=== PATIENT | male | born 1950 | race Caucasian/White ===

== ENCOUNTER 2024-04-24 16:36 | Inpatient (IN) | payer MEDICARE, OTHER, SELFPAY ==
[2024-04-24] VITALS (9 sets, daily range): BP systolic 96–169; BP diastolic 53–144; BMI 27.7; BMI 26.4
--- NOTE | 2024-04-24 14:09 | ED.GENMED ---
History of Present Illness
General
Chief Complaint: Breathing Problem
Time Seen by Provider: 04/24/24 14:08
History of Present Illness
History of Present Illness:
HPI: The patient presents with shortness of breath. He was diagnosed with pneumonia about 5 days ago and has been on Augmentin and azithromycin without improvement. He called his PMD who encouraged him to come in here and he came in by ambulance
for further evaluation. He also reports a rash to the extremities. He states he has not really been tolerating the Augmentin and azithromycin.
EXAM:
GENERAL: Well appearing in no significant distress
HEENT: Moist oral mucosa
CARDIOVASCULAR: No murmurs, tachycardic heart rate, regular rhythm, No chest wall tenderness
PULMONARY: No respiratory distress, slightly decreased breath sounds at the right base with faint rales
ABDOMEN: Soft with no peritoneal signs, no tenderness
NEUROLOGIC: Excellent strength all extremities, no coordination deficits
PSYCHIATRIC: Appropriate mental status, normal insight and judgement
EXTREMITIES: Nontender, no edema, moves all extremities equally
SKIN: No rash, no lesions
TIME OF INITIAL ENCOUNTER: 2:20 PM
NUMBER AND COMPLEXITY OF PROBLEMS ADDRESSED AT THE ENCOUNTER
� Chronic conditions affecting care: Asthma, high blood pressure, hyperlipidemia
� Acute Exacerbation and/or Progression of Chronic Illness: This is an acute problem
� Differential Diagnosis includes: Pneumonia failing outpatient management, pneumothorax, reactive airway disease less likely as there is no wheezing on exam, dehydration, KALEIGH
AMOUNT AND/OR COMPLEXITY OF DATA TO BE REVIEWED AND ANALYZED
� I performed an independent evaluation of and my interpretation is:
EKG: Sinus 118, left axis deviation, no acute ST abnormality
CT:
X-rays: Chest x-ray today overall shows improvement compared to study from earlier this month.
Laboratory Studies: White count is 19.6, creatinine 1.7
Other:
� Review of other/old records: Chest x-ray from 04/19/2024 showed mild right middle lobe pneumonia
� Clinical information was obtained by an independent historian:
� Prescriptions/Medications Considered but not given:
� Further testing considered but not performed:
RISK OF COMPLICATIONS AND/OR MORBIDITY OR MORTALITY OF PATIENT MANAGEMENT
� Social determinants of health affecting care: Lives at home
� Discussion with other providers: Hospitalist, Dr. Bartholomew, for admission at 3:52 PM
� Escalation of care including admission/observation vs risk of discharge considered: The patient came in by ambulance. He arrived tachycardic with low bicarb and elevated creatinine. He was given IV fluids. His heart rate was
initially in the 120s and now is down to 108 on reassessment. He does have a history of I am also trying a dose of a DuoNeb. Leukocytosis noted�he has not been on steroids for the last few weeks. Although the chest x-ray is reported some
improvement, he has associated cough and still has some decreased breath sounds at the right base. He has been doing poorly as an outpatient�will plan admission to the hospital and continue IV fluids and try IV antibiotics.
Past History
Past History
ED Past Medical History: Asthma, HTN, Hypercholesterolemia and Other (Cataracts, impaired vision)
ED Past Surgical History: Orthopedic (Left knee surgery)
Social History
Tobacco: Non-smoker
Alcohol: Daily
Drug: None
Personal:
Living: with family
Phy Exam
Physical Exam
Physical Exam:
See HPI
Scores
Heart Failure Risk
Heart Failure Risk Score: Not Applicable
Course
Orders/Labs/Results
Orders:
Orders
04/24/24 14:08
CXR2 [CR Chest - 2 Views ] Urgent
Comment:
Reason For Exam: shortness of breath
04/24/24 14:15
Complete Blood Count/With Diff Urgent
Comprehensive Metabolic Panel Urgent
NT-proBNP Urgent
04/24/24 14:19
EKG [Electrocardiogram (*1)] Urgent
Reason for Study: Chest Pain
EKG- Treatment ONCE
0.9% Sodium Chloride 1000 ml [Nss] 1,000 ml IV BOLUS
04/24/24 15:29
0.9% Sodium Chloride 1000 ml [Nss] 1,000 ml IV BOLUS
04/24/24 15:30
Ipratropium/Albuterol Sulfate [Duoneb] 3 ml INH R NOW ONE
04/24/24 15:47
Azithromycin 500 mg/250 ml [Zithromax Infusion] 500 mg in 250 ml IV NOW
CefTRIAXone [Rocephin] 1,000 mg IV NOW STA
Abnormal Lab Results
04/24/24
14:15
WBC 19.6 H 10^3/uL
(4.8-10.8)
RBC 4.04 L 10^6/uL
(4.70-6.10)
Hct 37.8 L %
(39.0-52.0)
MCH 33.2 H pg
(27.0-31.0)
MPV 10.9 H fL
(7.4-10.4)
Abs Immat Gran (auto) 1.3 H 10^3/uL
(0-0.05)
Absolute Neuts (auto) 16.5 H 10^3/uL
(1.4-6.5)
Absolute Lymphs (auto) 0.8 L 10^3/uL
(1.2-3.4)
Absolute Monos (auto) 0.8 H 10^3/uL
(0.1-0.6)
Immature Gran % 6.6 H %
(0-0.5)
Neutrophils % 84.4 H %
(42.2-75.2)
Lymphocytes % 4.0 L %
(20.5-51.1)
Sodium 131 L mmol/L
(135-145)
Carbon Dioxide 18 L mmol/L
(22-30)
BUN 31 H mg/dl
(9-20)
Creatinine 1.7 H mg/dL
(0.7-1.3)
Glucose 119 H mg/dl
(70-99)
04/24/24 14:15
04/24/24 14:15
Vital Signs
Pulse: 108
Initial and Last Documented VS:
Initial Vital Signs
Pulse Resp
122 20
04/24/24 14:07 04/24/24 14:07
Last Documented Vital Signs
Temp Pulse Resp BP Pulse Ox
98.5 F 108 20 169/144 96
04/24/24 14:20 04/24/24 15:58 04/24/24 14:20 04/24/24 14:20 04/24/24 14:20
*Critical Care Note
Total Time (30-74mins, 75-104mins- exclusive of procedures): Not Applicable
ED Attending Note
-
Portions of this chart may have been created with voice recognition software.� Occasional wrong word or��sound alike� substitutions may have occurred due to the inherent limitations of voice recognition software.
Discharge Plan
Departure
Patient Disposition: Admit
Date of Disposition: 04/24/24
Time of Disposition: 15:52
Presentation/result/management discussed w/ accepting MD/DO: Hospitalist
Patient with high blood pressure during this ER visit?: Yes
Discharge Problem:
Pneumonia, KALEIGH (acute kidney injury)
Prescriptions:
No Action
diphenhydramine HCl [Banophen] 50 MG capsule
50 mg PO HS
amlodipine [Norvasc] 5 MG tablet
2.5 mg PO HS
triamcinolone acetonide [Nasacort] 10.8 ML aerosol,spray
1 spray inhalation BID
montelukast 10 MG tablet
10 mg PO QPM
albuterol sulfate [Proventil HFA] 90 MCG/PUFF HFA aerosol inhaler
1 - 2 puff inhalation PRN PRN (Reason: sob)
Xolair 125 MG/ML recon soln
300 mg SC .2 WEEKS
rosuvastatin 20 MG tablet
20 mg PO QPM
budesonide-formoterol [Symbicort] 1 PUFF HFA aerosol inhaler
2 puff inhalation R BID
cholecalciferol (vitamin D3) 2,000 UNITS tablet
2,000 units PO DAILY
Metamucil Fiber Singles 1 PACKET powder in packet
1 packet PO BID
melatonin 12 MG tablet
10 mg PO HS
Restasis 0.05% Ophthalmic Emulsion:
1 drp BOTH EYES BID
Allergy Shots
1 dose INJ .[id number]
lisinopril 20 mg Tablet
20 mg PO BID
hydrocortisone 2.5 % Cream
1 applic TOPICAL BID
guaifenesin 400 mg Tablet
400 mg PO Q4H PRN (Reason: cough)
Nucala 100 mg/mL Syringe
300 mg SC Q4W
Breztri Aerosphere 160-9-4.8 mcg/actuation Hfa Aerosol Inhaler
2 inh INHALATION BID
Referrals:
Duglas Lorenzana DO [Family Provider] -
Interventions
Interventions:
*Risk Screen - Suicide Last Done: 04/24/24 14:20
*General Assessment Last Done: 04/24/24 14:20
*Neglect/Abuse Screening Last Done: 04/24/24 14:20
ED- Fall Risk Assessment Last Done: 04/24/24 14:20
*ED COVID-19 Vaccine History Last Done: 04/24/24 14:20
ED- Cardiac Assessment Last Done: 04/24/24 14:20
ED- Pulmonary Assessment Last Done: 04/24/24 14:20
Discharge Date and Time
Print Language: JAPANESE
[2024-04-24 14:26] LABS: % Basophils 0.9 % (0-2); % Immature Granulocytes 6.6 % (0-0.5); % Monocytes 4.1 % (1.7-9.3); % Neutrophils 84.4 % (42.2-75.2); Absolute Basophils 0.2 10^3/uL (0-0.2); Absolute Immature Granulocytes 1.3 10^3/uL (0-0.05); Absolute Lymphocytes 0.8 10^3/uL (1.2-3.4); Absolute Monocytes 0.8 10^3/uL (0.1-0.6); Absolute Neutrophils 16.5 10^3/uL (1.4-6.5); Hematocrit 37.8 % (39.0-52.0); Hemoglobin 13.4 g/dL (13.0-18.0); Mean Corp Hgb Conc. 35.4 g/dL (33.0-37.0); Mean Corpuscular Hgb 33.2 pg (27.0-31.0); Mean Corpuscular Volume 93.6 fL (80.0-94.0); Mean Platelet Volume 10.9 fL (7.4-10.4); Nucleated Red Blood Cells % 0 % (-); Platelet Count 158 10^3/uL (130-400); Red Blood Cell Count 4.04 10^6/uL (4.70-6.10); Red Cell Dist. Width 12.3 % (11.5-14.5); White Blood Cell Count 19.6 10^3/uL (4.8-10.8)
[2024-04-24] MEDS: NSS 1000 IV ×3 (14:37→18:38)
[2024-04-24 14:44] LABS: ALT (SGPT) 23 U/L (0-50); AST (SGOT) 21 U/L (17-59); Albumin 3.5 g/dl (3.5-5.0); Alkaline Phosphatase 80 U/L (38-126); Blood Urea Nitrogen 31 mg/dl (9-20); Calcium 8.5 mg/dl (8.4-10.2); Carbon Dioxide 18 mmol/L (22-30); Chloride 99 mmol/L (98-107); Estimated Creatinine Clearance 35 ml/min; Glucose 119 mg/dl (70-99); Potassium 4.8 mmol/L (3.5-5.1); Sodium 131 mmol/L (135-145); Total Bilirubin 0.5 mg/dl (0.2-1.3); Total Protein 6.3 g/dl (6.3-8.2); eGFR 42.04
[2024-04-24] MEDS: DUONEB 3 ML INH (15:46)
--- NOTE | 2024-04-24 16:32 | HPS.HSE ---
Addendum entered and electronically signed by Flakita Aburto MD 04/24/24 17:49:
Developed flushing and shortness of breath after receiving Azithromycin so changed to doxycycline.
Original Note:
Family Physician
-
Family Physician: Duglas Lorenzana
Chief Complaint
-
weakness
History of Present Illness
73-year-old male past medical history of asthma, allergies, hypertension, hypercholesterolemia, cataracts, vision impairment, presenting with weakness. Patient has been having productive cough and shortness of breath with chest
congestion/discomfort for the past 3 weeks and he saw his sign language translator who thought that he might have an asthma exacerbation and started him on a course of prednisone. Symptoms improved while on prednisone but cough returned. He saw his primary care
physician who treated him with a course of Augmentin and azithromycin which he finished yesterday. He states that his cough is still present but has improved. He saw his primary care physician today who noted that the patient was very tired and
sick and recommended he come to the emergency room.
He has had nausea over the past few days and is eating very little secondary to the antibiotics. Denies vomiting. He did have some loose stools. He did have some abdominal cramping. He denies fevers or chills.
He developed a rash on his lower extremities which started around the same time his original pulmonary symptoms started prior to starting antibiotics. Rash is not itchy.
He also complains of areas of redness and swelling in his left upper extremity, including an area of redness which he noticed today. These areas are not painful. He denies any allergies to antibiotics.
He drinks alcohol occasionally. He denies smoking.
Medical History
Past Medical History
Past Medical History: Reports Other (asthma, allergies, hypertension, hypercholesterolemia, cataracts, vision impairment,)
Past Surgical History: Reports None
Social History
Tobacco: Non-smoker
Alcohol: Occasional
Drug: None
Family History
Family History: Not pertinent
Allergies / Home Medications
Allergies reflects when Allergies were last updated in [facility].
Home Medications with original date entered in [facility]
Allergy/Medication List:
Allergies
Allergy/AdvReac Type Severity Reaction Status Date / Time
hayfever Allergy asthma Uncoded 01/08/21 17:26
attack
Home Medications
Allergy Shots 1 dose INJ TH 07/03/20
albuterol sulfate 90 mcg/actuation aerosol inhaler (Proventil HFA) 2 puff inhalation R Q4HPRN PRN sob 07/03/20
cyclosporine 0.05 % eye drops in a dropperette (Restasis) 1 drp BOTH EYES BID 07/03/20
diphenhydramine HCl 50 mg capsule (Banophen) 50 mg PO HSPRN PRN sleep 07/03/20
psyllium husk (aspartame) 3.4 gram oral powder packet (Metamucil Fiber Singles) 1 packet PO BID 07/03/20
rosuvastatin 20 mg tablet 20 mg PO DAILY 07/03/20
triamcinolone acetonide 55 mcg nasal spray aerosol (Nasacort) 1 spray inhalation BIDPRN PRN congestion 07/03/20
amlodipine 2.5 mg tablet 2.5 mg PO HS 04/24/24
budesonide 160 mcg-glycopyr 9 mcg-formot 4.8 mcg/actuation HFA inhaler (Breztri Aerosphere) 2 inh inhalation R BID 04/24/24
cholecalciferol (vitamin D3) 50 mcg (2,000 unit) tablet 50 mcg PO DAILY 04/24/24
guaifenesin 400 mg tablet 400 mg PO Q4HPRN PRN cough 04/24/24
hydrocortisone 2.5 % topical cream 1 applic topical BID apply to hemorrhoids 04/24/24
lisinopril 20 mg tablet 20 mg PO BID 04/24/24
melatonin 10 mg tablet 10 mg PO HSPRN PRN sleep 04/24/24
mepolizumab 100 mg/mL subcutaneous syringe (Nucala) 300 mg SC Q4W 04/24/24
Review of Systems
-
History Source: Patient
A 12 point ROS was completed and negative except as noted: Yes
Constitutional: Reports No Symptoms
EENT: Reports No Symptoms
Respiratory: Reports See HPI
Cardiac: Reports No Symptoms
Abdomen/GI: Reports See HPI
: Reports No Symptoms
Musculoskeletal: Reports No Symptoms
Skin: Reports No Symptoms
Neurological: Reports No Symptoms
Endocrine: Reports No Symptoms
Hematologic/Lymphatic: Reports No Symptoms
Psych: Reports No Symptoms
Physical Exam
Vital Signs
Vital Signs
Temp Pulse Resp BP Pulse Ox
98.5 F 108 20 169/144 96
04/24/24 14:20 04/24/24 15:58 04/24/24 14:20 04/24/24 14:20 04/24/24 14:20
Physical Exam
General: Well Developed, Well Nourished and No Apparent Distress
HEENT: NormoCephalic, Moist mucous membranes and Atraumatic
Respiratory: Clear
Cardiac: S1/S2 and Regular Rhythm; No Murmur or Rub
GI: Soft, Non Tender, Non Distended and Normal Bowel Sounds; No Organomegaly
Rectal: Deferred by Provider
Musculoskeletal: No Clubbing, No Cyanosis and No Edema
Skin: Other (purpuric rash lower extremities, urticaric redness left upper extremity with swelling ); No Rash
Neuro: Nonfocal/grossly intact
Laboratory Results
-
04/24/24 14:15
04/24/24 14:15
Laboratory Results
Total Bilirubin 0.5 mg/dl (0.2-1.3) 04/24/24 14:15
AST 21 U/L (17-59) 04/24/24 14:15
ALT 23 U/L (0-50) 04/24/24 14:15
Alkaline Phosphatase 80 U/L (38-126) 07/09/24 14:15
Data Reviewed
-
Lab Data: Labs Reviewed by me
Old Records: Reviewed
Impression/Plan
-
IMPRESSION:
PLAN:
# Resolving right lower lobe pneumonia
-Patient feels significantly better after IV fluids and DuoNeb
-No wheezing or rhonchi on examination although just received DuoNeb
-Chest x-ray shows improvement opacity seen within the right lower lung suggesting improvement in pneumonia which correlates clinically
-Completed 1 week of antibiotics, can keep on ceftriaxone/azithromycin until discharge
-Continue DuoNebs every 6 as needed
# Acute kidney injury secondary to decreased p.o. intake
-IV fluids
-Hold lisinopril
# Loose stools/nausea secondary to antibiotics
-Continue to monitor
# Lower extremity purpuric rash
-Looks like it could be related to Augmentin although as per patient started prior to antibiotics
-Continue to observe
# Left upper extremity urticaria rash
-Not itchy or uncomfortable
-Benadryl if needed
History of asthma
-Continue DuoNebs every 6 hours as needed
-continue Breztri
Essential hypertension
-Continue amlodipine
-Hold lisinopril
Hypercholesterolemia
-Continue statin
Cataract
Vision impairment
Full code
DVT prophylaxis�heparin
Regular diet
[2024-04-24] MEDS: ROCEPHIN 1000 MG IV (16:35)
[2024-04-24] MEDS: ZITHROMAX INFUSION 250 IV (16:36)
--- NOTE | 2024-04-24 17:45 | EDRN ---
the pt pressed the call morales and this RN entered the pts room, the pt stated to this RN, 'I just wanted to let you know that when that ABX finished I had a pain in my stomach and i felt a flushing feeling and felt short of breath, it scared me and
checo if it was an allergic reaction or not but i didn't like it', VS WNL, no s/s of distress, this RN notified the provider
--- NOTE | 2024-04-24 17:59 | EDRN ---
Azithromycin was discontinued by the provider and Doxycycline was ordered
[2024-04-24] MEDS: VISBIOME 1 CAP PO (18:50)
[2024-04-24] MEDS: SYMBICORT 160/4.5 MCG INHALER 2 PUFF INH (20:01)
[2024-04-24] MEDS: HEPARIN 5000 UNITS SC (20:44)
[2024-04-24] MEDS: HYDROCORTISONE 2.5% CREAM 1 APPLIC TOPICAL (20:45)
[2024-04-24] MEDS: RESTASIS 0.05% OPHTHALMIC EMULSION 1 DROPS BOTH EYES (20:45)
[2024-04-24] MEDS: VIBRAMYCIN 100 MG PO (20:45)
[2024-04-24] MEDS: METAMUCIL, KONSYL 1 PACKET PO (20:45)
[2024-04-24] MEDS: NORVASC 2.5 MG PO (21:00)
[2024-04-25] VITALS (8 sets, daily range): BP systolic 104–130; BP diastolic 61–75; PULSE 118–126; O2SAT 98–99; BMI 26.4
[2024-04-25] MEDS: TYLENOL 650 MG PO ×2 (00:51→17:23)
[2024-04-25] MEDS: BENADRYL 50 MG PO ×2 (00:51→22:15)
[2024-04-25 05:40] LABS: % Basophils 0.7 % (0-2); % Immature Granulocytes 6.1 % (0-0.5); % Lymphocytes 7.5 % (20.5-51.1); % Monocytes 5.1 % (1.7-9.3); % Neutrophils 80.6 % (42.2-75.2); Absolute Basophils 0.1 10^3/uL (0-0.2); Absolute Immature Granulocytes 0.8 10^3/uL (0-0.05); Absolute Lymphocytes 0.9 10^3/uL (1.2-3.4); Absolute Monocytes 0.6 10^3/uL (0.1-0.6); Absolute Neutrophils 9.9 10^3/uL (1.4-6.5); Hematocrit 32.3 % (39.0-52.0); Hemoglobin 11.4 g/dL (13.0-18.0); Mean Corp Hgb Conc. 35.3 g/dL (33.0-37.0); Mean Corpuscular Hgb 32.9 pg (27.0-31.0); Mean Corpuscular Volume 93.1 fL (80.0-94.0); Mean Platelet Volume 10.8 fL (7.4-10.4); Nucleated Red Blood Cells % 0 % (-); Platelet Count 123 10^3/uL (130-400); Red Blood Cell Count 3.47 10^6/uL (4.70-6.10); Red Cell Dist. Width 12.4 % (11.5-14.5); White Blood Cell Count 12.3 10^3/uL (4.8-10.8)
[2024-04-25] MEDS: NSS 1000 IV ×2 (06:00→16:04)
[2024-04-25 06:13] LABS: ALT (SGPT) 16 U/L (0-50); AST (SGOT) 16 U/L (17-59); Albumin 2.5 g/dl (3.5-5.0); Alkaline Phosphatase 71 U/L (38-126); Blood Urea Nitrogen 26 mg/dl (9-20); Calcium 7.9 mg/dl (8.4-10.2); Carbon Dioxide 18 mmol/L (22-30); Chloride 103 mmol/L (98-107); Estimated Creatinine Clearance 44 ml/min; Glucose 118 mg/dl (70-99); Potassium 4.2 mmol/L (3.5-5.1); Sodium 132 mmol/L (135-145); Total Bilirubin 0.2 mg/dl (0.2-1.3); Total Protein 5.1 g/dl (6.3-8.2); eGFR 53.07
[2024-04-25] MEDS: SYMBICORT 160/4.5 MCG INHALER 2 PUFF INH ×2 (07:54→20:10)
[2024-04-25] MEDS: SPIRIVA RESPIMAT 2.5 MCG 2 PUFF INH (07:54)
[2024-04-25] MEDS: CRESTOR 20 MG PO (08:01)
[2024-04-25] MEDS: METAMUCIL, KONSYL 1 PACKET PO ×2 (08:01→21:04)
[2024-04-25] MEDS: VIBRAMYCIN 100 MG PO (08:02)
[2024-04-25] MEDS: RESTASIS 0.05% OPHTHALMIC EMULSION 1 DROPS BOTH EYES ×2 (08:02→21:04)
[2024-04-25] MEDS: HEPARIN 5000 UNITS SC ×2 (08:02→21:04)
[2024-04-25] MEDS: VITAMIN D3 (cholecalciferol) 50 MCG PO (08:02)
[2024-04-25] MEDS: HYDROCORTISONE 2.5% CREAM 1 APPLIC TOPICAL ×2 (08:04→21:05)
--- NOTE | 2024-04-25 11:48 | W.PN.HOSP.TC ---
Today's Communication/Plan
-
c/w IV Rocephin, Doxy
Mild IVF
Assessment / Plan
Assessment / Plan
Physical Exam
General: Looks comfortable. No Apparent Distress
HEENT: NormoCephalic, Moist mucous membranes and Atraumatic
Respiratory: Clear
Cardiac: S1/S2
GI: Soft, Non Tender, Non Distended and Normal Bowel Sounds;
Musculoskeletal: No Clubbing, No Cyanosis and No Edema
Neuro: Nonfocal/grossly intact
Psych: calm
# Oral antibiotics induced N/V
He feels better
Abdomen, non tender or distended
c/w supportive care, anti-nausea as PRN
c/w mild IVF
# Resolving right lower lobe pneumonia
Repeat chest x ray, resolving right PNA
No hypoxia
finish course of ABx As IV instead of oral.
# Acute kidney injury secondary to decreased p.o. intake
-IV fluids
-Held lisinopril
# Loose stools/nausea secondary to antibiotics
-Continue to monitor
# Lower extremity purpuric rash
- Doubt related to as per patient started prior to antibiotics
# Hyponatremia, mild
# Left upper extremity urticaria rash
-Not itchy or uncomfortable
-Benadryl if needed
#History of asthma
-Continue DuoNeb every 6 hours as needed
#-continue Breztri
Essential hypertension
-Continue amlodipine
-Hold lisinopril
Hypercholesterolemia
-Continue statin
Cataract
Vision impairment
Full code
DVT prophylaxis�heparin
Regular diet
Total time spent to see the patient, examine the patient, review data and lab results, and discuss the treatment plan with patient, nurse around 55 minutes
Anticipated Discharge: 24 - 48 hours
Subjective/Interval History
-
Date of Service: April 25, 2024
He feels better
No fever
No chest pain
Objective Data
-
Labs:
Laboratory Results
04/25/24
05:06
WBC 12.3 H
Hgb 11.4 L
Hct 32.3 L
Plt Count 123 L D
Sodium 132 L
Potassium 4.2
Chloride 103
Carbon Dioxide 18 L
BUN 26 H
Creatinine 1.4 H
Glucose 118 H
Calcium 7.9 L
Total Bilirubin 0.2
AST 16 L
ALT 16
Alkaline Phosphatase 71
Vital Signs:
Vital Signs
Temp Pulse Resp BP Pulse Ox
100.0 F 117 16 118/70 97
04/25/24 11:21 04/25/24 11:21 04/25/24 11:21 04/25/24 11:21 04/25/24 11:21
I&O
04/24/24 04/25/24 04/26/24
06:59 06:59 06:59
Intake Total 1080 / 1080
Balance 1080 / 1080
[2024-04-25 14:17] LABS: Urine Albumin Trace (Neg - Trace); Urine Bilirubin Negative (Negative); Urine Character Clear (Clear); Urine Color Yellow; Urine Glucose Negative (Negative); Urine Ketone Negative (Negative); Urine Leukocyte Negative (Negative); Urine Nitrite Negative (Negative); Urine Occult Blood Negative (Negative); Urine Specific Gravity 1.015 (<1.030); Urine Urobilinogen Negative (Neg - 1+)
[2024-04-25 15:02] LABS: Creatine Phosphokinase 26 U/L (55-170)
[2024-04-25 15:33] LABS: C-Reactive Protein > 270.00 mg/L (0.0-10.00)
[2024-04-25] MEDS: ROCEPHIN 1000 MG IV (15:33)
[2024-04-25] MEDS: STERILE WATER FOR INJECTION 10 ML IV (15:33)
--- NOTE | 2024-04-25 17:01 | CM ---
Alert awake oriented patient who lives alone in a split story home with 2 step to enter and 9 steps to bed and bathroom. He is independent in driving and in all activities of daily living.He was offered VN he declined need.Daughter Emilee and son
Lucho supportive.
No VN hx / No SNF history
Pharmacy [facility]
PCP DR Belcher
PLAN Home with no anticipated needs
[2024-04-25] MEDS: VISBIOME 1 CAP PO (17:23)
[2024-04-25] MEDS: PEPCID 20 MG PO (17:54)
[2024-04-25] MEDS: NSS 500 IV (18:42)
[2024-04-25] MEDS: NORVASC 2.5 MG PO (21:05)
[2024-04-26] MEDS: NSS 1000 IV (02:57)
[2024-04-26 03:00] VITALS: BP 117/73
[2024-04-26 06:29] LABS: Hematocrit 30.4 % (39.0-52.0); Hemoglobin 10.6 g/dL (13.0-18.0); Mean Corp Hgb Conc. 34.9 g/dL (33.0-37.0); Mean Corpuscular Hgb 32.4 pg (27.0-31.0); Mean Platelet Volume 10.9 fL (7.4-10.4); Platelet Count 117 10^3/uL (130-400); Red Blood Cell Count 3.27 10^6/uL (4.70-6.10); Red Cell Dist. Width 12.3 % (11.5-14.5); White Blood Cell Count 13.2 10^3/uL (4.8-10.8)
[2024-04-26] MEDS: SYMBICORT 160/4.5 MCG INHALER 2 PUFF INH ×2 (06:37→19:42)
[2024-04-26] MEDS: SPIRIVA RESPIMAT 2.5 MCG 2 PUFF INH (06:37)
[2024-04-26 06:57] LABS: Blood Urea Nitrogen 16 mg/dl (9-20); Calcium 7.8 mg/dl (8.4-10.2); Carbon Dioxide 19 mmol/L (22-30); Chloride 105 mmol/L (98-107); Estimated Creatinine Clearance 51 ml/min; Glucose 103 mg/dl (70-99); Potassium 4.1 mmol/L (3.5-5.1); Sodium 132 mmol/L (135-145); eGFR > 60.00
[2024-04-26 07:32] VITALS: BP 119/76
[2024-04-26] MEDS: CRESTOR 20 MG PO (07:48)
[2024-04-26] MEDS: METAMUCIL, KONSYL 1 PACKET PO ×2 (07:48→19:40)
[2024-04-26] MEDS: HEPARIN 5000 UNITS SC (07:49)
[2024-04-26] MEDS: RESTASIS 0.05% OPHTHALMIC EMULSION 1 DROPS BOTH EYES ×2 (07:50→19:40)
[2024-04-26] MEDS: TOPROL XL 25 MG PO (07:50)
[2024-04-26] MEDS: VITAMIN D3 (cholecalciferol) 50 MCG PO (07:50)
[2024-04-26] MEDS: HYDROCORTISONE 2.5% CREAM 1 APPLIC TOPICAL (07:51)
--- NOTE | 2024-04-26 09:06 | W.PN.HOSP.TC ---
Today's Communication/Plan
-
Encourage PT/OT
Stop IVF
Assessment / Plan
Assessment / Plan
Physical Exam
General: Looks comfortable. No Apparent Distress
HEENT: NormoCephalic, Moist mucous membranes and Atraumatic
Respiratory: Clear
Cardiac: S1/S2
GI: Soft, Non Tender, Non Distended and Normal Bowel Sounds;
Musculoskeletal: No Clubbing, No Cyanosis and No Edema
Neuro: Nonfocal/grossly intact
Psych: calm
# Pneumonia Only , Without Systemic Illness
# Oral antibiotics induced N/V
He feels better, tolerating diet
Abdomen, non tender or distended
c/w supportive care, anti-nausea as PRN
Can stop IVF
# Elevated CRP
non specific, recent PNA
I d/w his PCP over the phone, he will repeat it. Pt follows also with in store marketing representative
# Resolving right lower lobe pneumonia
WBC is coming down , afebrile. Did blood culture.
Repeat chest x ray, resolving right PNA
No hypoxia or cough, no wheezes on exam.
finished course of ABx , today is last dose for Rocephin.
# Acute kidney injury secondary to decreased p.o. intake
Creatinine back to baseline at 1.2. I d/w languages and literature instructor Dr Green. Pt saw them in office, he is back to baseline. No hx of GN.
-s/p IV fluids
- Urinalysis, no hematuria, clear urine
# Loose stools/nausea secondary to antibiotics
resolved.
# Lower extremity purpuric rash
Not itchy , seems stable and fading.
- Doubt related to as per patient started prior to antibiotics
# Hyponatremia, mild
# Left upper extremity urticaria rash
-Not itchy or uncomfortable
-Benadryl if needed
#History of asthma
-Continue DuoNeb every 6 hours as needed
#-continue Breztri
Essential hypertension
Low normal Bp
Has sinus tachycardia, will benefit from selective BB, but will do Cardizem low dose instead of Amlodipine.
- Stopped amlodipine
-Held lisinopril due to KALEIGH and P low normal.
Hypercholesterolemia
-Continue statin
Cataract
Vision impairment
Full code
DVT prophylaxis�heparin
Regular diet
Total time spent to see the patient, examine the patient, review data and lab results, and discuss the treatment plan with patient, nurse around 57 minutes
Anticipated Discharge: 24 - 48 hours
Subjective/Interval History
-
Date of Service: April 26, 2024
Pt denies chest pain, cough or sob
He reports generalized weakness
Objective Data
-
Labs:
Laboratory Results
04/26/24
05:24
WBC 13.2 H
Hgb 10.6 L
Hct 30.4 L
Plt Count 117 L
Sodium 132 L
Potassium 4.1
Chloride 105
Carbon Dioxide 19 L
BUN 16
Creatinine 1.2
Glucose 103 H
Calcium 7.8 L
Vital Signs:
Vital Signs
Temp Pulse Resp BP Pulse Ox
98.5 F 110 17 119/76 95
04/26/24 07:32 04/26/24 07:50 04/26/24 07:32 04/26/24 07:50 04/26/24 07:32
I&O
04/25/24 04/26/24 04/27/24
06:59 06:59 06:59
Intake Total 1080 / 1080 3060 / 3060
Output Total 125 / 125
Balance 1080 / 1080 2935 / 2935
--- NOTE | 2024-04-26 09:43 | PN.CDI ---
CDI
- -
CDI:
Physician Documentation Request
Admit Date: 04/24/24 16:36
Dear Doctor Luis,
Please review the following and provide your response in the progress notes.
Clinical Indicators:
Pt admitted with RLL Pneumonia/KALEIGH
Documented per ED, ' He was diagnosed with pneumonia about 5 days ago and has been on Augmentin and azithromycin without improvement....tachycardic heart rate...His heart rate was initially in the 120s and now is down to 108 on reassessment....'
On admission Tmax 100.3,HR 125, WBC 19.6
Please clarify which of the following most accurately describes the status of the patient's infection:
Sepsis-POA
- Systemic manifestations of infection, with 2 or more SIRS criteria which include:
- Fever >100.4 degrees F or hypothermia < 96.8 degrees F
- Leukocytosis - WBC > 12,000 or leukopenia - WBC < 4,000 or > 10% bands
- Tachycardia > 90 beats per minute
- Tachypnea - RR > 20 breaths per minute or PaCO2 , 32mmHg
Source: [employer]ck Manual 2013
Pneumonia Only , Without Systemic Illness
Other ( please specify)
Use of terms such as suspected, likely, concern for, or probable (associated with a specific diagnosis that is being evaluated, monitored, or treated as if it exists) are acceptable and can be coded in the inpatient setting, when documented at the
time of discharge.
Thank you,
Ruth Antony RN
CDI Specialist
[place] [facility]
Please use your independent medical judgment in providing your response.
[2024-04-26 11:05] VITALS: BP 134/79
[2024-04-26 15:27] VITALS: BP 134/91
[2024-04-26] MEDS: ROCEPHIN IV ×2 (16:09→16:55)
[2024-04-26] MEDS: STERILE WATER FOR INJECTION IV ×2 (16:09→16:56)
[2024-04-26] MEDS: VISBIOME 1 CAP PO (17:21)
[2024-04-26 18:10] LABS: Reticulocyte Count 0.7 % (0.4-2.8)
[2024-04-26 19:05] VITALS: BP 121/75
[2024-04-26] MEDS: HYDROCORTISONE 2.5% CREAM TOPICAL (19:41)
[2024-04-26] MEDS: BENADRYL 50 MG PO (22:30)
[2024-04-26 23:14] VITALS: BP 146/68
[2024-04-27 03:12] VITALS: BP 135/78
[2024-04-27 07:05] LABS: Hematocrit 30.5 % (39.0-52.0); Hemoglobin 10.9 g/dL (13.0-18.0); Mean Corp Hgb Conc. 35.7 g/dL (33.0-37.0); Mean Corpuscular Hgb 33.1 pg (27.0-31.0); Mean Corpuscular Volume 92.7 fL (80.0-94.0); Mean Platelet Volume 10.9 fL (7.4-10.4); Platelet Count 109 10^3/uL (130-400); Red Blood Cell Count 3.29 10^6/uL (4.70-6.10); Red Cell Dist. Width 12.3 % (11.5-14.5); White Blood Cell Count 11.2 10^3/uL (4.8-10.8)
[2024-04-27 07:20] VITALS: BP 121/78
[2024-04-27] MEDS: SPIRIVA RESPIMAT 2.5 MCG 2 PUFF INH (07:43)
[2024-04-27] MEDS: SYMBICORT 160/4.5 MCG INHALER 2 PUFF INH ×2 (07:44→20:19)
--- NOTE | 2024-04-27 08:58 | CON.ONC ---
Documented by User: [email or web address] Hoffman 04/27/24 11:25
Impression
Impression
PNA
leukocytosis improved
normocytic anemia
thrombocytopenia
elevated CRP
purpuric rash b/l LE
KALEIGH improved
Plan
Plan
avoid anticoagulation, antiplatelet, nsaids
check DIC panel
check B12/folate
f/u platelet assoc ab
f/u heparin associated platelet Ab - low suspicion, does not fit clinical picture
dvt ppx with Arixtra vs apixaban 2.5mg bid
check APLS panel
follow up anemia evaluation, hemolysis less likely with normal LFTs and retic
consider rheum work up for continued evaluation of rash with elevated CRP
Patient History
History of Present Illness
Consulted for thrombocytopenia
73yo F presented with weakness, productive cough, SOB, and chest congestion. He has been experiencing these symptoms for the past 3 weeks. He sought further evaluation with his radial router operator who thought may be an exacerbation of his asthma, however,
there was no significant improvement wtih a course of Augmentin, azithromycin, and prednisone. He completed his course of abx yesterday and was evaluated by his PCP who recommended ER evaluation for persistent symptoms. Since starting abx, he has
loose stools and nausea. He has a non-pruritic rash on his lower that predates abx. He also tells me that over the past month that he has lost 10lbs and developed LUE edema and pain. He denies any injury to his LUE but has improved slightly over
the past serveral days.
04/24/2024 CXR Improvement in opacity seen within the right lower lung on chest radiograph of April 19, 2024, suggesting improvement in pneumonia and/or atelectasis. The left lung appears radiographically clear. Cardiac silhouette size and vascular
markings appear within normal limits.
WBC 11.2, Hgb 10.9g/dL, platelets 109,000, retic 1.4, creatinine 1.2
Past-Medical/Surgical History
past medical history:asthma, allergies, hypertension, hypercholesterolemia, cataracts, vision impairment
PSH: knee, eyelid, nose reconstruction
Social: non smoker, rare etoh, denies recreational drugs
Family: denies malignancy, bleeding or clotting disorders
Patient Medication
�Medication �Instructions �Recorded �Confirmed �Last Taken �Type
Allergy Shots 1 dose INJ TH Allergies 07/03/20 04/24/24 06/19/20 History
albuterol sulfate 90 mcg/actuation 2 puff inhalation R Q4HPRN PRN sob 07/03/20 04/24/24 06/29/20 History
aerosol inhaler (Proventil HFA)
cyclosporine 0.05 % eye drops in a 1 drp BOTH EYES BID dry eye 07/03/20 04/24/24 04/24/24 History
dropperette (Restasis)
diphenhydramine HCl 50 mg capsule 50 mg PO HSPRN PRN sleep 07/03/20 04/24/24 07/03/20 22:30 History
(Banophen)
psyllium husk (aspartame) 3.4 gram 1 packet PO BID Constipation 07/03/20 04/24/24 04/24/24 History
oral powder packet (Metamucil
Fiber Singles)
rosuvastatin 20 mg tablet 20 mg PO DAILY High Cholesterol 07/03/20 04/24/24 04/24/24 History
triamcinolone acetonide 55 mcg 1 spray inhalation BIDPRN PRN 07/03/20 04/24/24 07/04/20 05:30 History
nasal spray aerosol (Nasacort) congestion
amlodipine 2.5 mg tablet 2.5 mg PO HS Blood Pressure 04/24/24 04/24/24 04/23/24 History
budesonide 160 mcg-glycopyr 9 2 inh inhalation R BID 04/24/24 04/24/24 04/24/24 History
mcg-formot 4.8 mcg/actuation HFA Lung/Breathing Issues
inhaler (Breztri Aerosphere)
cholecalciferol (vitamin D3) 50 50 mcg PO DAILY Supplement 04/24/24 04/24/24 04/24/24 History
mcg (2,000 unit) tablet
guaifenesin 400 mg tablet 400 mg PO Q4HPRN PRN cough 04/24/24 04/24/24 Unknown History
hydrocortisone 2.5 % topical cream 1 applic topical BID apply to 04/24/24 04/24/24 Unknown History
hemorrhoids
lisinopril 20 mg tablet 20 mg PO BID Blood Pressure 04/24/24 04/24/24 04/24/24 History
melatonin 10 mg tablet 10 mg PO HSPRN PRN sleep 04/24/24 04/24/24 Unknown History
mepolizumab 100 mg/mL subcutaneous 300 mg SC Q4W asthma 04/24/24 04/24/24 3 Weeks Ago History
syringe (Nucala) ~04/03/24
Active Medications
Generic Name Dose Route Start Last Admin
Trade Name Freq PRN Reason Stop Dose Admin
Acetaminophen 650 mg 04/24/24 17:47 04/25/24 17:23
Acetaminophen 325 Mg Tablet PO 05/22/24 17:46 650 mg
Q4HPRN PRN Administration
mild pain/FIGUEREDO/temp> 100.4F
Albuterol/Ipratropium 3 ml 04/24/24 17:47
Ipratropium 0.5/Albuterol 3 Mg (3 Ml Ampul) INH
R Q4HPRN PRN
SOB
Protocol
Budesonide/Formoterol Fumarate 2 puff 04/24/24 20:00 04/27/24 07:44
Symbicort Inhaler 160/4.5 INH 05/22/24 19:59 2 puff
R BID DOE Administration
Cholecalciferol 50 mcg 04/25/24 08:00 04/26/24 07:50
Cholecalciferol (Vitamin D3) 50 Mcg Tablet (2,000 Units) PO 05/23/24 07:59 50 mcg
DAILY DOE Administration
Cyclosporine 1 drops 04/24/24 20:00 04/26/24 19:40
Cyclosporine 0.05% (Ophthalmic Emulsion) 10 Drop Droperette BOTH EYES 05/22/24 19:59 1 drops
BID DOE Administration
Diltiazem HCl 120 mg 04/27/24 08:00
Diltiazem 120 Mg Extended Release (24 H) Capsule PO 05/25/24 07:59
DAILY DOE
Diphenhydramine HCl 50 mg 04/24/24 17:47 04/26/24 22:30
Diphenhydramine 50 Mg Capsule PO 05/22/24 17:46 50 mg
HSPRN PRN Administration
sleep
Guaifenesin 600 mg 04/24/24 18:16
Guaifenesin 600 Mg Extended Release Tablet PO 05/22/24 18:15
[id number] PRN
cough
Hydrocortisone 0 applic 04/24/24 20:00 04/26/24 19:41
Hydrocortisone 2.5% (Cream) Tube TOPICAL 05/22/24 19:59 Not Given
BID DOE
Hydrocortisone 0 applic 04/26/24 17:20
Hydrocortisone 1% (Cream) Tube TOPICAL 05/24/24 17:19
TIDPRN PRN
itching
Lactobacillus/Bifidobacterium 1 cap 04/24/24 18:45 04/26/24 17:21
Lactobac/Bifidobac (Visbiome) PO 05/22/24 18:44 1 cap
QPM DOE Administration
Melatonin 10 mg 04/24/24 18:05
Melatonin 5 Mg Tablet PO 05/22/24 18:04
HSPRN PRN
sleep
Ondansetron HCl 4 mg 04/24/24 17:47
Ondansetron 4 Mg/2 Ml Vial IV 05/22/24 17:46
Q6HPRN PRN
nausea and vomiting
Psyllium Hydrophilic Mucilloid 1 packet 04/24/24 20:00 04/26/24 19:40
Psyllium Packet PO 05/22/24 19:59 1 packet
BID DOE Administration
Rosuvastatin Calcium 20 mg 04/25/24 08:00 04/26/24 07:48
Rosuvastatin (Crestor) 20 Mg Tablet PO 05/23/24 07:59 20 mg
DAILY DOE Administration
Sodium Chloride 0 flush 04/24/24 18:00
Sodium Chloride 0.9% (Flush) Syringe IV 05/22/24 17:59
PER PROTOCOL DOE
Tiotropium [place]ell 2 puff 04/25/24 08:00 04/27/24 07:43
Tiotropium (Spiriva Respimat) 2.5 Mcg Inhaler INH 05/23/24 07:59 2 puff
R DAILY DOE Administration
Review of Systems
-
Review of systems notable for HPI, otherwise negative
Physical Exam
-
General: Well Developed, Well Nourished and No Apparent Distress
HEENT: Moist mucous membranes and Atraumatic
Respiratory: Clear
Cardiac: S1/S2 and Regular Rhythm
GI: Soft, Non Tender, Non Distended, No Organomegaly
Ext LUE edema
Skin: macular/papular purpuric rash lower extremities. RUE with redness below IV site
Neuro: speech clear
Labs
Lab Results
WBC 11.2 10^3/uL (4.8-10.8) H 04/27/24 06:14
RBC 3.29 10^6/uL (4.70-6.10) L 04/27/24 06:14
Hgb 10.9 g/dL (13.0-18.0) L 04/27/24 06:14
Hct 30.5 % (39.0-52.0) L 04/27/24 06:14
MCV 92.7 fL (80.0-94.0) 04/27/24 06:14
MCH 33.1 pg (27.0-31.0) H 04/27/24 06:14
MCHC 35.7 g/dL (33.0-37.0) 04/27/24 06:14
RDW 12.3 % (11.5-14.5) 04/27/24 06:14
Plt Count 109 10^3/uL (130-400) L 04/27/24 06:14
MPV 10.9 fL (7.4-10.4) H 04/27/24 06:14
Abs Immat Gran (auto) 0.8 10^3/uL (0-0.05) H 04/25/24 05:06
Absolute Neuts (auto) 9.9 10^3/uL (1.4-6.5) H 04/25/24 05:06
Absolute Lymphs (auto) 0.9 10^3/uL (1.2-3.4) L 04/25/24 05:06
Absolute Monos (auto) 0.6 10^3/uL (0.1-0.6) 04/25/24 05:06
Absolute Eos (auto) 0.0 10^3/uL (0-0.7) 04/25/24 05:06
Absolute Basos (auto) 0.1 10^3/uL (0-0.2) 04/25/24 05:06
Immature Gran % 6.1 % (0-0.5) H 04/25/24 05:06
Neutrophils % 80.6 % (42.2-75.2) H 04/25/24 05:06
Lymphocytes % 7.5 % (20.5-51.1) L 04/25/24 05:06
Monocytes % 5.1 % (1.7-9.3) 04/25/24 05:06
Eosinophils % 0.0 % (0-6) 04/25/24 05:06
Basophils % 0.7 % (0-2) 04/25/24 05:06
Creatinine 1.2 mg/dL (0.7-1.3) 04/26/24 05:24
Vital Signs
Vital Signs
Temp Pulse Resp BP Pulse Ox
98.3 F 116 24 121/78 97
04/27/24 07:20 04/27/24 07:48 04/27/24 07:48 04/27/24 07:20 04/27/24 07:20

Documented by User: Rodolfo Everett MD 04/27/24 12:00
Plan
Plan
avoid anticoagulation, antiplatelet, nsaids
check DIC panel
check B12/folate
f/u platelet assoc ab
f/u heparin associated platelet Ab - low suspicion, does not fit clinical picture
dvt ppx with Arixtra vs apixaban 2.5mg bid
check APLS panel
follow up anemia evaluation, hemolysis less likely with normal LFTs and retic
consider rheum work up for continued evaluation of rash with elevated CRP
Hematology Attending Addendum:
Patient seen and evaluated and agree w/ RADAR TESTER note and plan as outlined
1. Thrombocytopenia - potentially multifactorial in nature- setting of infection/ antibiotics, as well as significant h/o ETOH use in past.
-additional laboratory w/u underway as outlined above
-will also check abdominal US to assess liver/ spleen size
2. Rash - LE bilateral and UE - maculopapular - not particularly petechial in nature
-other etiologies include rash due to viral illness vs. medication - antibiotic - vs. other inflammatory process given elevation in CRP
-could consider dermatologic assessment - w/ biopsy and/or rheumatology evaluation if persists
will continue to follow with you
[2024-04-27] MEDS: CARDIZEM CD 120 MG PO (09:17)
[2024-04-27] MEDS: RESTASIS 0.05% OPHTHALMIC EMULSION 1 DROPS BOTH EYES ×2 (09:18→23:11)
[2024-04-27] MEDS: VITAMIN D3 (cholecalciferol) 50 MCG PO (09:18)
[2024-04-27] MEDS: CRESTOR 20 MG PO (09:19)
[2024-04-27] MEDS: METAMUCIL, KONSYL 1 PACKET PO (09:19)
[2024-04-27] MEDS: HYDROCORTISONE 2.5% CREAM 1 APPLIC TOPICAL (09:19)
--- NOTE | 2024-04-27 10:30 | W.PN.HOSP.TC ---
Today's Communication/Plan
-
.
Assessment / Plan
Assessment / Plan
Physical Exam
General: Looks comfortable. No Apparent Distress
HEENT: NormoCephalic, Moist mucous membranes and Atraumatic
Respiratory: Clear
Cardiac: S1/S2
GI: Soft, Non Tender, Non Distended and Normal Bowel Sounds;
Musculoskeletal: No Clubbing, No Cyanosis and No Edema
Neuro: Nonfocal/grossly intact
Psych: calm
# Thrombocytopenia
DDX include: Medication induced , infection induced, ITP, HIT
Serology was sent
Stopped heparin SQ
Stopped ABx ( he finished course)
Mild lower extremities petechiae, not spreading. Stable HGB. Recti count is normal
COVID negative
Consulted hematology, appreciate input
# Pneumonia Only , Without Systemic Illness
Finished Tx
NO cough or hypoxia
Negative blood culture
Repeat chest x ray resolution of PNA
# Oral antibiotics induced N/V
He feels better, tolerating diet
Abdomen, non tender or distended
c/w supportive care, anti-nausea as PRN
Stopped IVF
# Elevated CRP
non specific, recent PNA
I d/w his PCP over the phone, he will repeat in office. Pt follows also with birthing nurse
# Acute kidney injury secondary to decreased p.o. intake
Creatinine back to baseline at 1.2. I d/w line worker Dr Green. Pt was seen in office by Dr Viveros, he is back to baseline. No hx of GN.
-s/p IV fluids
- Urinalysis, no hematuria, clear urine
# Loose stools/nausea secondary to antibiotics
resolved.
# Hyponatremia, mild
# Left upper extremity urticaria rash
-Not itchy or uncomfortable
-Benadryl if needed
#History of asthma
-Continue DuoNeb every 6 hours as needed
#-continue Breztri
#Essential hypertension
Low normal Bp
Has sinus tachycardia, will do Cardizem low dose instead of Amlodipine.
- Stopped amlodipine
-Held lisinopril due to KALEIGH and P low normal.
Hypercholesterolemia
-Continue statin
Cataract
Vision impairment
Full code
DVT prophylaxis�heparin
Regular diet
Total time spent to see the patient, examine the patient, review data and lab results, and discuss the treatment plan with patient, nurse around 57 minutes
Anticipated Discharge: Within 24 hours
Subjective/Interval History
-
Date of Service: April 27, 2024
No chest pain
No sob
No fevers
He feels tired
No itching
Objective Data
-
Labs:
Laboratory Results
04/27/24
06:14
WBC 11.2 H
Hgb 10.9 L
Hct 30.5 L
Plt Count 109 L
Vital Signs:
Vital Signs
Temp Pulse Resp BP Pulse Ox
98.3 F 116 24 121/78 97
04/27/24 07:20 04/27/24 09:17 04/27/24 07:48 04/27/24 09:17 04/27/24 07:20
I&O
04/26/24 04/27/24 04/28/24
06:59 06:59 06:59
Intake Total 3060 / 3060 1020 / 1020
Output Total 125 / 125 325 / 325
Balance 2935 / 2935 695 / 695
[2024-04-27 10:36] LABS: COVID-19 Antigen Negative (Negative)
[2024-04-27 11:00] LABS: Body Fluid for Eosinophils No Eosinophils seen
[2024-04-27 11:43] VITALS: BP 113/74
--- NOTE | 2024-04-27 14:26 | CM ---
met with patient at bedside.finished iv abx,cont duonebs,stopped ivf,cr at baseline,sating ok on ra,no cough or hypoxia.Plan: home with no needs.
[2024-04-27 15:16] VITALS: BP 120/73
[2024-04-27] MEDS: VISBIOME 1 CAP PO (17:13)
[2024-04-27] MEDS: HYDROCORTISONE 1% CREAM 1 APPLIC TOPICAL ×2 (17:17→23:12)
[2024-04-27] MEDS: ZOFRAN 4 MG IV (18:16)
[2024-04-27 19:00] VITALS: BP 125/77
[2024-04-27 23:00] VITALS: BP 137/82
[2024-04-27] MEDS: METAMUCIL, KONSYL PO (23:11)
[2024-04-27] MEDS: HYDROCORTISONE 2.5% CREAM TOPICAL (23:15)
[2024-04-27] MEDS: BENADRYL 50 MG PO (23:46)
[2024-04-28 03:14] VITALS: BP 129/78
[2024-04-28 07:00] VITALS: BP 116/74
[2024-04-28] MEDS: SYMBICORT 160/4.5 MCG INHALER 2 PUFF INH ×2 (08:10→19:31)
[2024-04-28] MEDS: SPIRIVA RESPIMAT 2.5 MCG 2 PUFF INH (08:10)
[2024-04-28 08:48] LABS: Hematocrit 31.8 % (39.0-52.0); Hemoglobin 11.2 g/dL (13.0-18.0); Mean Corp Hgb Conc. 35.2 g/dL (33.0-37.0); Mean Corpuscular Hgb 32.6 pg (27.0-31.0); Mean Corpuscular Volume 92.4 fL (80.0-94.0); Mean Platelet Volume 10.9 fL (7.4-10.4); Platelet Count 125 10^3/uL (130-400); Red Blood Cell Count 3.44 10^6/uL (4.70-6.10); Red Cell Dist. Width 12.2 % (11.5-14.5); White Blood Cell Count 10.9 10^3/uL (4.8-10.8)
[2024-04-28 08:52] LABS: Fibrinogen 784 MG/DL (199-459); INR 1.25; PT 15.5 Sec (11.4-14.6)
[2024-04-28 08:53] LABS: APTT 39.3 Sec (23.4-35.0)
[2024-04-28 09:20] LABS: ALT (SGPT) 73 U/L (0-50); AST (SGOT) 66 U/L (17-59); Albumin 2.8 g/dl (3.5-5.0); Alkaline Phosphatase 117 U/L (38-126); Blood Urea Nitrogen 16 mg/dl (9-20); Carbon Dioxide 23 mmol/L (22-30); Chloride 99 mmol/L (98-107); Estimated Creatinine Clearance 56 ml/min; Glucose 104 mg/dl (70-99); Iron 39 ug/dl (49-181); Potassium 4.1 mmol/L (3.5-5.1); Sodium 131 mmol/L (135-145); Total Bilirubin 0.4 mg/dl (0.2-1.3); Total Protein 5.6 g/dl (6.3-8.2); eGFR > 60.00
[2024-04-28 09:30] LABS: Percent Saturation 24 % (20-50); Total Iron Binding Capacity 158 ug/dl (261-462)
--- NOTE | 2024-04-28 09:42 | W.PN.HOSP.TC ---
Today's Communication/Plan
-
No DC today
send for lab testing
Assessment / Plan
Assessment / Plan
Physical Exam
General: Looks comfortable. No Apparent Distress
HEENT: NormoCephalic, Moist mucous membranes and Atraumatic
Respiratory: Clear
Cardiac: S1/S2
GI: Soft, Non Tender, Non Distended and Normal Bowel Sounds;
Musculoskeletal: No Clubbing, No Cyanosis and No Edema
Neuro: Nonfocal/grossly intact
Psych: calm
# Thrombocytopenia/ anemia
DDX include: Medication induced , infection induced, less likely DIC, ITP, HIT
Serology was sent
Stopped heparin SQ
Stopped ABx ( he finished course)
Stable HGB. Recti count is normal
COVID negative
Low iron level.
Consulted hematology, appreciate input
# Purpuric rash, in both lower extremities and arms
Mild pruritic
DDx, medication induced, vasculitis or others
Elevated inflammatory makers as CRP, WBC, Fibrinogen, D dimer
Recent use of antibiotics but patient thought the rash started before ABx. He received course of steroid by his pill maker for asthma exacerbation before hew was given antibiotics for CAP.
WBC is coming down, no fevers. Mentation is normal
Kidney function improved. No eosinophil in urine. Urine generally is benign.
Clinically, patient has no respiratory or GI complaints.
Send for more serology testing
I d/w his PCP also.
# Pneumonia Only , Without Systemic Illness
Finished Tx
No cough or hypoxia
Negative blood culture
Repeat chest x ray resolution of PNA
# Oral antibiotics induced N/V
He feels better, tolerating diet
Abdomen, non tender or distended
c/w supportive care, anti-nausea as PRN
Stopped IVF
# Acute kidney injury secondary to decreased p.o. intake
Creatinine back to baseline at 1.2. I d/w gusset maker Dr Green. Pt was seen in office by Dr Viveros, he is back to baseline. No hx of GN.
-s/p IV fluids
- Urinalysis, no hematuria, clear urine
# Loose stools/nausea secondary to antibiotics
resolved.
# Hyponatremia, mild
# Left upper extremity urticaria rash
-Not itchy or uncomfortable
-Benadryl if needed
#History of asthma
-Continue DuoNeb every 6 hours as needed
#-continue Breztri
#Essential hypertension
Low normal Bp
Had sinus tachycardia, started Cardizem to replace Amlodipine.
- Stopped amlodipine
-Held lisinopril due to KALEIGH and low normal Bp.
#Hypercholesterolemia
-Continue statin
#Cataract
#Vision impairment
Full code
DVT prophylaxis�heparin
Regular diet
Total time spent to see the patient, examine the patient, review data and lab results, and discuss the treatment plan with patient, hematology, nurse around 57 minutes
Anticipated Discharge: 24 - 48 hours
Subjective/Interval History
-
Date of Service: April 28, 2024
He feels better
less tired
Objective Data
-
Labs:
Laboratory Results
04/28/24
08:07
WBC 10.9 H
Hgb 11.2 L
Hct 31.8 L
Plt Count 125 L
PT 15.5 H
INR 1.25
APTT 39.3 H
Sodium 131 L
Potassium 4.1
Chloride 99
Carbon Dioxide 23
BUN 16
Creatinine 1.1
Glucose 104 H
Calcium 8.0 L
Total Bilirubin 0.4
AST 66 H
ALT 73 H
Alkaline Phosphatase 117
Vital Signs:
Vital Signs
Temp Pulse Resp BP Pulse Ox
99.3 F 99 16 116/74 96
04/28/24 07:00 04/28/24 08:15 04/28/24 08:15 04/28/24 07:00 04/28/24 08:15
I&O
04/27/24 04/28/24 04/29/24
06:59 06:59 06:59
Intake Total 1020 / 1020 120 / 120
Output Total 325 / 325 300 / 300
Balance 695 / 695 -180 / -180
[2024-04-28] MEDS: METAMUCIL, KONSYL 1 PACKET PO (10:02)
[2024-04-28] MEDS: CARDIZEM CD 180 MG PO (10:02)
[2024-04-28] MEDS: CRESTOR 20 MG PO (10:02)
[2024-04-28] MEDS: HYDROCORTISONE 2.5% CREAM 1 APPLIC TOPICAL (10:03)
[2024-04-28] MEDS: RESTASIS 0.05% OPHTHALMIC EMULSION 1 DROPS BOTH EYES ×2 (10:03→21:48)
[2024-04-28] MEDS: VITAMIN D3 (cholecalciferol) 50 MCG PO (10:03)
[2024-04-28 11:00] VITALS: BP 116/74
[2024-04-28 15:00] VITALS: BP 120/76
--- NOTE | 2024-04-28 15:50 | CM ---
Patient asking about discharge. Per notes no d/c today at new blood work ordered by attending. Patient was appreciative of information.
[2024-04-28] MEDS: VISBIOME 1 CAP PO (19:24)
[2024-04-28 19:40] VITALS: BP 136/82
[2024-04-28] MEDS: HYDROCORTISONE 2.5% CREAM TOPICAL (21:47)
[2024-04-28] MEDS: METAMUCIL, KONSYL PO (21:47)
[2024-04-28] MEDS: HYDROCORTISONE 1% CREAM 1 APPLIC TOPICAL (21:49)
[2024-04-28 23:04] VITALS: BP 126/81
[2024-04-29] MEDS: HYDROCORTISONE 1% CREAM 1 APPLIC TOPICAL (05:46)
[2024-04-29 07:30] VITALS: BP 122/73
[2024-04-29] MEDS: SYMBICORT 160/4.5 MCG INHALER 2 PUFF INH ×2 (08:17→20:08)
[2024-04-29] MEDS: SPIRIVA RESPIMAT 2.5 MCG 2 PUFF INH (08:17)
[2024-04-29 08:27] LABS: Hemoglobin 11.2 g/dL (13.0-18.0); Mean Corp Hgb Conc. 36.1 g/dL (33.0-37.0); Mean Corpuscular Hgb 32.7 pg (27.0-31.0); Mean Corpuscular Volume 90.4 fL (80.0-94.0); Mean Platelet Volume 10.8 fL (7.4-10.4); Platelet Count 140 10^3/uL (130-400); Red Blood Cell Count 3.43 10^6/uL (4.70-6.10); Red Cell Dist. Width 12.2 % (11.5-14.5); White Blood Cell Count 11.3 10^3/uL (4.8-10.8)
[2024-04-29 08:56] LABS: ALT (SGPT) 54 U/L (0-50); AST (SGOT) 40 U/L (17-59); Albumin 2.8 g/dl (3.5-5.0); Alkaline Phosphatase 108 U/L (38-126); Blood Urea Nitrogen 18 mg/dl (9-20); Carbon Dioxide 24 mmol/L (22-30); Chloride 98 mmol/L (98-107); Estimated Creatinine Clearance 56 ml/min; Glucose 120 mg/dl (70-99); Potassium 4.2 mmol/L (3.5-5.1); Sodium 129 mmol/L (135-145); Total Bilirubin 0.4 mg/dl (0.2-1.3); Total Protein 5.7 g/dl (6.3-8.2); eGFR > 60.00
[2024-04-29] MEDS: BENADRYL PO (10:23)
[2024-04-29] MEDS: VITAMIN D3 (cholecalciferol) 50 MCG PO (10:23)
[2024-04-29] MEDS: CRESTOR 20 MG PO (10:23)
[2024-04-29] MEDS: METAMUCIL, KONSYL 1 PACKET PO (10:24)
[2024-04-29] MEDS: CARDIZEM CD 180 MG PO (10:24)
[2024-04-29] MEDS: RESTASIS 0.05% OPHTHALMIC EMULSION 1 DROPS BOTH EYES ×2 (10:24→21:05)
[2024-04-29] MEDS: DELTASONE 40 MG PO (10:26)
[2024-04-29] MEDS: HYDROCORTISONE 2.5% CREAM TOPICAL ×2 (10:27→21:04)
--- NOTE | 2024-04-29 10:50 | W.PN.HOSP.TC ---
Addendum entered and electronically signed by Herb Smith MD 04/29/24 14:44:
Addendum
d/w surgery, can not do biopsy today as specialized pathology / specimen. Will try biopsy tomorrow
I explained to pt, although he wanted to leave but he understood the limitations
I also talked with Dr Nicole, she will see pt in office.
End
Original Note:
Today's Communication/Plan
-
.
Assessment / Plan
Assessment / Plan
Physical Exam
General: Looks comfortable. No Apparent Distress
HEENT: NormoCephalic, Moist mucous membranes and Atraumatic
Respiratory: Clear
Cardiac: S1/S2
GI: Soft, Non Tender, Non Distended and Normal Bowel Sounds;
Musculoskeletal: No Clubbing, No Cyanosis and No Edema
Neuro: Nonfocal/grossly intact
Psych: calm
# Thrombocytopenia/ anemia
DDX include: Medication induced , infection induced, not c/w DIC, ITP, HIT
Serology was sent
Stopped heparin SQ
Stopped ABx ( he finished course)
Stable HGB. Recti count is normal
COVID negative
Low iron level.
Consulted hematology, not HIT, appreciate input
# Purpuric rash, in both lower extremities and arms
Mild pruritic in upper arms
Bilateral ankle edema with slight tenderness.
DDx, medication induced, �vasculitis, possibility HSP or others
Elevated inflammatory makers as CRP( very high), WBC, Fibrinogen, D dimer, ferritin.
Recent use of antibiotics but patient thought the rash started before ABx. He received course of steroid by his bundling machine operator for asthma exacerbation before hew was given antibiotics for CAP, he actually felt better with steroid.
WBC is coming down, no fevers. Mentation is normal. Blood culture negative > 72 hours.
Kidney function improved. No eosinophil in urine or blood. Urine generally is benign.
Clinically, patient has no respiratory or GI complaints or JAVA INTEGRATION DEVELOPER symptoms.
Serology was sent, results can be followed as OP.
will start him on Prednisone 40 mg QD. He will need to f/w Rheumatology. Will reach out to rheumatology doctor control electrician.
No dermatology control electrician in system, pt doesn't have a derm doctor
Will also reach out to surgery for skin biopsy.
# Pneumonia Only , Without Systemic Illness
Finished Tx
No cough or hypoxia
Negative blood culture
Repeat chest x ray resolution of PNA
# Oral antibiotics induced N/V
He feels better, tolerating diet
Abdomen, non tender or distended
Stopped IVF
# Acute kidney injury secondary to decreased p.o. intake
Creatinine back to baseline at 1.2. I d/w brake repairer Dr Green. Pt was seen in office by Dr Viveros, he is back to baseline. No hx of GN.
-s/p IV fluids
- Urinalysis, no hematuria, clear urine
# Loose stools/nausea secondary to antibiotics
resolved.
# Hyponatremia, mild
# Left upper extremity urticaria rash
-Not itchy or uncomfortable
-Benadryl if needed
#History of asthma
-Continue DuoNeb every 6 hours as needed
#-continue Breztri
#Essential hypertension
Low normal Bp
Had sinus tachycardia, started Cardizem to replace Amlodipine.
- Stopped amlodipine
-Held lisinopril due to KALEIGH and low normal Bp.
#Hypercholesterolemia
-Continue statin
#Cataract
#Vision impairment
Full code
DVT prophylaxis�heparin
Regular diet
Total time spent to see the patient, examine the patient, review data and lab results, and discuss the treatment plan with patient, nurse around 77 minutes
Anticipated Discharge: Within 24 hours
Subjective/Interval History
-
Date of Service: April 29, 2024
No chest pain
No sob
He feels the rash is the same with no worsening itching
Objective Data
-
Labs:
Laboratory Results
04/29/24
08:08
WBC 11.3 H
Hgb 11.2 L
Hct 31.0 L
Plt Count 140
Sodium 129 L
Potassium 4.2
Chloride 98
Carbon Dioxide 24
BUN 18
Creatinine 1.1
Glucose 120 H
Calcium 8.0 L
Total Bilirubin 0.4
AST 40
ALT 54 H
Alkaline Phosphatase 108
Vital Signs:
Vital Signs
Temp Pulse Resp BP Pulse Ox
99.3 F 92 16 122/73 97
04/29/24 07:30 04/29/24 08:18 04/29/24 08:18 04/29/24 07:30 04/29/24 08:18
I&O
04/28/24 04/29/24 04/30/24
06:59 06:59 06:59
Intake Total 120 / 120 900 / 900
Output Total 300 / 300 800 / 800
Balance -180 / -180 100 / 100
[2024-04-29 11:10] VITALS: BP 123/87
[2024-04-29 12:30] VITALS: BP 125/85; PULSE 101; O2SAT 96
[2024-04-29 15:30] VITALS: BP 110/71
[2024-04-29] MEDS: VISBIOME 1 CAP PO (17:16)
[2024-04-29 20:28] LABS: Platelet Antibody, Direct IgG Negative (Negative); Platelet Antibody, Direct IgM Negative (Negative)
[2024-04-29] MEDS: METAMUCIL, KONSYL PO (21:09)
[2024-04-29 23:00] VITALS: BP 111/74
[2024-04-29 23:23] LABS: Complement C3 163 mg/dl (88-165)
[2024-04-30] MEDS: BENADRYL 50 MG PO (00:03)
[2024-04-30 00:27] LABS: Haptoglobin 404 mg/dL (30-200)
[2024-04-30 07:00] VITALS: BP 105/75
[2024-04-30] MEDS: SPIRIVA RESPIMAT 2.5 MCG 2 PUFF INH (07:37)
[2024-04-30] MEDS: SYMBICORT 160/4.5 MCG INHALER 2 PUFF INH (07:37)
[2024-04-30] MEDS: XYLOCAINE 2% WITH EPINEPHRINE 20 ML INFIL (09:00)
[2024-04-30] MEDS: VITAMIN D3 (cholecalciferol) 50 MCG PO (09:01)
[2024-04-30] MEDS: METAMUCIL, KONSYL 1 PACKET PO (09:01)
[2024-04-30] MEDS: RESTASIS 0.05% OPHTHALMIC EMULSION 1 DROPS BOTH EYES (09:01)
[2024-04-30] MEDS: CARDIZEM CD 180 MG PO (09:01)
[2024-04-30] MEDS: DELTASONE 40 MG PO (09:01)
[2024-04-30] MEDS: CRESTOR 20 MG PO (09:01)
[2024-04-30] MEDS: HYDROCORTISONE 2.5% CREAM TOPICAL (09:02)
[2024-04-30 10:18] LABS: ANA, IgG Reflex to HEp-2 None Detected (None Detected)
--- NOTE | 2024-04-30 10:36 | CM ---
Chart reviewed and bilingual case manager met with patient and patient to return to home when stable, no needs
Plan; Home no needs.
--- NOTE | 2024-04-30 10:52 | W.PN.UPDATE ---
Update Note
Progress Note Update
Bedside skin biopsy
A team time-out was performed confirming the location/laterality of the procedure, consent and allergies reviewed.
Location: Right lower extremity
Dimensions: 0.25 cm
Local: 1% Lidocaine with epi
Shirt Hemmer: Dave Mayorga
The skin was cleaned with alcohol and anesthetized with 5cc of 1% lidocaine. A punch biopsy was performed over an area on the right medial calf that appeared to involve the rash, with a sliver of surrounding healthy/normal skin. The wound was small
and there was minimal blood loss. The skin was left open and covered with an Adaptic followed by a gauze dressing. The skin biopsy was sent to Pathology as a fresh specimen. The patient tolerated the procedure well, discharge instructions reviewed
and all questions were answered.
--- NOTE | 2024-04-30 11:53 | CON.GS ---
Consultation
-
Date/Time Consultation Requested: April 29, 2024 PM
Date/Time Consultation Performed: April 30, 2024 AM
Requesting Provider: Dr. Luis Estevez
Performing Provider: Dr. Gray / Dave Mayorga (Resident)
Reason for Consultation: Skin-Biopsy / LE-Purpuric Rash
Medical History
-
Chief Complaint: Skin-Biopsy / LE-Purpuric Rash
History of Present Illness:
73 yo Male with relevant PMHx of generalize Atopy and severe asthma who presented to ED last Tuesday with Pneumonia and KALEIGH; after presenting the day before at an urgent-care center were he subjectively got prescribed a course of Augmentin +
Azithromycin (per pt) and subsequently developed an unilateral L-UE mildly pruritic and erythematous rash with well demarcated borders localized to the dorsum/extensor surface of his L-Lower Forearm, that develop within hours of the ABXs ingestion
and was later followed by a LE Non-pruritic Purpuric/petechiae like appearance Rash localized more to the medial/lower aspect of the LE bilaterally, mostly below the knees, that was developed at a later date through the course of this admission.
Past Medical History
Past Medical History: Asthma, HTN and Renal Failure
Past Surgical History: Reviewed & Noncontributory and Other (Atopy)
Social History
Tobacco: Non-Smoker
Alcohol: Chronic Alcoholic
Drug: None
Employment: Retired
Family History
Family History: Other (Grandmother - Alllergies / Generalize Atopy)
Allergies / Home Medications
Allergy/AdvReac Type Severity Reaction Status Date / Time
azithromycin [From Zithromax] Allergy Shortness Verified 04/24/24 17:53
of Breath
hayfever Allergy asthma Uncoded 01/08/21 17:26
attack
�Medication �Instructions �Recorded �Confirmed �Type
Allergy Shots 1 dose INJ TH Allergies 07/03/20 04/24/24 History
albuterol sulfate 90 mcg/actuation 2 puff inhalation R Q4HPRN PRN sob 07/03/20 04/24/24 History
aerosol inhaler (Proventil HFA)
cyclosporine 0.05 % eye drops in a 1 drp BOTH EYES BID dry eye 07/03/20 04/24/24 History
dropperette (Restasis)
diphenhydramine HCl 50 mg capsule 50 mg PO HSPRN PRN sleep 07/03/20 04/24/24 History
(Banophen)
psyllium husk (aspartame) 3.4 gram 1 packet PO BID Constipation 07/03/20 04/24/24 History
oral powder packet (Metamucil
Fiber Singles)
rosuvastatin 20 mg tablet 20 mg PO DAILY High Cholesterol 07/03/20 04/24/24 History
triamcinolone acetonide 55 mcg 1 spray inhalation BIDPRN PRN 07/03/20 04/24/24 History
nasal spray aerosol (Nasacort) congestion
amlodipine 2.5 mg tablet 2.5 mg PO HS Blood Pressure 04/24/24 04/24/24 History
budesonide 160 mcg-glycopyr 9 2 inh inhalation R BID 04/24/24 04/24/24 History
mcg-formot 4.8 mcg/actuation HFA Lung/Breathing Issues
inhaler (Breztri Aerosphere)
cholecalciferol (vitamin D3) 50 50 mcg PO DAILY Supplement 04/24/24 04/24/24 History
mcg (2,000 unit) tablet
guaifenesin 400 mg tablet 400 mg PO Q4HPRN PRN cough 04/24/24 04/24/24 History
hydrocortisone 2.5 % topical cream 1 applic topical BID apply to 04/24/24 04/24/24 History
hemorrhoids
lisinopril 20 mg tablet 20 mg PO BID Blood Pressure 04/24/24 04/24/24 History
melatonin 10 mg tablet 10 mg PO HSPRN PRN sleep 04/24/24 04/24/24 History
mepolizumab 100 mg/mL subcutaneous 300 mg SC Q4W asthma 04/24/24 04/24/24 History
syringe (Nucala)
Review of Systems
-
Unable to obtain full review of systems at this time due to: Other (Bad-Historian)
History Source: Patient
All other systems: Negative unless noted
Constitutional: Chills
Respiratory: Cough
: Other
Musculoskeletal: Muscle Pain and Edema
Skin: Rash
Neurological: Weakness
Endocrine: Temperature Intolerance
Hematologic/Lymphatic: Other (Petechiae Like Rash on LE Bilaterally )
A 10 point review of systems was completed, and was negative except as per HPI.
Physical Exam
Vital Signs
Temp Pulse Resp BP Pulse Ox
36.1 C 86 16 105/75 99
04/30/24 07:00 04/30/24 09:01 04/30/24 07:41 04/30/24 09:01 04/30/24 07:41
Body Mass Index (BMI) 26.4
Lab Results
04/29/24 08:08
04/29/24 08:08
WBC 11.3 10^3/uL (4.8-10.8) H 04/29/24 08:08
Hgb 11.2 g/dL (13.0-18.0) L 04/29/24 08:08
Hct 31.0 % (39.0-52.0) L 04/29/24 08:08
Plt Count 140 10^3/uL (130-400) 04/29/24 08:08
Abs Immat Gran (auto) 0.8 10^3/uL (0-0.05) H 04/25/24 05:06
Neutrophils % 80.6 % (42.2-75.2) H 04/25/24 05:06
Physical Exam
General: No Apparent Distress, Comfortable and Good Appetite
HEENT: Anicteric and Atraumatic
Respiratory: Non Labored Respirations
Cardiac: Peripheral Edema
Musculoskeletal: Edema
Skin: Dry and Rash
Neuro: AO x 3
Hematologic/Lymphatic: Other
Psych: Calm
Data Reviewed
-
Old Records: Reviewed
Critical Care Time (in minutes): ~10 min
Total Time Spent with Patient (in minutes): ~25 min
Assessment / Plan
-
ASSESSMENT:
73 yo Male with relevant PMHx of generalize Atopy and severe asthma who presented at the ED with Pneumonia, KALEIGH and an Unilateral UE Rash followed by subsequent development of a Bilateral LE Purpuric-Rash of unknown etiology, at a later date
throughout the course of his admission.
*Status-Post - R-LE Punch Skin-Biopsy at bedside for Bilateral LE Purpuric-Rash of unknown etiology.
PLAN:
R-LE Punch Skin-Biopsy at bedside for Bilateral LE Purpuric-Rash of unknown etiology
Obtained Specimen sent to pathology for further characterization/definitive DIAG and subsequent appropriate Treatment
--- NOTE | 2024-04-30 12:34 | W.PN.HOSP.TC ---
Addendum entered and electronically signed by Chris Perez MD 05/01/24 16:51:
[id number]
Original Note:
Today's Communication/Plan
-
prednisone x 7 days; f/u with rheumatology outpatient
cbc and bmp in 5 days
f/u path with rheum
f/u pcp, rheum outpatient
free water restriction
Assessment / Plan
Assessment / Plan
Physical Exam
General: Looks comfortable. No Apparent Distress
HEENT: NormoCephalic, Moist mucous membranes and Atraumatic
Respiratory: Clear
Cardiac: S1/S2
GI: Soft, Non Tender, Non Distended and Normal Bowel Sounds;
Musculoskeletal: No Clubbing, No Cyanosis and No Edema
Neuro: Nonfocal/grossly intact
Psych: calm
# Thrombocytopenia/ anemia
DDX include: Medication induced , infection induced, not c/w DIC, ITP, HIT
Serology was sent
Stopped heparin SQ
Stopped ABx ( he finished course)
Stable HGB. Recti count is normal
COVID negative
Low iron level.
Consulted hematology, not HIT, appreciate input
F/u CBC outpatient
# Purpuric rash, in both lower extremities and arms
Mild pruritic in upper arms
Bilateral ankle edema with slight tenderness.
DDx, medication induced, �vasculitis, possibility HSP or others
Elevated inflammatory makers as CRP( very high), WBC, Fibrinogen, D dimer, ferritin.
Recent use of antibiotics but patient thought the rash started before ABx. 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
WBC is coming down, no fevers. Mentation is normal. Blood culture negative > 72 hours.
Kidney function improved. No eosinophil in urine or blood. Urine generally is benign.
Clinically, patient has no respiratory or GI complaints or [employer] symptoms.
Serology was sent, results can be followed as OP.
will start him on Prednisone 40 mg QD. will rx prednisone 40mg x 7 days, and can f/u with Rheumatology outpatient. Rheumatology has been contacted for appt.
No dermatology poison information specialist in system, pt doesn't have a derm doctor
Skin bx 04/30 - f/u path outpatient
# Pneumonia Only , Without Systemic Illness
Finished Tx
No cough or hypoxia
Negative blood culture
Repeat chest x ray resolution of PNA outpatient in 4 weeks
# Oral antibiotics induced N/V
He feels better, tolerating diet
Abdomen, non tender or distended
Stopped IVF
# Acute kidney injury secondary to decreased p.o. intake
Creatinine back to baseline at 1.2. I d/w vibration engineer Dr Green. Pt was seen in office by Dr Viveros, he is back to baseline. No hx of GN.
-s/p IV fluids
- Urinalysis, no hematuria, clear urine
-resume ACEI
# Loose stools/nausea secondary to antibiotics
resolved.
# Hyponatremia, mild
-free water restriction
bmp in 5 days with pcp
# Left upper extremity urticaria rash
-Not itchy or uncomfortable
-Benadryl if needed
-see plan above
-steroids
#History of asthma
-Continue DuoNeb every 6 hours as needed
#-continue Breztri
#Essential hypertension
Low normal Bp
restart amlodipine
-restart ACEI
#Hypercholesterolemia
-Continue statin
#Cataract
#Vision impairment
Full code
DVT prophylaxis�heparin
Regular diet
More than 30 minutes spent in discharge including
Final examination of the patient
Summarizing hospital stay
Instructions for continuing care to all relevant caregivers
Preparation of discharge records, prescriptions, and referral forms
Total time spent (35 in minutes):
Anticipated Discharge: Today
Subjective/Interval History
-
Date of Service: April 30, 2024
no acute events
Objective Data
-
Labs:
Laboratory Results
04/30/24
12:24
Sodium Pending
Potassium Pending
Chloride Pending
Carbon Dioxide Pending
BUN Pending
Creatinine Pending
Glucose Pending
Calcium Pending
Vital Signs:
Vital Signs
Temp Pulse Resp BP Pulse Ox
97 F 86 16 105/75 99
04/30/24 07:00 04/30/24 09:01 04/30/24 07:41 04/30/24 09:01 04/30/24 07:41
I&O
04/29/24 04/30/24 05/01/24
06:59 06:59 06:59
Intake Total 900 / 900 1290 / 1290
Output Total 800 / 800 625 / 625
Balance 100 / 100 665 / 665
Review of Systems
-
History Source: Patient
All other systems: Not reviewed unless documented
Data Reviewed
-
Diagnostic Radiology: Image personally visualized and interpreted and Report Reviewed by me
Labs: Labs Reviewed by me
--- NOTE | 2024-04-30 12:40 | W.DS.TRANS ---
DC Summary - Clerk Travel Reservations
-
Discharge Instructions:
Discharge Diagnosis/Procedures
# Thrombocytopenia/ anemia
# Purpuric rash, in both lower extremities and
arms
Diet Low Cholesterol,Restrict fluids to 48 oz
Activity As tolerated
Blood Work cbc, bmp in 5 days with pcp
Instructions:
Stand-Alone Forms:
Changes to Home Medications: Yes
Discharge Medications:
DC Medications w/original date entered in [employer]
Allergy Shots 1 dose INJ TH Allergies 07/03/20
albuterol sulfate 90 mcg/actuation aerosol inhaler (Proventil HFA) 2 puff inhalation R Q4HPRN PRN sob 07/03/20
cyclosporine 0.05 % eye drops in a dropperette (Restasis) 1 drp BOTH EYES BID dry eye 07/03/20
diphenhydramine HCl 50 mg capsule (Banophen) 50 mg PO HSPRN PRN sleep 07/03/20
psyllium husk (aspartame) 3.4 gram oral powder packet (Metamucil Fiber Singles) 1 packet PO BID Constipation 07/03/20
rosuvastatin 20 mg tablet 20 mg PO DAILY High Cholesterol 07/03/20
triamcinolone acetonide 55 mcg nasal spray aerosol (Nasacort) 1 spray inhalation BIDPRN PRN congestion 07/03/20
amlodipine 2.5 mg tablet 2.5 mg PO HS Blood Pressure 04/24/24
budesonide 160 mcg-glycopyr 9 mcg-formot 4.8 mcg/actuation HFA inhaler (Breztri Aerosphere) 2 inh inhalation R BID Lung/Breathing Issues 04/24/24
cholecalciferol (vitamin D3) 50 mcg (2,000 unit) tablet 50 mcg PO DAILY Supplement 04/24/24
guaifenesin 400 mg tablet 400 mg PO Q4HPRN PRN cough 04/24/24
hydrocortisone 2.5 % topical cream 1 applic topical BID apply to hemorrhoids 04/24/24
lisinopril 20 mg tablet 20 mg PO BID Blood Pressure 04/24/24
melatonin 10 mg tablet 10 mg PO HSPRN PRN sleep 04/24/24
mepolizumab 100 mg/mL subcutaneous syringe (Nucala) 300 mg SC Q4W asthma 04/24/24
prednisone 20 mg tablet 40 mg (2 x 20 mg) PO DAILY 7 days #14 tabs 04/30/24
Home Medication Changes
prednisone 20 mg tablet 40 mg (2 x 20 mg) PO DAILY 7 days #14 tabs 04/30/24
Pending Results: No
[2024-04-30 13:55] LABS: Blood Urea Nitrogen 25 mg/dl (9-20); Calcium 8.2 mg/dl (8.4-10.2); Carbon Dioxide 24 mmol/L (22-30); Chloride 102 mmol/L (98-107); Estimated Creatinine Clearance 68 ml/min; Glucose 188 mg/dl (70-99); Potassium 4.4 mmol/L (3.5-5.1); Sodium 133 mmol/L (135-145); eGFR > 60.00
[2024-04-30 14:11] VITALS: BP 116/69
[2024-04-30 17:47] LABS: Cardiolipin IgA Antibody <10 APL (<=11); Cardiolipin IgM Antibody 18 MPL (<=12); Cardiolipin Igg Antibody <10 GPL (<=14)
[2024-04-30 18:16] LABS: Beta-2-Glycoprotein I Ab. IgG <10 SGU (<=20); Beta-2-Glycoprotein I Ab. IgM <10 SMU (<=20)
[2024-05-01 01:40] LABS: Scleroderma Antibody (Scl-70) 0 AU/mL (0-40); Smith (ENA) Antibody, IgG 2 AU/mL (0-40)
[2024-05-01 02:12] LABS: ds-DNA Ab, IgG Reflex To Titer 5 IU (0-24)
[2024-05-01 22:39] LABS: Anti-Xa Qualitative Interp Not Present (Not Present); Anticoagulant Med Neutralizati Not Performed (Not Performed); Hexagonal Phospholipid Confirm 20.2 s (<=7.9); Neutralized PTT-LA Ratio Not Performed (<=1.20); Neutralized dRVTT Screen Ratio Not Performed (<=1.20); PTT-LA Ratio 1.49 (<=1.20); Prothrombin Time 15.3 s (12.0-15.5); dRVTT 1.1 Mix Ratio 1.18 (<=1.20); dRVTT Confirmation Ratio 1.04 (<=1.20); dRVTT Screen Ratio 1.38 (<=1.20)
== END 2024-04-30 14:31 | disposition home or self-care (01) | DRG 682 ==
LOC: 3 WEST ACU 16:36
PROVIDERS: Internal Medicine; Nurse Practitioner Acute Care; Pathology Anatomic Pathology & Clinical Pathology; Registered Nurse; ADMITTING PHYSICIAN Hospitalist; ATTENDING PHYSICIAN Internal Medicine; EMERGENCY PHYSICIAN Emergency Medicine; FAMILY PHYSICIAN Internal Medicine; OTHER PHYSICIAN Internal Medicine Hematology & Oncology
PROC: 0HBKXZX Excision of Right Lower Leg Skin, External Approach, Diagnostic (ICD-10-PCS; 2024-04-30)
DX: N17.9 Acute kidney failure, unspecified (principal); J18.9 Pneumonia, unspecified organism; D69.0 Allergic purpura; E87.1 Hypo-osmolality and hyponatremia; L81.7 Pigmented purpuric dermatosis; L50.9 Urticaria, unspecified; J45.50 Severe persistent asthma, uncomplicated; I10 Essential (primary) hypertension; D69.6 Thrombocytopenia, unspecified; I77.6 Arteritis, unspecified; D64.9 Anemia, unspecified; R11.2 Nausea with vomiting, unspecified; E78.00 Pure hypercholesterolemia, unspecified; T36.8X5A Adverse effect of other systemic antibiotics, initial encounter; Z79.899 Other long term (current) drug therapy; Z91.09 Other allergy status, other than to drugs and biological substances; Z11.52 Encounter for screening for COVID-19
CPT/HCPCS: 71046; 80048; 80053; 81003; 81099; 82550; 82728; 83010; 83540; 83550; 83880; 85025; 85027; 85045; 85379; 85384; 85520; 85598; 85610; 85613; 85670; 85730; 86022; 86023; 86038; 86140; 86146; 86147; 86160; 86225; 86235; 87040; 87811; 93005; 94640; 96360; 96361; 97116; 97162; 97166; 97530; 99285

== ENCOUNTER 2024-05-13 13:44 | Inpatient (IN) | payer MEDICARE, OTHER, SELFPAY ==
[2024-05-13] VITALS (29 sets, daily range): BP systolic 80–131; BP diastolic 49–77; BMI 26.0
--- NOTE | 2024-05-13 11:15 | ED.GENMED ---
History of Present Illness
General
Chief Complaint: Skin Problem
Source: patient
Exam Limitations: none
Time Seen by Provider: 05/13/24 11:01
History of Present Illness
History of Present Illness:
Patient presents with recurring rash to his inner thighs. Some chills yesterday. Some general achiness. Took Tylenol at 10 AM. Recently finished a course of prednisone. Rash was 2 weeks ago.
Past History
Past History
ED Past Medical History: Asthma, HTN, Hypercholesterolemia and Other (Cataracts, impaired vision)
ED Past Surgical History: Orthopedic (Left knee surgery)
Social History
Tobacco: Non-smoker
Alcohol: Daily
Drug: None
Personal:
Living: with family
Review of Systems
Review of Systems
All Other Systems: Not applicable
Constitutional: Reports chills
Respiratory: Reports cough; Denies trouble breathing
Cardiac: Reports no symptoms
ABD/GI: Reports no symptoms
Phy Exam
Physical Exam
Physical Exam:
GENERAL: Alert and oriented in no apparent distress. Hypotensive on arrival
EYE: Orbits normal.
NECK: Supple
ENT: Pharynx without erythema
CARDIAC: Regular rate and rhythm without any obvious murmurs.
LUNGS: Occasional dry cough. No respiratory distress. Dry crackles at the right base
ABDOMEN: Soft, without focal tenderness or distention
NEUROLOGICAL: Alert and oriented , grossly non-focal
SKIN: Warm and dry, blanching erythematous rash to both inner thighs. No vesicles papules no petechia or purpura
MUSCULOSKELETAL: No edema,no deformity.Good color
PSYCH: Normal and appropriate interaction.
Course
Orders/Labs/Results
Orders:
Orders
05/13/24 11:11
Cardiac Monitoring- Treatment ONCE
IV Insert/Care/Rem.- Treatment PRN
0.9% Sodium Chloride 1000 ml [Nss] 1,000 ml IV BOLUS
CXR2 [CR Chest - 2 Views ] Urgent
Comment:
Reason For Exam: Cough/fever
Pulse Ox/cont/shift [RESP] Urgent
Quantity: 1
05/13/24 11:20
COVID-19 Antigen Urgent
Source: Nasal Swab
Complete Blood Count/With Diff Urgent
Lactic Acid Q4H
Comment: CANCEL 2nd LACTIC ACID IF 1st LACTIC ACID IS LESS THAN 2
05/13/24 11:21
Comprehensive Metabolic Panel Urgent
Magnesium Urgent
Blood Culture Urgent
MEGAN Source: Blood/Venous
Specimen Description:
05/13/24 13:14
0.9% Sodium Chloride 1000 ml [Nss] 1,000 ml IV BOLUS
05/13/24 13:15
Admit/Transfer Patient As Directed
Co-Sign Provider:
Level of Care: Inpatient admission
Assign to:: ICU
Physician / Group: Hospitalist
Diagnosis: fever
Reason for Hospitalization: .
Expected length of stay greater than two midnights?: Yes
ELOS- Estimated Length of Stay in days: 3
I certify the patient meets the requirements for IP care: Yes
05/13/24 13:21
Urinalysis Reflex To Culture Urgent
Date Specimen was Collected: 05/13/24
Time Specimen was Collected: 13:18
Urine Microscopic Reflex Cult Urgent
05/13/24 14:52
VANCOMYCIN Pharmacy to Dose [VANCOCIN Pharmacy to Dose] 1 each Pharmacy To Prepare [Call Pharmacy To Prepare] 0 ml IV PER PROTOCOL
05/13/24 16:22
Acetaminophen [Tylenol] 1,000 mg PO Q6HPRN PRN
05/13/24 16:22
Consult Infectious Disease [INFECTIOUS DISEASE CONSULT] Routine
Consulting Provider: Anupama Sullivan
Was physician already notified: Yes
Reason for consult: Fever
DVT Contraindication [VTE Contraindication] Routine
VTE Mechanical Device Contraindication: Medical Contraindication
Pharmocologic Contraindication: Medical Contraindication
05/15/24 11:00
DC Protocol for Telemetry ONCE
Abnormal Lab Results
05/13/24 05/13/24 05/13/24
11:20 11:21 13:21
RBC 3.60 L 10^6/uL
(4.70-6.10)
Hgb 11.6 L g/dL
(13.0-18.0)
Hct 32.8 L %
(39.0-52.0)
MCH 32.2 H pg
(27.0-31.0)
Plt Count 60 L 10^3/uL
(130-400)
MPV 12.1 H fL
(7.4-10.4)
Abs Immat Gran (auto) 0.1 H 10^3/uL
(0-0.05)
Absolute Lymphs (auto) 0.6 L 10^3/uL
(1.2-3.4)
Immature Gran % 1.9 H %
(0-0.5)
Neutrophils % 84.2 H %
(42.2-75.2)
Lymphocytes % 8.6 L %
(20.5-51.1)
Sodium 129 L mmol/L
(135-145)
Potassium 5.4 H mmol/L
(3.5-5.1)
Carbon Dioxide 21 L mmol/L
(22-30)
BUN 38 H mg/dl
(9-20)
Creatinine 1.6 H mg/dL
(0.7-1.3)
Glucose 129 H mg/dl
(70-99)
Alkaline Phosphatase 128 H U/L
(38-126)
Total Protein 6.1 L g/dl
(6.3-8.2)
Urine Bacteria (Reflex) Few A
(Negative)
Urine Albumin (Reflex) 1+ A
(Neg - Trace)
05/13/24 11:20
05/13/24 11:21
Vital Signs
Initial and Last Documented VS:
Initial Vital Signs
Temp Pulse Resp BP Pulse Ox
101.7 F H 112 24 95/57 97
05/13/24 10:54 05/13/24 10:54 05/13/24 10:54 05/13/24 10:54 05/13/24 10:54
Last Documented Vital Signs
Temp Pulse Resp BP Pulse Ox
99.2 F 91 20 83/64 98
05/13/24 14:35 05/13/24 16:30 05/13/24 16:30 05/13/24 16:30 05/13/24 16:00
MDM/Problems Addressed
Differential Diagnosis Includes:
Complicated patient with recent rash concerning for a vasculitis or medication rash. Also has been treated for recent pneumonia. Patient presents with some infectious symptoms although no known fever at home. Hypotensive on arrival. 101.5
temperature. Workup in progress for sepsis.
*Critical Care Note
Total Time (30-74mins, 75-104mins- exclusive of procedures): Not Applicable
Data Reviewed
Review of Other/Old Records Reveals: Labs, Records, Radiology Studies, Testing (Pathology specimen/labs) and Discharge Summary
Update Note
Update Note:
Patient with ongoing fever. Unknown etiology. No obvious infectious cause however with hypotension will cover with antibiotics.
ED Attending Note
-
Portions of this chart may have been created with voice recognition software.� Occasional wrong word or��sound alike� substitutions may have occurred due to the inherent limitations of voice recognition software.
Discharge Plan
Departure
Patient Disposition: Admit
Date of Disposition: 05/13/24
Time of Disposition: 13:15
Presentation/result/management discussed w/ accepting MD/DO: Hospitalist
Discharge Problem:
Fever/hypotension
Interventions
Interventions:
*Risk Screen - Suicide Last Done: 05/13/24 10:54
*General Assessment Last Done: 05/13/24 10:54
*Neglect/Abuse Screening Last Done: 05/13/24 10:54
ED- Fall Risk Assessment Last Done: 05/13/24 10:54
*ED COVID-19 Vaccine History Last Done: 05/13/24 10:54
*Nursing Disposition Last Done: 05/13/24 16:30
ED-Skin Assessment Last Done: 05/13/24 11:43
Discharge Date and Time
Discharge Date/Time: 05/13/24 16:30
--- NOTE | 2024-05-13 11:30 | EDRN ---
Pt ambulated from stretcher in room w/ walker, out of room and to nurse's station across from room and back to room. Pt ambulated well w/ tech. When asked pt stated he did feel sl dizziness and weakness while ambulating w/ walker. Dr. Scruggs informed.
[2024-05-13] MEDS: NSS 1000 IV ×3 (11:38→17:06)
[2024-05-13 11:41] LABS: % Basophils 0.1 % (0-2); % Immature Granulocytes 1.9 % (0-0.5); % Lymphocytes 8.6 % (20.5-51.1); % Monocytes 5.2 % (1.7-9.3); % Neutrophils 84.2 % (42.2-75.2); Absolute Immature Granulocytes 0.1 10^3/uL (0-0.05); Absolute Lymphocytes 0.6 10^3/uL (1.2-3.4); Absolute Monocytes 0.4 10^3/uL (0.1-0.6); Absolute Neutrophils 5.9 10^3/uL (1.4-6.5); Hematocrit 32.8 % (39.0-52.0); Hemoglobin 11.6 g/dL (13.0-18.0); Mean Corp Hgb Conc. 35.4 g/dL (33.0-37.0); Mean Corpuscular Hgb 32.2 pg (27.0-31.0); Mean Corpuscular Volume 91.1 fL (80.0-94.0); Nucleated Red Blood Cells % 0 % (-); Red Cell Dist. Width 13.7 % (11.5-14.5)
[2024-05-13 11:52] LABS: Lactic Acid 1.3 mmol/L (0.7-2.0)
[2024-05-13 11:52] LABS: ALT (SGPT) 34 U/L (0-50); AST (SGOT) 31 U/L (17-59); Albumin 3.5 g/dl (3.5-5.0); Alkaline Phosphatase 128 U/L (38-126); Blood Urea Nitrogen 38 mg/dl (9-20); Calcium 8.4 mg/dl (8.4-10.2); Carbon Dioxide 21 mmol/L (22-30); Chloride 100 mmol/L (98-107); Estimated Creatinine Clearance 37 ml/min; Glucose 129 mg/dl (70-99); Potassium 5.4 mmol/L (3.5-5.1); Sodium 129 mmol/L (135-145); Total Bilirubin 0.8 mg/dl (0.2-1.3); Total Protein 6.1 g/dl (6.3-8.2); eGFR 45.21
[2024-05-13 11:53] LABS: COVID-19 Antigen Negative (Negative)
--- NOTE | 2024-05-13 11:59 | EDRN ---
Pt is aware urine spec needed.
[2024-05-13 12:12] LABS: Mean Platelet Volume 12.1 fL (7.4-10.4); Platelet Count 60 10^3/uL (130-400)
--- NOTE | 2024-05-13 12:28 | EDRN ---
After okayed by Dr. Scruggs pt given cup of ice water to drink at this time.
--- NOTE | 2024-05-13 13:05 | EDRN ---
Dr. Scruggs in to see pt at this time.
--- NOTE | 2024-05-13 13:10 | EDRN ---
Pt OOB to BR to obtain urine spec at this time.
--- NOTE | 2024-05-13 13:15 | EDRN ---
Dr. Rachel in to see pt.
--- NOTE | 2024-05-13 13:15 | HPS.HSE ---
Family Physician
-
Family Physician: Duglas Lorenzana
Chief Complaint
-
Chills in last 2 days
History of Present Illness
73 years old male who is well-known to our service from a previous admission ( Discharged on 04/30/24) presented with chills and weakness. Patient was found to have, KALEIGH, hyponatremia, hyperkalemia, fever with hypotension. No leukocytosis. Lactic
acid was normal. Patient denied respiratory, gastroenterology or urinary symptoms. He reported that he was having rigors and chills that would last an hour and then sweating spells after that. Patient had recently finished course of prednisone.
Patient reported that he started to have itching in his lower extremity but no new lesions seen.
Patient was admitted to ( 04/24- 04/30) for weakness, skin rash after an episode of respiratory illness/pneumonia. Patient had ecchymotic skin lesions with elevated inflammatory markers ( CRK >270). Was highly suspicious for vasculitis/ Henoch
Jamarcus�nlein Purpura. Blood cultures were negative at the time. Serology and skin biopsy were done and he was discharged on high dose course of prednisone to follow-up with rheumatology in the office. Patient is scheduled to see the electrical project engineer
Dr Gomez office in 2 days.
Medical History
Past Medical History
Past Medical History: Reports Other (History of proteinuria, asthma, hypertension, hyperlipidemia, cataract)
Past Surgical History: Reports Other (No recent major surgery)
Social History
Tobacco: Non-smoker
Alcohol: None
Drug: None
Personal: Single
Living: Alone
Employment: Retired
Family History
Family History: Not pertinent
Allergies / Home Medications
Allergies reflects when Allergies were last updated in [facility].
Home Medications with original date entered in [facility]
Allergy/Medication List:
Allergies
Allergy/AdvReac Type Severity Reaction Status Date / Time
azithromycin [From Zithromax] Allergy Shortness Verified 05/13/24 10:52
of Breath
hayfever Allergy asthma Uncoded 05/13/24 10:52
attack
Home Medications
Allergy Shots 1 dose INJ TH Allergies 07/03/20
albuterol sulfate 90 mcg/actuation aerosol inhaler (Proventil HFA) 2 puff inhalation R Q4HPRN PRN sob 07/03/20
cyclosporine 0.05 % eye drops in a dropperette (Restasis) 1 drp BOTH EYES BID dry eye 07/03/20
diphenhydramine HCl 50 mg capsule (Banophen) 50 mg PO HSPRN PRN sleep 07/03/20
psyllium husk (aspartame) 3.4 gram oral powder packet (Metamucil Fiber Singles) 1 packet PO BID Constipation 07/03/20
rosuvastatin 20 mg tablet 20 mg PO DAILY High Cholesterol 07/03/20
triamcinolone acetonide 55 mcg nasal spray aerosol (Nasacort) 1 spray inhalation BIDPRN PRN congestion 07/03/20
amlodipine 2.5 mg tablet 2.5 mg PO HS Blood Pressure 04/24/24
budesonide 160 mcg-glycopyr 9 mcg-formot 4.8 mcg/actuation HFA inhaler (Breztri Aerosphere) 2 inh inhalation R BID Lung/Breathing Issues 04/24/24
cholecalciferol (vitamin D3) 50 mcg (2,000 unit) tablet 50 mcg PO DAILY Supplement 04/24/24
guaifenesin 400 mg tablet 400 mg PO Q4HPRN PRN cough 04/24/24
hydrocortisone 2.5 % topical cream 1 applic topical BID apply to hemorrhoids 04/24/24
lisinopril 20 mg tablet 20 mg PO BID Blood Pressure 04/24/24
melatonin 10 mg tablet 10 mg PO HSPRN PRN sleep 04/24/24
mepolizumab 100 mg/mL subcutaneous syringe (Nucala) 300 mg SC Q4W asthma 04/24/24
prednisone 20 mg tablet 40 mg (2 x 20 mg) PO DAILY 7 days #14 tabs 04/30/24
Review of Systems
-
History Source: Patient
A 12 point ROS was completed and negative except as noted: Yes
Constitutional: Reports Fever
EENT: Denies Sore Throat
Respiratory: Denies Cough
Cardiac: Denies Chest Pain
Abdomen/GI: Denies Abdominal Pain
: Denies Dysuria
Musculoskeletal: Denies Joint Pain or Joint Swelling
Skin: Reports Itching
Neurological: Reports Weakness; Denies Headache or Numbness
Hematologic/Lymphatic: Denies Bruising
Psych: Reports Calm
Physical Exam
Vital Signs
Vital Signs
Temp Pulse Resp BP Pulse Ox
101.7 F H 95 28 91/57 94
05/13/24 10:54 05/13/24 13:06 05/13/24 13:06 05/13/24 13:06 05/13/24 12:04
Physical Exam
General: No Apparent Distress and Comfortable
HEENT: Moist mucous membranes and Atraumatic
Respiratory: Clear
Cardiac: S1/S2 and Regular Rhythm
GI: Soft and Non Tender
Rectal: No Maroon Stools
Genito-urinary: No costovertebral tender
Musculoskeletal: No Clubbing, No Cyanosis and No Edema
Skin: Warm and Dry; No Rash
Neuro: AO x 3 and Nonfocal/grossly intact
Psych: Calm and Intact Judgment/Insight
Laboratory Results
-
05/13/24 11:20
05/13/24 11:21
Laboratory Results
Lactic Acid Cancelled 05/13/24 15:15
Total Bilirubin 0.8 mg/dl (0.2-1.3) 05/13/24 11:21
AST 31 U/L (17-59) 05/13/24 11:21
ALT 34 U/L (0-50) 05/13/24 11:21
Alkaline Phosphatase 128 U/L (38-126) H 05/13/24 11:21
Impression/Plan
-
73 years old male presented with fever/rigors
Patient was found to have hyperkalemia, KALEIGH and hyponatremia
# Fevers/hypotension
History of rigors at last 2 days
He meets the criteria of SIRS /sepsis/septic shock with fever, tachycardia. But unable to locate source. Patient does not have leukocytosis or lactic acidosis.
Differential diagnosis include infectious/inflammatory process, rule out malignancy
Admit the patient to the hospital
Will do blood culture/urine culture
Empiric IV vancomycin IV cefepime
IV fluid, heart rate for now, pressure support if no improvement with blood pressure despite volume replacement.
Previous inflammatory markers elevated with CRP > 270. Recheck to see the trend
Patient denied respiratory/gastrointestinal or urinary symptoms
Tylenol for fever
Will need imaging studies as CAT scan with contrast of chest/abdomen/pelvis after treating KALEIGH
Consult ID, appreciate input
# Recent episode of purpuric rash/KALEIGH/thrombocytopenia/elevated inflammatory markers
Differential diagnosis inflammatory/vasculitis or others
Serology testing showed negative AMMY, anti--ds DNA, beta-2-GPI IgG/IgM, antiplatelet antibody, anticardiolipin IgG/IgA, normal complement C3 level, COVID.
Elevated complement C4, anticardiolipin IgM
Direct immunofluorescent testing of skin biopsy did not show deposition of immunoglobulin to suggest antibody-mediated vasculitis, no features to suggest autoimmune bullous disease. Result of biopsy and chart.
Currently, patient does not have skin rash although he he reported itching in the lower extremities.
Patient finished course of prednisone. He he was supposed to see electrical project engineer 05/15.
No joint swelling.
# Thrombocytopenia
Platelet antibody screening was negative. Unlikely HIT.
He had high fibrinogen level last admission which was not diagnostic of DIC
High D-dimer
He was seen by bed control specialist and felt thrombocytopenia was reactive. Normal reticulocyte count.
Hemoglobin at baseline. Normal WBC.
# Acute kidney injury
Hold lisinopril.
Continue with IV fluid.
Monitor for retention. Urine test was only positive for few bacteria, albumin. Patient denied hematuria or dysuria.
History of proteinuria in the past. He saw Dr. Viveros in the office.
Renal ultrasound.
Avoid nephrotoxic
Monitor renal function
# Hyperkalemia, hold RE inhibitor's. Continue with low potassium diet
repeat K level today
# Hyponatremia, patient has history of hyponatremia. No confusion.
# DVT prophylaxis with Thromboguards, thrombocytopenia noted
Total critical time spent to see the patient, examine the patient on the floor, review data and lab results, discuss treatment plan with patient, ER doctor, nursing staff around 85 minutes
[2024-05-13 13:36] LABS: Urine Albumin 1+ (Neg - Trace); Urine Bilirubin Negative (Negative); Urine Character Clear (Clear); Urine Color Amber; Urine Glucose Negative (Negative); Urine Ketone Negative (Negative); Urine Leukocyte Negative (Negative); Urine Nitrite Negative (Negative); Urine Occult Blood Negative (Negative); Urine Specific Gravity 1.015 (<1.030); Urine Urobilinogen Negative (Neg - 1+)
[2024-05-13 13:52] LABS: Urine Squamous Cell 0-2 /LPF (Few)
[2024-05-13 13:53] LABS: Urine Bacteria Few (Negative); Urine Red Blood Cell 0-2 /HPF (0-2); Urine White Cell 0-2 /HPF (0-5)
--- NOTE | 2024-05-13 14:47 | EDRN ---
Dr. Smith is changing admit to ICU r/t low BP in the 80's as pt may need Levophed. This RN just notified auditing control clerk, charge ED RN, and 4th floor [address].
--- NOTE | 2024-05-13 14:53 | EDRN ---
Vancomycin order processed w/ pharmacy called to dose it and send it to ER for administration. Pt is awaiting ICU bed at this time.
[2024-05-13] MEDS: ZOSYN 50 IV (15:04)
[2024-05-13] MEDS: VANCOCIN 300 MG IV (15:44)
[2024-05-13] MEDS: VANCOCIN 300 ML IV (15:44)
--- NOTE | 2024-05-13 15:58 | EDRN ---
Report called to Fern SCHMIDT in ICU at this time.
--- NOTE | 2024-05-13 16:24 | CON.INTV ---
Consultation
Consultation Request
Date/Time Consultation Requested: 05/13/2024-4 PM
Date/Time Consultation Performed: 05/13/2024-4:20 PM
Requesting Provider: Hospitalist
Performing Provider: Dr. Haskins
Reason for Consultation: Critical care management/hypotension
Medical History
-
Chief Complaint: Chills and weakness
History of Present Illness:
73-year-old female with history of hypertension, hyperlipidemia, asthma presented with chills weakness, KALEIGH, hyponatremia and ice cream freezer consulted for pressor/sepsis/vasculitis/critical care management 05/13/2024.
Past Medical History
Past Medical History: None (Hypertension. Hyperlipidemia. Asthma. 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 Proteinuria.)
Social History
Tobacco: Non-smoker
Alcohol: None
Drug: None
Personal: Single
Living: With Family
Occupational Exposures: No known asbestos exposure
Environmental Exposures: No known tuberculosis exposure
Family History
Family History: Reviewed & Not Pertinent
Allergies / Home Medications
Allergies
Allergy/AdvReac Type Severity Reaction Status Date / Time
azithromycin [From Zithromax] Allergy Shortness Verified 05/13/24 10:52
of Breath
hayfever Allergy asthma Uncoded 05/13/24 10:52
attack
Home Medications
�Medication �Instructions �Recorded �Confirmed �Last Taken �Type
Allergy Shots 1 dose INJ TH Allergies 07/03/20 05/13/24 05/10/24 History
albuterol sulfate 90 mcg/actuation 2 puff inhalation R Q4HPRN PRN sob 07/03/20 05/13/24 06/29/20 History
aerosol inhaler (Proventil HFA)
cyclosporine 0.05 % eye drops in a 1 drp BOTH EYES BID dry eye 07/03/20 05/13/24 05/13/24 History
dropperette (Restasis)
diphenhydramine HCl 50 mg capsule 50 mg PO HSPRN PRN sleep 07/03/20 05/13/24 05/12/24 History
(Banophen)
psyllium husk (aspartame) 3.4 gram 1 packet PO BID Constipation 07/03/20 05/13/24 05/13/24 History
oral powder packet (Metamucil
Fiber Singles)
rosuvastatin 20 mg tablet 20 mg PO DAILY High Cholesterol 07/03/20 05/13/24 05/13/24 History
amlodipine 2.5 mg tablet 2.5 mg PO HS Blood Pressure 04/24/24 05/13/24 05/12/24 History
budesonide 160 mcg-glycopyr 9 2 inh inhalation R BID 04/24/24 05/13/24 05/13/24 History
mcg-formot 4.8 mcg/actuation HFA Lung/Breathing Issues
inhaler (Breztri Aerosphere)
cholecalciferol (vitamin D3) 50 50 mcg PO DAILY Supplement 04/24/24 05/13/24 05/13/24 History
mcg (2,000 unit) tablet
guaifenesin 400 mg tablet 400 mg PO Q4HPRN PRN cough 04/24/24 05/13/24 Unknown History
hydrocortisone 2.5 % topical cream 1 applic topical Q4HPRN PRN 04/24/24 05/13/24 Unknown History
hemorrhoids
lisinopril 20 mg tablet 20 mg PO BID Blood Pressure 04/24/24 05/13/24 05/13/24 History
melatonin 10 mg tablet 10 mg PO HSPRN PRN sleep 04/24/24 05/13/24 Unknown History
mepolizumab 100 mg/mL subcutaneous 300 mg SC Q4W asthma 04/24/24 05/13/24 04/20/24 History
syringe (Nucala)
acetaminophen 500 mg tablet 1,000 mg PO Q6HPRN PRN mild pain 05/13/24 05/13/24 05/13/24 History
(Tylenol Extra Strength)
Review of Systems
-
Unable to Obtain full review of systems at this time due to: Other (Per HPI)
Vitals / Labs / Diagnostic Testing
Vital Signs
Temp Pulse Resp BP Pulse Ox
99.2 F 85 26 83/55 96
05/13/24 14:35 05/13/24 16:15 05/13/24 16:15 05/13/24 16:00 05/13/24 14:35
Lab Data
05/13/24 11:20
Diagnostic Testing:
Physical Exam
-
Exam:
Well-nourished and well-developed in no apparent distress
HEENT-atraumatic, normocephalic
Neck-supple, no JVD, no bruit
Heart-regular rate and rhythm-no murmurs, rubs or gallops
Chest with basilar crackles and forced wheezes
Back-no tenderness
Abdomen-soft, nontender, nondistended, no hepatosplenomegaly
Extremities-no cyanosis, clubbing, edema and good peripheral pulses
Integument-intact, no rashes, lesions or ecchymosis
Neurology-alert and oriented, nonfocal motor and sensory exam
Assessment
-
73-year-old female with history of hypertension, hyperlipidemia, asthma presented with chills weakness, KALEIGH, hyponatremia and ice cream freezer consulted for pressor/sepsis/vasculitis/critical care management 05/13/2024.
Sepsis with shock unresponsive to fluids requiring pressors
Pneumonia
Recent episode of purpuric rash/KALEIGH/thrombocytopenia/elevated inflammatory markers status post biopsy and placed on prednisone
Thrombocytopenia
KALEIGH-serum creatinine 1.6
Hyperkalemia-potassium 5.4
Hyponatremia-serum sodium 129
Jnqzwk-jxgaqfosps-dkbqqhnuko 11.6
Mild hyperglycemia
Conditions present prior to admission:
Recent hospitalization-discharged dosed on 04/30/2024-thrombocytopenia/anemia/purpuric rash, biopsy performed and placed on prednisone with rheumatology follow-up
Hypertension.
Hyperlipidemia.
Asthma.
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 Proteinuria.
Plan
Recent history since discharge consistent with infection-fevers and rigors
Admit patient to medical intensive care unit for persistent hypotension despite fluid resuscitation requiring pressors
Supplement oxygen as needed
High flow oxygen if needed
BiPAP if necessary
Intubate and mechanically ventilate if necessary
Aspiration precautions
Nebulizers if needed-some bronchospasm
Continue steroids-was on prednisone 40 mg daily as an outpatient for possible 'vasculitis'
Obtain cultures-blood, urine, sputum if able to produce
Check urine Legionella and streptococcal antigens
Empiric antibiotics-cefepime and vancomycin initiated
Add atypical henwimel-wtzuixahgga-fffzewaf shortness of breath with azithromycin
Consider Infectious disease consultation
Monitor leukocytosis
Fluid resuscitation with 30 mL/kg crystalloid-preferably lactated ringer-(less KALEIGH) with subsequent boluses as needed
Monitor lactate
Follow CVP if possible
Attempt noninvasive bedside tissue perfusion evaluation to see if fluid bolus responsive
Measure pulse pressure and stroke volume variation if patient on ventilator, passively breathing without arrhythmia and with temporary large tidal volume ventilation and if > 13% then likely fluid bolus responsive
If patient active then consider measuring bedside leg lift for 3 minutes and if cardiac output increases or if there is a rise of 2-4 on end-tidal CO2 then fluid bolus
If bedside ultrasound available then measure IVC diameter variation to evaluate for fluid bolus responsiveness
Begin pressors as needed for MAP goal of 65-Norepinephrine first, then Vasopressin and consider Angiotensin II if continues to be hypotensive
Consider methylene blue if available-specific inhibitor of induced nitric oxide synthase iNOS and its downstream enzyme soluble guanylate cyclase-noninferiority study shown to reduce time to vasopressor discontinuation, decreased ICU length of stay,
hospital stay but no change in mortality-published Critical Care 12/27/2022
If persistently hypotensive then consider checking random cortisol-hydrocortisone if random less than 3, if 3-15 then consider ACTH stimulation test
If persistently hyperthermic then correcting hyperthermia can decrease pressor requirements, increased chances of reversal of shock and decrease mortality
Monitor hemoglobin
Transfuse if needed
Skin biopsy results summarized below- 04/30/2024-send out no deposition of immunoglobulins within the dermal blood vessels to suggest an antibody mediated vasculitis and no deposition of fibrinogen around vessels to suggest active vascular injury, no
features of an autoimmune bullous disease including pemphigus, pemphigoid, linear IgA disease or dermatitis herpetiformis
Monitor renal function
Nephrology evaluation
Replace electrolytes
Monitor blood sugar
Insulin supplementation if needed
DVT prophylaxis
Early nutrition if possible
Early mobilization/bedside range of motion
Critical care statement: A total of 55 minutes of critical care time was provided for this patient today. This includes management of unstable vital signs, evaluation of the patient at bedside, reviewing the patient's pertinent medical records
including radiographs, pressor management, sepsis management, microbiology, laboratory evaluations, and discussion with primary team, consultants, pharmacy, nutrition, physical therapy, case management, charge nurse, critical care nursing, and
respiratory therapy.
Diagnostic data:
Chest x-ray 10/26/2022-NAD
Chest x-ray 04/19/24-mild right middle lobe pneumonia
Chest x-ray 04/24/2024-improvement in right lower lung field suggesting improvement in pneumonia or atelectasis
Chest x-ray 05/13/2024-no pneumonia, mild basilar atelectasis, mild elevation right hemidiaphragm
Brain MRI 02/10/2022-numerous parenchymal foci in bilateral occipital lobes right greater than left can be seen with cerebral amyloid angiopathy
Echocardiogram 01/19/2021-EF 60-65%, no significant valvular disease
Nuclear stress test 01/22/2021-EF 65%, low risk study
Skin biopsy 04/30/2024-send out no deposition of immunoglobulins within the dermal blood vessels to suggest an antibody mediated vasculitis and no deposition of fibrinogen around vessels to suggest active vascular injury, no features of an autoimmune
bullous disease including pemphigus, pemphigoid, linear IgA disease or dermatitis herpetiformis
Data Reviewed
-
EKG: Report reviewed by me
Radiology: Image personally visualized and interpreted and Report reviewed by me
CT Scan: Report reviewed by me
Medical Tests (Nuc Med, Echo etc): Report reviewed by me
Labs: Labs reviewed by me
Old Records: Reviewed
Critical Care Time (in minutes): 55
--- NOTE | 2024-05-13 17:03 | W.PN.UPDATE ---
Update Note
Progress Note Update
Reached out to family, talked to son on phone and updated him
[2024-05-13 17:16] LABS: Magnesium 2.1 mg/dl (1.6-2.3)
[2024-05-13 17:20] LABS: INR 1.38; PT 16.8 Sec (11.4-14.6)
[2024-05-13 17:21] LABS: APTT 49.4 Sec (23.4-35.0)
[2024-05-13 17:22] LABS: Blood Urea Nitrogen 30 mg/dl (9-20); Calcium 7.4 mg/dl (8.4-10.2); Carbon Dioxide 23 mmol/L (22-30); Chloride 103 mmol/L (98-107); Estimated Creatinine Clearance 42 ml/min; Glucose 108 mg/dl (70-99); Potassium 4.5 mmol/L (3.5-5.1); Sodium 130 mmol/L (135-145); eGFR 53.07
[2024-05-13] MEDS: VIBRAMYCIN 260 MG IV (17:36)
--- NOTE | 2024-05-13 18:06 | PTCARENOTE ---
Received pt from ED via stretcher.Awake,alert oriented x 3.+HURLEY.Denies pain.SR noted.IVF infusing.POX 94% on RA.Lungs CTA.Occasional non productive cough noted.c/o hunger.Dinner ordered.No BM.Voiding yellow urine.Scant pink areas of bl lower
extremity rash noted.Plan of care discussed with pt.
--- NOTE | 2024-05-13 18:26 | PTCARENOTE ---
c/o chills.BL upper extremity rigor noted.Temperature 99.8 po.
[2024-05-13] MEDS: RESTASIS 0.05% OPHTHALMIC EMULSION 1 DROPS BOTH EYES (19:57)
[2024-05-13] MEDS: TYLENOL 1000 MG PO (19:57)
[2024-05-13] MEDS: STERILE WATER FOR INJECTION 10 ML IV (19:57)
[2024-05-13] MEDS: MAXIPIME 2000 MG IV (19:57)
--- NOTE | 2024-05-13 20:00 | PTCARENOTE ---
Rec'd pt resting in bed, denies pain, cooperative, ST, Temp 101. c/o chills,Tylenol 1 gm po given, to keep MAP > 65, bp stable, weak distal pulses, no rash noted on legs, skin warm/dry, RA, lungs decr in bases, sat 97, NPC, + bowel sounds, no bm,
abd soft, no n/v, dominick diet, voiding in urinal yellow urine
--- NOTE | 2024-05-13 22:44 | PHA.VAN.IN ---
Assessment
- Assessment
Renal Function: Appears elevated from baseline (Scr trending down 1.6-->1.4)
Maximum Temperature: 101F
Concomitant Antimicrobials: Cefepime, doxycycline
Plan
- Plan
Initial / Loading Dose: Vancomycin 1500mg given 05/13 at 1600
Pt's Scr is trending down. Baseline Scr 0.9-1.1.
Will order one time dose of vancomycin 1000mg for 05/14 at 0600.
Further dosing based on renal function.
Pharmacokinetics Vancomycin I
- -
Patient Age: 73
Patient Sex: Male
Vancomycin Day #: 1
Indication: Bacteremia
Requesting Provider: Dr. Smith
Pertinent Antimicrobial Allergies:
azithromycin [From Zithromax] Allergy (Verified 05/13/24 10:52)
Shortness of Breath
Height / Weight:
Height 5 ft 6 in
Actual Weight 72.9 kg
- Vital Signs / Lab Results
Temp Pulse Resp BP Pulse Ox
101 F H 91 26 107/60 93
05/13/24 20:00 05/13/24 22:00 05/13/24 22:00 05/13/24 22:00 05/13/24 22:00
Lab Results - Hematology
05/13/24
11:20
WBC 7.0
Lab Results - Chemistry
05/13/24 05/13/24
11:21 16:59
BUN 38 H 30 H
Creatinine 1.6 H 1.4 H
Estimated Creat Clear 37 42
Albumin 3.5
05/13/24 05/13/24
11:20 15:15
Lactic Acid 1.3 Cancelled
Lab Results - Urine
05/13/24
13:21
Urine Nitrite (Reflex) Negative
Leukocyte Esterase Rfl Negative
Urine WBC (Reflex) 0-2
Ur Squamous Epith Cells 0-2
Urine Bacteria (Reflex) Few A
[2024-05-13] MEDS: SYMBICORT 160/4.5 MCG INHALER 2 PUFF INH (22:52)
[2024-05-14] VITALS (28 sets, daily range): BP systolic 93–137; BP diastolic 46–97; BMI 26.4; BMI 26.8
--- NOTE | 2024-05-14 | PTCARENOTE ---
sys reviewed, changes noted
[2024-05-14] MEDS: NSS 1000 IV ×3 (00:38→16:57)
[2024-05-14] MEDS: TYLENOL 1000 MG PO ×3 (02:01→18:55)
--- NOTE | 2024-05-14 02:03 | PTCARENOTE ---
pt w/ reilly, temp 100.2, tylenol 1 gm po given
[2024-05-14 03:44] LABS: Hematocrit 27.4 % (39.0-52.0); Hemoglobin 9.3 g/dL (13.0-18.0); Mean Corp Hgb Conc. 33.9 g/dL (33.0-37.0); Mean Corpuscular Hgb 32.4 pg (27.0-31.0); Mean Corpuscular Volume 95.5 fL (80.0-94.0); Mean Platelet Volume 11.5 fL (7.4-10.4); Platelet Count 43 10^3/uL (130-400); Red Blood Cell Count 2.87 10^6/uL (4.70-6.10); Red Cell Dist. Width 13.9 % (11.5-14.5); White Blood Cell Count 3.9 10^3/uL (4.8-10.8)
--- NOTE | 2024-05-14 04:00 | PTCARENOTE ---
sys reviewed, crackles left base, decr in bases, diaphoretic, CHG bath done, linens changed
[2024-05-14 04:03] LABS: ALT (SGPT) 34 U/L (0-50); AST (SGOT) 30 U/L (17-59); Albumin 2.5 g/dl (3.5-5.0); Alkaline Phosphatase 153 U/L (38-126); Blood Urea Nitrogen 23 mg/dl (9-20); Calcium 7.4 mg/dl (8.4-10.2); Carbon Dioxide 18 mmol/L (22-30); Chloride 110 mmol/L (98-107); Estimated Creatinine Clearance 49 ml/min; Glucose 120 mg/dl (70-99); Potassium 4.4 mmol/L (3.5-5.1); Sodium 133 mmol/L (135-145); Total Bilirubin 0.4 mg/dl (0.2-1.3); eGFR > 60.00
--- NOTE | 2024-05-14 04:44 | PTCARENOTE ---
Temp 99.7, has rigors
[2024-05-14] MEDS: DEMEROL 25 MG IV ×2 (05:00→16:53)
[2024-05-14] MEDS: VIBRAMYCIN 260 MG IV (05:01)
--- NOTE | 2024-05-14 05:09 | PTCARENOTE ---
demerol 25mg iv given for shivering per order
[2024-05-14] MEDS: VANCOCIN 200 IV (06:05)
--- NOTE | 2024-05-14 06:13 | PTCARENOTE ---
c/o nausea, slight headache,'not sure if I'm hungry', crackers given
[2024-05-14] MEDS: SYMBICORT 160/4.5 MCG INHALER 2 PUFF INH ×2 (08:00→19:47)
[2024-05-14] MEDS: RESTASIS 0.05% OPHTHALMIC EMULSION 1 DROPS BOTH EYES ×2 (08:06→21:32)
[2024-05-14] MEDS: ZOFRAN 4 MG IV ×3 (08:10→18:55)
[2024-05-14] MEDS: MAXIPIME 2000 MG IV (08:33)
[2024-05-14] MEDS: STERILE WATER FOR INJECTION 10 ML IV (08:33)
--- NOTE | 2024-05-14 08:42 | W.PN.INTV ---
Today's Communication / Plan
Recommendations
ID on board � antibiotics discontinued; follow-up parasite smear
Trend fever curve + leukocytosis
Once he is tolerating PO diet, stop IVF
Transfuse to keep Hb >7, platelets >20k
Consider heme consult
Outpatient rheum consult
MAP>65
Treat rigors with tylenol; Trend Cr and once Cr fully normalizes then can Tx rigors with toradol vs ibuprofen
Patient remains hemodynamically stable, breathing comfortably, with resolved rash. No longer requires ICU level care. Stable for downgrade out of ICU to telemetry. Dispensing Lead/Pulmonary service will now sign off. Please reconsult if there are
any additional questions/concerns, or if patient's respiratory status deteriorates.
Patient already has follow-up arranged with our office with Dr. Davies for 06/01/2024. Advised patient to keep this appointment.
Assessment
-
73-year-old male with history of hypertension, hyperlipidemia, and severe persistent asthma on Nucala + Breztri presented with chills weakness, KALEIGH, hyponatremia and tester regulator consulted for pressor/sepsis/vasculitis/critical care management
05/13/2024.
Impression:
Sepsis with shock unresponsive to fluids requiring pressors --> pressors now off and he is hemodynamically stable
Recent RML pneumonia (seen initially on CXR from 04/19/2024)
Recent episode of purpuric rash/KALEIGH/thrombocytopenia/elevated inflammatory markers status post biopsy and placed on prednisone --> no evidence of vasculitis or vascular injury per RLE skin biopsy on 04/30/2024; DDx is medication induced vs
post-infectious
Thrombocytopenia -stable
KALEIGH-improving
Hyperkalemia- resolved
Hyponatremia- improving
Anemia-normocytic - stable
Mild hyperglycemia
Occasional alcohol use
Conditions present prior to admission:
Recent hospitalization-discharged dosed on 04/30/2024-thrombocytopenia/anemia/purpuric rash, biopsy performed and placed on prednisone with rheumatology follow-up
Hypertension
Hyperlipidemia
Severe persistent asthma on Breztri + Nucala
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 Proteinuria.
Plan
Recent history since discharge consistent with infection-fevers and rigors due to RML PNA
Initially admitted medical intensive care unit for persistent hypotension despite fluid resuscitation requiring pressors
He has now been off vasopressors since 05/13
Continue to maintain SpO2 >90-94% with supplemental O2 as needed
Aspiration precautions
Nebulizers if needed- no currently bronchospastic
Hold off on steroids as recent skin Bx negative for vasculitis, and unclear if pt is having an infection --> if infection ruled out then would be reasonable to start back on steroids with wean as his CRP is markedly elevated (of note, he was on
prednisone 40 mg daily as an outpatient for possible 'vasculitis')
ID on board --> Abx stopped; parasite smear in process
Check procal to assure no evidence of bacterial infection (Cr almost WNL so procal should be reliable)
Urine Legionella and streptococcal antigens both negative
Trend fever curve and monitor leukocytosis
Patient is on Breztri as an outpatient � continue Symbicort and start Spiriva
Patient is currently on IVF at NS 0.9% at 125 mL/h � continue currently but once he starts to tolerate p.o. diet then stop to avoid development of volume overload
Trend hemoglobin and plt
Transfuse as needed to keep Hb>7g/dL, plt>20k
Consider hematology consultation (they were consulted last hospitalization as well)
Recommend outpatient rheumatology consultation/evaluation
Skin biopsy results summarized below- 04/30/2024- no deposition of immunoglobulins within the dermal blood vessels to suggest an antibody mediated vasculitis and no deposition of fibrinogen around vessels to suggest active vascular injury, no
features of an autoimmune bullous disease including pemphigus, pemphigoid, linear IgA disease or dermatitis herpetiformis
Monitor renal function
Nephrology evaluation
Replace electrolytes
Monitor blood sugar with goal 140-180
Insulin supplementation if needed
DVT prophylaxis: SCDs for now given his TCP
Early mobilization/bedside range of motion
Patient remains hemodynamically stable, breathing comfortably, with resolved rash. No longer requires ICU level care. Stable for downgrade out of ICU to telemetry. Dispensing Lead/Pulmonary service will now sign off. Thank you for allowing us to be
involved in the care of this patient. Please reconsult if there are any additional questions/concerns, or if patient's respiratory status deteriorates.
Patient already has follow-up arranged with our office with Dr. Davies for 06/01/2024. Advised patient to keep this appointment.
Diagnostic data:
Chest x-ray 10/26/2022-NAD
Chest x-ray 04/19/24-mild right middle lobe pneumonia
Chest x-ray 04/24/2024-improvement in right lower lung field suggesting improvement in pneumonia or atelectasis
Chest x-ray 05/13/2024-no pneumonia, mild basilar atelectasis, mild elevation right hemidiaphragm
Brain MRI 02/10/2022-numerous parenchymal foci in bilateral occipital lobes right greater than left can be seen with cerebral amyloid angiopathy
Echocardiogram 01/19/2021-EF 60-65%, no significant valvular disease
Nuclear stress test 01/22/2021-EF 65%, low risk study
Skin biopsy 04/30/2024-send out no deposition of immunoglobulins within the dermal blood vessels to suggest an antibody mediated vasculitis and no deposition of fibrinogen around vessels to suggest active vascular injury, no features of an autoimmune
bullous disease including pemphigus, pemphigoid, linear IgA disease or dermatitis herpetiformis
Total time spent today was 75 minutes for this encounter. Time includes reviewing laboratory test/imaging results, reviewing pertinent medical records, obtaining and reviewing medical history, performing an appropriate exam, ordering medications,
tests and procedures. Time also includes documentation of this encounter, coordinating patient care and communicating with other healthcare professionals. Total time does not include separately billed tests performed on this date of service.
Subjective Dataa
Subjective Data
Date of Service:
Date of Service: May 14, 2024
Chief Complaint: Dispensing Lead Follow Up
Subjective:
Seen and evaluated this AM. Last BP 124/74, HR 94 - off vasopressors since 11 PM yesterday. Patient today still feels nauseous with occasional rigors. He is currently on room air breathing comfortably. Last fever was 101 �F earlier this morning.
Review of Systems
General: Other (Negative unless mentioned above)
Objective Data
Data Reviewed
Vital Signs / I&O / Oxygen:
Vital Signs
Temp Pulse Resp BP Pulse Ox
101 F H 101 18 136/79 97
05/14/24 07:12 05/14/24 08:01 05/14/24 08:01 05/14/24 06:00 05/14/24 08:00
Intake and Output
05/13/24 05/14/24 05/15/24
06:59 06:59 06:59
Intake Total 2645 / 2645
Output Total 1450 / 1450 300 / 300
Balance 1195 / 1195 -300 / -300
SaO2 97
Physical Exam
General: Respiratory Distress (negative), Comfortable and Sweats (negative)
HEENT: Normocephalic and Anicteric
Cardiovascular: S1-S2 and Peripheral Edema (negative)
Respiratory: Clear, Wheeze (negative), Crackles (negative), Rhonchi (negative) and Non-Labored Respirations
GI: Soft, Non Distended, Non Tender and Normal Bowel Sounds
Neurology: AO x 3 and Tremors (negative)
Skin: Warm, Dry and Rash (negative (none currently))
Labs/Micro/Reports
Lab Data
05/14/24 03:24
05/14/24 03:24
Laboratory Results
05/13/24
16:59
PT 16.8 H
INR 1.38
APTT 49.4 H
Microbiology
05/13/24 19:53 Urine Legionella Urinary Antigen - Final
Negative for Legionella pneumophila Serogroup 1 antigen.
A negative result does not rule out the possiblity of
Legionella infection due to other serogroups or species of
Legionella. Clinical correlation is recommended.
05/13/24 19:53 Urine Streptococcus pneumoniae Antigen (M - Final
Negative for Streptococcus pneumoniae antigen.
A negative result does not exclude infection with
Streptococcus pneumoniae. Clinical correlation is
recommended.
--- NOTE | 2024-05-14 08:48 | W.PN.HOSP.TC ---
Today's Communication/Plan
-
Follow-up infectious and rest of workup.
Assessment / Plan
Assessment / Plan
Physical exam:
General: Well Developed, Well Nourished and No Apparent Distress
HEENT: Normocephalic, Atraumatic and Moist Mucous Membranes
Respiratory: Clear to Auscultation; Negative Wheezes, Rales or Rhonchi
Cardiac: Regular Rhythm and S1/S2
GI: Soft, Nontender and Nondistended
Musculoskeletal: No Clubbing, No Cyanosis and No Edema
Neuro: Awake, Alert and Oriented
Psych: Calm
A/P:
# Fevers/hypotension
History of rigors at last 2 days
Puzzling diagnosis at this point
He meets the criteria of SIRS /sepsis/septic shock with fever, tachycardia. But unable to locate source. Patient does not have leukocytosis or lactic acidosis.
Differential diagnosis include infectious/inflammatory process, rule out malignancy
Admit the patient to the hospital
S/P blood culture/urine culture
S/P Empiric IV vancomycin IV cefepime
IV fluid, heart rate for now, pressure support if no improvement with blood pressure despite volume replacement.
Previous inflammatory markers elevated with CRP > 270. Recheck to see the trend
Patient denied respiratory/gastrointestinal or urinary symptoms
Tylenol for fever
Might need imaging studies as CAT scan with contrast of chest/abdomen/pelvis after treating KALEIGH
Consulted ID, appreciate input--> ID would like to discontinue antibiotics and follow-up workup.
Teaching Artist feels can be managed out of ICU at this juncture
# Recent episode of purpuric rash/KALEIGH/thrombocytopenia/elevated inflammatory markers
No clear indication for steroids but not out of the possibility yet.
Differential diagnosis inflammatory/vasculitis or others
Serology testing showed negative AMMY, anti--ds DNA, beta-2-GPI IgG/IgM, antiplatelet antibody, anticardiolipin IgG/IgA, normal complement C3 level, COVID.
Elevated complement C4, anticardiolipin IgM
Direct immunofluorescent testing of skin biopsy did not show deposition of immunoglobulin to suggest antibody-mediated vasculitis, no features to suggest autoimmune bullous disease. Result of biopsy and chart.
Currently, patient does not have skin rash although he he reported itching in the lower extremities.
Patient finished course of prednisone. He he was supposed to see forming roll operator heavy duty 05/15.
No joint swelling.
# Thrombocytopenia
Platelet antibody screening was negative. Unlikely HIT.
He had high fibrinogen level last admission which was not diagnostic of DIC
High D-dimer
He was seen by railway switch operator and felt thrombocytopenia was reactive. Normal reticulocyte count.
Hemoglobin at baseline. Normal WBC.
# Acute kidney injury
Hold lisinopril.
Continue with IV fluid.
Monitor for retention. Urine test was only positive for few bacteria, albumin. Patient denied hematuria or dysuria.
History of proteinuria in the past. He saw Dr. Viveros in the office.
Renal ultrasound.
Avoid nephrotoxic
Monitor renal function
# Hyperkalemia, hold RE inhibitor's. Continue with low potassium diet
repeat K level today
# Hyponatremia, patient has history of hyponatremia. No confusion.
# DVT prophylaxis with Thromboguards, thrombocytopenia noted
Total time spent on today's encounter was 52 minutes which included time spent in counseling the patient/family regarding diagnosis and treatment plan as listed above, goals of care, and symptom management. Case was discussed with nursing staff,
specialists, and care coordinators/case management. All labs and imaging personally reviewed by me. Remainder the time spent in detailed review of previous records, lab data, imaging, and other medical provider documentation.
Anticipated Discharge: > 48 hours
Subjective/Interval History
-
Date of Service: May 14, 2024
Patient denies any cough, abdominal pain, nausea or vomiting or diarrhea. Blood pressure has been stable. Rigors and rash present
Objective Data
-
Labs:
Laboratory Results
05/14/24
03:24
WBC 3.9 L
Hgb 9.3 L
Hct 27.4 L
Plt Count 43 L D
Sodium 133 L
Potassium 4.4
Chloride 110 H
Carbon Dioxide 18 L
BUN 23 H
Creatinine 1.2
Glucose 120 H
Calcium 7.4 L
Total Bilirubin 0.4
AST 30
ALT 34
Alkaline Phosphatase 153 H
Vital Signs:
Vital Signs
Temp Pulse Resp BP Pulse Ox
101 F H 101 18 136/79 95
05/14/24 07:12 05/14/24 08:01 05/14/24 08:01 05/14/24 06:00 05/14/24 06:00
I&O
05/13/24 05/14/24 05/15/24
06:59 06:59 06:59
Intake Total 2645 / 2645
Output Total 1450 / 1450 300 / 300
Balance 1195 / 1195 -300 / -300
--- NOTE | 2024-05-14 09:24 | PTCARENOTE ---
recd pt 0730 handoff at bedside, VS noted. approx 0750 rang, dry heaves, nausea. zofran order obtained, given, refuses breakfast at present, taking fluids/julienne popeye. call morales in reach. presently no rigors, notes feels warm but presently
refusing tylenol, encouraged to request dose if symptoms change. positioned for comfort. IV fluids continue as prescribed.
--- NOTE | 2024-05-14 10:40 | PHA.VAN.FU ---
Vancomycin Assessment / Plan
- Assessment
Renal Function: SCR Decreasing
In the past 24 hrs, patient has been: Febrile
Concomitant Antimicrobials: cefepime, doxycycline
- Dosing Plan
Dosing by Level: Re-dose today (received 1000mg today at 06:05 - no further dosing today)
Dosing Comments: SCR unstable - trending down - hold off scheduling further dosing
- Monitoring Plan
Random Level: 05/15 06
- Follow Up
Pharmacy will continue to follow.
Vancomycin Follow UP
- -
Patient Age: 73
Patient Sex: Male
Vancomycin Day #: 2
Indication: Bacteremia
Requesting Provider: Dr. Smith
Pertinent Antimicrobial Allergies:
azithromycin - Shortness of Breath
Height / Weight:
Height 5 ft 6 in
Actual Weight 74.2 kg
- Vital Signs / Lab Results
Temp Pulse Resp BP Pulse Ox
99.1 F 101 18 136/79 97
05/14/24 10:00 05/14/24 08:01 05/14/24 08:01 05/14/24 06:00 05/14/24 08:00
Lab Results - Hematology
05/13/24 05/14/24
11:20 03:24
WBC 7.0 3.9 L
Lab Results - Chemistry
05/13/24 05/13/24 05/14/24
11:21 16:59 03:24
BUN 38 H 30 H 23 H
Creatinine 1.6 H 1.4 H 1.2
Estimated Creat Clear 37 42 49
Albumin 3.5 2.5 L
05/13/24 05/13/24
11:20 15:15
Lactic Acid 1.3 Cancelled
Lab Results - Urine
05/13/24
13:21
Urine Nitrite (Reflex) Negative
Leukocyte Esterase Rfl Negative
Ur Squamous Epith Cells 0-2
Microbiology Results
05/13/24 19:53 Legionella Urinary Antigen - Final
Urine Negative for Legionella pneumophila Serogroup 1 antigen.
A negative result does not rule out the possiblity of
Legionella infection due to other serogroups or species of
Legionella. Clinical correlation is recommended.
Streptococcus pneumoniae Antigen (M - Final
Negative for Streptococcus pneumoniae antigen.
A negative result does not exclude infection with
Streptococcus pneumoniae. Clinical correlation is
recommended.
--- NOTE | 2024-05-14 10:48 | CON.ID ---
Consultation
-
Date/Time Consultation Requested: 05/13/2024 1622
Date/Time Consultation Performed: 05/14/2024 1020
Requesting Provider: Dr. Smith
Performing Provider: Dr. Dhaliwal
Reason for Consultation: Fever
Chief Complaint / Past History
History of Present Illness
Murali Zarco is a 73-year-old man being evaluated at the request of Dr. Smith in regards to fever. History is obtained from chart review, along with patient interview.
The patient reports that symptomatology initially began in late March early April when he developed a cough, along with episodes of dry heaves. Ultimately, he was seen by Allergy and prescribed prednisone. On April 19 he was seen at urgent care for
evaluation of the cough. Chest x-ray was performed and was read as pneumonia and he was placed on a course of antibiotics (Augmentin/Azithromycin)
He subsequently developed a rash on his arms and legs and was seen by his PCP and sent to the hospital for further evaluation. He was admitted on 04/24, and was inpatient through 05/01. During that time he was evaluated for the lower extremity rash,
and the biopsy was obtained. The feeling was that it may be vasculitis, and following discharge she made an appointment with Rheumatology, which was supposed to take place tomorrow.
He presents back to the ER on 05/13 secondary to reported rash, along with development of chills and generalized bodyaches. He also admits to feeling dizzy and lightheaded yesterday. He denies any shortness of breath but notes ongoing cough. He
additionally has noted fevers, and temperatures here have been as high as 101 degrees.
At present he denies any overt chest pain. He reports minimal sputum noting that the phlegm comes up to his throat area, but cannot be expectorated. He denies abdominal pain, nausea, vomiting or diarrhea. He denies any dysuria.
Past History
Additional Past Medical History:
Asthma
HTN
Dyslipidemia
Additional Past Surgical History:
Left knee surgery
Allergy History:
azithromycin [From Zithromax] Allergy (Verified 05/13/24 10:52)
Shortness of Breath
hayfever Allergy (Uncoded 05/13/24 10:52)
asthma attack
Medications Reviewed: Yes
Current Antibiotics:
Cefepime 2 g IV every 12 hours
Doxycycline 100 mg IV every 12 hours
Vancomycin (dosed per pharmacy)
Social History
Tobacco: Non-Smoker
Alcohol: Daily
Drug: None
Personal:
Living: With Family
Employment: Retired
Family History
Family History: Not Pertinent
Review of Systems
Vital Signs
Temp Pulse Resp BP Pulse Ox
99.1 F 101 18 136/79 97
05/14/24 10:00 05/14/24 08:01 05/14/24 08:01 05/14/24 06:00 05/14/24 08:00
Physical Exam
Physical Exam
Constitutional: No Acute Distress, Well Developed, Comfortable and Non-toxic
Head: Normocephalic
Eyes: Pupils Equal, Pupils Round, No Conjunctival Hemorrhage and Sclera Anicteric
Pharynx: Benign
Oral: No Thrush and No Ulcers
Lymph Nodes: Negative Lymphadenopathy
Cardiovascular: Regular Rate and S1/S2; Negative S3/S4
Pulmonary: Clear, Rhonchi (scatteres), Coarse and Non Labored
Gastrointestinal: Soft, Non Tender, Non Distended, Normal Bowel Sounds, No Rebound and No Guarding
Genito-Urinary: Negative Vásquez or CVA Tenderness
Extremities: Negative Edema, Cyanosis or Erythema
Skin: Warm and Dry; Negative Rash
Neurological: Awake, Alert and Oriented
Psychological: Calm
Lab / Diagnostic Study Results
05/14/24 03:24
Abs Immat Gran (auto) 0.1 10^3/uL (0-0.05) H 05/13/24 11:20
Absolute Neuts (auto) 5.9 10^3/uL (1.4-6.5) 05/13/24 11:20
Absolute Lymphs (auto) 0.6 10^3/uL (1.2-3.4) L 05/13/24 11:20
Absolute Monos (auto) 0.4 10^3/uL (0.1-0.6) 05/13/24 11:20
Absolute Basos (auto) 0.0 10^3/uL (0-0.2) 05/13/24 11:20
Immature Gran % 1.9 % (0-0.5) H 05/13/24 11:20
Neutrophils % 84.2 % (42.2-75.2) H 05/13/24 11:20
Lymphocytes % 8.6 % (20.5-51.1) L 05/13/24 11:20
Monocytes % 5.2 % (1.7-9.3) 05/13/24 11:20
Eosinophils % 0.0 % (0-6) 05/13/24 11:20
Basophils % 0.1 % (0-2) 05/13/24 11:20
PT 16.8 Sec (11.4-14.6) H 05/13/24 16:59
INR 1.38 05/13/24 16:59
Lactic Acid Cancelled 05/13/24 15:15
C-Reactive Protein 254.70 mg/L (0.0-10.00) H 05/14/24 03:24
Ur Squamous Epith Cells 0-2 /LPF (Few) 05/13/24 13:21
Microbiology Results
Micro:
05/13/24 19:53 Legionella Urinary Antigen - Final
Urine Negative for Legionella pneumophila Serogroup 1 antigen.
A negative result does not rule out the possiblity of
Legionella infection due to other serogroups or species of
Legionella. Clinical correlation is recommended.
Streptococcus pneumoniae Antigen (M - Final
Negative for Streptococcus pneumoniae antigen.
A negative result does not exclude infection with
Streptococcus pneumoniae. Clinical correlation is
recommended.
05/13/24 11:21 Blood Culture - Pending
Blood/Venous
Imaging:
No radiographic evidence for pneumonia. There is mild scarring/subsegmental atelectasis of both lower lungs. Mild volume loss in the right lung with mild left to right mediastinal shift and mild elevation of the right hemidiaphragm. Please see
full dictation for additional detail. Film personally viewed.
Assessment / Plan
Fever
Anemia
Thrombocytopenia
Chronic cough
Generalized weakness
Elevated CRP
Asthma
HTN
Dyslipidemia
Recommendations:
Fever is noted, but not clear whether there is a bacterial etiology at present.
Discontinue further vancomycin, cefepime and doxycycline.
Check peripheral blood smear for parasites (Babesia)
Monitor white count and temperature curve.
Follow platelet count
Check ESR
Follow pending blood cultures.
Further recommendations as additional data is returned.
--- NOTE | 2024-05-14 11:00 | PTCARENOTE ---
back to bed with min A. call morales in reach. seen by Dr. Dhaliwal. Remains on room air, denies need for additional tylenol at present. IV fluids infusing.
--- NOTE | 2024-05-14 12:47 | PTCARENOTE ---
ambulated to bathroom, flatus no stool yet. aware of senna order, declined at this time. rigors returning, arms, temp noted, med with tylenol as ordered and zofran pre-meal as okayed by Dr. Schroeder.
--- NOTE | 2024-05-14 13:23 | CM ---
CM following re: discharge planning.
Reviewed pt's chart, met with pt.
Pt is a 73 year old male, admitted with primary dx of Sepsis with shock
Pt reports he lives alone in a split story home with 2 step to enter and 9 steps to bed and bathroom, has 2 supportive children. .Pt described himself as independent in all areas [employer]OVAL[employer], drives. No DME, VN or SNF history.
PCP: Duglas Lorenzana
Pharmacy [facility]
D/C plan: home with anticipated no needs. family to transport at discharge.
CM will follow with discharge plan updates as hospitalization progresses
--- NOTE | 2024-05-14 13:59 | PTCARENOTE ---
rang, c/o hot, sweaty, 'my fever's back'. Oral and axillary temps checked, support given, within several minutes did report feeling better, symptoms improved. cool cloth to forehead.
[2024-05-14 14:55] LABS: Hematocrit 28.2 % (39.0-52.0); Hemoglobin 9.8 g/dL (13.0-18.0); Mean Corp Hgb Conc. 34.8 g/dL (33.0-37.0); Mean Corpuscular Hgb 32.1 pg (27.0-31.0); Mean Corpuscular Volume 92.5 fL (80.0-94.0); Mean Platelet Volume 11.9 fL (7.4-10.4); Platelet Count 50 10^3/uL (130-400); Red Blood Cell Count 3.05 10^6/uL (4.70-6.10); Red Cell Dist. Width 13.8 % (11.5-14.5); White Blood Cell Count 4.1 10^3/uL (4.8-10.8)
[2024-05-14 15:22] LABS: Erythrocyte Sed Rate 104 mm/hour (0-20)
--- NOTE | 2024-05-14 16:30 | PTCARENOTE ---
again with gentle shaking rigors mostly arms, 'I feel terrible'. No other change in assessment. blanket given for comfort, rigors are not continuous. T noted 99.0
--- NOTE | 2024-05-14 16:58 | PTCARENOTE ---
new room assigned. Dr. Brunson updated, order for one time demerol obtained and given.
--- NOTE | 2024-05-14 18:14 | PTCARENOTE ---
tremulous, anxious, incont very large amount despite assistance using urinal. complete linen change. dinner tray ordered, brought into room, smell of food triggered nausea again, pt does not wish to eat at this time. Fluids infusing, support
given, rest of VS stable.
--- NOTE | 2024-05-14 19:00 | PTCARENOTE ---
climbed OOB, assisted to bathroom for urine, small leaking along way, skin warm, T 102.7 med with zofran and tylenol as ordered. calm. resting in bed. rest of assessment unchanged.
--- NOTE | 2024-05-14 19:15 | PTCARENOTE ---
report given to next RN, transferred to room 427 via wc with all belongings.
[2024-05-15 03:28] VITALS: BP 114/73
[2024-05-15] MEDS: TYLENOL 1000 MG PO (04:42)
[2024-05-15 07:30] VITALS: BP 111/67
[2024-05-15] MEDS: SPIRIVA RESPIMAT 2.5 MCG 2 PUFF INH (07:39)
[2024-05-15] MEDS: SYMBICORT 160/4.5 MCG INHALER 2 PUFF INH ×2 (07:40→20:25)
[2024-05-15 08:12] LABS: % Basophils 0.2 % (0-2); % Eosinophils 0.2 % (0-6); % Immature Granulocytes 2.3 % (0-0.5); % Lymphocytes 12.4 % (20.5-51.1); % Monocytes 6.5 % (1.7-9.3); % Neutrophils 78.4 % (42.2-75.2); Absolute Immature Granulocytes 0.1 10^3/uL (0-0.05); Absolute Lymphocytes 0.5 10^3/uL (1.2-3.4); Absolute Monocytes 0.3 10^3/uL (0.1-0.6); Absolute Neutrophils 3.4 10^3/uL (1.4-6.5); Hematocrit 27.5 % (39.0-52.0); Hemoglobin 9.4 g/dL (13.0-18.0); Mean Corp Hgb Conc. 34.2 g/dL (33.0-37.0); Mean Corpuscular Hgb 32.1 pg (27.0-31.0); Mean Corpuscular Volume 93.9 fL (80.0-94.0); Mean Platelet Volume 11.2 fL (7.4-10.4); Nucleated Red Blood Cells % 0 % (-); Platelet Count 59 10^3/uL (130-400); Red Blood Cell Count 2.93 10^6/uL (4.70-6.10); Red Cell Dist. Width 14.1 % (11.5-14.5); White Blood Cell Count 4.3 10^3/uL (4.8-10.8)
[2024-05-15 08:50] LABS: Procalcitonin 3.25 ng/ml (0.0-0.25)
[2024-05-15 08:55] LABS: ALT (SGPT) 31 U/L (0-50); AST (SGOT) 21 U/L (17-59); Albumin 2.7 g/dl (3.5-5.0); Alkaline Phosphatase 188 U/L (38-126); Blood Urea Nitrogen 13 mg/dl (9-20); Calcium 7.8 mg/dl (8.4-10.2); Carbon Dioxide 20 mmol/L (22-30); Chloride 109 mmol/L (98-107); Estimated Creatinine Clearance 59 ml/min; Glucose 112 mg/dl (70-99); Magnesium 1.9 mg/dl (1.6-2.3); Phosphorus 2.9 mg/dl (2.5-4.5); Potassium 4.4 mmol/L (3.5-5.1); Sodium 134 mmol/L (135-145); Total Bilirubin 0.5 mg/dl (0.2-1.3); Total Protein 5.1 g/dl (6.3-8.2); eGFR > 60.00
--- NOTE | 2024-05-15 09:12 | W.PN.HOSP.TC ---
Today's Communication/Plan
-
CT of chest and abdomen. Hematology eval.
Assessment / Plan
Assessment / Plan
Physical exam:
General: Well Developed, Well Nourished and No Apparent Distress
HEENT: Normocephalic, Atraumatic and Moist Mucous Membranes
Respiratory: Clear to Auscultation; Negative Wheezes, Rales or Rhonchi
Cardiac: Regular Rhythm and S1/S2
GI: Soft, Nontender and Nondistended
Musculoskeletal: No Clubbing, No Cyanosis and No Edema
Neuro: Awake, Alert and Oriented
Psych: Calm
A/P:
# Fever
Etiology remains unclear
Will do CT scan of the chest abdomen and pelvis today
Off antibiotics
Follow-up cultures
Check tickborne illness serology
Hematology consult
Follow-up ID further recommendations
Prior to today:
History of rigors at last 2 days
Puzzling diagnosis at this point
He meets the criteria of SIRS /sepsis/septic shock with fever, tachycardia. But unable to locate source. Patient does not have leukocytosis or lactic acidosis.
Differential diagnosis include infectious/inflammatory process, rule out malignancy
Admit the patient to the hospital
S/P blood culture/urine culture
S/P Empiric IV vancomycin IV cefepime
IV fluid, heart rate for now, pressure support if no improvement with blood pressure despite volume replacement.
Previous inflammatory markers elevated with CRP > 270. Recheck to see the trend
Patient denied respiratory/gastrointestinal or urinary symptoms
Tylenol for fever
Might need imaging studies as CAT scan with contrast of chest/abdomen/pelvis after treating KALEIGH
Consulted ID, appreciate input--> ID would like to discontinue antibiotics and follow-up workup.
Keno Attendant feels can be managed out of ICU at this juncture
#Hypotension
Resolved
Off IV fluid
# Recent episode of purpuric rash/KALEIGH/thrombocytopenia/elevated inflammatory markers
No clear indication for steroids but not out of the possibility yet.
Differential diagnosis inflammatory/vasculitis or others
Serology testing showed negative AMMY, anti--ds DNA, beta-2-GPI IgG/IgM, antiplatelet antibody, anticardiolipin IgG/IgA, normal complement C3 level, COVID.
Elevated complement C4, anticardiolipin IgM
Direct immunofluorescent testing of skin biopsy did not show deposition of immunoglobulin to suggest antibody-mediated vasculitis, no features to suggest autoimmune bullous disease. Result of biopsy and chart.
Currently, patient does not have skin rash although he he reported itching in the lower extremities.
Patient finished course of prednisone. He he was supposed to see director medical 05/15.
No joint swelling.
# Thrombocytopenia
Platelet antibody screening was negative. Unlikely HIT.
He had high fibrinogen level last admission which was not diagnostic of DIC
High D-dimer
He was seen by accounts receivable associate and felt thrombocytopenia was reactive. Normal reticulocyte count.
Hemoglobin at baseline. Normal WBC.
# Acute kidney injury
Hold lisinopril.
Continue with IV fluid.
Monitor for retention. Urine test was only positive for few bacteria, albumin. Patient denied hematuria or dysuria.
History of proteinuria in the past. He saw Dr. Viveros in the office.
Renal ultrasound.
Avoid nephrotoxic
Monitor renal function
# Hyperkalemia, hold RE inhibitor's. Continue with low potassium diet
repeat K level today
# Hyponatremia, patient has history of hyponatremia. No confusion.
# DVT prophylaxis with Thromboguards, thrombocytopenia noted
Total time spent on today's encounter was 52 minutes which included time spent in counseling the patient/family regarding diagnosis and treatment plan as listed above, goals of care, and symptom management. Case was discussed with nursing staff,
specialists, and care coordinators/case management. All labs and imaging personally reviewed by me. Remainder the time spent in detailed review of previous records, lab data, imaging, and other medical provider documentation.
Anticipated Discharge: > 48 hours
Subjective/Interval History
-
Date of Service: May 15, 2024
Patient still having fevers. Less nausea. Mild dry cough.
Objective Data
-
Labs:
Laboratory Results
05/15/24
07:42
WBC 4.3 L
Hgb 9.4 L
Hct 27.5 L
Plt Count 59 L
Sodium 134 L
Potassium 4.4
Chloride 109 H
Carbon Dioxide 20 L
BUN 13
Creatinine 1.0
Glucose 112 H
Calcium 7.8 L
Total Bilirubin 0.5
AST 21
ALT 31
Alkaline Phosphatase 188 H
Vital Signs:
Vital Signs
Temp Pulse Resp BP Pulse Ox
98.5 F 79 16 111/67 96
05/15/24 07:30 05/15/24 07:30 05/15/24 07:49 05/15/24 07:30 05/15/24 07:49
I&O
05/14/24 05/15/24 05/16/24
06:59 06:59 06:59
Intake Total 2645 / 2645 2805 / 2805
Output Total 1450 / 1450 800 / 800
Balance 1195 / 1195 2004 / 2004
[2024-05-15 09:19] LABS: C-Reactive Protein > 270.00 mg/L (0.0-10.00)
[2024-05-15 10:35] VITALS: BP 115/70
[2024-05-15] MEDS: RESTASIS 0.05% OPHTHALMIC EMULSION 1 DROPS BOTH EYES ×2 (11:13→20:49)
--- NOTE | 2024-05-15 11:43 | CON.ONC ---
Impression
Impression
Fever of undetermined origin
Pancytopenia, predominantly thrombocytopenia
Plan
Plan
The skin biopsy seems to with excluded vasculitis with a reasonable certainty. I believe an infectious process remains most likely, with tickborne disease is high on the list. I have sent off PCR for ehrlichiosis, babesiosis, anaplasmosis, as well
as a regular Lyme panel and antibodies for [place] spotted fever. Agree with plans for CT of the chest abdomen and pelvis to exclude malignancy as a possible cause. Thrombocytopenia noncritical at this point. I do not see a need for a bone
marrow as yet.
Patient History
History of Present Illness
Consult from Dr. Brunson regarding pancytopenia
This 73-year-old man was admitted with recurrent fevers and chills. He was admitted here almost 4 weeks ago with similar problems. He had a fairly extensive rash on his hands and arms at that time. Infectious workup was unremarkable. He
rheumatologic diagnosis was felt to be likely, and he was discharged on fairly high doses of prednisone. The skin rash did clear up, as did the fevers. However, with taper of his prednisone, the fevers and chills have returned. They occur at
least once, and often more than once a day. The fevers are followed by sweats. He has a dry cough. He has no or GI symptoms. He is unaware of a tick bite, although did notice some sort of a bite on his ankle several weeks ago.
Past-Medical/Surgical History
He has been in fairly good health. He did have a bout of proteinuria in the past. He has hypertension.
Social history: He does not smoke.
Family history is noncontributory.
Patient Medication
�Medication �Instructions �Recorded �Confirmed �Last Taken �Type
Allergy Shots 1 dose INJ TH Allergies 07/03/20 05/13/24 05/10/24 History
albuterol sulfate 90 mcg/actuation 2 puff inhalation R Q4HPRN PRN sob 07/03/20 05/13/24 06/29/20 History
aerosol inhaler (Proventil HFA)
cyclosporine 0.05 % eye drops in a 1 drp BOTH EYES BID dry eye 07/03/20 05/13/24 05/13/24 History
dropperette (Restasis)
diphenhydramine HCl 50 mg capsule 50 mg PO HSPRN PRN sleep 07/03/20 05/13/24 05/12/24 History
(Banophen)
psyllium husk (aspartame) 3.4 gram 1 packet PO BID Constipation 07/03/20 05/13/24 05/13/24 History
oral powder packet (Metamucil
Fiber Singles)
rosuvastatin 20 mg tablet 20 mg PO DAILY High Cholesterol 07/03/20 05/13/24 05/13/24 History
amlodipine 2.5 mg tablet 2.5 mg PO HS Blood Pressure 04/24/24 05/13/24 05/12/24 History
budesonide 160 mcg-glycopyr 9 2 inh inhalation R BID 04/24/24 05/13/24 05/13/24 History
mcg-formot 4.8 mcg/actuation HFA Lung/Breathing Issues
inhaler (Breztri Aerosphere)
cholecalciferol (vitamin D3) 50 50 mcg PO DAILY Supplement 04/24/24 05/13/24 05/13/24 History
mcg (2,000 unit) tablet
guaifenesin 400 mg tablet 400 mg PO Q4HPRN PRN cough 04/24/24 05/13/24 Unknown History
hydrocortisone 2.5 % topical cream 1 applic topical Q4HPRN PRN 04/24/24 05/13/24 Unknown History
hemorrhoids
lisinopril 20 mg tablet 20 mg PO BID Blood Pressure 04/24/24 05/13/24 05/13/24 History
melatonin 10 mg tablet 10 mg PO HSPRN PRN sleep 04/24/24 05/13/24 Unknown History
mepolizumab 100 mg/mL subcutaneous 300 mg SC Q4W asthma 04/24/24 05/13/24 04/20/24 History
syringe (Nucala)
acetaminophen 500 mg tablet 1,000 mg PO Q6HPRN PRN mild pain 05/13/24 05/13/24 05/13/24 History
(Tylenol Extra Strength)
Active Medications
Generic Name Dose Route Start Last Admin
Trade Name Freq PRN Reason Stop Dose Admin
Acetaminophen 1,000 mg 05/13/24 16:22 05/15/24 04:42
Acetaminophen 500 Mg Tablet PO 06/10/24 16:21 1,000 mg
Q6HPRN PRN Administration
mild pain/fevers
Albuterol 2 puff 05/13/24 16:22
Albuterol Hfa [90 Mcg/Dose] Inhaler INH
R Q4HPRN PRN
sob
Protocol
Budesonide/Formoterol Fumarate 2 puff 05/14/24 08:00 05/15/24 07:40
Symbicort Inhaler 160/4.5 INH 06/11/24 07:59 2 puff
R BID DOE Administration
Protocol
Cyclosporine 1 drops 05/13/24 20:00 05/15/24 11:13
Cyclosporine 0.05% (Ophthalmic Emulsion) 10 Drop Droperette BOTH EYES 06/10/24 19:59 1 drops
BID DOE Administration
Diphenhydramine HCl 50 mg 05/13/24 16:22
Diphenhydramine 50 Mg Capsule PO 06/10/24 16:21
HSPRN PRN
sleep
Iohexol 0 ml 05/15/24 12:00
Iohexol (240 Mg/Ml) 50 Ml Cat Scan PO 05/15/24 12:01
ONCE@1200 ONE
Protocol
Melatonin 10 mg 05/13/24 16:43
Melatonin 5 Mg Tablet PO 06/10/24 16:42
HSPRN PRN
sleep
Ondansetron HCl 4 mg 05/14/24 08:02 05/14/24 18:55
Ondansetron 4 Mg/2 Ml Vial IV 06/11/24 08:01 4 mg
Q6HPRN PRN Administration
NAUSEA/VOMITING
Senna/Docusate Sodium 1 tablet 05/14/24 10:06
Docusate W/Senna (Gwen-Colace) Tablet PO 06/11/24 10:05
BIDPRN PRN
constipation
Sodium Chloride 0 flush 05/13/24 17:00
Sodium Chloride 0.9% (Flush) Syringe IV 06/10/24 16:59
PER PROTOCOL DOE
Tiotropium [place] 2 puff 05/15/24 08:00 05/15/24 07:39
Tiotropium (Spiriva Respimat) 2.5 Mcg Inhaler INH 06/12/24 07:59 2 puff
R DAILY DOE Administration
Protocol
Review of Systems
-
All Other Systems: Reviewed and Negative
Physical Exam
-
Physical examination shows the patient to be in no acute distress.
HEENT exam is unremarkable.
There are no palpable nodes.
Chest is clear.
The heart is regular with no murmur or gallop.
The abdomen is soft and nontender with no organomegaly or masses.
Extremities are unremarkable.
Neurologic is grossly intact.
Examination of the skin shows no real evidence of the rash that he had 2 to 3 weeks ago.
Labs
Lab Results
WBC 4.3 10^3/uL (4.8-10.8) L 05/15/24 07:42
RBC 2.93 10^6/uL (4.70-6.10) L 05/15/24 07:42
Hgb 9.4 g/dL (13.0-18.0) L 05/15/24 07:42
Hct 27.5 % (39.0-52.0) L 05/15/24 07:42
MCV 93.9 fL (80.0-94.0) 05/15/24 07:42
MCH 32.1 pg (27.0-31.0) H 05/15/24 07:42
MCHC 34.2 g/dL (33.0-37.0) 05/15/24 07:42
RDW 14.1 % (11.5-14.5) 05/15/24 07:42
Plt Count 59 10^3/uL (130-400) L 05/15/24 07:42
MPV 11.2 fL (7.4-10.4) H 05/15/24 07:42
Abs Immat Gran (auto) 0.1 10^3/uL (0-0.05) H 05/15/24 07:42
Absolute Neuts (auto) 3.4 10^3/uL (1.4-6.5) 05/15/24 07:42
Absolute Lymphs (auto) 0.5 10^3/uL (1.2-3.4) L 05/15/24 07:42
Absolute Monos (auto) 0.3 10^3/uL (0.1-0.6) 05/15/24 07:42
Absolute Eos (auto) 0.0 10^3/uL (0-0.7) 05/15/24 07:42
Absolute Basos (auto) 0.0 10^3/uL (0-0.2) 05/15/24 07:42
Immature Gran % 2.3 % (0-0.5) H 05/15/24 07:42
Neutrophils % 78.4 % (42.2-75.2) H 05/15/24 07:42
Lymphocytes % 12.4 % (20.5-51.1) L 05/15/24 07:42
Monocytes % 6.5 % (1.7-9.3) 05/15/24 07:42
Eosinophils % 0.2 % (0-6) 05/15/24 07:42
Basophils % 0.2 % (0-2) 05/15/24 07:42
Creatinine 1.0 mg/dL (0.7-1.3) 05/15/24 07:42
Vital Signs
Vital Signs
Temp Pulse Resp BP Pulse Ox
98.2 F 82 18 115/70 99
05/15/24 10:35 05/15/24 10:35 05/15/24 10:35 05/15/24 10:35 05/15/24 10:35
[2024-05-15] MEDS: OMNIPAQUE 50 ML PO (12:17)
[2024-05-15] MEDS: ZOFRAN 4 MG IV (14:14)
[2024-05-15] MEDS: FLUSH (NSS) 1 FLUSH IV (14:15)
[2024-05-15 14:30] VITALS: BP 144/83
--- NOTE | 2024-05-15 15:07 | CM ---
Patient seen at bedside with daughter.
Seen by hematology.
Awaiting to go to CT Scan chest abdomen pelvis.
No needs identified at this time.
Plan: Discharge to home when stable. Continue to monitor.
[2024-05-15 19:36] VITALS: BP 115/66
[2024-05-15] MEDS: BENADRYL 50 MG PO (20:51)
[2024-05-15 23:23] VITALS: BP 116/73
[2024-05-16 03:29] VITALS: BP 114/70
[2024-05-16 07:30] VITALS: BP 129/66
[2024-05-16] MEDS: SYMBICORT 160/4.5 MCG INHALER 2 PUFF INH ×2 (08:07→20:25)
[2024-05-16] MEDS: SPIRIVA RESPIMAT 2.5 MCG 2 PUFF INH (08:07)
[2024-05-16] MEDS: RESTASIS 0.05% OPHTHALMIC EMULSION 1 DROPS BOTH EYES ×2 (08:36→20:23)
--- NOTE | 2024-05-16 09:06 | W.PN.HOSP.TC ---
Today's Communication/Plan
-
Echocardiogram. Observe off antibiotics. ID reeval
Assessment / Plan
Assessment / Plan
Physical exam:
General: Well Developed, Well Nourished and No Apparent Distress
HEENT: Normocephalic, Atraumatic and Moist Mucous Membranes
Respiratory: Clear to Auscultation; Negative Wheezes, Rales or Rhonchi
Cardiac: Regular Rhythm and S1/S2
GI: Soft, Nontender and Nondistended
Musculoskeletal: No Clubbing, No Cyanosis and No Edema
Neuro: Awake, Alert and Oriented
Psych: Calm
A/P:
# Fever
Etiology remains unclear
CT scan of the chest abdomen and pelvis unrevealing
Discussed with ID today
Plan to do an echocardiogram
Off antibiotics
Follow-up cultures
Check tickborne illness serology
#Pancytopenia
Probably infectious related
Cannot rule out bone marrow process
Appreciated hematology consult
#Hypotension
Resolved
Off IV fluid
# Recent episode of purpuric rash/KALEIGH/thrombocytopenia/elevated inflammatory markers
No clear indication for steroids but not out of the possibility yet.
Differential diagnosis inflammatory/vasculitis or others
Serology testing showed negative AMMY, anti--ds DNA, beta-2-GPI IgG/IgM, antiplatelet antibody, anticardiolipin IgG/IgA, normal complement C3 level, COVID.
Elevated complement C4, anticardiolipin IgM
Direct immunofluorescent testing of skin biopsy did not show deposition of immunoglobulin to suggest antibody-mediated vasculitis, no features to suggest autoimmune bullous disease. Result of biopsy and chart.
Currently, patient does not have skin rash although he he reported itching in the lower extremities.
Patient finished course of prednisone. He he was supposed to see scutcher tender 05/15. He can still see them as outpatient but no clear autoimmune or rheumatologic identified illness at the moment.
No joint swelling.
# Acute kidney injury
Creatinine improved after IV fluids.
Received contrast.
Creatinine today 1.0
Continue hold lisinopril and will resume tomorrow depending on renal function and blood pressure.
Monitor for retention. Urine test was only positive for few bacteria, albumin. Patient denied hematuria or dysuria.
History of proteinuria in the past. He saw Dr. Viveros in the office.
Avoid nephrotoxic
Monitor renal function
# Hyperkalemia, hold RE inhibitor's. Continue with low potassium diet
Potassium remains normal at 3.9 today
# Hyponatremia
Sodium normal 137 today
# DVT prophylaxis with Thromboguards, thrombocytopenia noted
Anticipated Discharge: 24 - 48 hours
Subjective/Interval History
-
Date of Service: May 16, 2024
Patient fevers are coming down. No nausea vomiting or diarrhea.
Objective Data
-
Labs:
Laboratory Results
05/16/24
06:00
WBC Pending
Hgb Pending
Hct Pending
Plt Count Pending
Sodium Pending
Potassium Pending
Chloride Pending
Carbon Dioxide Pending
BUN Pending
Creatinine Pending
Glucose Pending
Calcium Pending
Total Bilirubin Pending
AST Pending
ALT Pending
Alkaline Phosphatase Pending
Vital Signs:
Vital Signs
Temp Pulse Resp BP Pulse Ox
99.7 F 82 14 129/66 96
05/16/24 07:30 05/16/24 08:11 05/16/24 08:11 05/16/24 07:30 05/16/24 08:11
I&O
05/15/24 05/16/24 05/17/24
06:59 06:59 06:59
Intake Total 2805 / 2805 240 / 240
Output Total 800 / 800
Balance 2004 240 / 240
[2024-05-16 11:06] LABS: % Basophils 0.5 % (0-2); % Eosinophils 0.3 % (0-6); % Immature Granulocytes 3.9 % (0-0.5); % Lymphocytes 21.1 % (20.5-51.1); % Monocytes 3.9 % (1.7-9.3); % Neutrophils 70.3 % (42.2-75.2); Absolute Immature Granulocytes 0.2 10^3/uL (0-0.05); Absolute Lymphocytes 0.8 10^3/uL (1.2-3.4); Absolute Monocytes 0.2 10^3/uL (0.1-0.6); Absolute Neutrophils 2.7 10^3/uL (1.4-6.5); Hematocrit 29.9 % (39.0-52.0); Hemoglobin 10.5 g/dL (13.0-18.0); Mean Corp Hgb Conc. 35.1 g/dL (33.0-37.0); Mean Corpuscular Hgb 32.3 pg (27.0-31.0); Mean Platelet Volume 10.8 fL (7.4-10.4); Nucleated Red Blood Cells % 0 % (-); Platelet Count 96 10^3/uL (130-400); Red Blood Cell Count 3.25 10^6/uL (4.70-6.10); Red Cell Dist. Width 14.1 % (11.5-14.5); White Blood Cell Count 3.8 10^3/uL (4.8-10.8)
[2024-05-16 11:20] LABS: ALT (SGPT) 28 U/L (0-50); AST (SGOT) 19 U/L (17-59); Albumin 3.2 g/dl (3.5-5.0); Alkaline Phosphatase 216 U/L (38-126); Blood Urea Nitrogen 11 mg/dl (9-20); Calcium 8.5 mg/dl (8.4-10.2); Carbon Dioxide 25 mmol/L (22-30); Chloride 105 mmol/L (98-107); Estimated Creatinine Clearance 59 ml/min; Glucose 132 mg/dl (70-99); LDH 156 U/L (120-246); Potassium 3.9 mmol/L (3.5-5.1); Sodium 137 mmol/L (135-145); Total Bilirubin 0.4 mg/dl (0.2-1.3); Total Protein 5.9 g/dl (6.3-8.2); eGFR > 60.00
[2024-05-16 11:29] VITALS: BP 105/65
--- NOTE | 2024-05-16 11:53 | W.PN.ID1 ---
Date of Service
Date of Service: May 16, 2024
Today's Communication
Observe off abx. Murmur noted (with click); check ECHO.
Assessment / Plan
Fever
Anemia
Thrombocytopenia
Chronic cough
Generalized weakness
Elevated CRP
Asthma
HTN
Dyslipidemia
Recommendations:
Fever is noted, but not clear whether there is a bacterial etiology at present.
Observing off abx at present.
Blood smear for parasites (Babesia) - negative
Blood cultures - negative
Monitor white count and temperature curve.
Follow platelet count
Further recommendations as additional data is returned.
����������������������������������������������������������
Chief Complaint
-: Fever (FUO)
Subjective / Review of Systems
Patient seen and examined. Reports some ongoing fevers. No rash. Temperature curve noted to be trending down.
Vital Signs / Physical Exam
Vital Signs
Vital Signs
Temp Pulse Resp BP Pulse Ox
98.2 F 85 17 105/65 95
05/16/24 11:29 05/16/24 11:29 05/16/24 11:29 05/16/24 11:29 05/16/24 11:29
Physical Exam
Constitutional: No Acute Distress, Comfortable and Non-toxic
Eyes: No Conjunctival Hemorrhage and Sclera Anicteric
Cardiovascular: S1/S2, Murmur and Other (click); Negative S3/S4
Pulmonary: Clear; Negative Wheezes, Rales or Rhonchi
Gastrointestinal: Soft, Non Tender and Non Distended
Extremities: Negative Edema, Cyanosis, Erythema, Splinter Hemorrhage or Venous Insufficiency
Neurological: Awake and Alert
Psychological: Calm
Objective Data
Lab Data
Lab Results
05/16/24 10:44
05/16/24 10:45
ESR 104 mm/hour (0-20) H 05/14/24 14:44
PT 16.8 Sec (11.4-14.6) H 05/13/24 16:59
INR 1.38 05/13/24 16:59
APTT 49.4 Sec (23.4-35.0) H 05/13/24 16:59
Estimated Creat Clear 59 ml/min 05/16/24 10:45
Lactic Acid Cancelled 05/13/24 15:15
Total Bilirubin 0.4 mg/dl (0.2-1.3) 05/16/24 10:45
AST 19 U/L (17-59) 05/16/24 10:45
ALT 28 U/L (0-50) 05/16/24 10:45
Alkaline Phosphatase 216 U/L (38-126) H 05/16/24 10:45
C-Reactive Protein > 270.00 mg/L (0.0-10.00) H 05/15/24 07:42
Most recent labs reviewed.
Micro Results:
05/13/24 11:21 Blood Culture - Preliminary
Blood/Venous No Growth in 72 hours- Final report to follow
05/14/24 14:44 Blood Parasites Smear - Final
Blood/Venous No blood parasites seen.
05/13/24 19:53 Legionella Urinary Antigen - Final
Urine Negative for Legionella pneumophila Serogroup 1 antigen.
A negative result does not rule out the possiblity of
Legionella infection due to other serogroups or species of
Legionella. Clinical correlation is recommended.
Streptococcus pneumoniae Antigen (M - Final
Negative for Streptococcus pneumoniae antigen.
A negative result does not exclude infection with
Streptococcus pneumoniae. Clinical correlation is
recommended.
Imaging:
No radiographic evidence for pneumonia. There is mild scarring/subsegmental atelectasis of both lower lungs. Mild volume loss in the right lung with mild left to right mediastinal shift and mild elevation of the right hemidiaphragm. Please see
full dictation for additional detail. Film personally viewed.
[2024-05-16 15:48] VITALS: BP 115/72
--- NOTE | 2024-05-16 15:49 | CM ---
Patient seen at bedside.
CT scan done yesterday.
ID - observe off antibiotics.
PLAN: Discharge home. No needs anticipated.
[2024-05-16 19:35] VITALS: BP 132/73
--- NOTE | 2024-05-16 21:00 | PTCARENOTE ---
Pt reports using hydrocortisone cream q4h PRN for hemorrhoids at home and is requesting it for this admission. House INTEGRATIVE MEDICINE PHYSICIAN Anneliese Cobb notified, order placed for hydrocortisone BID PRN.
[2024-05-16] MEDS: BENADRYL 50 MG PO (21:33)
[2024-05-16] MEDS: HYDROCORTISONE 2.5% CREAM 1 APPLIC TOPICAL (22:08)
[2024-05-16 23:39] VITALS: BP 124/78
[2024-05-17 03:13] VITALS: BP 115/71
[2024-05-17 08:02] VITALS: BP 141/72
[2024-05-17] MEDS: SPIRIVA RESPIMAT 2.5 MCG 2 PUFF INH (08:32)
[2024-05-17] MEDS: SYMBICORT 160/4.5 MCG INHALER 2 PUFF INH (08:32)
[2024-05-17 08:47] LABS: ALT (SGPT) 23 U/L (0-50); AST (SGOT) 17 U/L (17-59); Albumin 2.8 g/dl (3.5-5.0); Alkaline Phosphatase 179 U/L (38-126); Blood Urea Nitrogen 13 mg/dl (9-20); Calcium 8.1 mg/dl (8.4-10.2); Carbon Dioxide 24 mmol/L (22-30); Chloride 105 mmol/L (98-107); Estimated Creatinine Clearance 66 ml/min; Glucose 100 mg/dl (70-99); Potassium 4.1 mmol/L (3.5-5.1); Sodium 133 mmol/L (135-145); Total Bilirubin 0.5 mg/dl (0.2-1.3); Total Protein 5.3 g/dl (6.3-8.2); eGFR > 60.00
[2024-05-17 08:49] LABS: Procalcitonin 1.13 ng/ml (0.0-0.25)
[2024-05-17 08:53] LABS: Hematocrit 26.8 % (39.0-52.0); Hemoglobin 9.5 g/dL (13.0-18.0); Mean Corp Hgb Conc. 35.4 g/dL (33.0-37.0); Mean Corpuscular Hgb 32.2 pg (27.0-31.0); Mean Corpuscular Volume 90.8 fL (80.0-94.0); Mean Platelet Volume 10.7 fL (7.4-10.4); Platelet Count 104 10^3/uL (130-400); Red Blood Cell Count 2.95 10^6/uL (4.70-6.10); White Blood Cell Count 4.9 10^3/uL (4.8-10.8)
--- NOTE | 2024-05-17 09:10 | W.PN.HOSP.TC ---
Today's Communication/Plan
-
Discharge planning today.
Assessment / Plan
Assessment / Plan
Physical exam:
General: Well Developed, Well Nourished and No Apparent Distress
HEENT: Normocephalic, Atraumatic and Moist Mucous Membranes
Respiratory: Clear to Auscultation; Negative Wheezes, Rales or Rhonchi
Cardiac: Regular Rhythm and S1/S2
GI: Soft, Nontender and Nondistended
Musculoskeletal: No Clubbing, No Cyanosis and No Edema
Neuro: Awake, Alert and Oriented
Psych: Calm
A/P:
# Fever
Etiology remains unclear
CT scan of the chest abdomen and pelvis unrevealing
Discussed with ID today and ID cleared him for discharge today.
Echocardiogram unrevealing for source
Off antibiotics
Cultures negative
Check tickborne illness serology and some of the tests are still pending
Updated daughter over the phone
#Pancytopenia
Probably infectious related
Cannot rule out bone marrow process
Appreciated hematology consult
#Hypotension
Resolved
Off IV fluid
# Recent episode of purpuric rash/KALEIGH/thrombocytopenia/elevated inflammatory markers
No clear indication for steroids but not out of the possibility yet.
Differential diagnosis inflammatory/vasculitis or others
Serology testing showed negative AMMY, anti--ds DNA, beta-2-GPI IgG/IgM, antiplatelet antibody, anticardiolipin IgG/IgA, normal complement C3 level, COVID.
Elevated complement C4, anticardiolipin IgM
Direct immunofluorescent testing of skin biopsy did not show deposition of immunoglobulin to suggest antibody-mediated vasculitis, no features to suggest autoimmune bullous disease. Result of biopsy and chart.
Currently, patient does not have skin rash although he he reported itching in the lower extremities.
Patient finished course of prednisone. He he was supposed to see hand mounter 05/15. He can still see them as outpatient but no clear autoimmune or rheumatologic identified illness at the moment.
No joint swelling.
# Acute kidney injury
Creatinine improved after IV fluids.
Received contrast.
Creatinine today 1.0
Continue hold lisinopril and will resume tomorrow depending on renal function and blood pressure.
Monitor for retention. Urine test was only positive for few bacteria, albumin. Patient denied hematuria or dysuria.
History of proteinuria in the past. He saw Dr. Viveros in the office.
Avoid nephrotoxic
Monitor renal function
# Hyperkalemia, hold RE inhibitor's. Continue with low potassium diet
Potassium remains normal at 3.9 today
# Hyponatremia
Sodium normal 137 yesterday
# DVT prophylaxis with Thromboguards, thrombocytopenia noted
Anticipated Discharge: Today
Subjective/Interval History
-
Date of Service: May 17, 2024
Patient with no fever.
Objective Data
-
Labs:
Laboratory Results
05/17/24
08:01
WBC 4.9
Hgb 9.5 L
Hct 26.8 L
Plt Count 104 L
Sodium 133 L
Potassium 4.1
Chloride 105
Carbon Dioxide 24
BUN 13
Creatinine 0.9
Glucose 100 H
Calcium 8.1 L
Total Bilirubin 0.5
AST 17
ALT 23
Alkaline Phosphatase 179 H
Vital Signs:
Vital Signs
Temp Pulse Resp BP Pulse Ox
99.4 F 86 16 141/72 97
05/17/24 08:02 05/17/24 08:35 05/17/24 08:35 05/17/24 08:02 05/17/24 08:35
I&O
05/16/24 05/17/24 05/18/24
06:59 06:59 06:59
Intake Total 240 / 240 1380 / 1380
Balance 240 / 240 1380 / 1380
[2024-05-17] MEDS: RESTASIS 0.05% OPHTHALMIC EMULSION 1 DROPS BOTH EYES (09:23)
[2024-05-17 10:47] LABS: % Basophils 0.6 % (0-2); % Eosinophils 0.6 % (0-6); % Immature Granulocytes 5.4 % (0-0.5); % Lymphocytes 21.9 % (20.5-51.1); % Monocytes 5.6 % (1.7-9.3); % Neutrophils 65.9 % (42.2-75.2); Absolute Immature Granulocytes 0.3 10^3/uL (0-0.05); Absolute Lymphocytes 1.1 10^3/uL (1.2-3.4); Absolute Monocytes 0.3 10^3/uL (0.1-0.6); Absolute Neutrophils 3.2 10^3/uL (1.4-6.5); Nucleated Red Blood Cells % 0 % (-)
--- NOTE | 2024-05-17 10:47 | W.PN.ONC ---
Today's Communication / Plan
-
Negative for babesiosis
Echocardiogram without vegetation aortic stenosis mitral stenosis/sclerosis noted
Hematologically improving with normal white blood cell count platelet count now above 100 K suspect acute illness
Continue to monitor CBC
Impression
Impression
Fever of undetermined origin
Pancytopenia, predominantly thrombocytopenia
Subjective/Objective
Subjective/Objective
No focal complaints. Continues with low-grade fever.
Vital Signs:
Vital Signs
Temp Pulse Resp BP Pulse Ox
99.4 F 86 16 141/72 97
05/17/24 08:02 05/17/24 08:35 05/17/24 08:35 05/17/24 08:02 05/17/24 08:35
Physical Exam
Constitutional: No Acute Distress, Comfortable and Non-toxic
Eyes: No Conjunctival Hemorrhage and Sclera Anicteric
Cardiovascular: S1/S2, Murmur and Other (click); Negative S3/S4
Pulmonary: Clear; Negative Wheezes, Rales or Rhonchi
Gastrointestinal: Soft, Non Tender and Non Distended
Extremities: Negative Edema, Cyanosis, Erythema, Splinter Hemorrhage or Venous Insufficiency
Neurological: Awake and Alert
Psychological: Calm
Lab Results:
Laboratory Data
WBC 4.9 10^3/uL (4.8-10.8) 05/17/24 08:01
Hgb 9.5 g/dL (13.0-18.0) L 05/17/24 08:01
Plt Count 104 10^3/uL (130-400) L 05/17/24 08:01
PT 16.8 Sec (11.4-14.6) H 05/13/24 16:59
INR 1.38 05/13/24 16:59
APTT 49.4 Sec (23.4-35.0) H 05/13/24 16:59
eGFR > 60.00 05/17/24 08:01
[2024-05-17 11:30] VITALS: BP 111/83
--- NOTE | 2024-05-17 13:15 | W.DCSUMMARY ---
Discharge Summary
Discharge Data
Date of Admission: 05/13/24
Date of Discharge: 05/17/24
-
Pending Results: No
Hospital Course
Patient 73 years old male who has history of hypertension, HLD, asthma, recent episode of rash concerning for vasculitis but workup including biopsy have been negative, came into the hospital with fevers. Patient was hypotensive, acute kidney
injury, with hyponatremia and hyperkalemia, and with elevated inflammatory markers upon admission. He was started on fluids, broad-spectrum IV antibiotics and pressors. Medicare Nurse consulted. ID consulted as well. Renal function and electrolytes
improved and back within normal limits. Patient blood pressure improved as well and pressor was stopped. ID discontinued antibiotics. Blood cultures negative. CT scan of the chest abdomen and pelvis unrevealing. Echocardiogram no evidence of
infection. Some of the serology for infectious workup are still pending but patient fevers have come down and he has remained hemodynamically stable therefore ID cleared him for discharge and recommend no antibiotics and follow-up as outpatient.
Hematology evaluated patient due to pancytopenia. No clear etiology for pancytopenia either but his numbers have been improving and we will have him follow-up with hematology as outpatient. Inflammatory markers have been trending down. Patient
afebrile and hemodynamically stable the moment. Will have him follow-up with rheumatology, ID, hematology, and PCP as outpatient. Patient will be discharged in stable condition today.
Discharge duration: 36 minutes
Discharge Plan
-
Patient Disposition: Home (Routine Discharge)
Discharge Diagnosis/Procedures: Fever of unclear source. Pancytopenia.
Condition: Good
Diet: Regular
Activity: As tolerated
Blood Work: Please PCP to order CBC, CMP within 1 week
Referrals:
Js Mayers MD [Active] - 06/01/24 3:00 pm
Rey Dhaliwal DO [Active] - in one to two weeks
Gela Alberts MD [Active] - in one to two weeks
Nikita Booker MD [Active] - in two to four weeks
Duglas Lorenzana, DO [Family Provider] - in less than 1 week
Prescriptions:
Continued
diphenhydramine HCl [Banophen] 50 MG capsule
50 mg PO HSPRN PRN (Reason: sleep)
albuterol sulfate [Proventil HFA] 90 MCG/PUFF HFA aerosol inhaler
2 puff inhalation R Q4HPRN PRN (Reason: sob)
cyclosporine [Restasis] 0.05 % Dropperette
1 drp BOTH EYES BID
rosuvastatin 20 MG tablet
20 mg PO DAILY
Metamucil Fiber Singles 1 PACKET powder in packet
1 packet PO BID
Allergy Shots
1 dose INJ TH
Patient Comments:
05/13/2024: Custom shot, made from blood by Dr
lisinopril 20 mg Tablet
20 mg PO BID
hydrocortisone 2.5 % Cream
1 applic TOPICAL Q4HPRN PRN (Reason: hemorrhoids)
guaifenesin 400 mg Tablet
400 mg PO Q4HPRN PRN (Reason: cough)
Nucala 100 mg/mL Syringe
300 mg SC Q4W
Breztri Aerosphere 160-9-4.8 mcg/actuation Hfa Aerosol Inhaler
2 inh INHALATION R BID
amlodipine 2.5 mg tablet
2.5 mg PO HS
cholecalciferol (vitamin D3) 50 mcg (2,000 unit) Tablet
50 mcg PO DAILY
melatonin 10 mg Tablet
10 mg PO HSPRN PRN (Reason: sleep)
acetaminophen [Tylenol Extra Strength] 500 mg Tablet
1,000 mg PO Q6HPRN PRN (Reason: mild pain)
Discharge Orders:
Discharge Patient (As Directed); Ordered 05/17/24
Ordered By: Julien Brunson
Discharge Date and Time
Discharge Date/Time: 05/17/24 14:30
Print Language: SIERRA LEONEAN
--- NOTE | 2024-05-17 13:50 | CM ---
Addendum entered by Shannon May 05/17/24 14:40:
Patient discharged. Taken out by wheelchair. Called uber for transport home.
Addendum entered by Shannon May 05/17/24 13:51:
IMM signed by patient & placed in chart
Original Note:
Patient seen at bedside.
Discharged today to home.
No needs identified.
Will take Uber home. Daughter working.
PLAN: Discharge to home. No needs.
[2024-05-17 14:01] VITALS: BP 136/85
[2024-05-17 16:01] LABS: Lyme Antibody Screen, EIA Negative (Negative)
[2024-05-19 06:19] LABS: Ehrlichia chaffeensis IgG Ab <1:64 (<1:64); Ehrlichia chaffeensis IgM Ab < 1:16 (< 1:16)
[2024-05-20 02:54] LABS: Anaplasma phagocytophilum IgG <1:80 (<1:80); Anaplasma phagocytophilum IgM < 1:16 (< 1:16)
[2024-05-20 16:02] LABS: Babesia microti IgG < 1:16 (< 1:16); Babesia microti IgM <1:20 (<1:20)
== END 2024-05-17 14:30 | disposition home or self-care (01) | DRG 871 ==
LOC: 4 WEST ACU 13:44
PROVIDERS: Internal Medicine Critical Care Medicine; ADMITTING PHYSICIAN Internal Medicine; ATTENDING PHYSICIAN Hospitalist; CONSULT PHYSICIAN Internal Medicine Critical Care Medicine; CONSULT PHYSICIAN Internal Medicine Hematology & Oncology; EMERGENCY PHYSICIAN Emergency Medicine; FAMILY PHYSICIAN Internal Medicine; OTHER PHYSICIAN Internal Medicine Infectious Disease
PROC: 3E033XZ Introduction of Vasopressor into Peripheral Vein, Percutaneous Approach (ICD-10-PCS; 2024-05-13)
DX: A41.9 Sepsis, unspecified organism (principal); R65.21 Severe sepsis with septic shock; E87.1 Hypo-osmolality and hyponatremia; D61.818 Other pancytopenia; N17.9 Acute kidney failure, unspecified; J98.11 Atelectasis; E78.00 Pure hypercholesterolemia, unspecified; E87.5 Hyperkalemia; I10 Essential (primary) hypertension; I08.0 Rheumatic disorders of both mitral and aortic valves; D64.9 Anemia, unspecified; R73.9 Hyperglycemia, unspecified; D69.6 Thrombocytopenia, unspecified; J45.50 Severe persistent asthma, uncomplicated; I95.9 Hypotension, unspecified; Z79.899 Other long term (current) drug therapy; Z79.51 Long term (current) use of inhaled steroids; Z88.1 Allergy status to other antibiotic agents; Z11.52 Encounter for screening for COVID-19
CPT/HCPCS: 71046; 71260; 74177; 80048; 80053; 81003; 81015; 83605; 83615; 83735; 84100; 84145; 85025; 85027; 85610; 85652; 85730; 86140; 86618; 86666; 86753; 87015; 87040; 87207; 87449; 87811; 87899; 93005; 93306; 94640; 96360; 96361; 99285; Q9967

== ENCOUNTER 2024-05-30 13:11 | Emergency (ER) | payer MEDICARE, OTHER, SELFPAY ==
[2024-05-30 13:17] VITALS: BP 105/82; BMI 26.0
[2024-05-30 14:02] LABS: Hematocrit 26.2 % (39.0-52.0); Mean Corp Hgb Conc. 34.4 g/dL (33.0-37.0); Mean Corpuscular Volume 93.2 fL (80.0-94.0); Mean Platelet Volume 9.6 fL (7.4-10.4); Platelet Count 382 10^3/uL (130-400); Red Blood Cell Count 2.81 10^6/uL (4.70-6.10); White Blood Cell Count 15.6 10^3/uL (4.8-10.8)
[2024-05-30 14:06] LABS: ALT (SGPT) 21 U/L (0-50); AST (SGOT) 30 U/L (17-59); Albumin 3.1 g/dl (3.5-5.0); Alkaline Phosphatase 148 U/L (38-126); Blood Urea Nitrogen 34 mg/dl (9-20); Calcium 8.3 mg/dl (8.4-10.2); Carbon Dioxide 23 mmol/L (22-30); Chloride 98 mmol/L (98-107); Estimated Creatinine Clearance 49 ml/min; Glucose 143 mg/dl (70-99); Potassium 4.9 mmol/L (3.5-5.1); Sodium 132 mmol/L (135-145); Total Bilirubin 0.3 mg/dl (0.2-1.3); Total Protein 6.5 g/dl (6.3-8.2); eGFR > 60.00
[2024-05-30 14:23] LABS: % Basophils 0.5 % (0-2); % Lymphocytes 8.6 % (20.5-51.1); % Neutrophils 76.9 % (42.2-75.2); Absolute Basophils 0.1 10^3/uL (0-0.2); Absolute Immature Granulocytes 1.6 10^3/uL (0-0.05); Absolute Lymphocytes 1.3 10^3/uL (1.2-3.4); Absolute Monocytes 0.6 10^3/uL (0.1-0.6); Nucleated Red Blood Cells % 0 % (-)
[2024-05-30] MEDS: NSS 1000 IV ×2 (14:56→17:30)
[2024-05-30] MEDS: TESSALON PERLES 200 MG PO (14:56)
[2024-05-30 15:30] VITALS: BP 126/65
[2024-05-30 15:44] LABS: Cortisol, Random 21.4 ug/dl
[2024-05-30 16:26] LABS: TSH Reflex To Free T4 1.99 uIU/ml (0.47-4.68)
[2024-05-30] MEDS: TYLENOL 1000 MG PO (17:23)
--- NOTE | 2024-05-30 18:31 | ED.GENMED ---
History of Present Illness
General
Chief Complaint: Weakness
Source: patient and records
Exam Limitations: none
Time Seen by Provider: 05/30/24 13:38
Nursing documentation reviewed up to this point in time: agreed with
History of Present Illness
History of Present Illness:
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 Patient has been being worked up for the past couple months for fever of unknown
origin with rash and pancytopenia with an unknown etiology. Patient had a cough earlier in March and is not as severe now. Patient has occasional shortness of breath and occasional feeling of lightheadedness. Patient gets fevers daily with sweats.
Patient denies headache, chest pain, abdominal pain. Patient denies any melena hematochezia, nausea, vomiting or diarrhea. Patient has also had a diffuse rash it has been intermittent. Patient had been on steroids but not for the past few weeks.
Patient had been tapered off of the period
Past History
Past History
ED Past Medical History: Asthma, HTN, Hypercholesterolemia and Other (Cataracts, impaired vision)
ED Past Surgical History: Orthopedic (Left knee surgery)
Social History
Tobacco: Non-smoker
Alcohol: Daily
Drug: None
Personal:
Living: with family
Review of Systems
Review of Systems
All Other Systems: ROS reviewed and negative except as documented in HPI and ROS
Constitutional: Reports fever and fatigue
EENT: Reports no symptoms
Respiratory: Reports cough and trouble breathing (occasionally)
Cardiac: Reports no symptoms
ABD/GI: Reports no symptoms
: Reports no symptoms
Musculoskeletal: Reports no symptoms
Skin: Reports rash
Neurological: Reports no symptoms
Hematologic/Lymphatic: Reports no symptoms
Psychiatric: Reports no symptoms
Phy Exam
Physical Exam
Physical Exam:
Physical Exam
General: No apparent distress, alert and appropriate, well nourished, dry mucous membranes
HENT: Normocephalic, supple with no lymphadenopathy, no thyromegaly
Eyes: Clear sclera, conjuctiva without injection
Heart: Regular rhythm and tachycardic rate. No S3, S4. No murmur. No NVD, bruit
Lungs: No respiratory distress, no stridor, lung sounds clear and equal bilaterally, chest wall symmetrical and nontender
Abdomen: Soft, nontender, no organomegaly, no CVA tenderness, BS good
Neuro: Alert and oriented x 3, CN II - XII intact, no motor focality, no cerebellar dysfunction
Skin: Diffuse erythematous maculopapular rash of the upper extremities and anterior trunk
Psychiatric: well kept. interactive and cooperative
Extremities: No edema, cyanosis, tenderness, Good and equal peripheral pulses.
Course
Orders/Labs/Results
Orders:
Orders
05/30/24 13:17
EKG [Electrocardiogram (*1)] Urgent
Reason for Study: Bradycardia / Tachycardia
EKG- Treatment ONCE
05/30/24 13:45
Complete Blood Count/With Diff Urgent
Comprehensive Metabolic Panel Urgent
Cortisol, Random Urgent
Comment: TSH REFLEX & RANDOM CORTISOL ADDED ON BY FLOOR 2:15PM 05-30-24
TSH Reflex To Free T4 Urgent
05/30/24 14:15
Add On- LAB Urgent
Tests Added?: TSH reflex T4, cortisol random
0.9% Sodium Chloride 1000 ml [Nss] 1,000 ml IV BOLUS
05/30/24 14:47
Benzonatate [Tessalon Perles] 200 mg PO NOW STA
05/30/24 16:48
0.9% Sodium Chloride 1000 ml [Nss] 1,000 ml IV BOLUS
05/30/24 17:21
Acetaminophen [Tylenol] 1,000 mg .ROUTE .STK-MED ONE
05/30/24 17:23
Acetaminophen [Tylenol] 1,000 mg PO NOW STA
05/30/24 19:24
ANCA - MPO/PR3 Ab Profile [S] Routine
[id number] Enzyme [S] Routine
Hepatitis C Genotype-High Res [S] Routine
QuantiFERON-TB Gold Plus [S] Routine
Urinalysis Routine
Date Specimen was Collected: 05/30/24
Time Specimen was Collected: 20:17
Urine Protein/Creat Ratio (Random) [Protein/Creat Ratio (Random)] Routine
Date Specimen was Collected: 05/30/24
Time Specimen was Collected: 20:17
05/30/24 19:46
CRP [C-Reactive Protein] Routine
Complement C3 Routine
Complement C4 Routine
Hepatitis B Core Ab, Total Routine
Hepatitis B Surface Antibody Routine
Hepatitis B Surface Antigen Routine
Sed Rate [Erythrocyte Sed Rate] Routine
Abnormal Lab Results
05/30/24
13:45
WBC 15.6 H 10^3/uL
(4.8-10.8)
RBC 2.81 L 10^6/uL
(4.70-6.10)
Hgb 9.0 L g/dL
(13.0-18.0)
Hct 26.2 L %
(39.0-52.0)
MCH 32.0 H pg
(27.0-31.0)
RDW 15.0 H %
(11.5-14.5)
Abs Immat Gran (auto) 1.6 H 10^3/uL
(0-0.05)
Absolute Neuts (auto) 12.0 H 10^3/uL
(1.4-6.5)
Immature Gran % 10.0 H %
(0-0.5)
Neutrophils % 76.9 H %
(42.2-75.2)
Lymphocytes % 8.6 L %
(20.5-51.1)
Sodium 132 L mmol/L
(135-145)
BUN 34 H mg/dl
(9-20)
Glucose 143 H mg/dl
(70-99)
Calcium 8.3 L mg/dl
(8.4-10.2)
Alkaline Phosphatase 148 H U/L
(38-126)
Albumin 3.1 L g/dl
(3.5-5.0)
05/30/24 13:45
05/30/24 13:45
Vital Signs
Initial and Last Documented VS:
Initial Vital Signs
Temp Pulse Resp BP Pulse Ox
98.5 F 126 20 105/82 96
05/30/24 13:17 05/30/24 13:17 05/30/24 13:17 05/30/24 13:17 05/30/24 13:17
Last Documented Vital Signs
Temp Pulse Resp BP Pulse Ox
99.5 F 113 35 117/63 97
05/30/24 17:31 05/30/24 19:45 05/30/24 19:45 05/30/24 19:39 05/30/24 15:30
*Radiology
Radiology exam reviewed: other (N/A)
*Pulse Oximetry
Patient hypoxic: no
*EKG
Interpreted by ED Provider?: Yes
EKG Intrepretation Date: 05/30/24
EKG Intrepretation Time: 20:06
Interpretation: normal
Comparison EKG: no changes
Heart Rate: 122
Rate: tachycardiac
Rhythm: sinus and PAC's
[place]: normal axis
Interval: normal interval
QRS Pattern: normal QRS
Ischemia: non-specific ST changes
*Helmet Hat Puncher Interpretation
Rate: tachycardiac
Interpretation: normal
Heart Rate: 110
Rhythm: sinus
*Critical Care Note
Total Time (30-74mins, 75-104mins- exclusive of procedures): Not Applicable
Update Note
Update Note:
Spoke with the patient's raschel knitting machine operator. She has that we draw the labs. Also she did not want to start him on steroids. Unfortunately we still do not have an etiology of what is going on. Patient will be discharged.
ED Attending Note
-
Portions of this chart may have been created with voice recognition software.� Occasional wrong word or��sound alike� substitutions may have occurred due to the inherent limitations of voice recognition software.
Discharge Plan
Departure
Patient Disposition: Home (Routine Discharge)
Date of Disposition: 05/30/24
Time of Disposition: 20:07
Patient with high blood pressure during this ER visit?: No
Condition: Fair
Covid-19: Not Applicable
Discharge Problem:
Hypotension, Lightheadedness
Instructions: Orthostatic hypotension, Generalized Weakness (DC)
Prescriptions:
No Action
diphenhydramine HCl [Banophen] 50 MG capsule
50 mg PO HSPRN PRN (Reason: sleep)
albuterol sulfate [Proventil HFA] 90 MCG/PUFF HFA aerosol inhaler
2 puff inhalation R Q4HPRN PRN (Reason: sob)
cyclosporine [Restasis] 0.05 % Dropperette
1 drp BOTH EYES BID
rosuvastatin 20 MG tablet
20 mg PO DAILY
Metamucil Fiber Singles 1 PACKET powder in packet
1 packet PO BID
Allergy Shots
1 dose INJ TH
lisinopril 20 mg Tablet
20 mg PO BID
Nucala 100 mg/mL Syringe
300 mg SC Q4W
Breztri Aerosphere 160-9-4.8 mcg/actuation Hfa Aerosol Inhaler
2 inh INHALATION R BID
amlodipine 2.5 mg tablet
2.5 mg PO HS
cholecalciferol (vitamin D3) 50 mcg (2,000 unit) Tablet
50 mcg PO DAILY
melatonin 10 mg Tablet
10 mg PO HSPRN PRN (Reason: sleep)
acetaminophen [Tylenol Extra Strength] 500 mg Tablet
1,000 mg PO Q6HPRN PRN (Reason: mild pain)
benzonatate 200 mg Capsule
200 mg PO TIDPRN PRN (Reason: cough)
Referrals:
Duglas Lorenzana DO [Family Provider] - Follow up in 5-7 days
Activity Restrictions/Additional Instructions:
Make sure to follow-up with the raschel knitting machine operator. Continue present medications. Any problems please return.
Interventions
Interventions:
*Risk Screen - Suicide Last Done: 05/30/24 13:17
*General Assessment Last Done: 05/30/24 13:17
*Neglect/Abuse Screening Last Done: 05/30/24 13:17
ED- Fall Risk Assessment Last Done: 05/30/24 13:17
*ED COVID-19 Vaccine History Last Done: 05/30/24 13:17
ED- Cardiac Assessment Last Done: 05/30/24 13:17
ED- Neurological Assessment Last Done: 05/30/24 13:17
ED- Pulmonary Assessment Last Done: 05/30/24 13:17
Discharge Date and Time
Print Language: MONGOLIAN
[2024-05-30 19:39] VITALS: BP 117/63
[2024-05-30 20:28] LABS: Erythrocyte Sed Rate > 145 mm/hour (0-20)
[2024-05-30 20:33] LABS: Urine Albumin Negative (Neg - Trace); Urine Bilirubin Negative (Negative); Urine Character Clear (Clear); Urine Color Yellow; Urine Glucose Negative (Negative); Urine Ketone Negative (Negative); Urine Leukocyte Negative (Negative); Urine Nitrite Negative (Negative); Urine Occult Blood Negative (Negative); Urine Specific Gravity 1.005 (<1.030); Urine Urobilinogen Negative (Neg - 1+)
[2024-05-30 20:51] LABS: Protein/creatinine Ratio 0.5; Urine Protein 18 mg/dl
[2024-05-30 23:27] LABS: Complement C3 152 mg/dl (88-165)
[2024-05-31 18:15] LABS: Hepatitis B Surface Antigen Negative (Negative)
[2024-05-31 18:32] LABS: Hepatitis B Core Ab, Total Negative (Negative); Hepatitis B Surface Antibody Negative
[2024-06-01 21:10] LABS: Angiotensin-1-converting Enzym <10 U/L (16-85)
[2024-06-02 14:06] LABS: Myeloperoxidase Antibody 0 AU/mL (0-19); Serine Protease-3, IgG 0 AU/mL (0-19)
[2024-06-06 14:24] LABS: Hepatitis C Genotype High Res Indeterminate
== END 2024-05-30 20:36 | disposition home or self-care (01) ==
LOC: EMR 13:11
PROVIDERS: EMERGENCY PHYSICIAN Emergency Medicine; FAMILY PHYSICIAN Internal Medicine
DX: I95.9 Hypotension, unspecified (principal); R42 Dizziness and giddiness; R06.02 Shortness of breath; R50.9 Fever, unspecified; R21 Rash and other nonspecific skin eruption; R05.9 Cough, unspecified; R53.83 Other fatigue; R53.1 Weakness; R00.0 Tachycardia, unspecified; D61.818 Other pancytopenia; I10 Essential (primary) hypertension; E78.00 Pure hypercholesterolemia, unspecified; H26.9 Unspecified cataract; Z88.1 Allergy status to other antibiotic agents; Z91.048 Other nonmedicinal substance allergy status
CPT/HCPCS: 99284; 96360; 96361; 80053; 81003; 82164; 82533; 82570; 83516; 84156; 84443; 85025; 85652; 86140; 86160; 86704; 86706; 87340; 87902; 93005

== ENCOUNTER 2024-06-01 17:28 | Inpatient (IN) | payer MEDICARE, OTHER, SELFPAY ==
[2024-06-01] VITALS (7 sets, daily range): BP systolic 96–149; BP diastolic 57–74; BMI 26.3; BMI 25.5
[2024-06-01 14:47] LABS: Hemoglobin 9.2 g/dL (13.0-18.0); Mean Corp Hgb Conc. 34.1 g/dL (33.0-37.0); Mean Corpuscular Hgb 31.8 pg (27.0-31.0); Mean Corpuscular Volume 93.4 fL (80.0-94.0); Red Blood Cell Count 2.89 10^6/uL (4.70-6.10); Red Cell Dist. Width 15.3 % (11.5-14.5); White Blood Cell Count 13.7 10^3/uL (4.8-10.8)
--- NOTE | 2024-06-01 15:00 | ED.GENMED ---
History of Present Illness
General
Chief Complaint: Fever
Time Seen by Provider: 06/01/24 15:00
History of Present Illness
History of Present Illness:
HPI: The patient presents after being seen by the engineer system administrator today with blood pressure of about 90/60. He has been intermittently holding his amlodipine and lisinopril. He has an extensive workup approximately 2-1/2 weeks ago here [facility]. This is summarized below. He continues to have sweats. He took Tylenol earlier this morning. Patient has not been on steroids recently.
EXAM:
GENERAL: Appears somewhat weak
HEENT: Moist oral mucosa
CARDIOVASCULAR: No murmurs, tachycardic heart rate, regular rhythm, No chest wall tenderness
PULMONARY: No respiratory distress, breath sounds are clear and equal
ABDOMEN: Soft with no peritoneal signs, no tenderness
NEUROLOGIC: Excellent strength all extremities, no coordination deficits
PSYCHIATRIC: Appropriate mental status, normal insight and judgement
EXTREMITIES: Nontender, no edema, moves all extremities equally
SKIN: There is primarily macular rash described as nonpruritic and primarily truncal which spares the palms but is also noted on the dorsal aspect of the feet
TIME OF INITIAL ENCOUNTER: 3:05 PM
NUMBER AND COMPLEXITY OF PROBLEMS ADDRESSED AT THE ENCOUNTER
� Chronic conditions affecting care: High blood pressure, hyperlipidemia, diverticular disease
� Acute Exacerbation and/or Progression of Chronic Illness: This is a subacute problem over the last few months
� Differential Diagnosis includes: Infectious etiology, noninfectious etiology, vasculitis has been evaluated by biopsy and IgA vasculitis was negative
AMOUNT AND/OR COMPLEXITY OF DATA TO BE REVIEWED AND ANALYZED
� I performed an independent evaluation of and my interpretation is:
EKG:
CT:
X-rays:
Laboratory Studies: White count 13.7 (slightly lower than 2 days ago when it was 15.6), hemoglobin 9.2�this has been low since April 2024
Other:
� Review of other/old records: I reviewed the admission notes from 2 weeks ago which indicate the patient was here with hypotension and KALE[place] and was found to be pancytopenic. There was no evidence for endocarditis at that time.
He was also here 2 days ago when he was found to be hypotensive and lightheaded. Recent biopsy suggested no vasculitis
� Clinical information was obtained by an independent historian: None needed
� Prescriptions/Medications Considered but not given:
� Further testing considered but not performed:
RISK OF COMPLICATIONS AND/OR MORBIDITY OR MORTALITY OF PATIENT MANAGEMENT
� Social determinants of health affecting care:
� Discussion with other providers: I discussed case with Dr. Sullivan who says that she could see him tomorrow and said we could start doxycycline.
� Escalation of care including admission/observation vs risk of discharge considered: Sent by Aubrey for BP 90/50 at office today. Seen here 2d ago w/ low BP and had ESR >145 and was d/c'd from ED. Admitted here 2.5wks ago w/
fever, rash, seen by ID. Had echo neg for endocarditis then, tick borne illnesses negative, CT c/a/p relatively unremarkable, negative Legionella, no parasites on smear, negative for IgA vasculitis, was watched off antibiotics. Has had fevers for
past 2 months. Today, BP 110/70 even before he received any significant amount of fluids, intermittently holds his amlodipine and lisinopril. His rash is primarily truncal, but involves extremities to a lesser extent. He is febrile at 102F, HR 120s,
lactic 2.2 (first time elevated), WBC 13.7 (was 15.6 2d ago). He also had additional bx's performed by home health lpn this morning before he saw pulmonary. I also reviewed the notes by Dr. Love yesterday in which ANCA testing was ordered, as
well as testing for, hep C genotype high-res, QuantiFERON TB Gold, RE inhibitor enzyme, complement testing. Complement testing was within normal range for C3 and C4. Anti-dsDNA IgG was within normal range, scleroderma testing negative, proteinase
3 and myeloperoxidase antibody testing still pending.
On reassessment at 4:10 PM, the patient is somewhat but reports no shortness of breath. He overall is somewhat ill-appearing. He does not feel comfortable going home and I do not feel is appropriate for him to go home at this time. Hospitalist to
keep for further management.
Past History
Past History
ED Past Medical History: Asthma, HTN, Hypercholesterolemia and Other (Cataracts, impaired vision)
ED Past Surgical History: Orthopedic (Left knee surgery)
Social History
Tobacco: Non-smoker
Alcohol: Daily
Drug: None
Personal:
Living: with family
Phy Exam
Physical Exam
Physical Exam:
See HPI
Course
Orders/Labs/Results
Orders:
Orders
06/01/24 14:28
Electrocardiogram (*1) Urgent
Reason for Study: Palpitations
EKG- Treatment ONCE
06/01/24 14:35
Complete Blood Count/With Diff Urgent
Comprehensive Metabolic Panel Urgent
Lactic Acid Urgent
Manual Differential Urgent
Blood Culture Urgent
MEGAN Source: Blood/Venous
Specimen Description:
06/01/24 Dinner
Regular
At Your Request: Full Participation
Does patient need a safe tray?: No
06/01/24 15:17
Acetaminophen [Tylenol] 1,000 mg PO NOW STA
06/01/24 15:18
0.9% Sodium Chloride 1000 ml [Nss] 1,000 ml IV BOLUS
0.9% Sodium Chloride 1000 ml [Nss] 1,000 ml IV BOLUS
06/01/24 16:21
CR Chest Portable - 1 View Urgent
Comment:
Reason For Exam: sob sepsis
Reason Study Needs to be Portable: Patient Unstable
06/01/24 16:22
Doxycycline [Vibramycin] 100 mg PO NOW STA
06/01/24 17:07
Admit/Transfer Patient As Directed
Co-Sign Provider:
Level of Care: Inpatient admission
Assign to:: Medical/Surgical
Physician / Group: katia
Diagnosis: SIRS unknown source
Reason for Hospitalization: SIRS unknown source
Expected length of stay greater than two midnights?: Yes
ELOS- Estimated Length of Stay in days: 2
I certify the patient meets the requirements for IP care: Yes
06/01/24 17:08
Code Status As Directed
Resuscitation Status: Full Code
PRN Pain Medication Management As Directed
May give lesser potent ordered pain med per pt: Yes
preference::
Protocol:: Medication orders for pain may be administered in a
manner that supports deferring to patient preference
when the pt is:
- Requesting an ordered lesser potent pain medication.
Least to most potent pain medications are defined
as: acetaminophen < NSAID < tramadol < opioids
(morphine, oxycodone, hydromorphone).
- Requesting a lesser dose of the same medication IF
ORDERED.
- Requesting a less intrusive route of administration
if both routes are prescribed by the provider (PO <
IV).
06/01/24 17:17
Stool Culture Urgent
MEGAN Source: Feces/Stool
Specimen Description:
06/01/24 18:39
0.9% Sodium Chloride 1000 ml [Nss] 1,000 ml IV 100 mls/hr
Acetaminophen [Tylenol] 650 mg PO Q4HPRN PRN
Albuterol [ProAIR HFA INHALER] 2 puff INH R Q4HPRN PRN
Bisacodyl [Dulcolax] 10 mg RECTAL [id number] PRN
Docusate W/Senna [Senokot-S] 1 tablet PO BIDPRN PRN
Ondansetron Injectable [Zofran] 4 mg IV Q6HPRN PRN
Polyethylene Glycol Powder [Miralax] 17 grams PO DAILYPRN PRN
06/01/24 18:39
Activity As Directed
Activity Level: As Tolerated
Pneumatic Compression Sleeves As Directed
Type: Knee high
Vital Signs As Directed
Frequency: Per unit guidelines
DX Deep Vein Thrombosis Video Routine
06/01/24 18:48
Benzonatate [Tessalon Perles] 200 mg PO TIDPRN PRN
06/01/24 18:50
Melatonin 10 mg PO HSPRN PRN
06/01/24 20:00
Budesonide/Formoterol 160/4.5 [Symbicort 160/4.5 Mcg Inhaler] 2 puff INH R BID
Psyllium [Metamucil, Konsyl] 1 packet PO BID
cycloSPORINE [Restasis 0.05% Ophthalmic Emulsion] 1 drops BOTH EYES BID
06/02/24 06:00
Complete Blood Count/With Diff IN AM
Comprehensive Metabolic Panel IN AM
06/02/24 08:00
Cholecalciferol (Vitamin D3) [VITAMIN D3 (cholecalciferol)] 50 mcg PO DAILY
Rosuvastatin Calcium [Crestor] 20 mg PO DAILY
Abnormal Lab Results
06/01/24
14:35
WBC 13.7 H 10^3/uL
(4.8-10.8)
RBC 2.89 L 10^6/uL
(4.70-6.10)
Hgb 9.2 L g/dL
(13.0-18.0)
Hct 27.0 L %
(39.0-52.0)
MCH 31.8 H pg
(27.0-31.0)
RDW 15.3 H %
(11.5-14.5)
Abs Neuts (Manual) 10.1 H 10^3/uL
(1.4-6.5)
Lymphocytes (Manual) 12 L %
(20-51)
Sodium 132 L mmol/L
(135-145)
BUN 22 H mg/dl
(9-20)
Glucose 131 H mg/dl
(70-99)
Lactic Acid 2.2 H mmol/L
(0.7-2.0)
Calcium 8.3 L mg/dl
(8.4-10.2)
Albumin 2.9 L g/dl
(3.5-5.0)
06/01/24 14:35
06/01/24 14:35
Vital Signs
Initial and Last Documented VS:
Initial Vital Signs
Temp Pulse Resp BP Pulse Ox
102.2 F H 128 16 130/68 96
06/01/24 14:23 06/01/24 14:23 06/01/24 14:23 06/01/24 14:23 06/01/24 14:23
Last Documented Vital Signs
Temp Pulse Resp BP Pulse Ox
98.1 F 99 24 108/69 95
06/01/24 18:48 06/01/24 18:48 06/01/24 18:48 06/01/24 18:48 06/01/24 18:48
*Critical Care Note
Total Time (30-74mins, 75-104mins- exclusive of procedures): Not Applicable
ED Attending Note
-
Portions of this chart may have been created with voice recognition software.� Occasional wrong word or��sound alike� substitutions may have occurred due to the inherent limitations of voice recognition software.
Discharge Plan
Departure
Patient Disposition: Admit
Date of Disposition: 06/01/24
Time of Disposition: 16:44
Presentation/result/management discussed w/ accepting MD/DO: Hospitalist
Discharge Problem:
Fever
Interventions
Interventions:
*Risk Screen - Suicide Last Done: 06/01/24 14:26
*General Assessment Last Done: 06/01/24 14:26
*Neglect/Abuse Screening Last Done: 06/01/24 14:26
ED- Fall Risk Assessment Last Done: 06/01/24 18:07
*ED COVID-19 Vaccine History Last Done: 06/01/24 14:26
*Nursing Disposition Last Done: 06/01/24 18:07
ED- Neurological Assessment Last Done: 06/01/24 14:27
ED-Skin Assessment Last Done: 06/01/24 14:27
Discharge Date and Time
Discharge Date/Time: 06/01/24 18:34
[2024-06-01 15:11] LABS: ALT (SGPT) 29 U/L (0-50); AST (SGOT) 38 U/L (17-59); Albumin 2.9 g/dl (3.5-5.0); Alkaline Phosphatase 126 U/L (38-126); Blood Urea Nitrogen 22 mg/dl (9-20); Calcium 8.3 mg/dl (8.4-10.2); Carbon Dioxide 23 mmol/L (22-30); Chloride 100 mmol/L (98-107); Estimated Creatinine Clearance 49 ml/min; Glucose 131 mg/dl (70-99); Lactic Acid 2.2 mmol/L (0.7-2.0); Potassium 4.9 mmol/L (3.5-5.1); Sodium 132 mmol/L (135-145); Total Bilirubin 0.3 mg/dl (0.2-1.3); Total Protein 6.3 g/dl (6.3-8.2); eGFR > 60.00
[2024-06-01 15:14] LABS: Lymphocytes 12 % (20-51); Metamyelocytes 6 % (-); Monocytes 8 % (2-9); Normal RBC Morphology Yes; Platelets Checked Yes; Segmented Neutrophils 74 % (42-75)
[2024-06-01 15:19] LABS: Total Cells Counted 100
[2024-06-01 15:22] LABS: Absolute Neutrophils -Man Diff 10.1 10^3/uL (1.4-6.5); Band Neutrophils 0 % (0-3)
[2024-06-01] MEDS: TYLENOL 1000 MG PO (15:23)
[2024-06-01] MEDS: NSS 1000 IV ×3 (15:24→19:45)
[2024-06-01] MEDS: VIBRAMYCIN 100 MG PO (16:26)
--- NOTE | 2024-06-01 17:11 | HPS.HSE ---
Addendum entered and electronically signed by Flakita Aburto MD 06/01/24 17:44:
Sent Cdif/ova and parasites. ID recommended starting doxycycline and ceftriaxone. Discussed with oncology and apparently bone marrow biopsy cannot be performed inpatient. They recommended consulting rheumatology.
Addendum entered and electronically signed by Flakita Aburto MD 06/01/24 17:33:
Spoke with the patient's internal security manager [place] Obrien who recommends checking stool studies/needed for loose stool/diarrhea. She wants infectious disease consult rule out infection before starting prednisone 40 mg. She also wants oncology consult
to arrange for bone marrow biopsy. Once this full workup was performed transferred to [place] can be considered.
Original Note:
Family Physician
-
Family Physician: Js Mayers
Chief Complaint
-
rash, hypotension
History of Present Illness
74-year-old male past medical history of asthma, hypertension, hyperlipidemia, presenting for persistent rash, daily fevers and chills, weakness and low blood pressure.
Patient was admitted from 05/13 to 05/17 with prior episode of rash concerning for vasculitis however with skin biopsy negative. He came to the hospital for fevers, hypotension, KALEIGH, hyponatremia and hyperkalemia and elevated inflammatory markers. He
was started on broad-spectrum antibiotics and pressors. Blood cultures, CT chest abdomen pelvis were negative. Echocardiogram negative for endocarditis. Patient was negative for parasites as well as IgA vasculitis. Patient was seen by ID and
fevers eventually resolved the patient was eventually discharged without antibiotics. Patient was seen by hematology due to pancytopenia which is improved.
He came to the emergency room on 05/30 with weakness, lightheadedness and hypotension. He was discharged. He had testing for hepatitis, QuantiFERON and ANCA and complement testing.
He presents again today after being seen by his control room helper Dr. Davies for blood pressure of 90/60. He continues to have truncal and lower extremity rash and sweats with daily fever up to 103 at times. He had additional biopsies performed by
dermatology this morning before he saw pulmonary. He continues to have dry cough which has not improved in the past several weeks. He feels very tired and has some shortness of breath with exertion. Denies any chest pain. He has very decreased
appetite but denies any nausea vomiting or abdominal pain. He has been having loose stools for the past several weeks. He denies any urinary symptoms.
He no longer smokes or drinks alcohol.
Medical History
Past Medical History
Past Medical History: Reports Other (asthma, hypertension, hyperlipidemia)
Past Surgical History: Reports None
Social History
Tobacco: Non-smoker
Alcohol: Former
Drug: None
Family History
Family History: Not pertinent
Allergies / Home Medications
Allergies reflects when Allergies were last updated in [facility].
Home Medications with original date entered in [facility]
Allergy/Medication List:
Allergies
Allergy/AdvReac Type Severity Reaction Status Date / Time
azithromycin [From Zithromax] Allergy Shortness Verified 05/13/24 10:52
of Breath
hayfever Allergy asthma Uncoded 05/13/24 10:52
attack
Home Medications
Allergy Shots 1 dose INJ TH Allergies 07/03/20
albuterol sulfate 90 mcg/actuation aerosol inhaler (Proventil HFA) 2 puff inhalation R Q4HPRN PRN sob 07/03/20
cyclosporine 0.05 % eye drops in a dropperette (Restasis) 1 drp BOTH EYES BID dry eye 07/03/20
diphenhydramine HCl 50 mg capsule (Banophen) 50 mg PO HSPRN PRN sleep 07/03/20
psyllium husk (aspartame) 3.4 gram oral powder packet (Metamucil Fiber Singles) 1 packet PO BID Constipation 07/03/20
rosuvastatin 20 mg tablet 20 mg PO DAILY High Cholesterol 07/03/20
amlodipine 2.5 mg tablet 2.5 mg PO HS Blood Pressure 04/24/24
budesonide 160 mcg-glycopyr 9 mcg-formot 4.8 mcg/actuation HFA inhaler (Breztri Aerosphere) 2 inh inhalation R BID Lung/Breathing Issues 04/24/24
cholecalciferol (vitamin D3) 50 mcg (2,000 unit) tablet 50 mcg PO DAILY Supplement 04/24/24
lisinopril 20 mg tablet 20 mg PO BID Blood Pressure 04/24/24
melatonin 10 mg tablet 10 mg PO HSPRN PRN sleep 04/24/24
mepolizumab 100 mg/mL subcutaneous syringe (Nucala) 300 mg SC Q4W asthma 04/24/24
acetaminophen 500 mg tablet (Tylenol Extra Strength) 1,000 mg PO Q6HPRN PRN mild pain 05/13/24
benzonatate 200 mg capsule 200 mg PO TIDPRN PRN cough 05/30/24
Review of Systems
-
History Source: Patient
A 12 point ROS was completed and negative except as noted: Yes
Constitutional: Reports No Symptoms
EENT: Reports No Symptoms
Respiratory: Reports See HPI
Cardiac: Reports No Symptoms
Abdomen/GI: Reports See HPI
: Reports No Symptoms
Musculoskeletal: Reports No Symptoms
Skin: Reports See HPI
Neurological: Reports No Symptoms
Endocrine: Reports No Symptoms
Hematologic/Lymphatic: Reports No Symptoms
Psych: Reports No Symptoms
Physical Exam
Vital Signs
Vital Signs
Temp Pulse Resp BP Pulse Ox
98.9 F 102 36 105/57 97
06/01/24 16:09 06/01/24 17:00 06/01/24 17:00 06/01/24 17:00 06/01/24 17:05
Physical Exam
General: Well Developed, Well Nourished and No Apparent Distress
HEENT: NormoCephalic, Moist mucous membranes and Atraumatic
Respiratory: Clear
Cardiac: S1/S2 and Regular Rhythm; No Murmur or Rub
GI: Soft, Non Tender, Non Distended and Normal Bowel Sounds; No Organomegaly
Rectal: Deferred by Provider
Musculoskeletal: No Clubbing, No Cyanosis and No Edema
Skin: No Rash
Neuro: Nonfocal/grossly intact
Laboratory Results
-
06/01/24 14:35
06/01/24 14:35
Laboratory Results
Lactic Acid 2.2 mmol/L (0.7-2.0) H 06/01/24 14:35
Total Bilirubin 0.3 mg/dl (0.2-1.3) 06/01/24 14:35
AST 38 U/L (17-59) 06/01/24 14:35
ALT 29 U/L (0-50) 06/01/24 14:35
Alkaline Phosphatase 126 U/L (38-126) 06/01/24 14:35
Data Reviewed
-
Lab Data: Labs Reviewed by me
Old Records: Reviewed
Impression/Plan
-
IMPRESSION:
PLAN:
# SIRS (fever, leukocytosis, tachycardia)/purpuric rash unknown source
-Initially thought to be IgA vasculitis/parasite related however testing is negative
-Check repeat blood cultures
-Skin biopsy unremarkable
-C3 and C4 normal at this time, C4 previously elevated
-CT-3 and myeloperoxidase pending
-Hepatitis B serologies negative, hepatitis C pending
-Parasite testing negative
-Anticardiolipin IgM antibody elevated on 04/28
-Cfed-ambxes-pmbpipmu DNA, scleroderma, anti-Toro, beta-2, AMMY all unremarkable from 04/28
-Echo showing EF of 62% without vegetation
-Hold off antibiotics
-ID consulted
-May need another course of steroids if ID agreeable
-Needs rheumatologic input
# Persistent dry cough
-Chest x-ray only showing atelectasis, recent CT scan showed interstitial scarring
# Persistent loose stools
-Check stool culture
#Anemia
-Stable
Thrombocytopenia
-Platelets clumped on CBC, recheck in a.m.
-Had resolved on last CBC from 05/30
Asthma
-Continue albuterol
Essential hypertension
-Hold lisinopril, amlodipine
Hyperlipidemia
-Continue statin
Full code
DVT prophylaxis�SCDs
Regular diet
[2024-06-01] MEDS: ROCEPHIN 1000 MG IV (19:35)
[2024-06-01] MEDS: STERILE WATER FOR INJECTION 10 ML IV (19:35)
[2024-06-01] MEDS: METAMUCIL, KONSYL 1 PACKET PO (19:37)
[2024-06-01] MEDS: RESTASIS 0.05% OPHTHALMIC EMULSION 1 DROPS BOTH EYES (19:39)
[2024-06-01] MEDS: SYMBICORT 160/4.5 MCG INHALER 2 PUFF INH (21:10)
[2024-06-01] MEDS: TESSALON PERLES 200 MG PO (21:16)
[2024-06-02] VITALS (7 sets, daily range): BP systolic 106–134; BP diastolic 55–88; PULSE 107–112; BMI 25.5
[2024-06-02] MEDS: TYLENOL 650 MG PO ×2 (01:40→11:39)
[2024-06-02] MEDS: BENADRYL 50 MG PO ×2 (01:47→22:32)
[2024-06-02] MEDS: VIBRAMYCIN 260 MG IV (03:16)
[2024-06-02] MEDS: NSS 1000 IV (06:36)
[2024-06-02 07:31] LABS: Hematocrit 21.6 % (39.0-52.0); Hemoglobin 7.4 g/dL (13.0-18.0); Mean Corp Hgb Conc. 34.3 g/dL (33.0-37.0); Mean Corpuscular Hgb 32.5 pg (27.0-31.0); Mean Corpuscular Volume 94.7 fL (80.0-94.0); Mean Platelet Volume 10.3 fL (7.4-10.4); Platelet Count 240 10^3/uL (130-400); Red Blood Cell Count 2.28 10^6/uL (4.70-6.10); Red Cell Dist. Width 15.3 % (11.5-14.5); White Blood Cell Count 10.8 10^3/uL (4.8-10.8)
[2024-06-02] MEDS: RESTASIS 0.05% OPHTHALMIC EMULSION 1 DROPS BOTH EYES ×2 (08:04→22:31)
[2024-06-02] MEDS: VITAMIN D3 (cholecalciferol) 50 MCG PO (08:04)
[2024-06-02] MEDS: CRESTOR 20 MG PO (08:04)
[2024-06-02] MEDS: METAMUCIL, KONSYL 1 PACKET PO ×2 (08:04→19:45)
[2024-06-02 08:11] LABS: ALT (SGPT) 21 U/L (0-50); AST (SGOT) 25 U/L (17-59); Albumin 2.6 g/dl (3.5-5.0); Alkaline Phosphatase 102 U/L (38-126); Blood Urea Nitrogen 17 mg/dl (9-20); Calcium 7.7 mg/dl (8.4-10.2); Carbon Dioxide 20 mmol/L (22-30); Chloride 106 mmol/L (98-107); Estimated Creatinine Clearance 58 ml/min; Glucose 112 mg/dl (70-99); Potassium 4.3 mmol/L (3.5-5.1); Sodium 134 mmol/L (135-145); Total Bilirubin 0.3 mg/dl (0.2-1.3); Total Protein 5.7 g/dl (6.3-8.2); eGFR > 60.00
[2024-06-02 08:12] LABS: Absolute Neutrophils -Man Diff 9.1 10^3/uL (1.4-6.5); Band Neutrophils 8 % (0-3); Lymphocytes 7 % (20-51); Monocytes 2 % (2-9); Segmented Neutrophils 77 % (42-75)
[2024-06-02 08:13] LABS: Anisocytosis 1+; Atypical Lymphocytes 4 %; Hypochromasia 2+; Metamyelocytes 2 % (-); Normal RBC Morphology No; Total Cells Counted 100
[2024-06-02] MEDS: SYMBICORT 160/4.5 MCG INHALER 2 PUFF INH ×2 (08:17→20:19)
[2024-06-02] MEDS: SPIRIVA RESPIMAT 2.5 MCG 2 PUFF INH (08:17)
[2024-06-02 08:23] LABS: Platelets Checked Yes
[2024-06-02] MEDS: TESSALON PERLES 200 MG PO ×3 (08:26→22:32)
--- NOTE | 2024-06-02 09:15 | CON.ONC ---
Impression
Impression
FUO x 2.5months, with rash, elevated inflammatory markers (CRP, ESR, ferritin)
normocytic anemia, fluctuating thrombocytopenia, mild leukocytosis w/ neutrophilia/lymphopenia
Cough
Plan
Plan
Extensive infectious work-up has been negative
CT imaging unremarkable
Clinical picture most likely related to rheumatologic or malignant process (HLH/MAS?); temporary symptom improvement w/ steroids noted
Will check peripheral blood flow cytometry and bone marrow biopsy early next week (approved by Dr. Miller)
Patient History
History of Present Illness
This is a 74 yo M admitted again to with daily fevers (requiring frequent Tylenol) and rash to trunk and upper legs, minimally pruritic. He was seen yesterday by Dr. Obrien, who sent him to for admission. He's had extensive infectious w/u,
without infectious source. He's had biopsies with dermatology, most recently yesterday, though previous bx have been non-diagnostic. He's had mild thrombocytopenia, leukocytosis w/ neutrophilia/lymphopenia, and normocytic anemia. His fevers are the
most bothersome, and with ongoing cough, which started w/ pneumonia a couple months ago, which seemed to be the start of fever and rash. He denies significant joint pain/myalgias. He took steroids at one point, helped his fever and symptoms.
Labs have been noted for markedly elevated CRP and ESR, ferritin of 1320 on 04/28/24 (pending today).
CT scans of CAP on 05/15/24 showed interstitial scarring in RLL, diverticuli in colon and DDD in L-spine, without any acute findings, adenopathy, or splenomegaly.
Past-Medical/Surgical History
Past Medical History
Past Medical History: Reports Other (asthma, hypertension, hyperlipidemia)
Past Surgical History: Reports None
Social History
Tobacco: Non-smoker
Alcohol: Former
Drug: None
Family History
Family History: Not pertinent
Patient Medication
�Medication �Instructions �Recorded �Confirmed �Last Taken �Type
Allergy Shots 1 dose INJ TH Allergies 07/03/20 06/01/24 05/24/24 History
albuterol sulfate 90 mcg/actuation 2 puff inhalation R Q4HPRN PRN sob 07/03/20 06/01/24 06/01/24 History
aerosol inhaler (Proventil HFA)
cyclosporine 0.05 % eye drops in a 1 drp BOTH EYES BID dry eye 07/03/20 06/01/24 06/01/24 History
dropperette (Restasis)
diphenhydramine HCl 50 mg capsule 50 mg PO HSPRN PRN sleep 07/03/20 06/01/24 05/31/24 History
(Banophen)
psyllium husk (aspartame) 3.4 gram 1 packet PO BID Constipation 07/03/20 06/01/24 06/01/24 History
oral powder packet (Metamucil
Fiber Singles)
rosuvastatin 20 mg tablet 20 mg PO DAILY High Cholesterol 07/03/20 06/01/24 06/01/24 History
amlodipine 2.5 mg tablet 2.5 mg PO HS Blood Pressure 04/24/24 06/01/24 05/29/24 History
budesonide 160 mcg-glycopyr 9 2 inh inhalation R BID 04/24/24 06/01/24 06/01/24 History
mcg-formot 4.8 mcg/actuation HFA Lung/Breathing Issues
inhaler (Breztri Aerosphere)
cholecalciferol (vitamin D3) 50 50 mcg PO DAILY Supplement 04/24/24 06/01/24 06/01/24 History
mcg (2,000 unit) tablet
lisinopril 20 mg tablet 20 mg PO BID Blood Pressure 04/24/24 06/01/24 05/29/24 History
melatonin 10 mg tablet 10 mg PO HSPRN PRN sleep 04/24/24 06/01/24 05/31/24 History
mepolizumab 100 mg/mL subcutaneous 300 mg SC Q4W asthma 04/24/24 06/01/24 06/01/24 History
syringe (Nucala)
benzonatate 200 mg capsule 200 mg PO TIDPRN PRN cough 05/30/24 06/01/24 06/01/24 History
acetaminophen 650 mg 650 mg PO Q8H Fever/Pain 06/01/24 06/01/24 06/01/24 History
tablet,extended release (Tylenol 8
Hour)
Active Medications
Generic Name Dose Route Start Last Admin
Trade Name Freq PRN Reason Stop Dose Admin
Acetaminophen 650 mg 06/01/24 18:39 06/02/24 01:40
Acetaminophen 325 Mg Tablet PO 06/29/24 18:38 650 mg
Q4HPRN PRN Administration
mild pain/FIGUEREDO/temp> 100.4F
Albuterol 2 puff 06/01/24 18:39
Albuterol Hfa [90 Mcg/Dose] Inhaler INH
R Q4HPRN PRN
sob
Protocol
Benzonatate 200 mg 06/01/24 18:48 06/02/24 08:26
Benzonatate 100 Mg Capsule PO 06/29/24 18:47 200 mg
TIDPRN PRN Administration
cough
Bisacodyl 10 mg 06/01/24 18:39
Bisacodyl 10 Mg Rectal Suppository RECTAL 06/29/24 18:38
[id number] PRN
constipation
Budesonide/Formoterol Fumarate 2 puff 06/01/24 20:00 06/02/24 08:17
Symbicort Inhaler 160/4.5 INH 06/29/24 19:59 2 puff
R BID DOE Administration
Ceftriaxone Sodium 1,000 mg 06/01/24 18:00 06/01/24 19:35
Ceftriaxone 1000 Mg / 10 Ml Vial IV 1,000 mg
Q24H DOE Administration
Cholecalciferol 50 mcg 06/02/24 08:00 06/02/24 08:04
Cholecalciferol (Vitamin D3) 50 Mcg Tablet (2,000 Units) PO 06/30/24 07:59 50 mcg
DAILY DOE Administration
Cyclosporine 1 drops 06/01/24 20:00 06/02/24 08:04
Cyclosporine 0.05% (Ophthalmic Emulsion) 10 Drop Droperette BOTH EYES 06/29/24 19:59 1 drops
BID DOE Administration
Doxycycline Hyclate 100 mg/ 260 mls @ 260 mls/hr 06/02/24 04:00 06/02/24 03:16
Sodium Chloride IV 260 mls
Q12H DOE Administration
Sodium Chloride 1,000 mls @ 100 mls/hr 06/01/24 18:39 06/02/24 06:36
Nss IV 1,000 mls
.Q10H DOE Administration
Melatonin 10 mg 06/01/24 18:50
Melatonin 5 Mg Tablet PO 06/29/24 18:49
HSPRN PRN
sleep
Ondansetron HCl 4 mg 06/01/24 18:39
Ondansetron 4 Mg/2 Ml Vial IV 06/29/24 18:38
Q6HPRN PRN
nausea and vomiting
Polyethylene Glycol 17 grams 06/01/24 18:39
Polyethylene Glycol Powder 17 Grams Packet PO 06/29/24 18:38
DAILYPRN PRN
constipation
Psyllium Hydrophilic Mucilloid 1 packet 06/01/24 20:00 06/02/24 08:04
Psyllium Packet PO 06/29/24 19:59 1 packet
BID DOE Administration
Rosuvastatin Calcium 20 mg 06/02/24 08:00 06/02/24 08:04
Rosuvastatin (Crestor) 20 Mg Tablet PO 06/30/24 07:59 20 mg
DAILY DOE Administration
Senna/Docusate Sodium 1 tablet 06/01/24 18:39
Docusate W/Senna (Gwen-Colace) Tablet PO 06/29/24 18:38
BIDPRN PRN
constipation
Sodium Chloride 0 flush 06/01/24 18:00
Sodium Chloride 0.9% (Flush) Syringe IV 06/29/24 17:59
PER PROTOCOL DOE
Sterile Water 10 ml 06/01/24 18:00 06/01/24 19:35
Sterile Water For Injection 10 Ml Vial IV 06/29/24 17:59 10 ml
Q24H DOE Administration
Tiotropium [place] 2 puff 06/02/24 08:00 06/02/24 08:17
Tiotropium (Spiriva Respimat) 2.5 Mcg Inhaler INH 06/30/24 07:59 2 puff
R DAILY DOE Administration
Review of Systems
-
History Source: Patient
All Other Systems: Not reviewed unless documented
Constitutional: Reports Fever, Weight Loss, No Appetite, Fatigue and Night Sweats
EENT: Denies Sore Throat
Respiratory: Reports Cough; Denies Hemoptysis, Trouble Breathing or Wheezing
Cardiac: Denies Chest Pain
GI: Denies Abdominal Pain, Nausea, Vomiting, Diarrhea or Constipated
Musculoskeletal: Denies Joint Pain or Muscle Pain
Skin: Reports Rash
Neuro: Denies Headache
Hematologic/Lymphatic: Denies Bleeding or Swollen Glands
Physical Exam
-
General: Well Developed, Well Nourished, No Apparent Distress, Comfortable and Conversant
HEENT: Moist Mucous Membranes; Negative Jaundice
Cardiology: Normal Sinus Rhythm
Pulmonary: Clear; Negative Wheezes, Rales or Rhonchi
GI: Soft and Normal Bowel Sounds
Musculoskeletal: No Clubbing, No Cyanosis and No Edema
Extremities: No C/C/E
Neurology: Non Focal, No Lateralizing Symptoms and No Word Finding Difficulty
Skin: Rash (pale macular rash to upper trunk, darker macular rash to thighs bilaterally)
Hematologic / Lymphatic: No Lymphadenopathy
Psych: Calm and Intact Judgement/Insight
Labs
Lab Results
WBC 10.8 10^3/uL (4.8-10.8) 06/02/24 06:29
RBC 2.28 10^6/uL (4.70-6.10) L 06/02/24 06:29
Hgb 7.4 g/dL (13.0-18.0) L 06/02/24 06:29
Hct 21.6 % (39.0-52.0) L 06/02/24 06:29
MCV 94.7 fL (80.0-94.0) H 06/02/24 06:29
MCH 32.5 pg (27.0-31.0) H 06/02/24 06:29
MCHC 34.3 g/dL (33.0-37.0) 06/02/24 06:29
RDW 15.3 % (11.5-14.5) H 06/02/24 06:29
Plt Count 240 10^3/uL (130-400) D 06/02/24 06:29
MPV 10.3 fL (7.4-10.4) 06/02/24 06:29
Creatinine 1.0 mg/dL (0.7-1.3) 06/02/24 06:29
Vital Signs
Vital Signs
Temp Pulse Resp BP Pulse Ox
98.3 F 105 16 116/71 97
06/02/24 07:00 06/02/24 08:20 06/02/24 08:20 06/02/24 07:00 06/02/24 08:20
--- NOTE | 2024-06-02 09:45 | PTCARENOTE ---
pt aaox3. states no pain has full body rash/ states min itching does not want medication for it. ivf running.
[2024-06-02 09:57] LABS: LDH 245 U/L (120-246)
[2024-06-02] MEDS: ProAIR HFA INHALER 2 PUFF INH ×3 (09:57→20:19)
--- NOTE | 2024-06-02 10:06 | W.PN.HOSP.TC ---
Today's Communication/Plan
-
CT of the head. Chest x-ray. Repeat labs. Monitor vital signs and neurological status closely.
Assessment / Plan
Assessment / Plan
Physical exam:
General: Acutely ill. Somewhat toxic appearance.
HEENT: Normocephalic, Atraumatic and Moist Mucous Membranes
Respiratory: Clear to Auscultation except some few rhonchi bilateral scattered; Negative Wheezes, or Rales
Cardiac: Regular Rhythm and S1/S2
GI: Soft, Nontender and Nondistended
Musculoskeletal: No Clubbing, No Cyanosis and No Edema
Neuro: Awake, Alert and Oriented, no gross neurological deficit
Skin: Maculopapular rash on trunk and both lower extremities
Psych: Anxious, normal judgment and insight
A/P:
Recurrent fevers (fever of unknown origin) and rash and concerns for sepsis:
Unclear etiology and differential diagnosis broad-?Adult onset Still's disease or HLH/MAS or drug-induced lupus or ? Sweet syndrome or multiple other
Infectious and malignant causes not identified yet.
Discussed with oncology, rheumatology, dermatology and appreciated input.
Plan to do bone marrow biopsy this hospital stay-approved by [employer].
Holding lisinopril amlodipine in case drug-induced lupus
Plan for flow cytometry
Initially on Rocephin and Doxy but discontinued by ID
Repeat chest x-ray today
Blood cultures x 2
Gold QuantiFERON pending
Elevated inflammatory marker-ferritin elevated at 938
Albumin low at 2.6
RE inhibitor low less than 10
LDH normal at 245
LFTs within normal
Lactate borderline elevated but will repeat
Check CRP and venous blood gas as well
Hold off on further IV fluids due to concerns of volume overload and will use bolus as needed if hemodynamic unstable.
For now transfer to IMU for closer monitoring.
Transfer to higher level of care if any clinical decompensation. Currently hemodynamically stable but monitor closely.
Possible initiation of steroids after workup
Respiratory insufficiency:
Oxygen as needed
Bronchodilators
Repeat chest x-ray
Venous blood gas
Monitor respiratory status
Pancytopenia:
As above and will proceed with bone marrow biopsy. Interesting today WBC and platelet counts normal
Hematology oncology on board
Anemia, worsening:
Related to above with bone marrow process probably but cannot rule out GI bleeding although no evidence of active bleeding. Now also need aspirin in the setting of rule out stroke as well.
Hemoglobin 7.4 today and yesterday was 9.[address] him on IV Protonix for now
Check heme stool
GI consult-[place] texted GI today
Repeat hemoglobin
Dizziness with acute vision abnormalities:
Likely due to inflammatory process, but cannot rule out stroke or strokelike symptoms
NIH score
Stat CT of the head
Obtain MRI of the brain if possible
Neurology consult-[place] texted neurology today
Monitor neurological status closely
Recent episode of purpuric rash/KALEIGH/thrombocytopenia/elevated inflammatory markers
Serology testing showed negative AMMY, anti--ds DNA, beta-2-GPI IgG/IgM, antiplatelet antibody, anticardiolipin IgG/IgA, normal complement C3 level, COVID.
Elevated complement C4, anticardiolipin IgM
Direct immunofluorescent testing of skin biopsy did not show deposition of immunoglobulin to suggest antibody-mediated vasculitis, no features to suggest autoimmune bullous disease. Repeated biopsy.
Initially thought to be IgA vasculitis/parasite related however testing is negative
Check repeat blood cultures
Skin biopsy unremarkable
C3 and C4 normal at this time, C4 previously elevated
Repeat NM-3 and myeloperoxidase pending
Hepatitis B serologies negative, hepatitis C pending
Parasite testing negative
Anticardiolipin IgM antibody elevated on 04/28
Jelk-nwtkms-pfkbpdsp DNA, scleroderma, anti-Toro, beta-2, AMMY all unremarkable from 04/28
Echo showing EF of 62% without vegetation
Hyponatremia:
Sodium 134 today
Continue to monitor sodium
Hypertension:
Off his antihypertensive due to concerns of causing any reaction contributing to his presentation.
At the moment blood pressure on the low side so we will hold off on any antihypertensives and monitor closely
Hyperlipidemia:
On rosuvastatin 20 mg p.o. daily
Asthma/COPD:
Continue Spiriva
Continue Symbicort
Chest x-ray
Bronchodilators as needed
Monitor respiratory status closely
DVT prophylaxis:
SCDs
CODE STATUS:
Full code
Total Critical Care Time 35 minutes. I was immediately available to the patient and staff. I personally examined, reviewed labs, diagnostic images/reports, interpretations, treatment plans, discussed patient care with other providers and family
or caregivers (if patient is unable to make decisions), entered orders as appropriate and documented the medical record.
Anticipated Discharge: > 48 hours
Subjective/Interval History
-
Date of Service: June 02, 2024
Patient has some mild shortness of breath and also has generalized weakness. Rash present. Feels that he has some chills today.
Objective Data
-
Labs:
Laboratory Results
06/02/24
06:29
WBC 10.8
Hgb 7.4 L
Hct 21.6 L
Plt Count 240 D
Sodium 134 L
Potassium 4.3
Chloride 106
Carbon Dioxide 20 L
BUN 17
Creatinine 1.0
Glucose 112 H
Calcium 7.7 L
Total Bilirubin 0.3
AST 25
ALT 21
Alkaline Phosphatase 102
Vital Signs:
Vital Signs
Temp Pulse Resp BP Pulse Ox
98.3 F 118 16 116/71 95
06/02/24 07:00 06/02/24 09:59 06/02/24 09:59 06/02/24 07:00 06/02/24 09:59
I&O
06/01/24 06/02/24 06/03/24
06:59 06:59 06:59
Intake Total 2079
Output Total 350 / 350
Balance 1729
--- NOTE | 2024-06-02 10:31 | CON.ID ---
Consultation
-
Date/Time Consultation Requested: 06/01/24 18:39
Date/Time Consultation Performed: 06/02/24 10:32
Requesting Provider: Dr Aburto
Performing Provider: Dr Sullivan
Reason for Consultation: 'rule out infection'
Chief Complaint / Past History
Chief Complaint
rash, hypotension
History of Present Illness
Mr Zarco is a 74 year old male with history of asthma who represents here from his pulmonologists office for persistent rash, daily fevers and chills for about two months, weakness and new hypotension.
Symptoms started in with cough and dry heaves - saw allergy and had prednison. April 19 saw UC for cough, CXR read as pneumonai and he completed a course of augmentin/azithromycin. Subsequently wiht a rash on the arms/legs, admitted here
04/24-05/01 for lower extremity rash with concern for vasculitis - biopsy obtained and he was discharged with plans for follow up with rheumatology. He was readmitted 05/13 to 05/17 for rash and fever to 101 along with myalgias. Course was notable for
fevers, hypotension, KALEIGH, elevated inflammatory markers. Blood cultures x2 05/13 negative, CT chest abdomen pelvis with IV contrast nonrevealing and specifically no splenomegaly or adenopathy. TTE without vegetations, babesia smear negative, s
pnuemo/legionella urine ags negative, lyme, anaplasma, babesia, ehrlichia serologies all negative, t spot . Lupus anticogaulant detected, anticardiolipin IgM detected ferritin 04/28 1300, C3 normal, C4 mildly elevated at 50, covid ag negative 04/27
and 05/13. Patient was seen by Dr Isra SOLARES and oncology and fevers eventually resolved the patient was eventually discharged without antibiotics.
He represented to the emergency room on 05/30 with weakness, lightheadedness and hypotension. He had testing for hep B negative, hep C genotype inadvertently ordered rather than hep C antibiody - I have asked lab if the genotype can be cancelled in
favor of the antibody which is the usual screening test, qft ordered and cancelled per lab, and ANCAs sent pending and complements improved compared to previous now in the normal range. Discharged.
Then yesterday he was seen by his toe former Dr. Davies who noted blood pressure of 90/60, shortness of breath, dizziness, HR initally 30 then increased to 150s; 911 called and patient transported to the hospital. On arrival noted to continue
with truncal/lower extremity rash and sweats. Reports daily fever up to 103 at times he was on scheduled tylenol 650 mg pO q8 hrs. Of note he had additional biopsies performed by dermatology before he saw pulmonary. Dry cough ongoing. Malaise,
BOND, anorexia, loose stools all ongoign for several weeks. No dysuria. No chest pain.
Since arrival here he has been febrile to 102.7, bp has been stable, pulse mainly mildly tachycardic, wbc initially 13.7 nonw 10.8, hgb initially 9.2 now 7.4, plt 240, diff with bandemia and anc 9.1, d-dimer 04/28 3.6, na 134, K 4.3, cr 1.0, ferritin
938, t bili 0.3, ast 25, alt 21, alk phos 102, CXR: atelectasis
Past History
Additional Past Medical History:
HTN
HLD
Diverticulosis
Additional Past Surgical History:
L knee surgery
Allergy History:
azithromycin [From Zithromax] Allergy (Verified 05/13/24 10:52)
Shortness of Breath
hayfever Allergy (Uncoded 05/13/24 10:52)
asthma attack
Medications Reviewed: Yes
Social History
Tobacco: Non-Smoker
Alcohol: None (previously daily)
Drug: None
Living: Other (traveled throughout [place] in his younger years; no travel to developing nations; around dogs, no other animals)
Family History
Family History: Not Pertinent
Review of Systems
Review of Systems
General: Fever and Chills
All systems: All other systems were reviewed and were negative
Vital Signs
Temp Pulse Resp BP Pulse Ox
98.3 F 118 16 116/71 95
06/02/24 07:00 06/02/24 09:59 06/02/24 09:59 06/02/24 07:00 06/02/24 09:59
Physical Exam
Physical Exam
Constitutional: No Acute Distress
Cardiovascular: Regular Rate and S1/S2; Negative Murmur or Rub
Pulmonary: Clear and Symmetric; Negative Wheezes, Rales or Rhonchi
Gastrointestinal: Soft, Non Tender, Non Distended and Normal Bowel Sounds
Skin: Warm, Dry and Rash; Negative Jaundice
Lab / Diagnostic Study Results
06/02/24 06:29
06/02/24 06:29
Total Counted 100 06/02/24 06:29
Abs Neuts (Manual) 9.1 10^3/uL (1.4-6.5) H 06/02/24 06:29
Segmented Neutrophils 77 % (42-75) H 06/02/24 06:29
Band Neutrophils 8 % (0-3) H D 06/02/24 06:29
Lymphocytes (Manual) 7 % (20-51) L 06/02/24 06:29
Lactic Acid 2.2 mmol/L (0.7-2.0) H 06/01/24 14:35
Microbiology Results
Micro:
06/01/24 14:35 Blood Culture - Pending
Blood/Venous
Assessment / Plan
FUO 2+ months
Sepsis
- agree that noninfectious etiologies such as hematologic and rheumatic most likely
- typical ID FUO workup already completed and nonrevealing with the exception of qft gold which was ordered and cancelled by the lab
- qft gold ordered (send out and must be collected same day), my clinical suspicion for this presentation is very low
- attempt to cancel hep C genotype, ordered hep C antibody which is the screening test
- blood cultures x2 today - my suspicion for bacteremia remains low
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
- no objection to steroids
- scheduled tylenol could provide some symptomatic relief and may additionally help with maintaining euvolemia (sweating/fevers with increased metabolic demand) while additional workup ongoing - ordered
- stopped antibiotics
- follow clinically
[2024-06-02] MEDS: TYLENOL 325 MG PO (12:12)
--- NOTE | 2024-06-02 14:47 | CM ---
Patient seen bedside.
IA completed.
Patient lives alone in a split level home with 1 step to enter.
patient independent prior to admission without assistive devices.
patient drives.
No hx vn.
Per patient he is for a transfer to [place] and wanted information on transfer.
Explained to patient CM has not been told of transfer as of yet, but would update him if I hear anything.
PCP: Dr Aubrey Andres
Pharmacy: [facility]
Plan: TBD
--- NOTE | 2024-06-02 16:11 | PTCARENOTE ---
pt states he was dizzy seeing white spots panting and stuffed ears. DR Brunson notified. ordered ct head cxray labs ortho vs and nihss. nihss zero. pt returned now from tests states posts are gone panting gone and dizziness is less.
[2024-06-02] MEDS: PROTONIX IV 40 MG IV (16:20)
[2024-06-02] MEDS: NSS (PRESERVATIVE FREE) 10 ML IV (16:20)
[2024-06-02 16:21] LABS: Hematocrit 22.3 % (39.0-52.0); Hemoglobin 7.6 g/dL (13.0-18.0)
--- NOTE | 2024-06-02 16:26 | PTCARENOTE ---
pt refused asa states due to a neurological history he should not take asa incase of a bleed.
[2024-06-02 17:51] LABS: Venous Blood Gas B.E. -3.9 mmol/L (-4 to +4); Venous Blood Gas HCO3 20.4 mmol/L (22-27); Venous Blood Gas pCO2 33 mmHg (35-48); Venous Blood Gas pO2 148 mmHg (30-50)
[2024-06-02 18:06] LABS: Lactic Acid 1.8 mmol/L (0.7-2.0)
[2024-06-02 18:43] LABS: C-Reactive Protein > 270.00 mg/L (0.0-10.00)
[2024-06-02] MEDS: TYLENOL 1000 MG PO (19:46)
[2024-06-02] MEDS: FLUSH (NSS) 2 FLUSH IV (19:48)
[2024-06-02 19:50] LABS: Hepatitis C Antibody Negative (Negative)
--- NOTE | 2024-06-02 21:30 | PTCARENOTE ---
Pt arrived from 4th floor prior to start of this RN's shift for upgrade in level of care (IMU). Report received from previous shift RN. Pt in bed, AAO3, nih 0. Telemetry rhythm reveals ST, HR 120's, edema noted in b/l lower extremities, palpable
peripheral pulses. Knee high SCDs placed on pt per order, education provided. Lung sounds are clear throughout R, crackles 1/[address] up L. Pt has frequent nonproductive cough, + tachypnea, + dyspnea at rest and exertion. Pox 92-95% on room air. +BS,
abdomen soft round nontender. Tolerating regular diet, reports poor appetite and intermittent nausea and 'dry heaves,' none at present time. Pt states he was having loose stools 'several days ago,' pt aware of need for stool specimen, collection hat
in bathroom. Urinal at bedside. Pt had recent skin biopsies of R upper thigh and R lateral abdomen area, dressings intact. R FA int flushed and patent, capped. Pt has generalized red patchy rash on body, states rash has been present for approx 2.5
months. Pt states rash is only slightly itchy at times. Pt states he did not sleep well last night and that PO Benadryl was given early this AM with some effect. Discussed w yina [employer]; new order received. Call morales within reach, safe
environment maintained. Will monitor closely.
[2024-06-02] MEDS: MELATONIN 10 MG PO (22:32)
[2024-06-03] VITALS (12 sets, daily range): BP systolic 94–155; BP diastolic 46–78
[2024-06-03] MEDS: TESSALON PERLES 200 MG PO ×3 (03:10→20:00)
[2024-06-03] MEDS: TYLENOL 1000 MG PO ×3 (03:10→20:01)
[2024-06-03 04:34] LABS: Lactic Acid 0.9 mmol/L (0.7-2.0)
[2024-06-03 04:41] LABS: Hematocrit 21.2 % (39.0-52.0); Hemoglobin 7.2 g/dL (13.0-18.0); Mean Corpuscular Hgb 32.1 pg (27.0-31.0); Mean Corpuscular Volume 94.6 fL (80.0-94.0); Mean Platelet Volume 9.9 fL (7.4-10.4); Platelet Count 220 10^3/uL (130-400); Red Blood Cell Count 2.24 10^6/uL (4.70-6.10); Red Cell Dist. Width 15.4 % (11.5-14.5); White Blood Cell Count 8.8 10^3/uL (4.8-10.8)
[2024-06-03 04:48] LABS: ALT (SGPT) 17 U/L (0-50); AST (SGOT) 20 U/L (17-59); Albumin 2.5 g/dl (3.5-5.0); Alkaline Phosphatase 94 U/L (38-126); Blood Urea Nitrogen 15 mg/dl (9-20); Calcium 7.9 mg/dl (8.4-10.2); Carbon Dioxide 20 mmol/L (22-30); Chloride 104 mmol/L (98-107); Estimated Creatinine Clearance 58 ml/min; Glucose 120 mg/dl (70-99); HDL Cholesterol 21 mg/dl; LDL Cholesterol, Calculated 51 mg/dl; Potassium 4.3 mmol/L (3.5-5.1); Sodium 132 mmol/L (135-145); Total Bilirubin 0.3 mg/dl (0.2-1.3); Total Cholesterol 94 mg/dl (50-199); Total Protein 5.5 g/dl (6.3-8.2); Triglyceride 110 mg/dl (10-149); Very Low Density Lipoprotein 22 mg/dl (0-30); eGFR > 60.00
[2024-06-03 04:50] LABS: Procalcitonin 1.41 ng/ml (0.0-0.25)
[2024-06-03 05:38] LABS: Band Neutrophils 4 % (0-3); Eosinophils 1 % (0-6); Lymphocytes 14 % (20-51); Metamyelocytes 2 % (-); Monocytes 1 % (2-9); Myelocytes 2 % (-); Segmented Neutrophils 76 % (42-75)
[2024-06-03 05:39] LABS: Normal RBC Morphology No; Polychromasia Occasional; Stomatocytes Occasional
[2024-06-03 05:40] LABS: Ovalocytes Occasional; Tear Drop Red Blood Cells Occasional; Total Cells Counted 100
[2024-06-03 05:41] LABS: Hypochromasia OCC; Platelets Checked Yes
[2024-06-03] MEDS: RESTASIS 0.05% OPHTHALMIC EMULSION 1 DROPS BOTH EYES ×2 (07:59→21:58)
[2024-06-03] MEDS: NSS (PRESERVATIVE FREE) 10 ML IV (08:00)
[2024-06-03] MEDS: VITAMIN D3 (cholecalciferol) 50 MCG PO (08:00)
[2024-06-03] MEDS: CRESTOR 20 MG PO (08:00)
[2024-06-03] MEDS: PROTONIX IV 40 MG IV (08:02)
[2024-06-03] MEDS: METAMUCIL, KONSYL 1 PACKET PO ×2 (08:02→20:00)
[2024-06-03] MEDS: SPIRIVA RESPIMAT 2.5 MCG 2 PUFF INH (08:06)
[2024-06-03] MEDS: SYMBICORT 160/4.5 MCG INHALER 2 PUFF INH ×2 (08:06→19:48)
--- NOTE | 2024-06-03 09:34 | W.PN.HOSP.TC ---
Today's Communication/Plan
-
IV antibiotics. Plan for bone marrow biopsy.
Assessment / Plan
Assessment / Plan
Physical exam:
General: Acutely ill. Somewhat toxic appearance.
HEENT: Normocephalic, Atraumatic and Moist Mucous Membranes
Respiratory: Bilateral scattered rhonchi; Negative Wheezes, or Rales
Cardiac: Regular Rhythm and S1/S2, tachycardic
GI: Soft, Nontender and Nondistended
Musculoskeletal: No Clubbing, No Cyanosis and No Edema
Neuro: Awake, Alert and Oriented, no gross neurological deficit
Skin: Maculopapular rash on trunk and both lower extremities
Psych: Anxious, normal judgment and insight
A/P:
Recurrent fevers (fever of unknown origin) and rash:
Unclear overall etiology
Plan to do bone marrow biopsy this hospital stay-approved by SENIOR COMPLIANCE ANALYST.
Holding lisinopril amlodipine in case drug-induced lupus
Plan for flow cytometry
Probably bronchoscopy-see below
Blood cultures x 2 no growth so far
Gold QuantiFERON pending
Elevated inflammatory marker-CRP >270 and 261, ferritin elevated at 938
Albumin low at 2.6
RE inhibitor low less than 10
LDH normal at 245
Severe multifocal pneumonia:
Chest x-ray, CT scan done today 06/03 without contrast, elevated procalcitonin(1.41) and elevated CRP highly suggested for new pneumonia. ID had discontinued antibiotics on 06/02 but upon reevaluation reinstated.
Restarted IV antibiotics today 06/03 ceftriaxone 2 g daily and oral doxycycline 100 mg twice a day.
While pneumonia is highly likely now, on the other hand that does not explain his ongoing chronic fevers and rash so given suspicions for underlying autoimmune process I would favor bronchoscopy and BAL--> for this reason requested pulmonary consult
and discussed with pulmonary today.
Pancytopenia:
As above and will proceed with bone marrow biopsy. Interesting today WBC and platelet counts normal
Hematology oncology on board
Asthma, severe persistent asthma:
On Breztri as outpatient
Continue Spiriva
Continue Symbicort
Start Vest Acapella and nebs
Dizziness with acute vision abnormalities on 06/02, concerns for TIA:
Resolved
On aspirin and statin
Neurology consulted
Discussed with neurology to hold off on Plavix given upcoming procedures
Plan for possible MRI of the brain
Continue NIH
Anemia, worsening:
Related to above with bone marrow process probably but cannot rule out gi source
gi consulted
Repeat hemoglobin
Hyponatremia:
Sodium 132 today
Start fluid restriction
Continue to monitor sodium
Hypertension:
Off his antihypertensive due to concerns of causing any reaction contributing to his presentation.
At the moment blood pressure on the low side so we will hold off on any antihypertensives and monitor closely
Hyperlipidemia:
On rosuvastatin 20 mg p.o. daily
Elevated BNP:
Normal echocardiogram on 05/16/2024
Monitor volume status closely
Off IV fluid
Recent episode of purpuric rash/KALEIGH/thrombocytopenia/elevated inflammatory markers
Serology testing showed negative AMMY, anti--ds DNA, beta-2-GPI IgG/IgM, antiplatelet antibody, anticardiolipin IgG/IgA, normal complement C3 level, COVID.
Elevated complement C4, anticardiolipin IgM
Direct immunofluorescent testing of skin biopsy did not show deposition of immunoglobulin to suggest antibody-mediated vasculitis, no features to suggest autoimmune bullous disease. Repeated biopsy.
Initially thought to be IgA vasculitis/parasite related however testing is negative
Check repeat blood cultures
Skin biopsy unremarkable
C3 and C4 normal at this time, C4 previously elevated
Repeat OH-3 and myeloperoxidase pending
Hepatitis B serologies negative, hepatitis C pending
Parasite testing negative
Anticardiolipin IgM antibody elevated on 04/28
Wlur-atvqsr-yxhjfrnm DNA, scleroderma, anti-Toro, beta-2, AMMY all unremarkable from 04/28
Echo showing EF of 62% without vegetation
DVT prophylaxis:
SCDs
Will start him on pharmacological prophylaxis after biopsy and if platelet count stable
CODE STATUS:
Full code
Total time spent on today's encounter was 52 minutes which included time spent in counseling the patient/family regarding diagnosis and treatment plan as listed above, goals of care, and symptom management. Case was discussed with nursing staff,
specialists, and care coordinators/case management. All labs and imaging personally reviewed by me. Remainder the time spent in detailed review of previous records, lab data, imaging, and other medical provider documentation.
Anticipated Discharge: > 48 hours
Subjective/Interval History
-
Date of Service: June 03, 2024
Patient alert and oriented denies neurological complaints today. He is still having some shortness of breath and cough. Afebrile today and yesterday Tmax was 101.5 Fahrenheit
Objective Data
-
Labs:
Laboratory Results
06/03/24
04:11
WBC 8.8
Hgb 7.2 L
Hct 21.2 L
Plt Count 220
Sodium 132 L
Potassium 4.3
Chloride 104
Carbon Dioxide 20 L
BUN 15
Creatinine 1.0
Glucose 120 H
Calcium 7.9 L
Total Bilirubin 0.3
AST 20
ALT 17
Alkaline Phosphatase 94
Vital Signs:
Vital Signs
Temp Pulse Resp BP Pulse Ox
99.4 F 121 15 155/76 94
06/03/24 07:25 06/03/24 08:05 06/03/24 08:05 06/03/24 08:02 06/03/24 08:19
I&O
06/02/24 06/03/24 06/04/24
06:59 06:59 06:59
Intake Total 2080 / 2080 1260 / 1260
Output Total 350 / 350 50 / 50
Balance 1730 / 1730 1210 / 1210
--- NOTE | 2024-06-03 10:00 | CON.PUL ---
Consultation
Consultation Request
Date/Time Consultation Requested: 06/03/24
Date/Time Consultation Performed: 06/03/24
Performing Provider: Nivia
Reason for Consultation: PNA
Medical History
-
History of Present Illness:
Patient is a 74-year-old male with previous history of severe asthma, hypertension hyperlipidemia was sent in by Dr Davies today for hypotension (90/60) with persistent rash and fevers. He was recently admitted for similar and discharged 05/17/2024
following negative workup. He has associated generalized weakness, lightheadedness.
Had CT chest obtained demonstrating severe bilateral multifocal pneumonia which is new compared to prior. He is placed on empiric antibiotics.
Past Medical History
Past Medical History: Other (see list below)
Social History
Tobacco: Non-smoker
Alcohol: None
Drug: None
Family History
Family History: Reviewed & Not Pertinent
Allergies / Home Medications
Allergies
Allergy/AdvReac Type Severity Reaction Status Date / Time
azithromycin [From Zithromax] Allergy Shortness Verified 05/13/24 10:52
of Breath
hayfever Allergy asthma Uncoded 05/13/24 10:52
attack
Home Medications
�Medication �Instructions �Recorded �Confirmed �Last Taken �Type
Allergy Shots 1 dose INJ TH Allergies 07/03/20 06/01/24 05/24/24 History
albuterol sulfate 90 mcg/actuation 2 puff inhalation R Q4HPRN PRN sob 07/03/20 06/01/24 06/01/24 History
aerosol inhaler (Proventil HFA)
cyclosporine 0.05 % eye drops in a 1 drp BOTH EYES BID dry eye 07/03/20 06/01/24 06/01/24 History
dropperette (Restasis)
diphenhydramine HCl 50 mg capsule 50 mg PO HSPRN PRN sleep 07/03/20 06/01/24 05/31/24 History
(Banophen)
psyllium husk (aspartame) 3.4 gram 1 packet PO BID Constipation 07/03/20 06/01/24 06/01/24 History
oral powder packet (Metamucil
Fiber Singles)
rosuvastatin 20 mg tablet 20 mg PO DAILY High Cholesterol 07/03/20 06/01/24 06/01/24 History
amlodipine 2.5 mg tablet 2.5 mg PO HS Blood Pressure 04/24/24 06/01/24 05/29/24 History
budesonide 160 mcg-glycopyr 9 2 inh inhalation R BID 04/24/24 06/01/24 06/01/24 History
mcg-formot 4.8 mcg/actuation HFA Lung/Breathing Issues
inhaler (Breztri Aerosphere)
cholecalciferol (vitamin D3) 50 50 mcg PO DAILY Supplement 04/24/24 06/01/24 06/01/24 History
mcg (2,000 unit) tablet
lisinopril 20 mg tablet 20 mg PO BID Blood Pressure 04/24/24 06/01/24 05/29/24 History
melatonin 10 mg tablet 10 mg PO HSPRN PRN sleep 04/24/24 06/01/24 05/31/24 History
mepolizumab 100 mg/mL subcutaneous 300 mg SC Q4W asthma 04/24/24 06/01/24 06/01/24 History
syringe (Nucala)
benzonatate 200 mg capsule 200 mg PO TIDPRN PRN cough 05/30/24 06/01/24 06/01/24 History
acetaminophen 650 mg 650 mg PO Q8H Fever/Pain 06/01/24 06/01/24 06/01/24 History
tablet,extended release (Tylenol 8
Hour)
Review of Systems
-
History Source: Patient
All other systems: Negative unless noted
Vitals / Labs / Diagnostic Testing
Vital Signs
Temp Pulse Resp BP Pulse Ox
99.4 F 121 15 155/76 94
06/03/24 07:25 06/03/24 08:05 06/03/24 08:05 06/03/24 08:02 06/03/24 08:19
Lab Data
06/03/24 04:11
06/03/24 04:11
Microbiology
06/01/24 14:35 Blood/Venous Blood Culture - Preliminary
No Growth in 24 hours- Final report to follow
Diagnostic Testing:
Physical Exam
-
HEENT: Normocephalic, Anicteric and Moist Mucous Membranes
Cardiovascular: S1/S2, Regular Rhythm and Peripheral Edema
Respiratory: Rales and Non-Labored Respirations
GI: Soft, Non Distended and Non Tender
Neurology: Awake, Alert, Oriented, AO x 3 and No Motor Deficits
Skin: Warm, Dry and Good Color
General: Comfortable and Other (NAD)
Assessment
-
Patient is a 74-year-old male with previous history of severe asthma, hypertension hyperlipidemia was sent in by Dr Davies today for hypotension (90/60) with persistent rash and fevers. He was recently admitted for similar and discharged 05/17/2024
following negative workup. He has associated generalized weakness, lightheadedness. Had CT chest obtained demonstrating severe bilateral multifocal pneumonia which is new compared to prior. He is placed on empiric antibiotics. We are consulted
for eval.
Severe multifocal PNA
Fever
Rash
Hypotension
Acute on chronic anemia, hemoglobin 7 prior 9
Hyponatremia, mild
Conditions present prior to admission:
Recent RML pneumonia (seen initially on CXR from 04/19/2024)
Hospitalization-discharged dosed on 04/30/2024-thrombocytopenia/anemia/purpuric rash, biopsy performed and placed on prednisone with rheumatology follow-up
Hypertension
Hyperlipidemia
Severe persistent asthma on Breztri + Nucala
Follows with Dr Davies
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
Proteinuria
Occasional alcohol use
Plan
No oxygen was needed on admission, currently saturating >95% on RA
Chronic cough complaints, but nonproductive
Prior history of lung disease is noted including severe persistent asthma, chronic cough x 2 months
Patient is on Breztri as an outpatient � continue equivalent while inpatient
Suspect patient has PNA based on CT imaging but could also represent diffuse inflammation
Will try for induced sputum culture but if unable to produce will likely need add on for bronchoscopy early next week
Would try to obtain resp culture, rule out DAH with serial washes, TBBx may also be considered as well
Airway clearance reviewed, added vest/acapella/nebs
Agree with empiric abx for now
Prior ECHO results are reviewed indicating normal function
proBNP in past have been negative, repeat on this admission now 2810
Consider diuresis as well
Rash/fever, ongoing
Last admitted for similar with negative ID and heme w/u
Follows with derm OP
Not on steroids now, he does feel better on it
If not improving, can consider empiric course--this may affects results of any potential diagnostic testing
Will need outpatient pulmonary evaluation in our office for PFTs and 6MWT
Reviewed with patient
We will follow
Diagnostic Data
Chest x-ray 10/26/2022-NAD
Chest x-ray 04/19/24-mild right middle lobe pneumonia
Chest x-ray 04/24/2024-improvement in right lower lung field suggesting improvement in pneumonia or atelectasis
Chest x-ray 05/13/2024-no pneumonia, mild basilar atelectasis, mild elevation right hemidiaphragm
Brain MRI 02/10/2022-numerous parenchymal foci in bilateral occipital lobes right greater than left can be seen with cerebral amyloid angiopathy
CT Chest 06/03/24- Severe extensive diffuse bilateral tree-in-bud/groundglass density throughout all lobes with a peripheral predominance, new from prior. Bilateral lower lobe dependent subsegmental atelectasis, progressed from prior. Right lower
lobe scarring redemonstrated. No discrete solid pulmonary nodules, pleural effusions, pericardial effusions or pathologically enlarged noncalcified lymph nodes in the thorax. No pneumothorax. Impression: Severe bilateral multifocal pneumonia, new
from prior CT 05/15/2024.
Echocardiogram 01/19/2021-EF 60-65%, no significant valvular disease
ECHO 05/16/24- 1. Normal left ventricular size and systolic function without regional wall motion abnormalities. Mild concentric left ventricular hypertrophy. Estimated left ventricular ejection fraction is 62% by Hernandez's method. Normal
diastolic function.
2. Normal right ventricular size and systolic function.
3. Thickened mitral valve leaflets with mitral annular calcification. Mitral sclerosis without con stenosis. Trace mitral regurgitation.
4. Thickened, calcified trileaflet aortic valve with mild aortic stenosis. Peak and mean transaortic gradients of 31 and 15 mmHg. Mild aortic regurgitation.
5. No significant pericardial effusion.
Nuclear stress test 01/22/2021-EF 65%, low risk study
Skin biopsy 04/30/2024-send out no deposition of immunoglobulins within the dermal blood vessels to suggest an antibody mediated vasculitis and no deposition of fibrinogen around vessels to suggest active vascular injury, no features of an autoimmune
bullous disease including pemphigus, pemphigoid, linear IgA disease or dermatitis herpetiformis
Reports and relevant images were personally reviewed.
Total time spent on this consultation __76__ includes review of history, physical exam, medications, laboratory data, personal review of imaging, extensive review of outpatient records, discussion with care team and respiratory therapy.
--- NOTE | 2024-06-03 10:02 | W.PN.ID1 ---
Date of Service
Date of Service: June 03, 2024
Today's Communication
restart ceftiraxone/doxy
covid ag neg
attempt to obtain sputum
Assessment / Plan
New Pneumonia vs Pneumonitis
- new multifocal infiltrates on CXR and CT last night, not seen on the 06/01 CXR
- covid ag
- sputum culture if able to obtain
- blood cultures x2 are in progress from 06/02
- bnp
- restart ceftriaxone/doxycycline
FUO 2+ months
Sepsis
- agree that noninfectious etiologies of the chronic fevers such as hematologic and rheumatic most likely of the chronic fevers. Acute, new pulmonary symptoms most likely a separate issue vs inflammatory condition.
- typical ID FUO workup already completed and nonrevealing with the exception of qft gold which was ordered and cancelled by the lab
- qft gold pending
- hep C antibody negative; attempt to cancel hep C genotype sent from the ER
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
- no objection to steroids
- scheduled tylenol could provide some symptomatic relief and may additionally help with maintaining euvolemia (sweating/fevers with increased metabolic demand) while additional workup ongoing - ordered
- reviewed with patient that he must not go above 4 gm/day or risk significant liver injury; currently scheduled for 3 gm/day
- recommend rheumatology consult tuesday
- follow clinically
Chief Complaint
-: Other (FUO)
Subjective / Review of Systems
fever may be controlled on scheduled tylenol
BP stable, remains tachycardic
increasing cough noted
still c/o sweats
Vital Signs / Physical Exam
Vital Signs
Vital Signs
Temp Pulse Resp BP Pulse Ox
99.4 F 121 15 155/76 94
06/03/24 07:25 06/03/24 08:05 06/03/24 08:05 06/03/24 08:02 06/03/24 08:19
Physical Exam
Constitutional: Acutely Ill and Chronically Ill
Cardiovascular: Regular Rate and S1/S2; Negative Murmur or Rub
Pulmonary: Clear and Symmetric; Negative Wheezes or Rales
Gastrointestinal: Soft, Non Tender, Non Distended and Normal Bowel Sounds
Skin: Warm, Dry and Rash (disseminated macular rash, petechiae on the lower extremities); Negative Jaundice
Objective Data
Lab Data
Lab Results
06/03/24 04:11
06/03/24 04:11
Estimated Creat Clear 58 ml/min 06/03/24 04:11
Lactic Acid 0.9 mmol/L (0.7-2.0) 06/03/24 04:11
Total Bilirubin 0.3 mg/dl (0.2-1.3) 06/03/24 04:11
AST 20 U/L (17-59) 06/03/24 04:11
ALT 17 U/L (0-50) 06/03/24 04:11
Alkaline Phosphatase 94 U/L (38-126) 06/03/24 04:11
C-Reactive Protein 261.00 mg/L (0.0-10.00) H 06/03/24 04:11
Most recent labs reviewed.
CT Scan: Image Reviewed and Report Reviewed (Severe bilateral multifocal pneumonia, new from prior CT 05/15/2024.)
Micro Results:
06/01/24 14:35 Blood Culture - Preliminary
Blood/Venous No Growth in 24 hours- Final report to follow
06/02/24 12:13 Blood Culture - Pending
Blood/Venous
[2024-06-03 10:52] LABS: NT-proBNP 2810 pg/ml
--- NOTE | 2024-06-03 11:42 | CON.NEURO4 ---
Consultation - Neurology 4
-
CONSULTING PHYSICIAN: Jovan
REFERRING PHYSICIAN: hospitalist
DICTATED BY: Jovan
DATE/TIME OF REQUEST: 06/02/24
DATE/TIME OF CONSULTATION: 06/03/24
Reason for Consultation: dizziness
History of Present Illness:
74 year-old male admitted with chronic fevers felt to most likely be hematologic or rheumatic in etiology. Also now found to have pneumonia. I was consulted for dizziness. He states that he has had this for a few weeks at least. With the
dizziness he often has 'seeing little white dots in his field of vision.' The dizziness and vision change can last a few hours in duration. He thinks that this could be triggered by low blood pressure. Also reports that his appetite has been low
recently.
MRI of the brain was done which showed a tiny subacute on chronic left frontal lobe infarct. Redemonstration of findings consistent with chronic amyloid angiopathy and possible sequelae of a chronic subarachnoid hemorrhage/superficial siderosis
were seen, overall progressed.
He denies ever hearing that he had an ischemic stroke in the past. He has a known history of cerebral amyloid angiopathy diagnosed at [place] [facility] 2 years ago. He was told that he should never take any antiplatelet agents. He also avoids NSAIDs.
His father and two paternal aunts from complications of AD.
Past Medical History: asthma, hypertension, hyperlipidemia, CAA, ?superficial siderosis
Past Surgical History: None
Social History
Tobacco: Non-smoker
Alcohol: Former
Drug: None
Family History
Family History: father and 2 paternal aunts of complications of AD
Allergies
azithromycin [From Zithromax] Allergy (Verified 05/13/24 10:52)
Shortness of Breath
hayfever Allergy (Uncoded 05/13/24 10:52)
asthma attack
Home Medications
�Medication �Instructions �Recorded
Allergy Shots 1 dose INJ TH Allergies 07/03/20
albuterol sulfate 90 mcg/actuation 2 puff inhalation R Q4HPRN PRN sob 07/03/20
aerosol inhaler (Proventil HFA)
cyclosporine 0.05 % eye drops in a 1 drp BOTH EYES BID dry eye 07/03/20
dropperette (Restasis)
diphenhydramine HCl 50 mg capsule 50 mg PO HSPRN PRN sleep 07/03/20
(Banophen)
psyllium husk (aspartame) 3.4 gram 1 packet PO BID Constipation 07/03/20
oral powder packet (Metamucil
Fiber Singles)
rosuvastatin 20 mg tablet 20 mg PO DAILY High Cholesterol 07/03/20
amlodipine 2.5 mg tablet 2.5 mg PO HS Blood Pressure 04/24/24
budesonide 160 mcg-glycopyr 9 2 inh inhalation R BID 04/24/24
mcg-formot 4.8 mcg/actuation HFA Lung/Breathing Issues
inhaler (Breztri Aerosphere)
cholecalciferol (vitamin D3) 50 50 mcg PO DAILY Supplement 04/24/24
mcg (2,000 unit) tablet
lisinopril 20 mg tablet 20 mg PO BID Blood Pressure 04/24/24
melatonin 10 mg tablet 10 mg PO HSPRN PRN sleep 04/24/24
mepolizumab 100 mg/mL subcutaneous 300 mg SC Q4W asthma 04/24/24
syringe (Nucala)
benzonatate 200 mg capsule 200 mg PO TIDPRN PRN cough 05/30/24
acetaminophen 650 mg 650 mg PO Q8H Fever/Pain 06/01/24
tablet,extended release (Tylenol 8
Hour)
Review of Symptoms:
Patient denies any fever, headache, chest pain, shortness of breath, GI or symptoms.
�Per the HPI.�All systems are reviewed negative except above.
Vital Signs
Temp Pulse Resp BP Pulse Ox
99.4 F 125 36 124/70 96
06/03/24 07:25 06/03/24 10:00 06/03/24 10:00 06/03/24 10:00 06/03/24 10:24
Lab Results
06/03/24 04:11
06/03/24 04:11
Sodium 132 mmol/L (135-145) L 06/03/24 04:11
Potassium 4.3 mmol/L (3.5-5.1) 06/03/24 04:11
BUN 15 mg/dl (9-20) 06/03/24 04:11
Glucose 120 mg/dl (70-99) H 06/03/24 04:11
Calcium 7.9 mg/dl (8.4-10.2) L 06/03/24 04:11
Zxq-A-Kjxkcqpdldi Pept 2810 pg/ml 06/03/24 04:11
LDL Cholesterol, Calc 51 mg/dl 06/03/24 04:11
Physical Exam:
The patient is afebrile, heart sounds S1 and S2 are regular, and chest is clear to auscultation bilaterally.
NIH Stroke Scale:
I performed the NIH stroke scale on the patient on 06/03/24 at 1300. The patient scored 0 points on the NIH stroke scale assessment.
Neurologic Examination:
The patient is awake, alert and oriented x 3. He is able to follow commands and answer questions appropriately. There is no aphasia or dysarthria. On cranial nerve assessment, pupils are 3 mm bilateral, round and reactive to light and
accommodation. Visual hewitt are full. Extraocular movements are intact. Facial sensations are intact and bilaterally symmetrical, there is no facial asymmetry. Hearing is intact bilaterally to normal conversation volume. Tongue palate and uvula
are midline. Sternocleidomastoid strengths are full bilaterally. Motor strengths are 5/5 bilateral upper and lower extremities on medical research [place] scale. There is no drift or involuntary movement noted. Deep tendon reflexes are 2+ bilateral
upper and lower extremities and Babinski is absent bilaterally. Sensations of pain, touch, temperature and vibration are intact and bilaterally symmetrical. There was no extinction noted on double simultaneous stimulation. Coordination is intact by
finger to nose bilaterally.
Neuro Imaging:
MRI brain:
Suspect tiny subacute on chronic left frontal lobe infarct.
Redemonstration of findings suggesting chronic amyloid angiopathy and possibly sequelae of chronic subarachnoid hemorrhage (superficial siderosis), overall progressed.
Impression:
CATHY SUAREZ is a 74 year old M with intermittent dizziness which is likely related to his hypotension. MRI brain showed an incidental finding of a tiny subacute infarct in L frontal lobe.
Patient has the following risk factors for their symptoms: htn, HLD, ?malignancy
IV Tenecteplase/IAT candidacy: not a candidate given incidental finding on exam, h/o CAA
Recommendations:
-MRA head/neck
-BP goal is normotension.
-holding antiplatelet; will try to talk to his [place] [facility] neurologist
- Check hemoglobin A1C. Goal is normoglycemia.
- Continue Crestor. LDL at goal at 51. Goal LDL after stroke is <70.
- Check an echocardiogram.
-PT/OT/ST evaluations
- DVT prophylaxis
-continue neurochecks, NIHSS
Discussed patient care with: patient, Dr. Brunson
--- NOTE | 2024-06-03 12:00 | PTCARENOTE ---
Pt Ox3 and appropriate. Able to make needs known. Not complaining of any pain but does have int chills that he states have been going on for the past 2.5 months. Pt receiving 1g tylenol as well as tessalon perles q8h. NIHSS 0. Sinus tach on tele
with frequent PAC's. +1 LE edema, + pulses. Pt states he is having some SOB, requesting a duoneb. Covid swab obtained, attempting to get sputum culture. Chest vest and acapella ordered. Pt ambulating to the bathroom without difficulty. Hemetest
stools continue, pt unable to have a BM currently. Patchy rash covers everywhere but the pt's face. IV sites intact. Call morales within reach. Pt makes needs known.
[2024-06-03 12:01] LABS: COVID-19 Antigen Negative (Negative)
[2024-06-03] MEDS: ROCEPHIN 2000 MG IV (12:02)
[2024-06-03] MEDS: VIBRAMYCIN 100 MG PO ×2 (12:02→20:02)
[2024-06-03] MEDS: STERILE WATER FOR INJECTION 20 ML IV (12:02)
[2024-06-03] MEDS: VENTOLIN NEBULES 2.5 MG INH (12:40)
--- NOTE | 2024-06-03 16:06 | CON.GI ---
Consultation
-
Date/Time Consultation Requested: 06/02/2024
Date/Time Consultation Performed: 06/02/2024
Requesting Provider: Hospitalist
Performing Provider: Mera ELLIOTT
Reason for Consultation: anemia
Medical History
Chief Complaint / HPI
Chief Complaint: Fever/rash
History of Present Illness:
74-year-old male with history of fever of unknown origin for the last 2 months admitted for further evaluation for fever/rash. Extensive infectious workup has been negative in the past. Patient is currently being evaluated by hematology and is
awaiting bone marrow biopsy next week. GI was requested to evaluate for anemia. Patient claims he has intermittent rectal bleeding in the past over 5 to 10 years which he attributes to his hemorrhoids. He uses topical hemorrhoidal as needed. He
explains mostly happens when he has to strain harder with bowel movement.
Last colonoscopy Dr. Pineda 09/19/2020
Diverticulosis /2 mm polyp in the descending colon/ hemorrhoids
No prior EGD
Denies any abdominal pain/nausea/vomiting/dysphagia/dark stool.
Past Medical History
Past Medical History: Other ( (asthma, hypertension, hyperlipidemia))
Past Surgical History: None
Social History
Tobacco: Non-Smoker
Alcohol: Former
Drug: None
Allergies / Home Medications
Allergy/AdvReac Type Severity Reaction Status Date / Time
azithromycin [From Zithromax] Allergy Shortness Verified 05/13/24 10:52
of Breath
hayfever Allergy asthma Uncoded 05/13/24 10:52
attack
�Medication �Instructions �Recorded
Allergy Shots 1 dose INJ TH Allergies 07/03/20
albuterol sulfate 90 mcg/actuation 2 puff inhalation R Q4HPRN PRN sob 07/03/20
aerosol inhaler (Proventil HFA)
cyclosporine 0.05 % eye drops in a 1 drp BOTH EYES BID dry eye 07/03/20
dropperette (Restasis)
diphenhydramine HCl 50 mg capsule 50 mg PO HSPRN PRN sleep 07/03/20
(Banophen)
psyllium husk (aspartame) 3.4 gram 1 packet PO BID Constipation 07/03/20
oral powder packet (Metamucil
Fiber Singles)
rosuvastatin 20 mg tablet 20 mg PO DAILY High Cholesterol 07/03/20
amlodipine 2.5 mg tablet 2.5 mg PO HS Blood Pressure 04/24/24
budesonide 160 mcg-glycopyr 9 2 inh inhalation R BID 04/24/24
mcg-formot 4.8 mcg/actuation HFA Lung/Breathing Issues
inhaler (Breztri Aerosphere)
cholecalciferol (vitamin D3) 50 50 mcg PO DAILY Supplement 04/24/24
mcg (2,000 unit) tablet
lisinopril 20 mg tablet 20 mg PO BID Blood Pressure 04/24/24
melatonin 10 mg tablet 10 mg PO HSPRN PRN sleep 04/24/24
mepolizumab 100 mg/mL subcutaneous 300 mg SC Q4W asthma 04/24/24
syringe (Nucala)
benzonatate 200 mg capsule 200 mg PO TIDPRN PRN cough 05/30/24
acetaminophen 650 mg 650 mg PO Q8H Fever/Pain 06/01/24
tablet,extended release (Tylenol 8
Hour)
Review of Systems
-
All other systems: A 12 pt ROS was Negative except as stated above in HPI
Vital Signs
Temp Pulse Resp BP Pulse Ox
98.4 F 99 16 124/70 95
06/03/24 15:13 06/03/24 12:40 06/03/24 12:40 06/03/24 10:00 06/03/24 12:40
Physical Exam
Exam
General: No Apparent Distress
Respiratory: Clear
Cardiac: S1/S2
GI: Soft, Non Tender and Non Distended
Rectal: Other (deferred )
Results
WBC 8.8 10^3/uL (4.8-10.8) 06/03/24 04:11
Hgb 7.2 g/dL (13.0-18.0) L 06/03/24 04:11
Hct 21.2 % (39.0-52.0) L 06/03/24 04:11
MCV 94.6 fL (80.0-94.0) H 06/03/24 04:11
Plt Count 220 10^3/uL (130-400) 06/03/24 04:11
Sodium 132 mmol/L (135-145) L 06/03/24 04:11
Potassium 4.3 mmol/L (3.5-5.1) 06/03/24 04:11
Chloride 104 mmol/L (98-107) 06/03/24 04:11
Carbon Dioxide 20 mmol/L (22-30) L 06/03/24 04:11
BUN 15 mg/dl (9-20) 06/03/24 04:11
Creatinine 1.0 mg/dL (0.7-1.3) 06/03/24 04:11
Calcium 7.9 mg/dl (8.4-10.2) L 06/03/24 04:11
Total Bilirubin 0.3 mg/dl (0.2-1.3) 06/03/24 04:11
AST 20 U/L (17-59) 06/03/24 04:11
ALT 17 U/L (0-50) 06/03/24 04:11
Alkaline Phosphatase 94 U/L (38-126) 06/03/24 04:11
Hepatitis C Antibody Negative (Negative) 06/02/24 12:13
Diagnostic Image Results:
Prior GI Procedures:
EGD: none
Colonoscopy: 2020-details in HPI
Assessment / Plan
-
74-year-old male admitted with fever of unknown origin for 2 months. Currently being evaluated by ID/hematology. Infectious workup negative. Awaiting bone marrow biopsy next week. Currently denies any overt GI bleeding. He was having
intermittent rectal bleeding which he attributes to hemorrhoids in the past. Last colonoscopy 2019. No prior EGD. CT imaging unremarkable
-Chronic normocytic anemia/thrombocytopenia/mild leukocytosis
-- FUO
--PNA
--Skin rash
plan
At this point would recommend continue hematology workup as recommended
Will consider GI workup for anemia as outpatient if anemia persist and initial hematologic/Rheumatology workup negative
Avoid constipation. Recommend bowel regimen-Metamucil/Colace
will s/o.
Total Time Spent with Patient (in minutes): 55
-
-
Thank you for consultation and allowing me to participate in the patient's care. Please call the anhydrous ammonia production supervisor GI physician during the after hours with any questions or concerns.
[2024-06-03] MEDS: ProAIR HFA INHALER 2 PUFF INH (19:48)
[2024-06-03] MEDS: MELATONIN 10 MG PO (21:58)
[2024-06-03] MEDS: BENADRYL 50 MG PO (21:58)
--- NOTE | 2024-06-03 22:12 | PTCARENOTE ---
Report received from previous shift RN 184. Pt in bed, AAO3, nih 0. Pt states he had a 'productive day' and that he was feeling 'hopeful for answers.' Lung sounds are decreased throughout with fine crackles in b/l base, shallow respirations,
tachypneic, +BOND. Pt with frequent nonproductive cough, pt aware of need for sputum specimen if able to be produced. Telemetry rhythm reveals ST w PACs, HR 100-130's, +1 nonpitting edema b/l lower extremities, palpable peripheral pulses present. Pt
refusing SCD use despite education. +BS, abdomen round nontender. Tolerating regular diet, reports poor appetite. Pt reports bm earlier in day. Pt is assist x1 into bathroom for voiding, urgency noted. R AC int flushed and patent, capped. R upper
thigh and R lat abdomen dressings intact (previous skin biopsy sites). Trunk/leg rash remains evident. Pt requesting PO Benadryl again this evening, house AERONAUTICAL ENGINEERING OFFICER Fern placed order. Call morales within reach, safe environment maintained. Will monitor
closely.
[2024-06-04] VITALS (43 sets, daily range): BP systolic 74–128; BP diastolic 48–81; PULSE 2–158; O2SAT 93–94
[2024-06-04] MEDS: TYLENOL 1000 MG PO ×3 (03:05→19:43)
[2024-06-04] MEDS: TESSALON PERLES 200 MG PO (03:06)
[2024-06-04 05:12] LABS: Blood Urea Nitrogen 16 mg/dl (9-20); Calcium 8.1 mg/dl (8.4-10.2); Carbon Dioxide 20 mmol/L (22-30); Chloride 106 mmol/L (98-107); Estimated Creatinine Clearance 53 ml/min; Glucose 115 mg/dl (70-99); Potassium 4.1 mmol/L (3.5-5.1); Sodium 133 mmol/L (135-145); eGFR > 60.00
[2024-06-04 05:19] LABS: Hematocrit 19.5 % (39.0-52.0); Hemoglobin 6.7 g/dL (13.0-18.0); Mean Corp Hgb Conc. 34.4 g/dL (33.0-37.0); Mean Corpuscular Hgb 31.6 pg (27.0-31.0); Mean Platelet Volume 9.8 fL (7.4-10.4); Platelet Count 205 10^3/uL (130-400); Red Blood Cell Count 2.12 10^6/uL (4.70-6.10); Red Cell Dist. Width 15.5 % (11.5-14.5); White Blood Cell Count 10.2 10^3/uL (4.8-10.8)
--- NOTE | 2024-06-04 06:14 | PTCARENOTE ---
AM hgb result relayed to [facility] Miroslava bran NP. CARPET INSPECTOR FINISHED ordered type and screen. Sent as ordered.
[2024-06-04 06:50] LABS: Band Neutrophils 4 % (0-3); Lymphocytes 11 % (20-51); Monocytes 3 % (2-9); Total Cells Counted 100
[2024-06-04 06:52] LABS: Absolute Neutrophils -Man Diff 8.5 10^3/uL (1.4-6.5); Anisocytosis 1+; Hypochromasia OCC; Metamyelocytes 2 % (-); Normal RBC Morphology No; Platelets Checked Yes; Segmented Neutrophils 80 % (42-75)
[2024-06-04 06:53] LABS: Ovalocytes Occasional; Polychromasia PCC; Target Cells Occasional
[2024-06-04] MEDS: SPIRIVA RESPIMAT 2.5 MCG 2 PUFF INH (07:30)
[2024-06-04] MEDS: SYMBICORT 160/4.5 MCG INHALER 2 PUFF INH ×2 (07:30→20:06)
[2024-06-04] MEDS: VIBRAMYCIN 100 MG PO ×2 (07:46→19:43)
[2024-06-04] MEDS: VITAMIN D3 (cholecalciferol) 50 MCG PO (07:46)
[2024-06-04] MEDS: METAMUCIL, KONSYL 1 PACKET PO ×2 (07:46→19:43)
[2024-06-04] MEDS: RESTASIS 0.05% OPHTHALMIC EMULSION 1 DROPS BOTH EYES ×2 (07:46→19:43)
[2024-06-04] MEDS: CRESTOR 20 MG PO (07:46)
[2024-06-04] MEDS: PROTONIX IV 40 MG IV (07:46)
[2024-06-04] MEDS: NSS (PRESERVATIVE FREE) 10 ML IV (07:47)
--- NOTE | 2024-06-04 08:16 | W.PN.HOSP.TC ---
Addendum entered and electronically signed by Julien Brunson MD 06/04/24 15:32:
Discussed with daughter. CTA chest no PE. Biopsy BM done. Will start Lovenox for DVT prophylaxis.
Original Note:
Today's Communication/Plan
-
IV antibiotics. CTA of the chest. Blood transfusions
Assessment / Plan
Assessment / Plan
Physical exam:
General: Acutely ill. Somewhat toxic appearance.
HEENT: Normocephalic, Atraumatic and Moist Mucous Membranes
Respiratory: Bilateral scattered rhonchi; Negative Wheezes, or Rales
Cardiac: Regular Rhythm and S1/S2, tachycardic
GI: Soft, Nontender and Nondistended
Musculoskeletal: No Clubbing, No Cyanosis and No Edema
Neuro: Awake, Alert and Oriented, no gross neurological deficit
Skin: Maculopapular rash on trunk and both lower extremities
Psych: Anxious, normal judgment and insight
A/P:
Recurrent fevers (fever of unknown origin) and rash:
Unclear overall etiology
Plan to do bone marrow biopsy this hospital stay-approved by POLICE DISPATCHER.
Holding lisinopril amlodipine in case drug-induced lupus
Plan for flow cytometry
Probably bronchoscopy-see below
Blood cultures x 2 no growth so far
Gold QuantiFERON pending
Elevated inflammatory marker-CRP >270 and 261, ferritin elevated at 938
Albumin low at 2.6
RE inhibitor low less than 10
LDH normal at 245
Called [facility] for possible transfer-->[facility] (Dr Maher)--> they do not recommend inpatient transfer and they feel they would do the same workup that we are doing in our hospital.
Keep in IMU
Low threshold to transfer to ICU if any clinical deterioration.
Severe multifocal pneumonia:
Chest x-ray, CT scan done today 06/03 without contrast, elevated procalcitonin(1.41) and elevated CRP highly suggested for new pneumonia. ID had discontinued antibiotics on 06/02 but upon reevaluation reinstated.
Restarted IV antibiotics today 06/03 ceftriaxone 2 g daily and oral doxycycline 100 mg twice a day.
While pneumonia is highly likely now, on the other hand that does not explain his ongoing chronic fevers and rash so given suspicions for underlying autoimmune process I would favor bronchoscopy and BAL--> for this reason requested pulmonary consult
and discussed with pulmonary.
Today pulmonary doing PT workup including CTA and Doppler of the lower extremities
Pancytopenia:
As above and will proceed with bone marrow biopsy. Interesting today WBC and platelet counts normal
Hematology oncology on board
Worsening anemia today
Ordered blood transfusion
Discussed with hematology and okay with above
Plan for bone marrow biopsy-discussed with IR today and they will let us know timing
Asthma, severe persistent asthma:
On Breztri as outpatient
Continue Spiriva
Continue Symbicort
Start Vest Acapella and nebs
Dizziness with acute vision abnormalities on 06/02, concerns for TIA:
Resolved
On aspirin and statin
Neurology consulted
Discussed with neurology to hold off on Plavix given upcoming procedures
Plan for possible MRI of the brain
Continue NIH
Anemia, worsening:
Related to above with bone marrow process probably but cannot rule out gi source
gi consulted
Repeat hemoglobin
Hyponatremia:
Sodium 132 today
Start fluid restriction
Continue to monitor sodium
Hypertension:
Off his antihypertensive due to concerns of causing any reaction contributing to his presentation.
At the moment blood pressure on the low side so we will hold off on any antihypertensives and monitor closely
Hyperlipidemia:
On rosuvastatin 20 mg p.o. daily
Elevated BNP:
Normal echocardiogram on 05/16/2024
Monitor volume status closely
Off IV fluid
Recent episode of purpuric rash/KALEIGH/thrombocytopenia/elevated inflammatory markers
Serology testing showed negative AMMY, anti--ds DNA, beta-2-GPI IgG/IgM, antiplatelet antibody, anticardiolipin IgG/IgA, normal complement C3 level, COVID.
Elevated complement C4, anticardiolipin IgM
Direct immunofluorescent testing of skin biopsy did not show deposition of immunoglobulin to suggest antibody-mediated vasculitis, no features to suggest autoimmune bullous disease. Repeated biopsy.
Initially thought to be IgA vasculitis/parasite related however testing is negative
Check repeat blood cultures
Skin biopsy unremarkable
C3 and C4 normal at this time, C4 previously elevated
Repeat ID-3 and myeloperoxidase pending
Hepatitis B serologies negative, hepatitis C pending
Parasite testing negative
Anticardiolipin IgM antibody elevated on 04/28
Ksgc-fgbykv-hhrxsupc DNA, scleroderma, anti-Toro, beta-2, AMMY all unremarkable from 04/28
Echo showing EF of 62% without vegetation
DVT prophylaxis:
SCDs
Will start him on pharmacological prophylaxis after biopsy and if platelet count stable--> agree he should be on pharmacological prophylaxis but try to coordinate with biopsy first otherwise we will have to start pharmacological.
CODE STATUS:
Full code
Total time spent on today's encounter was 52 minutes which included time spent in counseling the patient/family regarding diagnosis and treatment plan as listed above, goals of care, and symptom management. Case was discussed with nursing staff,
specialists, and care coordinators/case management. All labs and imaging personally reviewed by me. Remainder the time spent in detailed review of previous records, lab data, imaging, and other medical provider documentation.
Anticipated Discharge: > 48 hours
Subjective/Interval History
-
Date of Service: June 04, 2024
Patient still with rash. No chest pain.
Objective Data
-
Labs:
Laboratory Results
06/04/24
04:31
WBC 10.2
Hgb 6.7 L*
Hct 19.5 L*
Plt Count 205
Sodium 133 L
Potassium 4.1
Chloride 106
Carbon Dioxide 20 L
BUN 16
Creatinine 1.1
Glucose 115 H
Calcium 8.1 L
Vital Signs:
Vital Signs
Temp Pulse Resp BP Pulse Ox
100.1 F 128 20 112/81 96
06/04/24 03:07 06/04/24 07:40 06/04/24 07:40 06/04/24 06:00 06/04/24 07:40
I&O
06/03/24 06/04/24 06/05/24
06:59 06:59 06:59
Intake Total 1260 / 1260 240 / 240
Output Total 50 / 50 355 / 355
Balance 1210 / 1210 -115 / -115
--- NOTE | 2024-06-04 08:43 | W.PN.ID1 ---
Date of Service
Date of Service: June 04, 2024
Today's Communication
recommend rheumatology consult
c/w ctx/doxy
procalcitonin was sent and is elevated however can be falsely elevated with systemic illness and has been elevated on previous admissions, would not trend
Assessment / Plan
New Pneumonia vs Pneumonitis
- new multifocal infiltrates on CXR and CT 06/02, not seen on the 06/01 CXR
- covid ag neg
- has been unable to produce a sputum culture even with acapella/vest
- blood cultures x2 are in progress from 06/02 no growth to date
- bnp suggests a component of heart failure
- procalcitonin was sent and is elevated however can be falsely elevated with systemic illness and has been elevated on previous admissions, would not trend
- continue ceftriaxone/doxycycline day 2
FUO 2+ months
- agree that noninfectious etiologies of the chronic fevers such as hematologic and rheumatic most likely of the chronic fevers. Acute, new pulmonary symptoms most likely a separate issue vs component of the overall inflammatory condition.
- typical ID FUO workup already completed and nonrevealing
- qft gold pending
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
- no objection to steroids
- c/w scheduled tylenol 1 gm TID
- reviewed with patient that he must not go above 4 gm/day or risk significant liver injury; currently scheduled for 3 gm/day
- recommend rheumatology consult as well, hematology is following
- follow clinically
Also:
Subacute small stroke
anemia
Chief Complaint
-: Fever and Other (FUO)
Subjective / Review of Systems
Tmax this AM 100.1
BP overall stable
'last night was rough with the sweats'
cough is nonproductive
trunk rash not as visible at this time, legs persist
Vital Signs / Physical Exam
Vital Signs
Vital Signs
Temp Pulse Resp BP Pulse Ox
100.1 F 128 20 112/81 96
06/04/24 03:07 06/04/24 07:40 06/04/24 07:40 06/04/24 06:00 06/04/24 07:40
Physical Exam
Constitutional: No Acute Distress
Cardiovascular: Regular Rate and S1/S2; Negative Murmur or Rub
Pulmonary: Clear and Symmetric; Negative Wheezes or Rales
Gastrointestinal: Soft, Non Tender, Non Distended and Normal Bowel Sounds
Skin: Warm, Dry and Rash (disseminated macular rash majority blanching less prominent today, petechiae on the lower extremities stable); Negative Jaundice
Neurological: Awake
Objective Data
Lab Data
Lab Results
06/04/24 04:31
06/04/24 04:31
Estimated Creat Clear 53 ml/min 06/04/24 04:31
Lactic Acid 0.9 mmol/L (0.7-2.0) 06/03/24 04:11
Total Bilirubin 0.3 mg/dl (0.2-1.3) 06/03/24 04:11
AST 20 U/L (17-59) 06/03/24 04:11
ALT 17 U/L (0-50) 06/03/24 04:11
Alkaline Phosphatase 94 U/L (38-126) 06/03/24 04:11
C-Reactive Protein 261.00 mg/L (0.0-10.00) H 06/03/24 04:11
Most recent labs reviewed.
Micro Results:
06/03/24 17:47 Salmonella/Shigella Culture - Pending
Feces/Stool Campylobacter Culture - Pending
Shiga Toxin Test - Pending
06/03/24 17:47 Cryptosporidium/Giardia - Pending
Feces/Stool
06/01/24 14:35 Blood Culture - Preliminary
Blood/Venous No Growth in 48 hours- Final report to follow
06/02/24 12:13 Blood Culture - Preliminary
Blood/Venous No Growth in 24 hours- Final report to follow
--- NOTE | 2024-06-04 09:00 | W.PN.ONC ---
Today's Communication / Plan
-
Extensive infectious work-up has been negative
CT imaging unremarkable
Clinical picture most likely related to rheumatologic or malignant process (HLH/MAS?); temporary symptom improvement w/ steroids noted
Rheumatology consult
Follow CBC w/ diff daily
06/04 Hgb 6.7, Hct 19.5
1 unit PRBCs ordered and currently transfusing
Await peripheral blood flow cytometry
Bone marrow biopsy to be performed today in [facility]
We will follow.
Impression
Impression
FUO x 2.5months, with rash, elevated inflammatory markers (CRP, ESR, ferritin)
Acute aemia
fluctuating thrombocytopenia, mild leukocytosis w/ neutrophilia/lymphopenia
Cough
Subjective/Objective
Subjective/Objective
patient resting in bed. blood transfusing. nursing at bedside. we discussed expectations of BmBX procedure
Vital Signs:
Vital Signs
Temp Pulse Resp BP Pulse Ox
100.1 F 131 40 124/56 98
06/04/24 03:07 06/04/24 08:13 06/04/24 08:13 06/04/24 08:13 06/04/24 08:50
physical exam unchanged. appears fatigued/pallor
Lab Results:
Laboratory Data
WBC 10.2 10^3/uL (4.8-10.8) 06/04/24 04:31
Hgb 6.7 g/dL (13.0-18.0) L* 06/04/24 04:31
Plt Count 205 10^3/uL (130-400) 06/04/24 04:31
eGFR > 60.00 06/04/24 04:31
[2024-06-04 09:01] LABS: Glycohemoglobin (HgbA1c) 6.9 % (4.0-5.6)
--- NOTE | 2024-06-04 09:44 | W.PN.PUL.V3 ---
Today's Communication / Plan
-
Antibiotics
Supplemental oxygen
Infectious disease following
Rheumatology evaluation
CT chest with PE protocol-complains of shortness of breath and left-sided pleuritic pain
DVT prophylaxis recommended
Assessment
-
Patient is a 74-year-old male with previous history of severe asthma, hypertension hyperlipidemia was sent in by Dr Davies today for hypotension (90/60) with persistent rash and fevers. He was recently admitted for similar and discharged 05/17/2024
following negative workup. He has associated generalized weakness, lightheadedness. Had CT chest obtained demonstrating severe bilateral multifocal pneumonia which is new compared to prior. He is placed on empiric antibiotics. We are consulted
for eval.
Severe multifocal PNA
Fever
Rash
Hypotension
Acute on chronic anemia, hemoglobin 7 prior 9
Hyponatremia, mild
Conditions present prior to admission:
Recent RML pneumonia (seen initially on CXR from 04/19/2024)
Hospitalization-discharged dosed on 04/30/2024-thrombocytopenia/anemia/purpuric rash, biopsy performed and placed on prednisone with rheumatology follow-up
Hypertension
Hyperlipidemia
Severe persistent asthma on Breztri + Nucala
Follows with Dr Davies
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
Proteinuria
Occasional alcohol use
Plan
Respiratory status is not improved-complains of some left-sided pleuritic-like pain
Supplemental oxygen as needed-not on home oxygen
Incentive spirometry
Mucolytic's
Mucus clearing devices
Symbicort and Spiriva continue
Prior history of lung disease is noted including severe persistent asthma, chronic cough x 2 months
Patient is on Breztri as an outpatient
Patient complains of increased shortness of breath and left-sided pleuritic leg pain
Check CT chest with PE protocol
DVT prophylaxis recommended
Check cultures
Infectious disease following-correspondence reviewed
Continue empiric antibiotics-ceftriaxone and doxycycline continue
Follow radiographically
Rheumatology consultation recommended
Prior ECHO results are reviewed indicating normal function
proBNP in past have been negative, repeat on this admission now 2810
Consider diuresis as well
Monitor hemoglobin
Transfuse as needed
GI evaluation ongoing
Neurology evaluation for dizziness ongoing
MRA head and neck
Rash/fever, ongoing
Last admitted for similar with negative ID and heme w/u
Follows with derm OP
Not on steroids now, he does feel better on it
If not improving, can consider empiric course--this may affects results of any potential diagnostic testing
DVT prophylaxis recommended
GI prophylaxis-on pantoprazole
Will need outpatient pulmonary evaluation in our office for PFTs and 6MWT
Diagnostic Data
Chest x-ray 10/26/2022-NAD
Chest x-ray 04/19/24-mild right middle lobe pneumonia
Chest x-ray 04/24/2024-improvement in right lower lung field suggesting improvement in pneumonia or atelectasis
Chest x-ray 05/13/2024-no pneumonia, mild basilar atelectasis, mild elevation right hemidiaphragm
Brain MRI 02/10/2022-numerous parenchymal foci in bilateral occipital lobes right greater than left can be seen with cerebral amyloid angiopathy
CT Chest 06/03/24- Severe extensive diffuse bilateral tree-in-bud/groundglass density throughout all lobes with a peripheral predominance, new from prior. Bilateral lower lobe dependent subsegmental atelectasis, progressed from prior. Right lower
lobe scarring redemonstrated. No discrete solid pulmonary nodules, pleural effusions, pericardial effusions or pathologically enlarged noncalcified lymph nodes in the thorax. No pneumothorax. Impression: Severe bilateral multifocal pneumonia, new
from prior CT 05/15/2024.
Echocardiogram 01/19/2021-EF 60-65%, no significant valvular disease
ECHO 05/16/24- 1. Normal left ventricular size and systolic function without regional wall motion abnormalities. Mild concentric left ventricular hypertrophy. Estimated left ventricular ejection fraction is 62% by Hernandez's method. Normal
diastolic function.
2. Normal right ventricular size and systolic function.
3. Thickened mitral valve leaflets with mitral annular calcification. Mitral sclerosis without con stenosis. Trace mitral regurgitation.
4. Thickened, calcified trileaflet aortic valve with mild aortic stenosis. Peak and mean transaortic gradients of 31 and 15 mmHg. Mild aortic regurgitation.
5. No significant pericardial effusion.
Nuclear stress test 01/22/2021-EF 65%, low risk study
Skin biopsy 04/30/2024-send out no deposition of immunoglobulins within the dermal blood vessels to suggest an antibody mediated vasculitis and no deposition of fibrinogen around vessels to suggest active vascular injury, no features of an autoimmune
bullous disease including pemphigus, pemphigoid, linear IgA disease or dermatitis herpetiformis
Reports and relevant images were personally reviewed.
Total time spent on this consultation __76__ includes review of history, physical exam, medications, laboratory data, personal review of imaging, extensive review of outpatient records, discussion with care team and respiratory therapy.
Subjective Data
-
Date of Service:
Date of Service: June 04, 2024
Chief Complaint: Pulmonary Follow Up and Dyspnea Follow Up
Subjective:
Continues to complain of shortness of breath, has some atypical left-sided pleuritic like chest pains, no productive cough, abdominal pain or increased leg swelling
Review of Systems
General: Other (Per HPI)
Objective Data
Data Reviewed
Vital Signs / I&O:
Vital Signs
Temp Pulse Resp BP Pulse Ox
98.5 F 131 40 124/56 98
06/04/24 07:10 06/04/24 08:13 06/04/24 08:13 06/04/24 08:13 06/04/24 09:00
Intake and Output
06/03/24 06/04/24 06/05/24
06:59 06:59 06:59
Intake Total 1260 / 1260 240 / 240
Output Total 50 / 50 355 / 355
Balance 1210 / 1210 -115 / -115
SaO2: 98
Physical Exam
General: Respiratory Distress (n) and Comfortable
HEENT: Normocephalic, Anicteric and Moist Mucous Membranes
Cardiovascular: Regular Rhythm
Respiratory: Wheeze (n), Crackles (Rare basilar), Rhonchi (n), Non-Labored Respirations, Accessory Resp Muscle Use (n) and Stridor (n)
GI: Soft, Non Distended and Non Tender
Neurology: Awake, Alert and No Motor Deficits
Skin: Warm, Good Color, Cyanosis (n), Jaundice (n) and Rash (n)
Labs/Micro/Reports
Lab Data
06/04/24 04:31
06/04/24 04:31
Microbiology
06/03/24 17:47 Feces/Stool Shiga Toxin Test - Final
No E. coli Shiga Toxin 1 or 2 detected.
06/01/24 14:35 Blood/Venous Blood Culture - Preliminary
No Growth in 48 hours- Final report to follow
06/02/24 12:13 Blood/Venous Blood Culture - Preliminary
No Growth in 24 hours- Final report to follow
[2024-06-04] MEDS: VENTOLIN NEBULES 2.5 MG INH (10:50)
[2024-06-04] MEDS: ROCEPHIN 2000 MG IV (11:13)
[2024-06-04] MEDS: STERILE WATER FOR INJECTION 20 ML IV (11:13)
--- NOTE | 2024-06-04 11:44 | PTCARENOTE ---
1 unit PRBC's started. Pt tolerating well after 15 min check. Pt now going to IR for bone marrow biopsy with blood infusing.
[2024-06-04] MEDS: ATIVAN 0.5 MG IV (12:45)
[2024-06-04] MEDS: NSS (PRESERVATIVE FREE) 0.25 ML IV (12:45)
[2024-06-04] MEDS: ProAIR HFA INHALER 2 PUFF INH (15:25)
[2024-06-04 16:15] LABS: Glucose - Point of Care 125 mg/dl (70-99)
[2024-06-04] MEDS: LASIX 20 MG IV (16:17)
[2024-06-04] MEDS: SOLU-MEDROL PF 60 MG IV ×2 (16:20→16:44)
--- NOTE | 2024-06-04 16:20 | W.PN.UPDATE ---
Addendum entered and electronically signed by Greyson Schroeder MD 06/04/24 18:48:
Update (6:48PM): Notified by RN that patient is tachycardic in the 150s with frequent PACs. Also becoming slightly more confused although continuing to maintain saturations >90% on high flow nasal cannula. I will start amiodarone starting with
bolus 150 mg over 10 minutes followed by infusion. Low threshold to transfer to ICU for closer monitoring.
Addendum entered and electronically signed by Greyson Schroeder MD 06/04/24 16:28:
Physical exam during event:
Anxious appearing, tachypneic, answering questions appropriately, awake and alert
Tachycardic
Coarse breath sounds heard bilaterally with no wheezing or stridor
Soft/nontender
No lower extremity edema
Original Note:
Update Note
Progress Note Update
Called to patient's room due to rapid response with RR in 30s and HR in 130s. CTA chest obtained today and there is no acute PE. He does have scattered GGO with severely elevated inflammatory markers. Pt is awake, alert and answering questions
appropriately, although he is anxious. Pt being started on BiPAP 10/5 bled with 8L/min and I will start him on high dose steroids - giving one dose solumedrol 60mg IVP x1 now then starting 40mg IV q6hr afterwards. Will continue to closely monitor
in IMU with pulmonary consulted. IV lasix also ordered but not given yet - he was anemic this AM with Hb 6.7. 1 U PRBC transfusion earlier this AM. He is anxious as well - giving low dose 0.25mg IV ativan.
[2024-06-04] MEDS: ATIVAN 0.25 MG IV (16:30)
[2024-06-04 16:33] LABS: Hematocrit 31.4 % (39.0-52.0); Hemoglobin 10.5 g/dL (13.0-18.0)
[2024-06-04 16:36] LABS: Hematocrit 30.2 % (39.0-52.0); Hemoglobin 10.4 g/dL (13.0-18.0); Mean Corp Hgb Conc. 34.4 g/dL (33.0-37.0); Mean Corpuscular Hgb 31.5 pg (27.0-31.0); Mean Corpuscular Volume 91.5 fL (80.0-94.0); Mean Platelet Volume 11.6 fL (7.4-10.4); Platelet Count 216 10^3/uL (130-400); Red Cell Dist. Width 15.5 % (11.5-14.5)
[2024-06-04] MEDS: NSS (PRESERVATIVE FREE) 0.125 ML IV (16:45)
[2024-06-04 16:48] LABS: INR 1.44; PT 17.4 Sec (11.4-14.6)
[2024-06-04 16:49] LABS: APTT 41.5 Sec (23.4-35.0)
[2024-06-04 16:53] LABS: Lactic Acid 4.3 mmol/L (0.7-2.0)
[2024-06-04 16:55] LABS: AST (SGOT) 32 U/L (17-59); Albumin 3.1 g/dl (3.5-5.0); Alkaline Phosphatase 108 U/L (38-126); Blood Urea Nitrogen 16 mg/dl (9-20); Calcium 8.4 mg/dl (8.4-10.2); Carbon Dioxide 19 mmol/L (22-30); Chloride 102 mmol/L (98-107); Estimated Creatinine Clearance 58 ml/min; Glucose 122 mg/dl (70-99); Potassium 5.1 mmol/L (3.5-5.1); Sodium 134 mmol/L (135-145); Total Bilirubin 0.7 mg/dl (0.2-1.3); Total Protein 6.9 g/dl (6.3-8.2); eGFR > 60.00
--- NOTE | 2024-06-04 16:58 | CM ---
Patient with Dx Recurrent fevers and rash, pneumonia, pancytopenia, asthma, concern for TIA. Rapid response today. O2 8L, BiPAP. Receiving IV Abx, IV Steroids. Transfusion PRBCs today. Plan for bone marrow biopsy. PT & OT recommend HH. Per MD
notes; no plan to transfer to [place].
Plan meet with patient and offer VN.
[2024-06-04 17:03] LABS: Troponin I < 0.012 ng/ml
--- NOTE | 2024-06-04 17:06 | PTCARENOTE ---
Pt severely short of breath, stating he feels he cannot take deep breaths. Tachypneic in the 50's, pulse ox down to the 80's. Pt having severe rigors with a temp of 98.2. Oxygen applied. Pt having pain with deep breaths. Rapid Response called. 20 IV
Lasix given, bedside CXR obtained. Solu Medrol and Ativan given. Bipap currently in place at 10/5 with 6L. Pt appears more comfortable after departure of MEDICAL OPERATIONS SUPERVISOR.
Shortly after, pt getting more anxious with BiPAP in place. Ripping off the mask stating he cannot tolerate the pressure. NC replaced at 6L and pt states he does not feel he's getting enough flow with the NC, he wants to retry BiPAP at lower
setting. BiPAP now at 8/4 with 6L O2. Pt tolerating for now. Attempted to update DTR, left VM to call back.
[2024-06-04 17:31] LABS: ALT (SGPT) 22 U/L (0-50)
[2024-06-04] MEDS: LOVENOX SC (18:19)
--- NOTE | 2024-06-04 18:19 | PTCARENOTE ---
Pt refusing Lovenox, stating that his Dr's at [place] told him he cannot take blood thinners.
[2024-06-04] MEDS: CORDARONE 103 MG IV (19:36)
[2024-06-04] MEDS: CORDARONE 518 MG IV (20:05)
[2024-06-04] MEDS: SOLU-MEDROL PF 40 MG IV (21:19)
[2024-06-04] MEDS: BENADRYL 25 MG PO (21:19)
[2024-06-04 21:23] LABS: Lactic Acid 3.4 mmol/L (0.7-2.0)
[2024-06-04 22:46] LABS: B.E. -4.3 mmol/L; HCO3 17.9 mmol/L (21-28); PCO2 24 mmHg (35-48); PO2 210 mmHg (83-108); pH 7.48 (7.35-7.45)
--- NOTE | 2024-06-04 22:56 | PTCARENOTE ---
assumed care of patient, pt tachypneic, increased work of breathing, RR 30s-40s. sinus [id number]. hung amiodarone bolus and bag per order. pt with temps on and off. tylenol given. rash throughout body, PRN benadryl given for itchiness. BP's
soft- will monitor. notified covering BOAT CANVAS MAKER AND INSTALLER of the above. ABG's ordered. pt remains on HFNC 99%. pt does admit to tightness in chest. PRN neb given per patient request.
--- NOTE | 2024-06-04 23:21 | PTCARENOTE ---
BP still with soft BP's 84/57- P-110s. notified covering SWAPNA rao currently on hold now.
[2024-06-05] VITALS (30 sets, daily range): BP systolic 76–112; BP diastolic 48–92
[2024-06-05] MEDS: ProAmatine 10 MG PO (00:10)
--- NOTE | 2024-06-05 01:00 | PTCARENOTE ---
Addendum entered by Noa Nash RN 06/05/24 02:11:
Dr. Schroeder also notified about events of the night.
Original Note:
pt rang call morales stating he 'feels like he is panting' and that he is exhausted. notified covering OPERATING ROOM MANAGER- orders entered for low dose morphine IV.
[2024-06-05] MEDS: MORPHINE SULFATE 0.5 MG IV (01:04)
[2024-06-05] MEDS: TYLENOL 1000 MG PO ×3 (03:33→20:29)
[2024-06-05] MEDS: SOLU-MEDROL PF 40 MG IV ×4 (03:34→21:00)
[2024-06-05 04:15] LABS: Hematocrit 25.2 % (39.0-52.0); Hemoglobin 8.9 g/dL (13.0-18.0); Mean Corp Hgb Conc. 35.3 g/dL (33.0-37.0); Mean Corpuscular Hgb 31.3 pg (27.0-31.0); Mean Corpuscular Volume 88.7 fL (80.0-94.0); Mean Platelet Volume 11.1 fL (7.4-10.4); Platelet Count 161 10^3/uL (130-400); Red Blood Cell Count 2.84 10^6/uL (4.70-6.10); Red Cell Dist. Width 15.4 % (11.5-14.5); White Blood Cell Count 19.2 10^3/uL (4.8-10.8)
--- NOTE | 2024-06-05 04:23 | PTCARENOTE ---
pt HR down to 70s-80s, RR-20s. pt sleeping on and off after IV morphine administration. pt did wake up after morphine a little confused but patient re-oriented easily. care ongoing.
[2024-06-05 04:36] LABS: Blood Urea Nitrogen 22 mg/dl (9-20); Calcium 7.9 mg/dl (8.4-10.2); Carbon Dioxide 15 mmol/L (22-30); Chloride 105 mmol/L (98-107); Estimated Creatinine Clearance 39 ml/min; Glucose 183 mg/dl (70-99); Lactic Acid 3.1 mmol/L (0.7-2.0); Magnesium 1.6 mg/dl (1.6-2.3); Phosphorus 6.3 mg/dl (2.5-4.5); Potassium 4.4 mmol/L (3.5-5.1); Sodium 131 mmol/L (135-145); eGFR 48.55
[2024-06-05 05:27] LABS: % Basophils 0.4 % (0-2); % Eosinophils 0.4 % (0-6); % Immature Granulocytes 3.4 % (0-0.5); % Lymphocytes 3.5 % (20.5-51.1); % Monocytes 1.1 % (1.7-9.3); % Neutrophils 91.2 % (42.2-75.2); Absolute Basophils 0.1 10^3/uL (0-0.2); Absolute Eosinophils 0.1 10^3/uL (0-0.7); Absolute Immature Granulocytes 0.7 10^3/uL (0-0.05); Absolute Lymphocytes 0.7 10^3/uL (1.2-3.4); Absolute Monocytes 0.2 10^3/uL (0.1-0.6); Absolute Neutrophils 17.6 10^3/uL (1.4-6.5); Nucleated Red Blood Cells % 0 % (-)
[2024-06-05] MEDS: NSS 250 IV (05:31)
--- NOTE | 2024-06-05 05:42 | PTCARENOTE ---
pt with low BP's again, 86/65, 76/58. P-70s. labs resulted. notified covering COMMODITY SPECIALIST of both, 250ml bolus ordered and hung. urine specimen ordered, condom cath on patient to collect sample.
--- NOTE | 2024-06-05 06:38 | W.PN.UPDATE ---
Update Note
Progress Note Update
RN notified Patient with soft BP's, HR in 100's, increase work of breathing, remains HFNC 99%, ABG ordered, Duoneb given x1�, ICU WIRE MACHINE OPERATOR made aware, Advised RN to stop Amiodarone infusion. ABG results noted. BP continuous to be low, gave one bolus 250
NSS IV, BP 92/58 at present.�
[2024-06-05] MEDS: SYMBICORT 160/4.5 MCG INHALER 2 PUFF INH ×2 (07:19→19:24)
[2024-06-05] MEDS: SPIRIVA RESPIMAT 2.5 MCG 2 PUFF INH (07:19)
[2024-06-05] MEDS: METAMUCIL, KONSYL 1 PACKET PO ×2 (08:22→20:29)
[2024-06-05] MEDS: RESTASIS 0.05% OPHTHALMIC EMULSION 1 DROPS BOTH EYES ×2 (08:23→20:29)
[2024-06-05] MEDS: CRESTOR 20 MG PO (08:24)
[2024-06-05] MEDS: VITAMIN D3 (cholecalciferol) 50 MCG PO (08:24)
[2024-06-05] MEDS: PROTONIX IV 40 MG IV (08:25)
[2024-06-05] MEDS: VIBRAMYCIN 100 MG PO ×2 (08:25→20:29)
[2024-06-05] MEDS: NSS (PRESERVATIVE FREE) 10 ML IV (08:26)
--- NOTE | 2024-06-05 09:03 | W.PN.ID1 ---
Date of Service
Date of Service: June 05, 2024
Today's Communication
agree with steroids
resp viral panel
continue current antibiotics
would not trend procalcitonin, it can be elevated in systemic illnesses beyond bacterial infections
Assessment / Plan
New Pneumonia vs Pneumonitis
- new multifocal infiltrates on CXR and CT 06/02, not seen on the 06/01 CXR
- CTA 06/04 with progression of infiltrates, no PE; venous US now left cephalic vein thrombus
- covid ag neg x1
- resp viral panel today (includes covid)
- had a small sputum sample - suspect it will be usual resp lemuel
- BNP suggests component of heart failure
- agree with steroids, management per pulmonary, started 06/04
- new leukocytosis on steroids
- blood cultures x2 are in progress from 06/02 no growth to date
- procalcitonin was sent and is elevated however can be falsely elevated with systemic illness and has been elevated on previous admissions, would not trend
- continue ceftriaxone/doxycycline day 3
FUO 2+ months
- agree that noninfectious etiologies of the chronic fevers such as hematologic and rheumatic most likely of the chronic fevers. Acute, new pulmonary symptoms most likely a separate issue vs component of the overall inflammatory condition.
- typical ID FUO workup already completed and nonrevealing
- qft gold pending
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
- steroids started 06/04
- c/w scheduled tylenol 1 gm TID
- reviewed with patient that he must not go above 4 gm/day or risk significant liver injury; currently scheduled for 3 gm/day
- recommend rheumatology consult as well, hematology is following
- follow clinically
Also:
Subacute small stroke
anemia
Chief Complaint
-: Fever and Other (FUO)
Subjective / Review of Systems
afebrile
persistent mild hypotension on midodrine
started steroids 06/04
progressive dyspnea noted
had a rough night with dyspnea, chills, now on high flow
produced a small sputum sample
Vital Signs / Physical Exam
Vital Signs
Vital Signs
Temp Pulse Resp BP Pulse Ox
97.4 F 73 16 92/68 100
06/05/24 03:45 06/05/24 07:24 06/05/24 07:24 06/05/24 06:00 06/05/24 08:15
Physical Exam
Constitutional: No Acute Distress and Chronically Ill
Cardiovascular: Regular Rate and S1/S2; Negative Murmur or Rub
Pulmonary: Clear and Symmetric; Negative Wheezes or Rales
Gastrointestinal: Soft, Non Tender, Non Distended and Normal Bowel Sounds
Skin: Warm, Dry and Rash (persists, macular/petechial, disseminated); Negative Jaundice
Neurological: Awake
Psychological: Calm
Objective Data
Lab Data
Lab Results
06/05/24 03:58
06/05/24 03:58
PT 17.4 Sec (11.4-14.6) H 06/04/24 16:31
INR 1.44 06/04/24 16:31
APTT 41.5 Sec (23.4-35.0) H 06/04/24 16:31
Estimated Creat Clear 39 ml/min 06/05/24 03:58
Lactic Acid 3.1 mmol/L (0.7-2.0) H 06/05/24 03:58
Total Bilirubin 0.7 mg/dl (0.2-1.3) 06/04/24 16:31
AST 32 U/L (17-59) 06/04/24 16:31
ALT 22 U/L (0-50) 06/04/24 16:31
Alkaline Phosphatase 108 U/L (38-126) 06/04/24 16:31
C-Reactive Protein 261.00 mg/L (0.0-10.00) H 06/03/24 04:11
Most recent labs reviewed.
Micro Results:
06/01/24 14:35 Blood Culture - Preliminary
Blood/Venous No Growth in 72 hours- Final report to follow
06/03/24 17:47 Cryptosporidium/Giardia - Final
Feces/Stool Negative for Cryptosporidium and/or Giardia Lamblia
antigens.
06/02/24 12:13 Blood Culture - Preliminary
Blood/Venous No Growth in 48 hours- Final report to follow
06/03/24 17:47 Salmonella/Shigella Culture - Pending
Feces/Stool Campylobacter Culture - Pending
Shiga Toxin Test - Final
No E. coli Shiga Toxin 1 or 2 detected.
--- NOTE | 2024-06-05 09:16 | W.PN.PUL.V3 ---
Today's Communication / Plan
-
Wean FiO2-reviewed with MARKETING SPECIALIST
Continue steroids
Consider rheumatology evaluation
Antibiotics
Mucus clearing devices
Diuresis as tolerated
Follow radiographically
Assessment
-
Patient is a 74-year-old male with previous history of severe asthma, hypertension hyperlipidemia was sent in by Dr Davies today for hypotension (90/60) with persistent rash and fevers. He was recently admitted for similar and discharged 05/17/2024
following negative workup. He has associated generalized weakness, lightheadedness. Had CT chest obtained demonstrating severe bilateral multifocal pneumonia which is new compared to prior. He is placed on empiric antibiotics. We are consulted
for eval.
Severe multifocal PNA
CRP markedly elevated-greater than 260-inflammatory process suspected
Fever
Rash
Hypotension
Acute on chronic anemia, hemoglobin 7 prior 9
Hyponatremia, mild
Conditions present prior to admission:
Recent RML pneumonia (seen initially on CXR from 04/19/2024)
Hospitalization-discharged dosed on 04/30/2024-thrombocytopenia/anemia/purpuric rash, biopsy performed and placed on prednisone with rheumatology follow-up
Hypertension
Hyperlipidemia
Severe persistent asthma on Breztri + Nucala
Follows with Dr Davies
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
Proteinuria
Occasional alcohol use
Plan
Respiratory status significantly declined yesterday and now slowly improving-treated with diuretics, steroids, nebulizers and morphine
Continue supplemental oxygen-currently on high flow-reviewed with MARKETING SPECIALIST-begin to reduce
Incentive spirometry encouraged
DuoNebs added-monitor for atrial fibrillation rate
Mucolytic's
Mucus clearing devices
Encouraged incentive spirometry and Acapella
Symbicort and Spiriva continue
Prior history of lung disease is noted including severe persistent asthma, chronic cough x 2 months
Patient is on Breztri as an outpatient
Chest x-ray 06/04/2024-findings suggest diffuse pulmonary interstitial edema progressed cannot rule out superimposed pneumonitis
Patient had complained of left-sided pleuritic pain
CT chest 06/04/2024-no pulmonary embolism, pronounced scattered groundglass opacifications progressed
Left upper extremity ultrasound 06/04/2024-left cephalic vein thrombus formation
DVT prophylaxis recommended
Cultures reviewed
Infectious disease following-correspondence reviewed
Continue empiric antibiotics-ceftriaxone and doxycycline continue
Follow radiographically
Markedly elevated CRP
Check ESR
Not classic features of Vbfvp-Fwlyrel-yus called eosinophilic granulomatosis with polyangiitis (no significant peripheral eosinophilia)-or allergic bronchopulmonary aspergillosis
Rheumatology consultation recommended
Consider dermatology evaluation of rash/biopsy-reportedly follows with dermatology as an outpatient
Solu-Medrol initiated
Prior ECHO results are reviewed indicating normal function
proBNP in past have been negative, repeat on this admission now 2810
Diuresis as tolerated
Diuresis note
Monitor hemoglobin
Transfuse as needed
GI evaluation ongoing
Bone marrow biopsies 06/04/2024-pending
Oncology following
Neurology evaluation for dizziness ongoing
Brain MRI 06/03/2024-tiny subacute on chronic left frontal lobe infarct, findings suggesting chronic amyloid angiopathy and possible sequelae of chronic subarachnoid hemorrhage-superficial siderosis overall progressed
DVT prophylaxis recommended
GI prophylaxis-on pantoprazole
Will need outpatient pulmonary evaluation in our office for PFTs and 6MWT
Diagnostic Data
Chest x-ray 10/26/2022-NAD
Chest x-ray 04/19/24-mild right middle lobe pneumonia
Chest x-ray 04/24/2024-improvement in right lower lung field suggesting improvement in pneumonia or atelectasis
Chest x-ray 05/13/2024-no pneumonia, mild basilar atelectasis, mild elevation right hemidiaphragm
Brain MRI 02/10/2022-numerous parenchymal foci in bilateral occipital lobes right greater than left can be seen with cerebral amyloid angiopathy
CT Chest 06/03/24- Severe extensive diffuse bilateral tree-in-bud/groundglass density throughout all lobes with a peripheral predominance, new from prior. Bilateral lower lobe dependent subsegmental atelectasis, progressed from prior. Right lower
lobe scarring redemonstrated. No discrete solid pulmonary nodules, pleural effusions, pericardial effusions or pathologically enlarged noncalcified lymph nodes in the thorax. No pneumothorax. Impression: Severe bilateral multifocal pneumonia, new
from prior CT 05/15/2024.
Echocardiogram 01/19/2021-EF 60-65%, no significant valvular disease
ECHO 05/16/24- 1. Normal left ventricular size and systolic function without regional wall motion abnormalities. Mild concentric left ventricular hypertrophy. Estimated left ventricular ejection fraction is 62% by Hernandez's method. Normal
diastolic function.
2. Normal right ventricular size and systolic function.
3. Thickened mitral valve leaflets with mitral annular calcification. Mitral sclerosis without con stenosis. Trace mitral regurgitation.
4. Thickened, calcified trileaflet aortic valve with mild aortic stenosis. Peak and mean transaortic gradients of 31 and 15 mmHg. Mild aortic regurgitation.
5. No significant pericardial effusion.
Nuclear stress test 01/22/2021-EF 65%, low risk study
Skin biopsy 04/30/2024-send out no deposition of immunoglobulins within the dermal blood vessels to suggest an antibody mediated vasculitis and no deposition of fibrinogen around vessels to suggest active vascular injury, no features of an autoimmune
bullous disease including pemphigus, pemphigoid, linear IgA disease or dermatitis herpetiformis
Reports and relevant images were personally reviewed.
Total time spent on this consultation __76__ includes review of history, physical exam, medications, laboratory data, personal review of imaging, extensive review of outpatient records, discussion with care team and respiratory therapy.
Subjective Data
-
Date of Service:
Date of Service: June 05, 2024
Chief Complaint: Pulmonary Follow Up and Dyspnea Follow Up
Subjective:
Restless with tachypnea overnight responding to morphine-saturations 100% on room air, minimal chest congestion, minimal sputum production, vague left-sided chest pains resolving, no abdominal pain
Review of Systems
General: Other (Per HPI)
Objective Data
Data Reviewed
Vital Signs / I&O:
Vital Signs
Temp Pulse Resp BP Pulse Ox
97.4 F 73 16 92/68 100
06/05/24 03:45 06/05/24 07:24 06/05/24 07:24 06/05/24 06:00 06/05/24 08:15
Intake and Output
06/04/24 06/05/24 06/06/24
06:59 06:59 06:59
Intake Total 240 / 240 100 / 100
Output Total 355 / 355 250 / 250
Balance -115 / -115 -150 / -150
SaO2: 100
Nasal Cannula flow liters per minute: 50
Physical Exam
General: Respiratory Distress (n) and Comfortable
HEENT: Normocephalic, Anicteric and Moist Mucous Membranes
Cardiovascular: Regular Rhythm
Respiratory: Wheeze (n), Crackles (Bilateral basilar), Rhonchi (n), Non-Labored Respirations, Accessory Resp Muscle Use (n) and Stridor (n)
GI: Soft, Non Distended and Non Tender
Neurology: Awake, Alert and No Motor Deficits
Skin: Warm, Good Color, Cyanosis (n), Jaundice (n) and Rash (n)
Labs/Micro/Reports
Lab Data
06/05/24 03:58
06/05/24 03:58
Laboratory Results
06/04/24 06/04/24
16:31 22:39
PT 17.4 H
INR 1.44
APTT 41.5 H
pH 7.48 H
pCO2 24 L
pO2 210 H
HCO3 17.9 L
O2 Delivery Level
Microbiology
06/01/24 14:35 Blood/Venous Blood Culture - Preliminary
No Growth in 72 hours- Final report to follow
06/03/24 17:47 Feces/Stool Cryptosporidium/Giardia - Final
Negative for Cryptosporidium and/or Giardia Lamblia
antigens.
06/02/24 12:13 Blood/Venous Blood Culture - Preliminary
No Growth in 48 hours- Final report to follow
06/03/24 17:47 Feces/Stool Shiga Toxin Test - Final
No E. coli Shiga Toxin 1 or 2 detected.
[2024-06-05 10:10] LABS: Urine Sodium 47 mmol/L (30-90)
[2024-06-05 10:54] LABS: Osmolality Urine 323 mOsm/kg (300-900)
[2024-06-05 11:10] LABS: Erythrocyte Sed Rate 23 mm/hour (0-20)
[2024-06-05] MEDS: DUONEB 3 ML INH ×3 (11:11→19:24)
[2024-06-05] MEDS: STERILE WATER FOR INJECTION 20 ML IV (11:31)
[2024-06-05] MEDS: ROCEPHIN 2000 MG IV (11:31)
--- NOTE | 2024-06-05 13:13 | PTCARENOTE ---
Assumed care at 0700. NSR on telemetry. Received on hi flow, 60L, 50% FiO2. Unable to obtain oral temperature during routine AM vital signs. Rectal temp = 96.1, warm blankets applied. Dr. Brunson aware. Upon recheck, temp now 97.8 orally. During
breakfast complained of 'throat swelling' causing difficulty swallowing food, which has since resolved. Reports this had happened 'a couple weeks ago at home.' Dr. Brunson aware.
[2024-06-05 14:26] LABS: Number Of Markers 26 markers; Source Blood
--- NOTE | 2024-06-05 15:15 | W.PN.HOSP.TC ---
Today's Communication/Plan
-
IV antibiotics. IV steroids. NRBM
Assessment / Plan
Assessment / Plan
Physical exam:
General: Acutely ill. Somewhat toxic appearance.
HEENT: Normocephalic, Atraumatic and Moist Mucous Membranes
Respiratory: Bilateral scattered rhonchi; Negative Wheezes, or Rales
Cardiac: Regular Rhythm and S1/S2, tachycardic
GI: Soft, Nontender and Nondistended
Musculoskeletal: No Clubbing, No Cyanosis and No Edema
Neuro: Awake, Alert and Oriented, no gross neurological deficit
Skin: Maculopapular rash on trunk and both lower extremities
Psych: Anxious, normal judgment and insight
A/P:
Recurrent fevers (fever of unknown origin) and rash:
Unclear overall etiology-malignancy versus autoimmune versus infectious
Status post bone marrow biopsy-awaiting for results
Discussed with rheumatology, hematology-oncology, dermatology, ID, pulmonary.
Holding lisinopril amlodipine in case drug-induced lupus
Plan for flow cytometry
Bronchoscopy if needed down the road
Blood cultures x 2 no growth so far
Gold QuantiFERON pending
Elevated inflammatory marker-CRP >270 and 261, ferritin elevated at 938
Albumin low at 2.6
RE inhibitor low less than 10
LDH normal at 245
Repeated echo no acute abnormalities
Called [facility] for possible transfer yesterday-->[facility] (Dr Maher)--> they do not recommend inpatient transfer and they feel they would do the same workup that we are doing in our hospital.
Keep in IMU
Low threshold to transfer to ICU if any clinical deterioration.
Updated daughter prior--will update again when more information available or clinical status changes
Acute hypoxic respiratory failure:
Placed on high flow oxygen since yesterday
Wean today as able
Started on steroids, diuretics, bronchodilators, morphine, and anxiolytics.
Continue high-dose IV steroids per pulm
Pulmonary following
Severe multifocal pneumonia:
Chest x-ray, CT scan done today 06/03 without contrast, elevated procalcitonin(1.41) and elevated CRP highly suggested for new pneumonia. ID had discontinued antibiotics on 06/02 but upon reevaluation reinstated.
Restarted IV antibiotics on 06/03 ceftriaxone 2 g daily and oral doxycycline 100 mg twice a day.
While pneumonia is highly likely now, on the other hand that does not explain his ongoing chronic fevers and rash so given suspicions for underlying autoimmune process I would favor bronchoscopy and BAL--> for this reason requested pulmonary consult
and discussed with pulmonary.
CTA negative for PE but ground-glass opacities present
Pancytopenia:
Hematology-oncology on board
Status post blood transfusion yesterday
Hemoglobin 8.9 today
Continue to monitor hemoglobin
Bone marrow biopsy pending
Left upper extremity cephalic vein thrombosis:
Started on Lovenox DVT prophylaxis doses and I think this would be jfwqym-nabodr-lo hematology further recommendations.
Tachycardia:
Appears sinus tachycardia appropriately reactive to his acute illness
Continue cardiac monitoring
Pulmonary started him on amiodarone drip-not sure this is indicated at this point (unless there is a abnormal rhythm that I have not been able to see at the moment) so we will defer to pulmonary services otherwise would discontinue.
Asthma, severe persistent asthma:
On Breztri as outpatient
Continue Spiriva
Continue Symbicort
Cont Vest Acapella and nebs as needed
Dizziness with acute vision abnormalities on 06/02, concerns for TIA:
Resolved
On aspirin and statin
Neurology consulted
Discussed with neurology to hold off on Plavix given upcoming procedures but also giving microangiopathic concerns prior to admission he has been told not to take antiplatelets.
Reviewed MRI of the brain
Anemia:
Hematology GI evaluated patient
Status post blood transfusion
Leukocytosis:
Likely reactive due to steroids
Monitor trend
Hyponatremia:
Sodium 131 today
Start fluid restriction
Continue to monitor sodium
Hypertension/ Hypotension:
Currently normotensive to relatively hypotensive
Off his antihypertensive due to concerns of causing any reaction contributing to his presentation.
At the moment blood pressure on the low side so we will hold off on any antihypertensives and monitor closely
Hyperlipidemia:
On rosuvastatin 20 mg p.o. daily
Elevated BNP:
Normal echocardiogram on 05/16/2024
Monitor volume status closely
Off IV fluid
Diuretics as needed
Recent episode of purpuric rash/KALEIGH/thrombocytopenia/elevated inflammatory markers
Data from prior hospitalization:
Serology testing showed negative AMMY, anti--ds DNA, beta-2-GPI IgG/IgM, antiplatelet antibody, anticardiolipin IgG/IgA, normal complement C3 level, COVID.
Elevated complement C4, anticardiolipin IgM
Direct immunofluorescent testing of skin biopsy did not show deposition of immunoglobulin to suggest antibody-mediated vasculitis, no features to suggest autoimmune bullous disease. Repeated biopsy.
Initially thought to be IgA vasculitis/parasite related however testing is negative
Check repeat blood cultures
Skin biopsy unremarkable
C3 and C4 normal at this time, C4 previously elevated
Repeat OK-3 and myeloperoxidase pending
Hepatitis B serologies negative, hepatitis C pending
Parasite testing negative
Anticardiolipin IgM antibody elevated on 04/28
Nlyf-owopik-paxpgnjw DNA, scleroderma, anti-Toro, beta-2, AMMY all unremarkable from 04/28
Echo showing EF of 62% without vegetation
DVT prophylaxis:
Lovenox 40 mg SQ daily
CODE STATUS:
Full code
Total time spent on today's encounter was 52 minutes which included time spent in counseling the patient/family regarding diagnosis and treatment plan as listed above, goals of care, and symptom management. Case was discussed with nursing staff,
specialists, and care coordinators/case management. All labs and imaging personally reviewed by me. Remainder the time spent in detailed review of previous records, lab data, imaging, and other medical provider documentation.
Anticipated Discharge: > 48 hours
Subjective/Interval History
-
Date of Service: June 05, 2024
Patient seen and examined this morning. Review events yesterday and last evening. He feels his shortness of breath is relatively improving. Afebrile today
Objective Data
-
Labs:
Laboratory Results
06/05/24
03:58
WBC 19.2 H
Hgb 8.9 L
Hct 25.2 L
Plt Count 161 D
Sodium 131 L
Potassium 4.4
Chloride 105
Carbon Dioxide 15 L
BUN 22 H
Creatinine 1.5 H
Glucose 183 H
Calcium 7.9 L
Vital Signs:
Vital Signs
Temp Pulse Resp BP Pulse Ox
97.8 F 107 26 90/51 100
06/05/24 11:29 06/05/24 13:00 06/05/24 13:00 06/05/24 13:00 06/05/24 13:00
I&O
06/04/24 06/05/24 06/06/24
06:59 06:59 06:59
Intake Total 240 / 240 100 / 100
Output Total 355 / 355 250 / 250
Balance -115 / -115 -150 / -150
[2024-06-05 15:22] LABS: Lactic Acid 4.2 mmol/L (0.7-2.0)
--- NOTE | 2024-06-05 15:22 | PTOTSP ---
ST Acute Care Evaluation
Pt currently presents with fairly functional oral and esophageal swallowing parameters and suspected mild pharyngeal dysphagia as characterized by difficulty with initiating swallows with both solids and liquids (solids>liquids) and frequent need
for multiple swallows per bite/sip.
Recommendations:
- Continue with regular solids (choose softer/moister foods), thin liquids, meds as tolerated.
- General aspiration precautions: Fully awake, alert, and upright for all PO intake; small bites/sips; take breaks between eating/drinking to breath; alternate solids/liquids; use sips to help swallow solids; choose softer/moister foods.
- RN DIABETES EDUCATOR to f/u to ensure pt is continuing to safely consume the recommended diet consistencies and to determine whether pt would benefit from an instrumental swallow assessment.
[2024-06-05 17:21] LABS: Glucose - Point of Care 237 mg/dl (70-99)
[2024-06-05] MEDS: LOVENOX 40 MG SC (17:48)
[2024-06-05] MEDS: NOVOLOG FLEXPEN-LOW RESISTANCE 2 UNITS SC (17:49)
[2024-06-05 21:10] LABS: Lactic Acid 4.5 mmol/L (0.7-2.0)
--- NOTE | 2024-06-05 21:33 | PTCARENOTE ---
Covering GOLF RANGE ATTENDANT Shana Mccrary made aware of lactate level and continued hypotension. No new orders.
[2024-06-05 22:18] LABS: Glucose - Point of Care 273 mg/dl (70-99)
[2024-06-06] VITALS (18 sets, daily range): BP systolic 81–94; BP diastolic 51–63; PULSE 88; O2SAT 97–99; BMI 25.9
[2024-06-06] MEDS: MELATONIN 10 MG PO ×2 (01:20→21:35)
[2024-06-06] MEDS: BENADRYL 25 MG PO ×2 (01:22→21:35)
[2024-06-06] MEDS: DUONEB 3 ML INH ×5 (01:58→20:58)
--- NOTE | 2024-06-06 03:08 | DOWNTIME ---
Addendum entered by Gerard Padron RN 06/06/24 04:38:
Verbal order from covering INFORMATICS SCIENTIST for one time dose of Duoneb per pt request. Pt states he feels chest tightness from asthma.
Original Note:
There was a [employer] Client Rack Production Worker Downtime on 06/06/2024 from 0100 to 06/06/2024 at 0252. Downtime documentation of patient's care, including medication administrations, has been reconciled in the electronic record per guidelines. Refer to the
patient's paper chart under the miscellaneous tab to see printed paper medication records and downtime forms.
--- NOTE | 2024-06-06 04:30 | PTCARENOTE ---
Addendum entered by Gerard Padron RN 06/06/24 04:37:
Orders for bladder scan, ProBNP, and midodrine received.
Original Note:
Covering CLAIMS ADMINISTRATOR Jose Alejandro Hernandes made aware of low UO and continued hypotension. No new orders.
--- NOTE | 2024-06-06 04:36 | W.PN.UPDATE ---
Addendum entered and electronically signed by EFRA Benoit 06/06/24 06:30:
BP 89/51 Map 64
Original Note:
Update Note
Progress Note Update
89/51 MAP 63. Heart rates in 80s. Sp02 99-100% on HFNC, will give one order of Midodrine 10mg POx1.
[2024-06-06] MEDS: SOLU-MEDROL PF 40 MG IV ×3 (05:24→21:34)
[2024-06-06] MEDS: TYLENOL 1000 MG PO ×3 (05:24→21:34)
[2024-06-06] MEDS: ProAmatine 10 MG PO ×4 (05:24→17:01)
[2024-06-06 05:47] LABS: Hematocrit 22.8 % (39.0-52.0); Hemoglobin 7.9 g/dL (13.0-18.0); Mean Corp Hgb Conc. 34.6 g/dL (33.0-37.0); Mean Corpuscular Hgb 31.3 pg (27.0-31.0); Mean Corpuscular Volume 90.5 fL (80.0-94.0); Mean Platelet Volume 10.8 fL (7.4-10.4); Platelet Count 170 10^3/uL (130-400); Red Blood Cell Count 2.52 10^6/uL (4.70-6.10); Red Cell Dist. Width 15.6 % (11.5-14.5); White Blood Cell Count 20.7 10^3/uL (4.8-10.8)
[2024-06-06 06:00] LABS: Blood Urea Nitrogen 43 mg/dl (9-20); Calcium 8.1 mg/dl (8.4-10.2); Carbon Dioxide 18 mmol/L (22-30); Chloride 102 mmol/L (98-107); Estimated Creatinine Clearance 32 ml/min; Glucose 170 mg/dl (70-99); Sodium 130 mmol/L (135-145); eGFR 39.01
[2024-06-06 06:01] LABS: NT-proBNP 2890 pg/ml
[2024-06-06 06:16] LABS: % Basophils 0.2 % (0-2); % Eosinophils 0.1 % (0-6); % Immature Granulocytes 5.3 % (0-0.5); % Lymphocytes 4.3 % (20.5-51.1); % Monocytes 0.7 % (1.7-9.3); % Neutrophils 89.4 % (42.2-75.2); Absolute Immature Granulocytes 1.1 10^3/uL (0-0.05); Absolute Lymphocytes 0.9 10^3/uL (1.2-3.4); Absolute Monocytes 0.2 10^3/uL (0.1-0.6); Absolute Neutrophils 18.5 10^3/uL (1.4-6.5); Nucleated Red Blood Cells % 0 % (-)
--- NOTE | 2024-06-06 06:22 | PTCARENOTE ---
Bladder scan showing 160mL. Voiding yellow urine via condom cath. HFNC in place; Sp02 98-100%. Benadryl and melatonin provided prn per pt request; pt did not sleep well. Generalized rash unchanged. Tele showing NSR heart rate 80s. Swallowing pills
whole w/o issues. Call morales within reach, pt calls appropriately.
[2024-06-06] MEDS: SYMBICORT 160/4.5 MCG INHALER 2 PUFF INH ×2 (07:34→20:58)
[2024-06-06] MEDS: CRESTOR 20 MG PO (08:52)
[2024-06-06] MEDS: VIBRAMYCIN 100 MG PO ×2 (08:52→21:35)
[2024-06-06] MEDS: METAMUCIL, KONSYL 1 PACKET PO (08:55)
[2024-06-06] MEDS: PROTONIX 40 MG PO (08:55)
[2024-06-06] MEDS: VITAMIN D3 (cholecalciferol) 50 MCG PO (08:55)
[2024-06-06] MEDS: RESTASIS 0.05% OPHTHALMIC EMULSION 1 DROPS BOTH EYES ×2 (08:55→21:36)
--- NOTE | 2024-06-06 08:55 | W.PN.ID1 ---
Date of Service
Date of Service: June 06, 2024
Today's Communication
persistnet hypotension, but declining FiO2 requirements
MRSA screen
switched ceftriaxone to zosyn, continue doxycycline
added empiric micafunging as some dysphagia
awaiting finalized bone marrow and skin biopsy results
agree with steroids
Assessment / Plan
New Pneumonia vs Pneumonitis
- O2 requirement declined to 40L from peak of 60L, down from 50% to 40%
- new multifocal infiltrates on CXR and CT 06/02, not seen on the 06/01 CXR
- CTA 06/04 with progression of infiltrates, no PE; venous US now left cephalic vein thrombus
- covid ag neg x1, second test sent today
- resp viral panel - negative
- sputum cx in progress: rare GPCs, moderate WBCs, awaiting cx
- CXR tomorrow AM
- agree with steroids, management per pulmonary, started 06/04
- leukocytosis on steroids
- blood cultures x2 are in progress from 06/02 no growth to date
- procalcitonin was sent and is elevated however can be falsely elevated with systemic illness and has been elevated on previous admissions, would not trend
- MRSA screen
- switched ceftriaxone to zosyn, continue doxycycline
FUO 2+ months
- awaiting formal BM biopsy results - hematology following, message from dermatology last night - biopsy suggesting vasculitis awaiting diffs
- agree that noninfectious etiologies of the chronic fevers such as hematologic and rheumatic most likely of the chronic fevers. Acute, new pulmonary symptoms most likely a separate issue vs component of the overall inflammatory condition.
- typical ID FUO workup already completed and nonrevealing
- qft gold pending
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
- steroids started 06/04
- c/w scheduled tylenol 1 gm TID
- reviewed with patient that he must not go above 4 gm/day or risk significant liver injury; currently scheduled for 3 gm/day
- hematology is following, if a definitive diagnosis of a rheumatologic process is noted then would recommend re-discussing with rheumatology
- note that [facility] has declined the transfer
- follow clinically
Also:
Subacute small stroke
anemia
Chief Complaint
-: Fever and Other (FUO)
Subjective / Review of Systems
fever
persistent borderline hypotension despite initiation of steroids
complained of transient 'throat swelling' however no pain and completely transient. Seems to be more positional than anything.
Rash less erythematous on the LE
Vital Signs / Physical Exam
Vital Signs
Vital Signs
Temp Pulse Resp BP Pulse Ox
97.5 F 83 14 84/62 98
06/06/24 04:06 06/06/24 07:40 06/06/24 07:40 06/06/24 06:00 06/06/24 07:40
Physical Exam
Constitutional: Acutely Ill and Chronically Ill
Cardiovascular: Regular Rate and S1/S2; Negative Murmur or Rub
Pulmonary: Symmetric, Coarse and Other (high flow NC in place); Negative Wheezes or Rales
Gastrointestinal: Soft, Non Tender, Non Distended and Normal Bowel Sounds
Skin: Warm, Dry and Rash (less erythematous on the LE, still coalescing on the trunk); Negative Jaundice
Neurological: Awake
Objective Data
Lab Data
Lab Results
06/06/24 05:23
06/06/24 05:23
ESR 23 mm/hour (0-20) H 06/05/24 03:58
PT 17.4 Sec (11.4-14.6) H 06/04/24 16:31
INR 1.44 06/04/24 16:31
APTT 41.5 Sec (23.4-35.0) H 06/04/24 16:31
Estimated Creat Clear 32 ml/min 06/06/24 05:23
Lactic Acid Cancelled 06/05/24 21:00
Total Bilirubin 0.7 mg/dl (0.2-1.3) 06/04/24 16:31
AST 32 U/L (17-59) 06/04/24 16:31
ALT 22 U/L (0-50) 06/04/24 16:31
Alkaline Phosphatase 108 U/L (38-126) 06/04/24 16:31
C-Reactive Protein 261.00 mg/L (0.0-10.00) H 06/03/24 04:11
Most recent labs reviewed.
Micro Results:
06/01/24 14:35 Blood Culture - Preliminary
Blood/Venous No Growth in 4 days- Final report to follow
06/05/24 08:52 Respiratory Culture - Pending
Sputum Gram Stain - Preliminary
06/05/24 09:52 Influenza Type A (PCR) - Final
Nasalpharynx Not Detected
Influenza Type A (H1) (PCR) - Final
Not Detected
Influenza Type A (H3) (PCR) - Final
Not Detected
Influenza Type B (PCR) - Final
Not Detected
Resp Syncytial Virus Type A (PCR) - Final
Not Detected
Resp Syncytial Virus Type B (PCR) - Final
Not Detected
Adenovirus DNA (PCR) - Final
Not Detected
Human Metapneumovirus (PCR) - Final
Not Detected
Parainfluenza Virus Type 1 (PCR) - Final
Not Detected
Parainfluenza Virus Type 2 (PCR) - Final
Not Detected
Parainfluenza Virus Type 3 (PCR) - Final
Not Detected
Parainfluenza Virus Type 4 - Final
Not Detected
Rhinovirus (PCR) - Final
Not Detected
06/02/24 12:13 Blood Culture - Preliminary
Blood/Venous No Growth in 72 hours- Final report to follow
06/03/24 17:47 Salmonella/Shigella Culture - Preliminary
Feces/Stool Culture in Progress
Campylobacter Culture - Preliminary
Culture in Progress
Shiga Toxin Test - Final
No E. coli Shiga Toxin 1 or 2 detected.
06/03/24 17:47 Cryptosporidium/Giardia - Final
Feces/Stool Negative for Cryptosporidium and/or Giardia Lamblia
antigens.
--- NOTE | 2024-06-06 08:56 | W.PN.HOSP.TC ---
Addendum entered and electronically signed by Audie Bartholomew DO 06/06/24 09:37:
I spoke with Dr. Grace of rheumatology. He states that Dr. Brunson already spoke with Dr. Zeinab Zamora, who plans to follow up with this patient as outpatient after discharge.
Can hold off on inpatient rheum consult for now.
Original Note:
Today's Communication/Plan
-
Rheumatology consult
Wean oxygen as able
Start midodrine
Diuretics if blood pressure allows
Assessment / Plan
Assessment / Plan
Physical exam:
General: Acutely ill. Somewhat toxic appearance.
HEENT: Normocephalic, Atraumatic and Moist Mucous Membranes
Respiratory: Bilateral scattered rhonchi; Negative Wheezes, or Rales
Cardiac: Regular Rhythm and S1/S2, tachycardic
GI: Soft, Nontender and Nondistended
Musculoskeletal: No Clubbing, No Cyanosis and No Edema
Neuro: Awake, Alert and Oriented, no gross neurological deficit
Skin: Maculopapular rash on trunk and both lower extremities
Psych: Anxious, normal judgment and insight
FUO, rash:
Unclear overall etiology -malignancy versus autoimmune versus infectious
Status post bone marrow biopsy 06/04 -awaiting for results
Discussed with rheumatology, hematology -oncology, dermatology, ID, pulmonary.
Holding lisinopril amlodipine in case drug-induced lupus
Plan for flow cytometry
Bronchoscopy if needed down the road
Blood cultures x 2 no growth so far
Gold QuantiFERON pending
Elevated inflammatory marker-CRP >270 and 261, ferritin elevated at 938
Albumin low at 2.6
RE level low, less than 10
LDH normal at 245
Repeated echo no acute abnormalities
Dr. Brunson called [facility] for possible transfer -->[facility] (Dr Maher)--> they do not recommend inpatient transfer and they feel they would do the same workup that we are doing in our hospital.
Keep in IMU
Low threshold to transfer to ICU if any clinical deterioration.
Updated daughter prior--will update again when more information available or clinical status changes
Acute hypoxic respiratory failure -etiology suspected to be pneumonia versus pneumonitis. Currently on high flow nasal cannula, wean as able. High flow oxygen started morning of 06/05. Last chest x-ray was 06/04 showing moderate diffuse pulmonary
interstitial edema, cannot rule out superimposed pneumonitis.
Started on steroids, diuretics, bronchodilators, morphine, and anxiolytics.
Continue high-dose IV steroids per pulmonary
Severe multifocal pneumonia:
Chest x-ray, CT scan done today 06/03 without contrast, elevated procalcitonin(1.41) and elevated CRP highly suggested for new pneumonia. ID had discontinued antibiotics on 06/02 but upon reevaluation reinstated.
Restarted IV antibiotics on 06/03 ceftriaxone 2 g daily and oral doxycycline 100 mg twice a day.
While pneumonia is highly likely now, on the other hand that does not explain his ongoing chronic fevers and rash so given suspicions for underlying autoimmune process I would favor bronchoscopy and BAL--> for this reason requested pulmonary consult
and discussed with pulmonary.
CTA negative for PE but pronounced scattered ground-glass opacities present, differential diagnosis of infectious pneumonitis and pulmonary edema. BNP 2890. Echocardiogram 06/04 showed LVEF 55 to 60%, no regional wall motion abnormalities, mild .
Please check daily weights. Trial of diuretics if blood pressure allows.
KALEIGH -suspect contrast-induced nephropathy due to contrast exposure on 06/04. Trend creatinine. IV fluids. Monitor renal function.
Hypotension likely contributing to KALEIGH with ATN. Start midodrine 10 mg 3 times daily.
Pancytopenia:
Hematology-oncology on board
Status post blood transfusion 06/04
Hemoglobin 7.9 today
Continue to monitor hemoglobin
Bone marrow biopsy completed 06/04, report pending
Acute left upper extremity cephalic vein thrombosis -on low-dose Lovenox.
Tachycardia:
Appears sinus tachycardia appropriately reactive to his acute illness
Continue cardiac monitoring
Pulmonary started him on amiodarone drip-not sure this is indicated at this point (unless there is a abnormal rhythm that I have not been able to see at the moment) so we will defer to pulmonary services otherwise would discontinue.
Asthma, severe persistent asthma:
On Breztri as outpatient
Continue Spiriva
Continue Symbicort
Cont Vest Acapella and nebs as needed
Subacute/chronic left frontal lobe infarct -incidental finding on brain MRI. MRA head and neck pending. Neurology following.
Leukocytosis:
Likely reactive due to steroids
Monitor trend
Chronic hyponatremia -suspect due to subacute to chronic illness. Sodium stable. 50 ounce fluid restriction.
Essential hypertension -currently hypotensive. Antihypertensives on hold.
Hyperlipidemia:
On rosuvastatin 20 mg p.o. daily
Elevated BNP:
Normal echocardiogram on 05/16/2024
Monitor volume status closely
Off IV fluid
Diuretics as needed
Recent episode of purpuric rash/KALEIGH/thrombocytopenia/elevated inflammatory markers -patient believes rash started after he was treated for pneumonia at urgent care center on April 19 with Augmentin and azithromycin.
Data from prior hospitalization:
Serology testing showed negative AMMY, anti--ds DNA, beta-2-GPI IgG/IgM, antiplatelet antibody, anticardiolipin IgG/IgA, normal complement C3 level, COVID.
Elevated complement C4, anticardiolipin IgM
Direct immunofluorescent testing of skin biopsy did not show deposition of immunoglobulin to suggest antibody-mediated vasculitis, no features to suggest autoimmune bullous disease. Repeated biopsy.
Initially thought to be IgA vasculitis/parasite related however testing is negative
Check repeat blood cultures
Skin biopsy unremarkable
C3 and C4 normal at this time, C4 previously elevated
Repeat SD-3 and myeloperoxidase pending
Hepatitis B serologies negative, hepatitis C pending
Parasite testing negative
Anticardiolipin IgM antibody elevated on 04/28
Hbxz-aynxrj-kuzdgypx DNA, scleroderma, anti-Otro, beta-2, AMMY all unremarkable from 04/28
Echo showing EF of 62% without vegetation
PT/OT
Full code
Anticipated Discharge: > 48 hours
Subjective/Interval History
-
Date of Service: June 06, 2024
Patient seen/examined, complaining of cough. Denies shortness of breath.
Objective Data
-
Labs:
Laboratory Results
06/06/24
05:23
WBC 20.7 H
Hgb 7.9 L
Hct 22.8 L
Plt Count 170
Sodium 130 L
Potassium 4.0
Chloride 102
Carbon Dioxide 18 L
BUN 43 H
Creatinine 1.8 H
Glucose 170 H
Calcium 8.1 L
Vital Signs:
Vital Signs
Temp Pulse Resp BP Pulse Ox
97.5 F 83 14 84/62 98
06/06/24 04:06 06/06/24 07:40 06/06/24 07:40 06/06/24 06:00 06/06/24 07:40
I&O
06/05/24 06/06/24 06/07/24
06:59 06:59 06:59
Intake Total 100 / 100 240 / 240
Output Total 250 / 250 825 / 825
Balance -150 / -150 -585 / -585
Review of Systems
-
History Source: Patient
All other systems: Reviewed and negative
--- NOTE | 2024-06-06 08:58 | W.PN.PUL.V3 ---
Today's Communication / Plan
-
Continue to wean oxygen
Occasionally follow radiographically
Vasculitis on skin biopsy
Continue steroids
Rheumatology evaluation
Bone marrow biopsy possible myelodysplasia-oncology/hematology following
Assessment
-
Patient is a 74-year-old male with previous history of severe asthma, hypertension hyperlipidemia was sent in by Dr Davies today for hypotension (90/60) with persistent rash and fevers. He was recently admitted for similar and discharged 05/17/2024
following negative workup. He has associated generalized weakness, lightheadedness. Had CT chest obtained demonstrating severe bilateral multifocal pneumonia which is new compared to prior. He is placed on empiric antibiotics. We are consulted
for eval.
Severe multifocal PNA
CRP elevated-greater than 260-inflammatory process suspected, ESR 23
Vasculitis suspected on skin biopsy-final stains pending
Possible myelodysplasia bone marrow biopsy-final stains pending
Fever
Rash
Hypotension
Acute on chronic anemia, hemoglobin 7 prior 9
Hyponatremia, mild
Conditions present prior to admission:
Recent RML pneumonia (seen initially on CXR from 04/19/2024)
Hospitalization-discharged dosed on 04/30/2024-thrombocytopenia/anemia/purpuric rash, biopsy performed and placed on prednisone with rheumatology follow-up
Hypertension
Hyperlipidemia
Severe persistent asthma on Breztri + Nucala
Follows with Dr Davies
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
Proteinuria
Occasional alcohol use
Plan
Respiratory status significantly declined 06/04/2024 and now slowly improving-treated with diuretics, steroids, nebulizers and morphine
Continue supplemental oxygen-currently on high flow-reviewed with [employer]/ELECTRO [employer] TECHNICIAN-continue to reduce
DuoNebs continues-monitor for atrial fibrillation rate
Mucolytic's
Mucus clearing devices
Encouraged incentive spirometry and Acapella
Symbicort and Spiriva continue
Prior history of lung disease is noted including severe persistent asthma, chronic cough x 2 months
Patient is on Breztri as an outpatient
Chest x-ray 06/04/2024-findings suggest diffuse pulmonary interstitial edema progressed cannot rule out superimposed pneumonitis
Patient had complained of left-sided pleuritic pain
CT chest 06/04/2024-no pulmonary embolism, pronounced scattered groundglass opacifications progressed
Left upper extremity ultrasound 06/04/2024-left cephalic vein thrombus formation
DVT prophylaxis recommended
Cultures reviewed
Infectious disease following-correspondence reviewed
Continue empiric antibiotics-ceftriaxone and doxycycline continue
Follow radiographically
Elevated CRP
ESR 23
Not classic features of Xqled-Upqxzpi-jhs called eosinophilic granulomatosis with polyangiitis (no significant peripheral eosinophilia)-or allergic bronchopulmonary aspergillosis
Rheumatology consultation pending
Dermatology following as an outpatient-Dr. Obrien-skin biopsy reviewed at [facility]-suspected vasculitis-additional stains pending
Solu-Medrol initiated
Prior ECHO results are reviewed indicating normal function
proBNP in past have been negative, repeat on this admission now 2810
Diuresis as tolerated
Diuresis note
Monitor hemoglobin
Transfuse as needed
GI evaluation ongoing
Bone marrow biopsies 06/04/2024-possible myelodysplastic syndrome
Oncology following-correspondence reviewed
Neurology evaluation for dizziness ongoing
Brain MRI 06/03/2024-tiny subacute on chronic left frontal lobe infarct, findings suggesting chronic amyloid angiopathy and possible sequelae of chronic subarachnoid hemorrhage-superficial siderosis overall progressed
DVT prophylaxis recommended
GI prophylaxis-on pantoprazole
Will need outpatient pulmonary evaluation in our office for PFTs and 6MWT
Diagnostic Data
Chest x-ray 10/26/2022-NAD
Chest x-ray 04/19/24-mild right middle lobe pneumonia
Chest x-ray 04/24/2024-improvement in right lower lung field suggesting improvement in pneumonia or atelectasis
Chest x-ray 05/13/2024-no pneumonia, mild basilar atelectasis, mild elevation right hemidiaphragm
Brain MRI 02/10/2022-numerous parenchymal foci in bilateral occipital lobes right greater than left can be seen with cerebral amyloid angiopathy
CT Chest 06/03/24- Severe extensive diffuse bilateral tree-in-bud/groundglass density throughout all lobes with a peripheral predominance, new from prior. Bilateral lower lobe dependent subsegmental atelectasis, progressed from prior. Right lower
lobe scarring redemonstrated. No discrete solid pulmonary nodules, pleural effusions, pericardial effusions or pathologically enlarged noncalcified lymph nodes in the thorax. No pneumothorax. Impression: Severe bilateral multifocal pneumonia, new
from prior CT 05/15/2024.
Echocardiogram 01/19/2021-EF 60-65%, no significant valvular disease
ECHO 05/16/24- 1. Normal left ventricular size and systolic function without regional wall motion abnormalities. Mild concentric left ventricular hypertrophy. Estimated left ventricular ejection fraction is 62% by Hernandez's method. Normal
diastolic function.
2. Normal right ventricular size and systolic function.
3. Thickened mitral valve leaflets with mitral annular calcification. Mitral sclerosis without con stenosis. Trace mitral regurgitation.
4. Thickened, calcified trileaflet aortic valve with mild aortic stenosis. Peak and mean transaortic gradients of 31 and 15 mmHg. Mild aortic regurgitation.
5. No significant pericardial effusion.
Nuclear stress test 01/22/2021-EF 65%, low risk study
Skin biopsy 04/30/2024-send out no deposition of immunoglobulins within the dermal blood vessels to suggest an antibody mediated vasculitis and no deposition of fibrinogen around vessels to suggest active vascular injury, no features of an autoimmune
bullous disease including pemphigus, pemphigoid, linear IgA disease or dermatitis herpetiformis
.
Subjective Data
-
Date of Service:
Date of Service: June 06, 2024
Chief Complaint: Pulmonary Follow Up and Dyspnea Follow Up
Subjective:
No complaints of worsening shortness of breath, increased chest congestion, productive cough, chest pain or abdominal pain
Review of Systems
General: Other (Per HPI)
Objective Data
Data Reviewed
Vital Signs / I&O:
Vital Signs
Temp Pulse Resp BP Pulse Ox
97.5 F 83 14 84/62 98
06/06/24 04:06 06/06/24 07:40 06/06/24 07:40 06/06/24 06:00 06/06/24 07:40
Intake and Output
06/05/24 06/06/24 06/07/24
06:59 06:59 06:59
Intake Total 100 / 100 240 / 240
Output Total 250 / 250 825 / 825
Balance -150 / -150 -585 / -585
SaO2: 98
Nasal Cannula flow liters per minute: 40
Physical Exam
General: Respiratory Distress (n) and Comfortable
HEENT: Normocephalic, Anicteric and Moist Mucous Membranes
Cardiovascular: Regular Rhythm
Respiratory: Wheeze (n), Crackles (Bilateral basilar), Rhonchi (n), Non-Labored Respirations, Accessory Resp Muscle Use (n) and Stridor (n)
GI: Soft, Non Distended and Non Tender
Neurology: Awake, Alert and No Motor Deficits
Skin: Warm, Good Color, Cyanosis (n), Jaundice (n) and Rash (n)
Labs/Micro/Reports
Lab Data
06/06/24 05:23
06/06/24 05:23
Microbiology
06/01/24 14:35 Blood/Venous Blood Culture - Preliminary
No Growth in 4 days- Final report to follow
06/05/24 08:52 Sputum Gram Stain - Preliminary
06/05/24 09:52 Nasalpharynx Influenza Type A (PCR) - Final
Not Detected
06/05/24 09:52 Nasalpharynx Influenza Type A (H1) (PCR) - Final
Not Detected
06/05/24 09:52 Nasalpharynx Influenza Type A (H3) (PCR) - Final
Not Detected
06/05/24 09:52 Nasalpharynx Influenza Type B (PCR) - Final
Not Detected
06/05/24 09:52 Nasalpharynx Resp Syncytial Virus Type A (PCR) - Final
Not Detected
06/05/24 09:52 Nasalpharynx Resp Syncytial Virus Type B (PCR) - Final
Not Detected
06/05/24 09:52 Nasalpharynx Adenovirus DNA (PCR) - Final
Not Detected
06/05/24 09:52 Nasalpharynx Human Metapneumovirus (PCR) - Final
Not Detected
06/05/24 09:52 Nasalpharynx Parainfluenza Virus Type 1 (PCR) - Final
Not Detected
06/05/24 09:52 Nasalpharynx Parainfluenza Virus Type 2 (PCR) - Final
Not Detected
06/05/24 09:52 Nasalpharynx Parainfluenza Virus Type 3 (PCR) - Final
Not Detected
06/05/24 09:52 Nasalpharynx Parainfluenza Virus Type 4 - Final
Not Detected
06/05/24 09:52 Nasalpharynx Rhinovirus (PCR) - Final
Not Detected
06/02/24 12:13 Blood/Venous Blood Culture - Preliminary
No Growth in 72 hours- Final report to follow
06/03/24 17:47 Feces/Stool Salmonella/Shigella Culture - Preliminary
Culture in Progress
06/03/24 17:47 Feces/Stool Campylobacter Culture - Preliminary
Culture in Progress
06/03/24 17:47 Feces/Stool Shiga Toxin Test - Final
No E. coli Shiga Toxin 1 or 2 detected.
06/03/24 17:47 Feces/Stool Cryptosporidium/Giardia - Final
Negative for Cryptosporidium and/or Giardia Lamblia
antigens.
[2024-06-06] MEDS: NOVOLOG FLEXPEN-LOW RESISTANCE 2 UNITS SC ×2 (09:00→16:54)
[2024-06-06 09:10] LABS: Glucose - Point of Care 209 mg/dl (70-99)
[2024-06-06] MEDS: ZOSYN 50 IV ×3 (09:23→21:36)
[2024-06-06 10:22] LABS: COVID-19 Antigen Negative (Negative)
--- NOTE | 2024-06-06 11:42 | PTCARENOTE ---
Assumed care of patient this morning. He is aaox3, answering all questions appropriately. Pt was able to be switched from high flow to midflow by RT. Pt tolerating at this time. He is tachypneic at times and BOND. Pt reports poor appetite. He states
while he is eating, he wants to eat more but feels like he can't. He has urgency and to preserve respiratory function, pt is using a condom catheter. Rash is still diffuse throughout body. Assessment, care and VS as charted.
--- NOTE | 2024-06-06 12:10 | PTOTSP ---
Speech Language Pathology
Pt also seen for dysphagia tx. Pt with severe B multifocal PNA and reported some intermittent dysphagia. He reported he will note globus sensation in throat at times, but this 'comes and goes.' When this happens, he will take a drink, but
sometimes needs to regurgitate bolus back up into oral cavity. Significantly hoarse vocal quality noted, and pt stated voice has been this way since March 17. He also reported some 'swelling' in his neck since that time, although again, it's
intermittent. Seen with P.O. trials of banana and thin liquids via straw. Pt reported globus sensation in esophagus, which did not clear during entirety of BAG END SEWER session. No overt signs of aspiration.
Pt's reports of dysphagia are not always very specific. However, he does endorse difficulty swallowing at times and has PNA.
Recommend:
(1) VSE
(2) Continue regular solids/thin liquids pending VSE
(3) Aspiration precautions: sit upright, slow rate, frequent sips of liquids with meals
(4) Meds as tolerated
(5) Consider ENT consult given report of hoarse vocal quality since March 17 and feeling of 'swelling' in neck intermittently since that time
(6) BAG END SEWER to continue to follow
[2024-06-06] MEDS: NOVOLOG FLEXPEN-LOW RESISTANCE 1 UNITS SC (12:47)
[2024-06-06 12:56] LABS: Glucose - Point of Care 188 mg/dl (70-99)
[2024-06-06 15:08] LABS: Quantiferon Mitogen minus NIL 0.66 IU/mL; Quantiferon NIL 0.05 IU/mL; Quantiferon TB Gold Plus Negative (Negative)
--- NOTE | 2024-06-06 15:09 | PN.CDI ---
CDI
- -
CDI:
Physician Documentation Request
Admit Date: 06/01/24 17:28
Dear Doctor Puma,
Patient admitted with recurrent fever.
06/06 PN,'Severe multifocal pneumonia...Chest x-ray, CT scan done today 06/03 without contrast, elevated procalcitonin(1.41) and elevated CRP highly suggested for new pneumonia....Restarted IV antibiotics today 06/03 ceftriaxone 2 g daily and oral
doxycycline 100 mg twice a day.
On admission, WBC 13.7, T max 102.2 and HR> 90.
Please clarify which of the following most accurately describes the status of the patient's infection:
Sepsis, POA
Sepsis evolved during hospital stay
Pneumonia only
Sepsis
- Systemic manifestations of infection, with 2 or more SIRS criteria which include:
- Fever >100.4 degrees F or hypothermia < 96.8 degrees F
- Leukocytosis - WBC > 12,000 or leukopenia - WBC < 4,000 or > 10% bands
- Tachycardia > 90 beats per minute
- Tachypnea - RR > 20 breaths per minute or PaCO2 , 32mmHg
Source: Merck Manual 2013
- Indicate the known or suspected organism
- Indicate the known or suspected underlying infection, such as pneumonia
- Indicate if a suspected bacterial infection of unknown source
Localized Infection Only, Without Systemic Illness
- indicate the site/source, such pneumonia
Other
Use of terms such as suspected, likely, concern for, or probable (associated with a specific diagnosis that is being evaluated, monitored, or treated as if it exists) are acceptable and can be coded in the inpatient setting, when documented at the
time of discharge.
Thank you,
Isabela MELTONN,RN,CCDS
CDI Specialist
Available via [place] text
Please use your independent medical judgment in providing your response.
--- NOTE | 2024-06-06 16:47 | CM ---
Patient with Dx Recurrent FUPOfevers and rash, pneumonia, pancytopenia, asthma, concern for TIA.
--- NOTE | 2024-06-06 16:50 | CM ---
Patient with Dx Recurrent FUO, rash, PNA, KALEIGH, pancytopenia, LUE cephalic vein thrombosis, asthma, Subacute/chronic left frontal lobe infarct. O2 4L midflow. Receiving IV Abx, IV Steroids. PT & OT recommend SNF vs Acute. ST for for dysphagia
tx, cognitive-linguistic evaluation.
Patient may benefit from Physiatry Eval---> message to Dr Bartholomew.
Plan meet with patient and family for d/c planning.
[2024-06-06] MEDS: LOVENOX 30 MG SC (17:01)
[2024-06-06 17:05] LABS: Glucose - Point of Care 220 mg/dl (70-99)
[2024-06-06] MEDS: METAMUCIL, KONSYL PO (21:36)
[2024-06-06 22:46] LABS: Glucose - Point of Care 210 mg/dl (70-99)
[2024-06-07] VITALS (12 sets, daily range): BP systolic 83–124; BP diastolic 47–77; BMI 26.1
[2024-06-07] MEDS: TYLENOL 1000 MG PO ×3 (03:13→21:42)
[2024-06-07] MEDS: ZOSYN 50 IV ×4 (03:13→21:42)
--- NOTE | 2024-06-07 03:28 | PTCARENOTE ---
Patient c/o insomnia and feeling hot/cold body sweats. Bathing cloths provided, gown, pad and sheet changed. Pt afebrile. Pt states the steroids keep him awake even with prn Benadryl and melatonin.
[2024-06-07 05:17] LABS: Hemoglobin 8.5 g/dL (13.0-18.0); Mean Corpuscular Hgb 30.9 pg (27.0-31.0); Mean Corpuscular Volume 90.9 fL (80.0-94.0); Mean Platelet Volume 10.7 fL (7.4-10.4); Platelet Count 200 10^3/uL (130-400); Red Blood Cell Count 2.75 10^6/uL (4.70-6.10); Red Cell Dist. Width 15.6 % (11.5-14.5)
[2024-06-07 05:37] LABS: Blood Urea Nitrogen 61 mg/dl (9-20); Carbon Dioxide 18 mmol/L (22-30); Chloride 100 mmol/L (98-107); Estimated Creatinine Clearance 24 ml/min; Glucose 176 mg/dl (70-99); Potassium 4.1 mmol/L (3.5-5.1); Sodium 128 mmol/L (135-145); eGFR 27.62
[2024-06-07] MEDS: SYMBICORT 160/4.5 MCG INHALER 2 PUFF INH ×2 (07:39→20:27)
[2024-06-07] MEDS: DUONEB 3 ML INH ×3 (07:39→20:27)
--- NOTE | 2024-06-07 08:15 | W.PN.HOSP.TC ---
Addendum entered and electronically signed by Audie Bartholomew DO 06/07/24 13:08:
Sepsis present on admission -etiology unclear but possibly multifactorial including vasculitis, pneumonia, etc.
Original Note:
Today's Communication/Plan
-
Continue antibiotics
Steroids
Acapella
I-S
VSS
Nephrology consult
Bowel regimen
Assessment / Plan
Assessment / Plan
Physical exam:
General: Acutely ill. Somewhat toxic appearance.
HEENT: Normocephalic, Atraumatic and Moist Mucous Membranes
Respiratory: Rales bilateral bases
Cardiac: Regular Rhythm and S1/S2, tachycardic
GI: Soft, Nontender and Nondistended
Musculoskeletal: No Clubbing, No Cyanosis and No Edema
Neuro: Awake, Alert and Oriented, no gross neurological deficit
Skin: Maculopapular rash on trunk and both lower extremities
Psych: Anxious, normal judgment and insight
FUO -suspect vasculitis as the etiology. Skin exam is notable for diffuse palpable purpura, now fading. Awaiting skin biopsy results. Getting empiric steroids under the direction of pulmonary. Dose reduced.
Status post bone marrow biopsy 06/04 -awaiting for results
Discussed with rheumatology, hematology -oncology, dermatology, ID, pulmonary.
Holding lisinopril amlodipine in case drug-induced lupus
Plan for flow cytometry
Bronchoscopy if needed down the road
Blood cultures x 2 no growth so far. Viral respiratory panel negative. Stool studies negative. COVID-negative x 2.
Gold QuantiFERON negative.
Elevated inflammatory marker-CRP >270 and 261, ferritin elevated at 938
Albumin low at 2.6
RE level low, less than 10
LDH normal at 245
Repeated echo no acute abnormalities
Dr. Brunson called [facility] for possible transfer -->[facility] (Dr Maher)--> they do not recommend inpatient transfer and they feel they would do the same workup that we are doing in our hospital.
Keep in IMU
Acute hypoxic respiratory failure -etiology suspected to be pneumonia versus pneumonitis. Oxygenation improved, weaned off high flow oxygen and now on 4 L. Last chest x-ray was 06/04 showing moderate diffuse pulmonary interstitial edema, cannot
rule out superimposed pneumonitis.
Started on steroids, diuretics, bronchodilators, morphine, and anxiolytics. Encouraged use of Acapella, incentive spirometer.
Continue high-dose IV steroids per pulmonary
Severe multifocal pneumonia -chest x-ray done today 06/07 shows improving infiltrates. Oxygen requirements improving. Currently on empiric Zosyn, doxycycline under the direction of ID.
KALEIGH -suspect multifactorial etiology including contrast exposure, persistent hypotension, etc. Consult nephrology. Monitor urine output. Check urinalysis. Bladder scan this morning was 282 cc.
Creatinine was 1.0 on 06/04, 2.4 today.
Dysphagia - recent onset. Solids food. Check video swallow. Discussed with speech therapy.
Pancytopenia:
Hematology-oncology on board
Status post blood transfusion 06/04
Hemoglobin 7.9 today
Continue to monitor hemoglobin
Bone marrow biopsy completed 06/04, report pending
Acute left upper extremity cephalic vein thrombosis -on low-dose Lovenox.
Tachycardia:
Appears sinus tachycardia appropriately reactive to his acute illness
Continue cardiac monitoring
Pulmonary started him on amiodarone drip-not sure this is indicated at this point (unless there is a abnormal rhythm that I have not been able to see at the moment) so we will defer to pulmonary services otherwise would discontinue.
Asthma, severe persistent asthma:
On Breztri as outpatient
Continue Spiriva
Continue Symbicort
Cont Vest Acapella and nebs as needed
Subacute/chronic left frontal lobe infarct -incidental finding on brain MRI. MRA head and neck pending. Neurology following.
Leukocytosis:
Likely reactive due to steroids
Monitor trend
Chronic hyponatremia -suspect due to subacute to chronic illness, SIADH as well. Sodium 128. 50 ounce fluid restriction. Urine osmolality 323, urine sodium 47.
Essential hypertension -currently hypotensive. Antihypertensives on hold.
Hyperlipidemia:
On rosuvastatin 20 mg p.o. daily
Constipation -will increase bowel regimen.
Elevated BNP:
Normal echocardiogram on 05/16/2024
Monitor volume status closely
Off IV fluid
Diuretics as needed
Recent episode of purpuric rash/KALEIGH/thrombocytopenia/elevated inflammatory markers -patient believes rash started after he was treated for pneumonia at urgent care center on April 19 with Augmentin and azithromycin.
Data from prior hospitalization:
Serology testing showed negative AMMY, anti--ds DNA, beta-2-GPI IgG/IgM, antiplatelet antibody, anticardiolipin IgG/IgA, normal complement C3 level, COVID.
Elevated complement C4, anticardiolipin IgM
Direct immunofluorescent testing of skin biopsy did not show deposition of immunoglobulin to suggest antibody-mediated vasculitis, no features to suggest autoimmune bullous disease. Repeated biopsy.
Initially thought to be IgA vasculitis/parasite related however testing is negative
Check repeat blood cultures
Skin biopsy unremarkable
C3 and C4 normal at this time, C4 previously elevated
Repeat UT-3 and myeloperoxidase pending
Hepatitis B serologies negative, hepatitis C pending
Parasite testing negative
Anticardiolipin IgM antibody elevated on 04/28
Cgrs-haijiv-gnyolijp DNA, scleroderma, anti-Toro, beta-2, AMMY all unremarkable from 04/28
Echo showing EF of 62% without vegetation
PT/OT
Full code
Anticipated Discharge: > 48 hours
Subjective/Interval History
-
Date of Service: June 07, 2024
Patient seen and examined. Denies shortness of breath, is constipated. Complaining of generalized weakness.
Objective Data
-
Labs:
Laboratory Results
06/07/24
04:49
WBC 24.0 H
Hgb 8.5 L
Hct 25.0 L
Plt Count 200
Sodium 128 L
Potassium 4.1
Chloride 100
Carbon Dioxide 18 L
BUN 61 H
Creatinine 2.4 H
Glucose 176 H
Calcium 8.0 L
Vital Signs:
Vital Signs
Temp Pulse Resp BP Pulse Ox
97.5 F 83 16 89/52 99
06/07/24 03:05 06/07/24 07:45 06/07/24 07:45 06/07/24 06:00 06/07/24 07:45
I&O
06/06/24 06/07/24 06/08/24
06:59 06:59 06:59
Intake Total 240 / 240 1400 / 1400
Output Total 825 / 825 455 / 455
Balance -585 / -585 945 / 945
Review of Systems
-
History Source: Patient
All other systems: Reviewed and negative
[2024-06-07 08:39] LABS: Glucose - Point of Care 188 mg/dl (70-99)
[2024-06-07] MEDS: VITAMIN D3 (cholecalciferol) 50 MCG PO (08:39)
[2024-06-07] MEDS: METAMUCIL, KONSYL 1 PACKET PO ×2 (08:39→21:41)
[2024-06-07] MEDS: RESTASIS 0.05% OPHTHALMIC EMULSION 1 DROPS BOTH EYES ×2 (08:39→21:42)
[2024-06-07] MEDS: SOLU-MEDROL PF 40 MG IV ×2 (08:39→21:41)
[2024-06-07] MEDS: ProAmatine 10 MG PO ×3 (08:39→18:09)
[2024-06-07] MEDS: DULCOLAX 10 MG RECTAL (08:39)
[2024-06-07] MEDS: PROTONIX 40 MG PO (08:40)
[2024-06-07] MEDS: CRESTOR 20 MG PO (08:40)
[2024-06-07] MEDS: VIBRAMYCIN 100 MG PO ×2 (08:40→21:42)
[2024-06-07] MEDS: NOVOLOG FLEXPEN-LOW RESISTANCE 1 UNITS SC ×3 (08:41→18:10)
--- NOTE | 2024-06-07 09:34 | W.PN.ID1 ---
Date of Service
Date of Service: June 07, 2024
Today's Communication
continue zosyn and doxycyline for today
Assessment / Plan
New Pneumonia vs Pneumonitis
Shock - ongoing, unclear cause
Progressive KALEIGH
- unclear cause of shock
- blood cultures negative , ua negative, covid ag negative, viral panel neg, CXR improving, lines functional
- down to midflow NC at 4L - marked improvement
- CXR with improving infiltrates
- agree with steroids, management per pulmonary, started 06/04
- leukocytosis on steroids
- blood cultures x2 are in progress from 06/02 no growth to date
- MRSA screen negative
- c/w zosyn, continue doxycycline
FUO 2+ months
- awaiting formal BM biopsy results - hematology following, message from dermatology - biopsy suggesting vasculitis awaiting diffs
- agree that noninfectious etiologies of the chronic fevers such
- typical ID FUO workup already completed and nonrevealing
- qft gold negative
- steroids started 06/04
- c/w scheduled tylenol 1 gm TID
- reviewed with patient that he must not go above 4 gm/day or risk significant liver injury; currently scheduled for 3 gm/day
- hematology is following, if a definitive diagnosis of a rheumatologic process is noted then would recommend re-discussing with rheumatology
- note that [facility] has declined the transfer
- follow clinically
Also:
Subacute small stroke
anemia
Chief Complaint
-: Fever and Other (FUO)
Subjective / Review of Systems
remains afebrile
persistent hypotension on midodrine
Vital Signs / Physical Exam
Vital Signs
Vital Signs
Temp Pulse Resp BP Pulse Ox
97.5 F 87 31 89/54 99
06/07/24 03:05 06/07/24 09:00 06/07/24 09:00 06/07/24 08:39 06/07/24 09:00
Physical Exam
Constitutional: Acutely Ill and Chronically Ill
Cardiovascular: Regular Rate and S1/S2; Negative Murmur or Rub
Pulmonary: Clear and Symmetric; Negative Wheezes or Rales
Gastrointestinal: Soft, Non Tender, Non Distended and Normal Bowel Sounds
Skin: Warm, Dry and Rash (fading coalescing macular rash); Negative Jaundice
Objective Data
Lab Data
Lab Results
06/07/24 04:49
06/07/24 04:49
ESR 23 mm/hour (0-20) H 06/05/24 03:58
PT 17.4 Sec (11.4-14.6) H 06/04/24 16:31
INR 1.44 06/04/24 16:31
APTT 41.5 Sec (23.4-35.0) H 06/04/24 16:31
Estimated Creat Clear 24 ml/min 06/07/24 04:49
Lactic Acid Cancelled 06/05/24 21:00
Total Bilirubin 0.7 mg/dl (0.2-1.3) 06/04/24 16:31
AST 32 U/L (17-59) 06/04/24 16:31
ALT 22 U/L (0-50) 06/04/24 16:31
Alkaline Phosphatase 108 U/L (38-126) 06/04/24 16:31
C-Reactive Protein 261.00 mg/L (0.0-10.00) H 06/03/24 04:11
Most recent labs reviewed as above in addition:
progressive leukocytosis on steroids
hgb improved somewhat
plt 200
progressive renal dysfunction
covid ag remains negative
Vasculitis on skin biopsy - by report awaiting final read
Bone marrow biopsy possible myelodysplasia-oncology/hematology following - awaiting final report
CXR: improving opacities, mild pulm edema, no new focal consolidation
Micro Results:
06/01/24 14:35 Blood Culture - Final
Blood/Venous No Growth - Final Report
06/05/24 08:52 Respiratory Culture - Preliminary
Sputum Gram Stain - Preliminary
06/02/24 12:13 Blood Culture - Preliminary
Blood/Venous No Growth in 4 days- Final report to follow
06/06/24 09:59 Nasal Screen MRSA (PCR) - Final
Nose MRSA not detected - performed by PCR methodology.
06/03/24 17:47 Salmonella/Shigella Culture - Final
Feces/Stool No Salmonella, Shigella, Aeromonas or Plesiomonas species
isolated.
Campylobacter Culture - Final
No Campylobacter species isolated.
Shiga Toxin Test - Final
No E. coli Shiga Toxin 1 or 2 detected.
06/05/24 09:52 Influenza Type A (PCR) - Final
Nasalpharynx Not Detected
Influenza Type A (H1) (PCR) - Final
Not Detected
Influenza Type A (H3) (PCR) - Final
Not Detected
Influenza Type B (PCR) - Final
Not Detected
Resp Syncytial Virus Type A (PCR) - Final
Not Detected
Resp Syncytial Virus Type B (PCR) - Final
Not Detected
Adenovirus DNA (PCR) - Final
Not Detected
Human Metapneumovirus (PCR) - Final
Not Detected
Parainfluenza Virus Type 1 (PCR) - Final
Not Detected
Parainfluenza Virus Type 2 (PCR) - Final
Not Detected
Parainfluenza Virus Type 3 (PCR) - Final
Not Detected
Parainfluenza Virus Type 4 - Final
Not Detected
Rhinovirus (PCR) - Final
Not Detected
06/03/24 17:47 Cryptosporidium/Giardia - Final
Feces/Stool Negative for Cryptosporidium and/or Giardia Lamblia
antigens.
--- NOTE | 2024-06-07 10:09 | W.PN.PUL.V3 ---
Today's Communication / Plan
-
Nephrology evaluation with worsening renal function
Antibiotics changed to Zosyn and doxycycline
Monitor leukocytosis
Continue oxygen wean-significant reduction in oxygen requirements and chest x-ray improved-suspect steroid effect
Decrease Solu-Medrol 40 mg IV every 12 hours
Assessment
-
Patient is a 74-year-old male with previous history of severe asthma, hypertension hyperlipidemia was sent in by Dr Davies today for hypotension (90/60) with persistent rash and fevers. He was recently admitted for similar and discharged 05/17/2024
following negative workup. He has associated generalized weakness, lightheadedness. Had CT chest obtained demonstrating severe bilateral multifocal pneumonia which is new compared to prior. He is placed on empiric antibiotics. We are consulted
for eval.
Severe multifocal PNA
CRP elevated-greater than 260-inflammatory process suspected, ESR 23
Vasculitis suspected on skin biopsy-final stains pending
Possible myelodysplasia bone marrow biopsy-final stains pending
Fever
Rash
Hypotension
Acute on chronic anemia, hemoglobin 7 prior 9
Hyponatremia, mild
Conditions present prior to admission:
Recent RML pneumonia (seen initially on CXR from 04/19/2024)
Hospitalization-discharged dosed on 04/30/2024-thrombocytopenia/anemia/purpuric rash, biopsy performed and placed on prednisone with rheumatology follow-up
Hypertension
Hyperlipidemia
Severe persistent asthma on Breztri + Nucala
Follows with Dr Davies
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
Proteinuria
Occasional alcohol use
Plan
Respiratory status significantly declined 06/04/2024 and now continually improving-treated with diuretics, steroids, nebulizers and morphine-not significantly diuresed over the last 3 days and suspect most improvement from steroids and not diuresis
Continue supplemental oxygen-currently on high flow-reviewed with [employer]-continue to reduce-now on 4 L - 98% saturation
DuoNebs continues-monitor for atrial fibrillation rate
Mucolytic's
Mucus clearing devices
Encouraged incentive spirometry and Acapella
Symbicort and Spiriva continue
Lttz-Vvvkcf-wrqqoymz to 40 mg IV every 12 hours
Prior history of lung disease is noted including severe persistent asthma, chronic cough x 2 months
Patient is on Breztri as an outpatient
Chest x-ray 06/04/2024-findings suggest diffuse pulmonary interstitial edema progressed cannot rule out superimposed pneumonitis
Chest x-ray 06/07/2024-decreased bilateral airspace opacification
Patient had complained of left-sided pleuritic pain
CT chest 06/04/2024-no pulmonary embolism, pronounced scattered groundglass opacifications progressed
Left upper extremity ultrasound 06/04/2024-left cephalic vein thrombus formation
DVT prophylaxis recommended
Cultures reviewed
Infectious disease following-correspondence reviewed
Continue empiric antibiotics-ceftriaxone and doxycycline continue-changed to Zosyn and doxycycline and micafungin
Follow radiographically
Follow leukocytosis-still increasing-may have steroid effect
Elevated CRP
ESR 23
Not classic features of Fuuxd-Yphsjrt-iek called eosinophilic granulomatosis with polyangiitis (no significant peripheral eosinophilia)-or allergic bronchopulmonary aspergillosis
Rheumatology consultation pending
Dermatology following as an outpatient-Dr. Obrien-skin biopsy reviewed at [facility]-suspected vasculitis-additional stains pending
Solu-Medrol initiated
Prior ECHO results are reviewed indicating normal function
proBNP in past have been negative, repeat on this admission now 2810
Diuresis as tolerated-minimal diuresis occurred over the last 3 days
Monitor renal function, electrolytes, intake/output, lower extremity edema and weight
Replace electrolytes as needed
Renal function worsening
Nephrology evaluation pending
Follow hemoglobin
Transfuse as needed
GI evaluation ongoing
Bone marrow biopsies 06/04/2024-possible myelodysplastic syndrome
Oncology following-correspondence reviewed
Neurology evaluation for dizziness ongoing
Brain MRI 06/03/2024-tiny subacute on chronic left frontal lobe infarct, findings suggesting chronic amyloid angiopathy and possible sequelae of chronic subarachnoid hemorrhage-superficial siderosis overall progressed
DVT prophylaxis recommended
GI prophylaxis-on pantoprazole
Will need outpatient pulmonary evaluation in our office for PFTs and 6MWT
Diagnostic Data
Chest x-ray 10/26/2022-NAD
Chest x-ray 04/19/24-mild right middle lobe pneumonia
Chest x-ray 04/24/2024-improvement in right lower lung field suggesting improvement in pneumonia or atelectasis
Chest x-ray 05/13/2024-no pneumonia, mild basilar atelectasis, mild elevation right hemidiaphragm
Brain MRI 02/10/2022-numerous parenchymal foci in bilateral occipital lobes right greater than left can be seen with cerebral amyloid angiopathy
CT Chest 06/03/24- Severe extensive diffuse bilateral tree-in-bud/groundglass density throughout all lobes with a peripheral predominance, new from prior. Bilateral lower lobe dependent subsegmental atelectasis, progressed from prior. Right lower
lobe scarring redemonstrated. No discrete solid pulmonary nodules, pleural effusions, pericardial effusions or pathologically enlarged noncalcified lymph nodes in the thorax. No pneumothorax. Impression: Severe bilateral multifocal pneumonia, new
from prior CT 05/15/2024.
Echocardiogram 01/19/2021-EF 60-65%, no significant valvular disease
ECHO 05/16/24- 1. Normal left ventricular size and systolic function without regional wall motion abnormalities. Mild concentric left ventricular hypertrophy. Estimated left ventricular ejection fraction is 62% by Hernandez's method. Normal
diastolic function.
2. Normal right ventricular size and systolic function.
3. Thickened mitral valve leaflets with mitral annular calcification. Mitral sclerosis without con stenosis. Trace mitral regurgitation.
4. Thickened, calcified trileaflet aortic valve with mild aortic stenosis. Peak and mean transaortic gradients of 31 and 15 mmHg. Mild aortic regurgitation.
5. No significant pericardial effusion.
Nuclear stress test 01/22/2021-EF 65%, low risk study
Skin biopsy 04/30/2024-send out no deposition of immunoglobulins within the dermal blood vessels to suggest an antibody mediated vasculitis and no deposition of fibrinogen around vessels to suggest active vascular injury, no features of an autoimmune
bullous disease including pemphigus, pemphigoid, linear IgA disease or dermatitis herpetiformis
.
Subjective Data
-
Date of Service:
Date of Service: June 07, 2024
Chief Complaint: Pulmonary Follow Up and Dyspnea Follow Up
Subjective:
Feels better, less oxygen requirements, minimal productive cough, no chest pain, pleurisy, abdominal pain, rash without change
Review of Systems
General: Other (Per HPI)
Objective Data
Data Reviewed
Vital Signs / I&O:
Vital Signs
Temp Pulse Resp BP Pulse Ox
97.5 F 87 31 89/54 99
06/07/24 03:05 06/07/24 09:00 06/07/24 09:00 06/07/24 08:39 06/07/24 09:00
Intake and Output
06/06/24 06/07/24 06/08/24
06:59 06:59 06:59
Intake Total 240 / 240 1400 / 1400
Output Total 825 / 825 455 / 455 250 / 250
Balance -585 / -585 945 / 945 -250 / -250
SaO2: 99
Nasal Cannula flow liters per minute: 4
Physical Exam
General: Respiratory Distress (n) and Comfortable
HEENT: Normocephalic, Anicteric and Moist Mucous Membranes
Cardiovascular: Regular Rhythm
Respiratory: Wheeze (n), Crackles (Bilateral basilar), Rhonchi (n), Non-Labored Respirations, Accessory Resp Muscle Use (n) and Stridor (n)
GI: Soft, Non Distended and Non Tender
Neurology: Awake, Alert and No Motor Deficits
Skin: Warm, Good Color, Cyanosis (n), Jaundice (n) and Rash (n)
Labs/Micro/Reports
Lab Data
06/07/24 04:49
06/07/24 04:49
Microbiology
06/01/24 14:35 Blood/Venous Blood Culture - Final
No Growth - Final Report
06/05/24 08:52 Sputum Respiratory Culture - Preliminary
06/05/24 08:52 Sputum Gram Stain - Preliminary
06/02/24 12:13 Blood/Venous Blood Culture - Preliminary
No Growth in 4 days- Final report to follow
06/06/24 09:59 Nose Nasal Screen MRSA (PCR) - Final
MRSA not detected - performed by PCR methodology.
06/03/24 17:47 Feces/Stool Salmonella/Shigella Culture - Final
No Salmonella, Shigella, Aeromonas or Plesiomonas species
isolated.
06/03/24 17:47 Feces/Stool Campylobacter Culture - Final
No Campylobacter species isolated.
06/03/24 17:47 Feces/Stool Shiga Toxin Test - Final
No E. coli Shiga Toxin 1 or 2 detected.
06/05/24 09:52 Nasalpharynx Influenza Type A (PCR) - Final
Not Detected
06/05/24 09:52 Nasalpharynx Influenza Type A (H1) (PCR) - Final
Not Detected
06/05/24 09:52 Nasalpharynx Influenza Type A (H3) (PCR) - Final
Not Detected
06/05/24 09:52 Nasalpharynx Influenza Type B (PCR) - Final
Not Detected
06/05/24 09:52 Nasalpharynx Resp Syncytial Virus Type A (PCR) - Final
Not Detected
06/05/24 09:52 Nasalpharynx Resp Syncytial Virus Type B (PCR) - Final
Not Detected
06/05/24 09:52 Nasalpharynx Adenovirus DNA (PCR) - Final
Not Detected
06/05/24 09:52 Nasalpharynx Human Metapneumovirus (PCR) - Final
Not Detected
06/05/24 09:52 Nasalpharynx Parainfluenza Virus Type 1 (PCR) - Final
Not Detected
06/05/24 09:52 Nasalpharynx Parainfluenza Virus Type 2 (PCR) - Final
Not Detected
06/05/24 09:52 Nasalpharynx Parainfluenza Virus Type 3 (PCR) - Final
Not Detected
06/05/24 09:52 Nasalpharynx Parainfluenza Virus Type 4 - Final
Not Detected
06/05/24 09:52 Nasalpharynx Rhinovirus (PCR) - Final
Not Detected
06/03/24 17:47 Feces/Stool Cryptosporidium/Giardia - Final
Negative for Cryptosporidium and/or Giardia Lamblia
antigens.
--- NOTE | 2024-06-07 10:14 | W.CON.NEPH ---
Consultation
-
Date/Time Consultation Requested: 06/07/24 0728
Date/Time Consultation Performed: 06/07/24 1430
Requesting Provider: Audie aMya
Performing Provider: Ksenia Hamilton
Reason for Consultation: KALEIGH
Medical History
-
Chief Complaint: Hypoension and rash
History of Present Illness:
74-year-old male past medical history of asthma on inhalers, hypertension on amlodipine, lisinopril, hyperlipidemia on statin, who presented on 06/01 with persistent rash, daily fevers and chills, weakness and low blood pressure. symptomatology
initially began in late March early April when he developed a cough, along with episodes of dry heaves. saw Allergy and prescribed prednisone. On April 19 he was seen at urgent care for evaluation of the cough. Chest x-ray was was read as pneumonia
and he was placed on a course of antibiotics (Augmentin/Azithromycin for 5days). He subsequently developed a rash on his arms and legs and was seen by his PCP and sent to the hospital for further evaluation. He was admitted on 04/24, and was
inpatient through 05/01. His lower extremity rash felt to be from vasculitis and w/u was noted negative including skin biopsy.He admitted again on 05/13 to 05/17 for persistence of rash, along with development of fever chills and generalized body
aches. No source of infection found and hypotension, KALEIGH resolved with IVF. He had pancytopenia saw hematology. since this admit his pancytopenia has improved except persistent anemia requiring PRBC on 06/04. His BPs have been low for few days now
requiring high dose of midodrine and off BP meds. He also had acute resp failure felt to be vol overload and received lasix on 06/04. CT chest with contrast on 06/04 negative for PE. Since 06/04 cr has slowly increased from 1 to 2.4 today. Nursing
reports fair UOP. he underwent BM biopsy on 06/04. He maintain on empiric abx per guidance of ID for multifocal PNA. Reportedly he responding since steroids started on 06/06. Off note he is on low dose lovenox for cephalic vain clot. Incidental sub
acute CVA on MRI as well. Due to dysphagia he evaluated with swallow eval today. c/o hiccups since 1day. no dysuria and has condom catheter. No CP, cough and sob is better. Rash is fading still prominent in LEs.NO current fever or shills. Offers no
pain, diarrhea or constipation. has nausea.
Past Medical History
HTN
HLD
Diverticulosis
April admits:rash, pancytopenia
Past Surgical History: Orthopedic (left knee surg)
Social History
Tobacco: Non-Smoker
Alcohol: Former
Drug: None
Family History
Family History: Not Pertinent
Allergies / Home Medications
Allergy/AdvReac Type Severity Reaction Status Date / Time
azithromycin [From Zithromax] Allergy Shortness Verified 05/13/24 10:52
of Breath
pollen extracts Allergy Asthma Verified 06/06/24 14:56
exacerbation
�Medication �Instructions �Recorded �Confirmed �Type
Allergy Shots 1 dose INJ TH Allergies 07/03/20 06/01/24 History
albuterol sulfate 90 mcg/actuation 2 puff inhalation R Q4HPRN PRN sob 07/03/20 06/01/24 History
aerosol inhaler (Proventil HFA)
cyclosporine 0.05 % eye drops in a 1 drp BOTH EYES BID dry eye 07/03/20 06/01/24 History
dropperette (Restasis)
diphenhydramine HCl 50 mg capsule 50 mg PO HSPRN PRN sleep 07/03/20 06/01/24 History
(Banophen)
psyllium husk (aspartame) 3.4 gram 1 packet PO BID Constipation 07/03/20 06/01/24 History
oral powder packet (Metamucil
Fiber Singles)
rosuvastatin 20 mg tablet 20 mg PO DAILY High Cholesterol 07/03/20 06/01/24 History
amlodipine 2.5 mg tablet 2.5 mg PO HS Blood Pressure 04/24/24 06/01/24 History
budesonide 160 mcg-glycopyr 9 2 inh inhalation R BID 04/24/24 06/01/24 History
mcg-formot 4.8 mcg/actuation HFA Lung/Breathing Issues
inhaler (Breztri Aerosphere)
cholecalciferol (vitamin D3) 50 50 mcg PO DAILY Supplement 04/24/24 06/01/24 History
mcg (2,000 unit) tablet
lisinopril 20 mg tablet 20 mg PO BID Blood Pressure 04/24/24 06/01/24 History
melatonin 10 mg tablet 10 mg PO HSPRN PRN sleep 04/24/24 06/01/24 History
mepolizumab 100 mg/mL subcutaneous 300 mg SC Q4W asthma 04/24/24 06/01/24 History
syringe (Nucala)
benzonatate 200 mg capsule 200 mg PO TIDPRN PRN cough 05/30/24 06/01/24 History
acetaminophen 650 mg 650 mg PO Q8H Fever/Pain 06/01/24 06/01/24 History
tablet,extended release (Tylenol 8
Hour)
Review of Systems
-
all complete 12 point ROS have been inquired and found negative other than stated in HPI
Physical Exam
Vital Signs
Vital Signs
Temp Pulse Resp BP Pulse Ox
97.5 F 87 31 89/54 99
06/07/24 03:05 06/07/24 09:00 06/07/24 09:00 06/07/24 08:39 06/07/24 10:09
Lab Results
WBC 24.0 10^3/uL (4.8-10.8) H 06/07/24 04:49
RBC 2.75 10^6/uL (4.70-6.10) L 06/07/24 04:49
Hgb 8.5 g/dL (13.0-18.0) L 06/07/24 04:49
Hct 25.0 % (39.0-52.0) L 06/07/24 04:49
Plt Count 200 10^3/uL (130-400) 06/07/24 04:49
Sodium 128 mmol/L (135-145) L 06/07/24 04:49
Potassium 4.1 mmol/L (3.5-5.1) 06/07/24 04:49
Chloride 100 mmol/L (98-107) 06/07/24 04:49
Carbon Dioxide 18 mmol/L (22-30) L 06/07/24 04:49
BUN 61 mg/dl (9-20) H 06/07/24 04:49
Creatinine 2.4 mg/dL (0.7-1.3) H 06/07/24 04:49
eGFR 27.62 06/07/24 04:49
Glucose 176 mg/dl (70-99) H 06/07/24 04:49
Calcium 8.0 mg/dl (8.4-10.2) L 06/07/24 04:49
Phosphorus 6.3 mg/dl (2.5-4.5) H 06/05/24 03:58
Mzz-K-Yopkgmlgals Pept 2890 pg/ml 06/06/24 05:23
Albumin 3.1 g/dl (3.5-5.0) L 06/04/24 16:31
06/07 CXR:
IMPRESSION:
Interval decrease in bilateral airspace opacities consistent with improving pulmonary edema. Mild pulmonary edema persists. No definite effusion.
CT chest with contrast 06/04:
IMPRESSION:
1. No evidence of pulmonary embolism or thoracic aortic dissection.
2. Pronounced scattered groundglass opacity, with mosaic attenuation pattern diffusely, progressed compared to yesterday CT. Differential diagnosis includes infectious pneumonitis and pulmonary edema.
echo: 06/04
CONCLUSIONS
1. Left ventricle: Normal size and function. The estimated ejection fraction
is 55-60%. No regional wall motion abnormalities
2. Right ventricle: Normal
3. Atria: Normal
4. Mitral valve: Trace mitral regurgitation
5. Aortic valve: Mild aortic stenosis with peak and mean gradients of 24 and
12 mmHg respectively. The estimated aortic valve area is 1.5 cm2 when using an
LVOT diameter of 2.0 cm. There is trace aortic regurgitation
6. Tricuspid valve: No tricuspid regurgitation
7. When compared to the most recent echocardiogram from 05/16/2024 there has
been no significant change
Physical Exam
General: Awake, Alert, Oriented, AOx3, No Distress and Nontoxic
HEENT: EOMI, Anicteric, Conjunctivae Clear and Neck Supple
Respiratory: Crackels
Cardiac: S1/S2 and Regular Rate/Rhythm
Breast: Deferred by me
Abdomen: Soft, Nontender and Nondistended
Musculoskeletal: No Cyanosis and Edema (1+)
Skin: Other (raised patchy rash in LEs, fading macular rash in upper torso)
Neuro: Nonfocal/Grossly Intact
Psych: Mood/afflect pleasant, Insight/judgement good and Appropriate
Data Reviewed
-
Radiology: Report Reviewed by me, Discussed with Nurse and Discussed with Patient
Labs: Labs Reviewed by me, Discussed with Nurse and Discussed with Patient
Assessment/Plan
-
IMP:
FUO -suspect vasculitis as the etiology, skin biopsy neg.
diffuse palpable purpura
Acute hypoxic respiratory failure
Severe multifocal pneumonia
KALEIGH
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
Dysphagia
Pancytopenia
Acute left upper extremity cephalic vein thrombosis
Tachycardia
Asthma, severe persistent asthma
Subacute/chronic left frontal lobe infarct
Leukocytosis
Chronic hyponatremia
Essential hypertension
Hyperlipidemia
Constipation
Plan:
Recurrent admits for , this time with FUO, persistent rash, and hypotension
KALEIGH-baseline cr 1, now at 2.4 possible ATN, 05/15 CT with out hydro
likely multifactorial contrast+hypotension
UA is bland, U acid crystals noted today -check U acid, neg serologies last admit
less likely has glomerular involvement, skin biopsy neg
mild proteinuria 500mg g/ of cr last admit-recheck now
follow bladder scan , remains non oliguric
will add sodium bicarb for met acidosis, L acid high 06/05
avoiding IVF with recent concern of vol overload and high BNP, normal echo
Hyponatremia-high ADH mediated and multifactorial, U osmo 323, U na 47
maintain FR 48 ounces/day , TSH and cortisol were ok on 05/30
BP soft on high dose of midodrine
steroids wean per pulm and await BM biopsy
abx per ID, check U eosinophils
avoid nephrotoxins
cont supportive care
d/w nursing
--- NOTE | 2024-06-07 10:25 | PTCARENOTE ---
Patient sent to MRI. Okfaisal to be unmonitored per .
[2024-06-07 10:31] LABS: Urine Albumin Trace (Neg - Trace); Urine Bilirubin Negative (Negative); Urine Character Very Cloudy (Clear); Urine Color Yellow; Urine Glucose Negative (Negative); Urine Ketone Negative (Negative); Urine Leukocyte 1+ (Negative); Urine Nitrite Negative (Negative); Urine Occult Blood Negative (Negative); Urine Specific Gravity 1.015 (<1.030); Urine Urobilinogen Negative (Neg - 1+)
[2024-06-07 11:03] LABS: Urine Squamous Cell 0-2 /LPF (Few)
[2024-06-07 11:04] LABS: Urine Red Blood Cell 0-2 /HPF (0-2); Urine Uric Acid Crystals Present; Urine White Cell 0-2 /HPF (0-5)
[2024-06-07 11:05] LABS: Urine Bacteria Moderate (Negative)
[2024-06-07] MEDS: DUONEB INH (11:21)
--- NOTE | 2024-06-07 11:30 | PTOTSP ---
Speech Language Pathology
VIDEOFLUOROSCOPIC SWALLOWING EXAMINATION (VSE) completed. Overall, pt with mild pharyngeal dysphagia with penetration with liquids, as deep as to the level of the vocal folds and significant pharyngeal residue. Pt is at risk for aspiration. Pt
reported some intermittent complaints of dysphagia at baseline, so suspect dysphagia is acute on chronic.
Recommend:
(1) IDDSI Level 6 (Soft/Bite-Sized) and Thin Liquids
(2) Aspiration precautions: sit upright, slow rate, single cup sips (no straws), intermittent throat clear/reswallow
(3) Meds whole in puree
(4) WAIT STAFF to continue to follow for dysphagia tx
--- NOTE | 2024-06-07 12:18 | PTCARENOTE ---
Patient returned from MRI. Tolerated well.
[2024-06-07 12:30] LABS: Glucose - Point of Care 196 mg/dl (70-99)
--- NOTE | 2024-06-07 14:53 | W.PN.ONC ---
Today's Communication / Plan
-
Diffuse dysplastic marrow no evidence of blasts suggestive of high-grade MDS
Check with dermatology to see if cryoglobulins were performed and previous consideration for vasculitis
Await final pathology on bone marrow including chromosomes and NGS testing
Consider hypomethylation agent and erythropoietin
Will follow
Impression
Impression
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
Acute aemia
Fluctuating thrombocytopenia, mild leukocytosis w/ neutrophilia/lymphopenia
Cough
Subjective/Objective
Subjective/Objective
Pt denies new complaints
Vital Signs:
Vital Signs
Temp Pulse Resp BP Pulse Ox
97.5 F 81 26 98/67 98
06/07/24 12:08 06/07/24 12:12 06/07/24 10:00 06/07/24 12:12 06/07/24 10:28
Exam unchanged
Diffuse patchy erythematous rash
Lab Results:
Laboratory Data
WBC 24.0 10^3/uL (4.8-10.8) H 06/07/24 04:49
Hgb 8.5 g/dL (13.0-18.0) L 06/07/24 04:49
Plt Count 200 10^3/uL (130-400) 06/07/24 04:49
PT 17.4 Sec (11.4-14.6) H 06/04/24 16:31
INR 1.44 06/04/24 16:31
APTT 41.5 Sec (23.4-35.0) H 06/04/24 16:31
eGFR 27.62 06/07/24 04:49
[2024-06-07] MEDS: SODIUM BICARBONATE 650 MG PO ×2 (15:27→21:43)
[2024-06-07 15:40] LABS: Uric Acid 9.7 mg/dl (3.5-8.5)
[2024-06-07 15:49] LABS: Urine Protein 24 mg/dl (0-12); Urine Sodium 11 mmol/L (30-90)
[2024-06-07 16:35] LABS: Body Fluid for Eosinophils No Eosinophils seen
--- NOTE | 2024-06-07 17:19 | CM ---
Remains on oxygen 4 liters POX 98%.
Continues on IV antibiosis.
Maintained on IV steroids.
PT OT evals = acute rehab /SNF.
Spoke with Arnold at [facility] she said she would check pt if appropriate.
PLAN [facility]
[2024-06-07 17:36] LABS: Glucose - Point of Care 188 mg/dl (70-99)
[2024-06-07] MEDS: LOVENOX 30 MG SC (18:10)
--- NOTE | 2024-06-07 18:38 | PTCARENOTE ---
Patient was able to sit in chair today for approx 3 hours. Patient also up and down from commode and onto stretcher for tests. Patient did c/o of lightheadedness with changing of movements but did well with assist x2. He was steady on his feet. Pt
c/o of constipation this morning and suppository ordered. Patient had 2 BM's on BSC. Pt also weaned O2 to 2L NC and pt tolerating well. Assessment, care and VS as charted. today.
[2024-06-07] MEDS: BENADRYL 25 MG PO (21:41)
[2024-06-07] MEDS: MELATONIN 10 MG PO (21:43)
[2024-06-07 22:57] LABS: Glucose - Point of Care 234 mg/dl (70-99)
[2024-06-08] VITALS (17 sets, daily range): BP systolic 84–128; BP diastolic 54–85; PULSE 71; O2SAT 98; BMI 25.7
[2024-06-08] MEDS: ZOSYN 50 IV ×4 (04:00→23:59)
[2024-06-08] MEDS: TYLENOL 1000 MG PO (04:00)
[2024-06-08 05:34] LABS: ALT (SGPT) 16 U/L (0-50); AST (SGOT) 19 U/L (17-59); Albumin 2.5 g/dl (3.5-5.0); Alkaline Phosphatase 85 U/L (38-126); Blood Urea Nitrogen 81 mg/dl (9-20); Calcium 8.1 mg/dl (8.4-10.2); Carbon Dioxide 16 mmol/L (22-30); Chloride 101 mmol/L (98-107); Glucose 158 mg/dl (70-99); Potassium 4.7 mmol/L (3.5-5.1); Sodium 134 mmol/L (135-145); Total Bilirubin 0.2 mg/dl (0.2-1.3); Total Protein 5.4 g/dl (6.3-8.2)
[2024-06-08 05:45] LABS: Estimated Creatinine Clearance 22 ml/min; eGFR 25.09
[2024-06-08 05:49] LABS: Hematocrit 22.4 % (39.0-52.0); Hemoglobin 7.8 g/dL (13.0-18.0); Mean Corp Hgb Conc. 34.8 g/dL (33.0-37.0); Mean Corpuscular Hgb 31.2 pg (27.0-31.0); Mean Corpuscular Volume 89.6 fL (80.0-94.0); Mean Platelet Volume 11.3 fL (7.4-10.4); Platelet Count 183 10^3/uL (130-400); Red Cell Dist. Width 15.1 % (11.5-14.5); White Blood Cell Count 18.1 10^3/uL (4.8-10.8)
--- NOTE | 2024-06-08 06:00 | PTCARENOTE ---
No acute changes overnight. Patient slept in short intervals. 2L in place. Tele showing NSR. Soft BPs. Condom cath in place; UO has increased compared to previous shifts. Tolerating Abx. Biopsy site dressings intact. Benadryl/ melatonin provided for
itchiness and sleep aid. Repositions self in bed. Pt appreciative of care. Call morales within reach. Pt calls appropriately.
[2024-06-08 07:11] LABS: % Basophils 0.2 % (0-2); % Eosinophils 0.1 % (0-6); % Immature Granulocytes 7.1 % (0-0.5); % Lymphocytes 13.4 % (20.5-51.1); % Monocytes 1.2 % (1.7-9.3); Absolute Immature Granulocytes 1.3 10^3/uL (0-0.05); Absolute Lymphocytes 2.4 10^3/uL (1.2-3.4); Absolute Monocytes 0.2 10^3/uL (0.1-0.6); Absolute Neutrophils 14.2 10^3/uL (1.4-6.5); Nucleated Red Blood Cells % 0.1 % (-)
[2024-06-08] MEDS: SYMBICORT 160/4.5 MCG INHALER 2 PUFF INH ×2 (07:15→20:58)
[2024-06-08] MEDS: DUONEB 3 ML INH ×3 (07:15→20:57)
--- NOTE | 2024-06-08 08:02 | PTCARENOTE ---
Pt hypotensive with SBP in the 80's. Pt asymptomatic. Dr. Bartholomew notified, no further orders received at this time.
--- NOTE | 2024-06-08 08:12 | W.PN.ID1 ---
Date of Service
Date of Service: June 08, 2024
Today's Communication
continue zosyn for now, stopped doxycycline
Assessment / Plan
New Pneumonitis less likely pneumonia
Shock - ongoing, unclear cause
Progressive KALEIGH
- unclear cause of shock - doesnt seem to be septic
- blood cultures negative , ua negative, covid ag negative x2 recently, viral panel neg, CXR improving, lines functional
- RHC being considered
- down to midflow NC at 2L - marked improvement
- CXR with improving infiltrates
- agree with steroids, management per pulmonary, started 06/04
- leukocytosis on steroids
- blood cultures x2 finalized neg
- MRSA screen negative
- c/w zosyn day 3, stopped doxycycline
Vasculitis - biopsy results consistent per dermatology
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
- steroids started 06/04, being tapered, management per pulmonary
- has had 3+ days of steroids - switched scheduled tylenol to PRN
- note that [facility] has declined the transfer
- follow clinically
Also:
Subacute small stroke
anemia
Chief Complaint
-: Fever and Other (FUO)
Subjective / Review of Systems
remains afebrile
borderline hypotension ongoing
down to 2L NC
constipated - had two BMs post suppositories
Vital Signs / Physical Exam
Vital Signs
Vital Signs
Temp Pulse Resp BP Pulse Ox
97.5 F 79 23 84/54 96
06/08/24 07:42 06/08/24 08:00 06/08/24 08:00 06/08/24 08:00 06/08/24 08:00
Physical Exam
Constitutional: Non-toxic
Cardiovascular: Regular Rate
Pulmonary: Symmetric
Objective Data
Lab Data
Lab Results
06/08/24 04:31
06/08/24 04:31
ESR 23 mm/hour (0-20) H 06/05/24 03:58
PT 17.4 Sec (11.4-14.6) H 06/04/24 16:31
INR 1.44 06/04/24 16:31
APTT 41.5 Sec (23.4-35.0) H 06/04/24 16:31
Estimated Creat Clear 22 ml/min 06/08/24 04:31
Lactic Acid Cancelled 06/05/24 21:00
Total Bilirubin 0.2 mg/dl (0.2-1.3) 06/08/24 04:31
AST 19 U/L (17-59) 06/08/24 04:31
ALT 16 U/L (0-50) 06/08/24 04:31
Alkaline Phosphatase 85 U/L (38-126) 06/08/24 04:31
C-Reactive Protein 261.00 mg/L (0.0-10.00) H 06/03/24 04:11
Most recent labs reviewed.
Micro Results:
06/02/24 12:13 Blood Culture - Final
Blood/Venous No Growth - Final Report
06/05/24 08:52 Respiratory Culture - Final
Sputum Usual Respiratory Yudelka
Gram Stain - Final
06/01/24 14:35 Blood Culture - Final
Blood/Venous No Growth - Final Report
06/06/24 09:59 Nasal Screen MRSA (PCR) - Final
Nose MRSA not detected - performed by PCR methodology.
06/03/24 17:47 Salmonella/Shigella Culture - Final
Feces/Stool No Salmonella, Shigella, Aeromonas or Plesiomonas species
isolated.
Campylobacter Culture - Final
No Campylobacter species isolated.
Shiga Toxin Test - Final
No E. coli Shiga Toxin 1 or 2 detected.
06/05/24 09:52 Influenza Type A (PCR) - Final
Nasalpharynx Not Detected
Influenza Type A (H1) (PCR) - Final
Not Detected
Influenza Type A (H3) (PCR) - Final
Not Detected
Influenza Type B (PCR) - Final
Not Detected
Resp Syncytial Virus Type A (PCR) - Final
Not Detected
Resp Syncytial Virus Type B (PCR) - Final
Not Detected
Adenovirus DNA (PCR) - Final
Not Detected
Human Metapneumovirus (PCR) - Final
Not Detected
Parainfluenza Virus Type 1 (PCR) - Final
Not Detected
Parainfluenza Virus Type 2 (PCR) - Final
Not Detected
Parainfluenza Virus Type 3 (PCR) - Final
Not Detected
Parainfluenza Virus Type 4 - Final
Not Detected
Rhinovirus (PCR) - Final
Not Detected
06/03/24 17:47 Cryptosporidium/Giardia - Final
Feces/Stool Negative for Cryptosporidium and/or Giardia Lamblia
antigens.
[2024-06-08 08:18] LABS: Glucose - Point of Care 179 mg/dl (70-99)
--- NOTE | 2024-06-08 08:41 | W.PN.HOSP.TC ---
Today's Communication/Plan
-
Cardiology consult for consideration of RHC
Assessment / Plan
Assessment / Plan
Physical exam:
General: Acutely ill. Somewhat toxic appearance.
HEENT: Normocephalic, Atraumatic and Moist Mucous Membranes
Respiratory: Rales bilateral bases
Cardiac: Regular Rhythm and S1/S2, tachycardic
GI: Soft, Nontender and Nondistended
Musculoskeletal: No Clubbing, No Cyanosis and No Edema
Neuro: Awake, Alert and Oriented, no gross neurological deficit
Skin: Maculopapular rash on trunk and both lower extremities
Psych: Anxious, normal judgment and insight
FUO -suspect vasculitis as the etiology. Skin exam is notable for diffuse palpable purpura, now fading. Awaiting skin biopsy results. Getting empiric steroids under the direction of pulmonary. Dose reduced.
Status post bone marrow biopsy 06/04 -awaiting for results
Discussed with rheumatology, hematology -oncology, dermatology, ID, pulmonary.
Holding lisinopril amlodipine in case drug-induced lupus
Plan for flow cytometry
Bronchoscopy if needed down the road
Blood cultures x 2 no growth so far. Viral respiratory panel negative. Stool studies negative. COVID-negative x 2.
Gold QuantiFERON negative.
Elevated inflammatory marker-CRP >270 and 261, ferritin elevated at 938. ANCA negative.
Albumin low at 2.6
RE level low, less than 10
LDH normal at 245
Repeated echo no acute abnormalities
Dr. Brunson called [facility] for possible transfer -->[facility] (Dr Maher)--> they do not recommend inpatient transfer and they feel they would do the same workup that we are doing in our hospital.
Acute hypoxic respiratory failure -etiology suspected to be pneumonia versus pneumonitis. Significant improvement in respiratory failure likely due to steroids. Oxygenation improved, now on room air. Last chest x-ray was 06/04 showing moderate
diffuse pulmonary interstitial edema, cannot rule out superimposed pneumonitis.
Started on steroids, diuretics, bronchodilators, morphine, and anxiolytics. Encouraged use of Acapella, incentive spirometer.
Severe multifocal pneumonia -chest x-ray done today 06/07 shows improving infiltrates. Oxygen requirements improving. Currently on empiric Zosyn, doxycycline under the direction of ID.
KALEIGH -suspect multifactorial etiology including contrast exposure, persistent hypotension, etc. nephrology consulted. Urinalysis is bland. Currently has a condom catheter. Recheck bladder scan, discussed with nurse.
Creatinine was 1.0 on 06/04, 2.6 today.
Very difficult to assess true volume status given persistent hypotension and KALEIGH. I have a suspicion he is on the dry side. A right heart catheterization would be very helpful. Will consult cardiology. Discussed with pulmonary and nephrology.
Discussed with patient.
Dysphagia - recent onset. Speech therapy recommends soft and bite sized foods, thin liquids.
Pancytopenia -pancytopenia resolved. Platelet count normal, leukocytosis trending down.
Hematology-oncology on board
Status post blood transfusion 06/04
Hemoglobin 7.8 today
Continue to monitor hemoglobin
Bone marrow biopsy completed 06/04, report pending
Acute left upper extremity cephalic vein thrombosis -on low-dose Lovenox.
Tachycardia -resolved.
Asthma, severe persistent asthma:
On Breztri as outpatient
Continue Spiriva
Continue Symbicort
Cont Vest Acapella and nebs as needed
Subacute/chronic left frontal lobe infarct -incidental finding on brain MRI. MRA head and neck showed no focal hemodynamically significant stenosis, aneurysm or occlusion. Numerous lytic foci of signal loss most pronounced along the bilateral
temporal occipital lobes which may be sequelae of cerebral amyloid angiopathy.
Leukocytosis:
Likely reactive due to steroids, now trending down.
Chronic hyponatremia -suspect due to subacute to chronic illness, SIADH as well. Sodium improving, 134. 50 ounce fluid restriction. Urine osmolality 323, urine sodium 47.
Essential hypertension -currently hypotensive. Antihypertensives on hold. Unclear etiology for hypotension.
Hyperlipidemia:
On rosuvastatin 20 mg p.o. daily
Constipation -will increase bowel regimen.
Elevated BNP:
Normal echocardiogram on 05/16/2024
Monitor volume status closely
Off IV fluid
Diuretics as needed
Recent episode of purpuric rash/KALEIGH/thrombocytopenia/elevated inflammatory markers -patient believes rash started after he was treated for pneumonia at urgent care center on April 19 with Augmentin and azithromycin.
Data from prior hospitalization:
Serology testing showed negative AMMY, anti--ds DNA, beta-2-GPI IgG/IgM, antiplatelet antibody, anticardiolipin IgG/IgA, normal complement C3 level, COVID.
Elevated complement C4, anticardiolipin IgM
Direct immunofluorescent testing of skin biopsy did not show deposition of immunoglobulin to suggest antibody-mediated vasculitis, no features to suggest autoimmune bullous disease. Repeated biopsy.
Initially thought to be IgA vasculitis/parasite related however testing is negative
Check repeat blood cultures
Skin biopsy unremarkable
C3 and C4 normal at this time, C4 previously elevated
Repeat HI-3 and myeloperoxidase pending
Hepatitis B serologies negative, hepatitis C pending
Parasite testing negative
Anticardiolipin IgM antibody elevated on 04/28
Nwmf-geucqj-pdghashf DNA, scleroderma, anti-Toro, beta-2, AMMY all unremarkable from 04/28
Echo showing EF of 62% without vegetation
PT/OT
Full code
Anticipated Discharge: > 48 hours
Subjective/Interval History
-
Date of Service: June 08, 2024
Patient seen and examined. Denies shortness of breath.
Objective Data
-
Labs:
Laboratory Results
06/08/24
04:31
WBC 18.1 H
Hgb 7.8 L
Hct 22.4 L
Plt Count 183
Sodium 134 L
Potassium 4.7
Chloride 101
Carbon Dioxide 16 L
BUN 81 H
Creatinine 2.6 H
Glucose 158 H
Calcium 8.1 L
Total Bilirubin 0.2
AST 19
ALT 16
Alkaline Phosphatase 85
Vital Signs:
Vital Signs
Temp Pulse Resp BP Pulse Ox
97.5 F 79 23 84/54 96
06/08/24 07:42 06/08/24 08:00 06/08/24 08:00 06/08/24 08:00 06/08/24 08:00
I&O
06/07/24 06/08/24 06/09/24
06:59 06:59 06:59
Intake Total 1400 / 1400 1100 / 1100
Output Total 455 / 455 1025 / 1025
Balance 945 / 945 75 / 75
Review of Systems
-
History Source: Patient
All other systems: Reviewed and negative
[2024-06-08] MEDS: MIRALAX 17 GRAMS PO (08:57)
[2024-06-08] MEDS: METAMUCIL, KONSYL 1 PACKET PO ×2 (08:57→20:11)
[2024-06-08] MEDS: SOLU-MEDROL PF 40 MG IV ×2 (08:57→20:14)
[2024-06-08] MEDS: ProAmatine 10 MG PO ×3 (08:58→17:44)
[2024-06-08] MEDS: VIBRAMYCIN 100 MG PO (08:58)
[2024-06-08] MEDS: VITAMIN D3 (cholecalciferol) 50 MCG PO (08:58)
[2024-06-08] MEDS: PROTONIX 40 MG PO (08:58)
[2024-06-08] MEDS: CRESTOR 20 MG PO (08:58)
[2024-06-08] MEDS: RESTASIS 0.05% OPHTHALMIC EMULSION 1 DROPS BOTH EYES ×2 (08:59→20:12)
[2024-06-08] MEDS: SODIUM BICARBONATE 650 MG PO ×3 (08:59→21:33)
[2024-06-08] MEDS: NOVOLOG FLEXPEN-LOW RESISTANCE 1 UNITS SC (08:59)
--- NOTE | 2024-06-08 09:53 | W.PN.PUL.V3 ---
Today's Communication / Plan
-
Monitor renal function
Determine intravascular volume status-potential right heart catheterization
No change in steroids-begin to slowly reduce-pulmonary infiltrates improved with steroids, oxygenation requirements improved significantly on steroids
Physical therapy
Assessment
-
Patient is a 74-year-old male with previous history of severe asthma, hypertension hyperlipidemia was sent in by Dr Davies today for hypotension (90/60) with persistent rash and fevers. He was recently admitted for similar and discharged 05/17/2024
following negative workup. He has associated generalized weakness, lightheadedness. Had CT chest obtained demonstrating severe bilateral multifocal pneumonia which is new compared to prior. He is placed on empiric antibiotics. We are consulted
for eval.
Severe multifocal PNA
CRP elevated-greater than 260-inflammatory process suspected, (ESR 96-aopmny-tiaznmmv after 1 day of steroids)
Interstitial lung disease-steroid responsive
Vasculitis suspected on skin biopsy-final stains pending
Possible myelodysplasia bone marrow biopsy-final stains pending
FUO-suspect related to vasculitis
Rash
Hypotension
Acute on chronic anemia, hemoglobin 7 prior 9
Hyponatremia, mild
Conditions present prior to admission:
Recent RML pneumonia (seen initially on CXR from 04/19/2024)
Hospitalization-discharged dosed on 04/30/2024-thrombocytopenia/anemia/purpuric rash, biopsy performed and placed on prednisone with rheumatology follow-up
Hypertension
Hyperlipidemia
Severe persistent asthma on Breztri + Nucala
Follows with Dr Davies
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
Proteinuria
Occasional alcohol use
Plan
Respiratory status significantly declined 06/04/2024 and now continually improving-treated with diuretics, steroids, nebulizers and morphine-not significantly diuresed over the last 4 days and suspect most improvement from steroids and not diuresis
Continue supplemental oxygen-currently on high flow-reviewed with DIRECTOR AMBULATORY-continue to reduce-now on 4 L - 98% saturation
DuoNebs continues-monitor for atrial fibrillation rate
Mucolytic's
Mucus clearing devices
Encouraged incentive spirometry and Acapella
Symbicort and Spiriva continue
Solu-Medrol- 40 mg IV every 12 hours-slow reduction
Prior history of lung disease is noted including severe persistent asthma, chronic cough x 2 months
Patient is on Breztri as an outpatient
Chest x-ray 06/04/2024-findings suggest diffuse pulmonary interstitial edema progressed cannot rule out superimposed pneumonitis
Chest x-ray 06/07/2024-decreased bilateral airspace opacification
Patient had complained of left-sided pleuritic pain
CT chest 06/04/2024-no pulmonary embolism, pronounced scattered groundglass opacifications progressed
Left upper extremity ultrasound 06/04/2024-left cephalic vein thrombus formation
DVT prophylaxis recommended
Cultures reviewed
Infectious disease following-correspondence reviewed
Continue empiric antibiotics-ceftriaxone and doxycycline continue-changed to Zosyn and doxycycline and micafungin
Follow radiographically
Follow leukocytosis-still increasing-may have steroid effect-currently trending down-18,000 on 06/08/2024
Monitor hypotension-etiology unclear-(patient hypertensive as outpatient)-not adrenal insufficiency and no obvious sepsis
Elevated CRP
ESR 23-after 1 day of steroids
Not classic features of Pkpan-Proisok-qix called eosinophilic granulomatosis with polyangiitis (no significant peripheral eosinophilia)-or allergic bronchopulmonary aspergillosis
Rheumatology consultation
Dermatology following as an outpatient-Dr. Obrien-skin biopsy reviewed at [facility]-suspected vasculitis-additional stains pending
Solu-Medrol initiated
Brain MRI 06/07/2024-numerous areas of loss of signal most pronounced along bilateral temporal occipital lobes which may be sequelae of cerebral amyloid angiopathy
Prior ECHO results are reviewed indicating normal function
proBNP in past have been negative, repeat on this admission now 2810
Hold on diuresis until intravascular volume status known
Monitor renal function, electrolytes, intake/output, lower extremity edema and weight
Replace electrolytes as needed
Renal function worsening
Nephrology evaluation-correspondence reviewed
Consider right heart catheterization-clinically feel patient is euvolemic/potentially hypovolemic
Reviewed with primary team-they will consult cardiology
Follow hemoglobin
Transfuse as needed
GI evaluation ongoing
Bone marrow biopsies 06/04/2024-possible myelodysplastic syndrome
Oncology following-correspondence reviewed-diffuse dysplastic marrow no evidence of blasts suggestive of high-grade myelodysplasia, final pathology including chromosomes and NGS testing is pending
Neurology evaluation for dizziness ongoing
Brain MRI 06/03/2024-tiny subacute on chronic left frontal lobe infarct, findings suggesting chronic amyloid angiopathy and possible sequelae of chronic subarachnoid hemorrhage-superficial siderosis overall progressed
DVT prophylaxis recommended
GI prophylaxis-on pantoprazole
Will need outpatient pulmonary evaluation in our office for PFTs and 6MWT
Diagnostic Data
Chest x-ray 10/26/2022-NAD
Chest x-ray 04/19/24-mild right middle lobe pneumonia
Chest x-ray 04/24/2024-improvement in right lower lung field suggesting improvement in pneumonia or atelectasis
Chest x-ray 05/13/2024-no pneumonia, mild basilar atelectasis, mild elevation right hemidiaphragm
Brain MRI 02/10/2022-numerous parenchymal foci in bilateral occipital lobes right greater than left can be seen with cerebral amyloid angiopathy
CT Chest 06/03/24- Severe extensive diffuse bilateral tree-in-bud/groundglass density throughout all lobes with a peripheral predominance, new from prior. Bilateral lower lobe dependent subsegmental atelectasis, progressed from prior. Right lower
lobe scarring redemonstrated. No discrete solid pulmonary nodules, pleural effusions, pericardial effusions or pathologically enlarged noncalcified lymph nodes in the thorax. No pneumothorax. Impression: Severe bilateral multifocal pneumonia, new
from prior CT 05/15/2024.
Echocardiogram 01/19/2021-EF 60-65%, no significant valvular disease
ECHO 05/16/24- 1. Normal left ventricular size and systolic function without regional wall motion abnormalities. Mild concentric left ventricular hypertrophy. Estimated left ventricular ejection fraction is 62% by Hernandez's method. Normal
diastolic function.
2. Normal right ventricular size and systolic function.
3. Thickened mitral valve leaflets with mitral annular calcification. Mitral sclerosis without con stenosis. Trace mitral regurgitation.
4. Thickened, calcified trileaflet aortic valve with mild aortic stenosis. Peak and mean transaortic gradients of 31 and 15 mmHg. Mild aortic regurgitation.
5. No significant pericardial effusion.
Nuclear stress test 01/22/2021-EF 65%, low risk study
Skin biopsy 04/30/2024-send out no deposition of immunoglobulins within the dermal blood vessels to suggest an antibody mediated vasculitis and no deposition of fibrinogen around vessels to suggest active vascular injury, no features of an autoimmune
bullous disease including pemphigus, pemphigoid, linear IgA disease or dermatitis herpetiformis
.
Subjective Data
-
Date of Service:
Date of Service: June 08, 2024
Chief Complaint: Pulmonary Follow Up and Dyspnea Follow Up
Subjective:
Feels better, oxygen weaned to room air, no chest pain or abdominal pain, rash without change
Review of Systems
General: Other (Per HPI)
Objective Data
Data Reviewed
Vital Signs / I&O:
Vital Signs
Temp Pulse Resp BP Pulse Ox
97.5 F 79 23 84/54 96
06/08/24 07:42 06/08/24 08:00 06/08/24 08:00 06/08/24 08:00 06/08/24 09:19
Intake and Output
06/07/24 06/08/24 06/09/24
06:59 06:59 06:59
Intake Total 1400 / 1400 1100 / 1100
Output Total 455 / 455 1025 / 1025
Balance 945 / 945 75 / 75
SaO2: 96
Nasal Cannula flow liters per minute: 2
Physical Exam
General: Respiratory Distress (n) and Comfortable
HEENT: Normocephalic, Anicteric and Moist Mucous Membranes
Cardiovascular: Regular Rhythm
Respiratory: Wheeze (n), Crackles (Few basilar), Rhonchi (n), Non-Labored Respirations, Accessory Resp Muscle Use (n) and Stridor (n)
GI: Soft, Non Distended and Non Tender
Neurology: Awake, Alert and No Motor Deficits
Skin: Warm, Good Color, Cyanosis (n), Jaundice (n) and Rash (n)
Labs/Micro/Reports
Lab Data
06/08/24 04:31
06/08/24 04:31
Microbiology
06/02/24 12:13 Blood/Venous Blood Culture - Final
No Growth - Final Report
06/05/24 08:52 Sputum Respiratory Culture - Final
Usual Respiratory Yudelka
06/05/24 08:52 Sputum Gram Stain - Final
06/01/24 14:35 Blood/Venous Blood Culture - Final
No Growth - Final Report
06/06/24 09:59 Nose Nasal Screen MRSA (PCR) - Final
MRSA not detected - performed by PCR methodology.
06/03/24 17:47 Feces/Stool Salmonella/Shigella Culture - Final
No Salmonella, Shigella, Aeromonas or Plesiomonas species
isolated.
06/03/24 17:47 Feces/Stool Campylobacter Culture - Final
No Campylobacter species isolated.
06/03/24 17:47 Feces/Stool Shiga Toxin Test - Final
No E. coli Shiga Toxin 1 or 2 detected.
06/05/24 09:52 Nasalpharynx Influenza Type A (PCR) - Final
Not Detected
06/05/24 09:52 Nasalpharynx Influenza Type A (H1) (PCR) - Final
Not Detected
06/05/24 09:52 Nasalpharynx Influenza Type A (H3) (PCR) - Final
Not Detected
06/05/24 09:52 Nasalpharynx Influenza Type B (PCR) - Final
Not Detected
06/05/24 09:52 Nasalpharynx Resp Syncytial Virus Type A (PCR) - Final
Not Detected
06/05/24 09:52 Nasalpharynx Resp Syncytial Virus Type B (PCR) - Final
Not Detected
06/05/24 09:52 Nasalpharynx Adenovirus DNA (PCR) - Final
Not Detected
06/05/24 09:52 Nasalpharynx Human Metapneumovirus (PCR) - Final
Not Detected
06/05/24 09:52 Nasalpharynx Parainfluenza Virus Type 1 (PCR) - Final
Not Detected
06/05/24 09:52 Nasalpharynx Parainfluenza Virus Type 2 (PCR) - Final
Not Detected
06/05/24 09:52 Nasalpharynx Parainfluenza Virus Type 3 (PCR) - Final
Not Detected
06/05/24 09:52 Nasalpharynx Parainfluenza Virus Type 4 - Final
Not Detected
06/05/24 09:52 Nasalpharynx Rhinovirus (PCR) - Final
Not Detected
--- NOTE | 2024-06-08 10:26 | CON.CAR ---
Addendum entered and electronically signed by Rodolfo Oneal MD 06/08/24 11:30:
I saw and examined the patient.
The TEACHING AIDE or PA's note was reviewed and I agree with the note.
Comment: General: Well developed, well nourished in NAD.
Neck: Supple, no JVD, HJR, carotids +2 B/L, no bruits bilaterally.
Heart: Non displaced PMI, RRR, 2/6 basal systolic murmur, No S3, S4, no rubs.
Lungs: Scattered rhonchi at the bases
Abdomen: Normal bowel sounds, soft, non-tender, non-distended.
Extremities: No clubbing, cyanosis or edema bilaterally.
Neuro: Grossly nonfocal, awake, alert and oriented x3.
Murali has a history of asthma, hypertension, hyperlipidemia. He is initially developed a cough. He was given prednisone by allergy. He then was started on antibiotics for pneumonia and developed a rash resulting in admission in April 2024. His
rash was felt to be secondary to vasculitis but biopsy was negative. He was readmitted in April 2024 with rash, fever/chills and renal insufficiency and received IV fluids. He also had pancytopenia which improved. He was seen in the ER in May
2023 with weakness and hypotension and was discharged. He was seen by pulmonary due to continued fevers and was admitted. He underwent bone marrow biopsy with evidence of high-grade myelodysplasia. He required transfusion and found to have a
cephalic vein clot as well as incidental subacute CVA on brain MRI. He subsequently developed hypotension requiring midodrine. He then received Lasix and steroids for respiratory failure which has improved. He has developed worsening renal
insufficiency and cardiology is consulted for right heart catheterization. He denies any chest pain or short of breath at present and remains on room air.
Discussed with patient as well as primary service in detail. Will arrange for right heart catheterization later today. Explained risk and benefits of right heart cath in detail and he agrees to proceed.
Original Note:
Consultation
Consultation Request
Date/Time Consultation Performed: 06/08/24
Requesting Provider: Dr. Bartholomew
Performing Provider: Vivian Maravilla PA-C for Dr. Oneal
Reason for Consultation: eval for RHC
Medical History
-
Chief Complaint: fever, hypotension
History of Present Illness:
Patient is a 74-year-old male with past medical history of asthma, hypertension, hyperlipidemia who has had complicated medical course since late March 2024. He had initially developed a cough with dry heaving. He was seen by allergy and prescribed
a course of prednisone. He was then evaluated at urgent care on April 19 and had chest x-ray which was read as pneumonia and given course of antibiotics. He then developed a rash of bilateral upper and lower extremity resulting in admission 04/24 -
05/01. His rash was felt to be secondary to vasculitis however did have skin biopsy which was negative. He then had repeat hospitalization 05/13-05/17 for rash, fever/chills, body aching and KALEIGH. He received IV fluid. He had pancytopenia evaluated
by hematology and improved. He was evaluated in the ER 05/30 due to weakness lightheadedness and hypotension and was discharged. He was then seen by training project manager 06/01 and due to continued fevers, rash, cough, and hypotension was again sent to the
emergency room. Vasculitis appears to be suspected as etiology of some symptoms. He underwent bone marrow biopsy 06/04 with evidence of high-grade MDS. He did require transfusion on 06/04 for persistent anemia. He has cephalic vein clot as well as
incidental subacute CVA on brain MRI. He has been requiring midodrine for hypotension. He did receive Lasix on 819 due to acute respiratory failure. He had CT of the chest which was negative for PE, but with evidence of B/L pneumonia vs pulm
edema. His creatinine has slowly been climbing since his admission from 1-2.6 today. Cardiology consulted to evaluate patient for right heart cath.
PMH:
Asthma
Hypertension
Hyperlipidemia
Past Medical History
Past Medical History: Other (in HPI)
Social History
Tobacco: Former Smoker
Alcohol: Occasional
Living: Alone
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
Family History
Family History: Reviewed & Not Pertinent
Allergies / Home Medications
Allergy/AdvReac Type Severity Reaction Status Date / Time
azithromycin [From Zithromax] Allergy Shortness Verified 05/13/24 10:52
of Breath
pollen extracts Allergy Asthma Verified 06/06/24 14:56
exacerbation
�Medication �Instructions �Recorded �Confirmed �Type
Allergy Shots 1 dose INJ TH Allergies 07/03/20 06/01/24 History
albuterol sulfate 90 mcg/actuation 2 puff inhalation R Q4HPRN PRN sob 07/03/20 06/01/24 History
aerosol inhaler (Proventil HFA)
cyclosporine 0.05 % eye drops in a 1 drp BOTH EYES BID dry eye 07/03/20 06/01/24 History
dropperette (Restasis)
diphenhydramine HCl 50 mg capsule 50 mg PO HSPRN PRN sleep 07/03/20 06/01/24 History
(Banophen)
psyllium husk (aspartame) 3.4 gram 1 packet PO BID Constipation 07/03/20 06/01/24 History
oral powder packet (Metamucil
Fiber Singles)
rosuvastatin 20 mg tablet 20 mg PO DAILY High Cholesterol 07/03/20 06/01/24 History
amlodipine 2.5 mg tablet 2.5 mg PO HS Blood Pressure 04/24/24 06/01/24 History
budesonide 160 mcg-glycopyr 9 2 inh inhalation R BID 04/24/24 06/01/24 History
mcg-formot 4.8 mcg/actuation HFA Lung/Breathing Issues
inhaler (Breztri Aerosphere)
cholecalciferol (vitamin D3) 50 50 mcg PO DAILY Supplement 04/24/24 06/01/24 History
mcg (2,000 unit) tablet
lisinopril 20 mg tablet 20 mg PO BID Blood Pressure 04/24/24 06/01/24 History
melatonin 10 mg tablet 10 mg PO HSPRN PRN sleep 04/24/24 06/01/24 History
mepolizumab 100 mg/mL subcutaneous 300 mg SC Q4W asthma 04/24/24 06/01/24 History
syringe (Nucala)
benzonatate 200 mg capsule 200 mg PO TIDPRN PRN cough 05/30/24 06/01/24 History
acetaminophen 650 mg 650 mg PO Q8H Fever/Pain 06/01/24 06/01/24 History
tablet,extended release (Tylenol 8
Hour)
Review of Systems
-
History Source: Patient
All other systems: Negative unless noted
Physical Exam
Vital Signs
Temp Pulse Resp BP Pulse Ox
97.5 F 79 23 84/54 96
06/08/24 07:42 06/08/24 08:00 06/08/24 08:00 06/08/24 08:00 06/08/24 09:53
Lab Results
06/08/24 04:31
06/08/24 04:31
Troponin I < 0.012 ng/ml 06/04/24 16:31
Nmq-B-Fovxoesrkrp Pept 2890 pg/ml 06/06/24 05:23
Physical Exam
General: No Apparent Distress and Comfortable
HEENT: Normocephalic, Anicteric and Moist Mucous Membranes
Respiratory: Other (coarse BS B/L)
Cardiac: S1/S2 and Regular Rhythm
GI: Soft, Non Tender, Non Distended and Normal Bowel Sounds
Musculoskeletal: No Clubbing, No Cyanosis and Edema (trace of B/L LE)
Skin: Warm, Dry and Rash
Neuro: AO x 3
Impression / Plan
-
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 JAJA Toro 2020
Assessment:
Fever of unknown origin, vasculitis suspected
Diffuse rash
Hypotension
Acute hypoxic respiratory failure
Severe multifocal pneumonia
KALEIGH
Pancytopenia status post bone marrow biopsy 06/04 with evidence of high-grade MDS
Acute left upper extremity cephalic vein thrombosis
Subacute/chronic tiny left frontal lobe infarct by brain MRI
Asthma
Hypertension
Hyperlipidemia
Hyponatremia
ECHO 06/04/24: EF 55 to 60%, trace MR, mild with peak/mean gradients 20/12 mmHg, trace AR, no TR
Plan:
-Patient with several recent hospitalizations for fevers, persistent rash, hypotension. Although prior skin testing negative, vasculitis has been suspected
-He also underwent bone marrow biopsy for pancytopenia earlier this admission with evidence of high-grade MDS
-Since admission creatinine has been uptrending, 2.6 on 06/08 and with persistent hypotension, symptomatic (c/o some lightheadedness). Chest CT on 06/04/2024 with evidence of pneumonitis versus pulmonary edema bilaterally. He did receive IV lasix
06/04. proBNP on 06/06/2024 2890. CXR 06/07 read as improving pulm edema. Cardiology consulted to evaluate for right heart cath
-Will plan for procedure later today
-remains on midodrine 10mg TID
-Echocardiogram with results as above, EF preserved, mild valvular disease
-further recs based on results of RHC
-d/w nursing
Data Reviewed
-
EKG: Tracing Personally Visualized and interpreted
Radiology: Report Reviewed by me
CT Scan: Report Reviewed by me
MRI: Report Reviewed by me
Medical Tests (Nuc Med, Echo etc): Report Reviewed by me
Labs: Labs Reviewed by me
Old Records: Reviewed
[2024-06-08 12:30] LABS: Glucose - Point of Care 257 mg/dl (70-99)
[2024-06-08] MEDS: NOVOLOG FLEXPEN-LOW RESISTANCE 3 UNITS SC (12:51)
--- NOTE | 2024-06-08 14:41 | PTCARENOTE ---
Addendum entered by Eliana Nice 06/08/24 15:54:
Pt returned from [facility]. R [facility] site C/D/I. Site checks per protocol- see intervention.
Original Note:
Pt to [facility] via bed with [facility] RN's.
[2024-06-08] MEDS: DUONEB INH (15:09)
--- NOTE | 2024-06-08 15:21 | ITS.CL.CATH ---
Production Line Mechanic - Catheterization
Cardiac Catheterization
Procedure Report:
RIGHT HEART CATHETERIZATION
Date of Procedure: June 08, 2024
Referring: Dr. Rodolfo Oneal
INDICATION: Shortness of breath
Hemodynamics (mmHg):
RA (m) : 4
RV (s/d,m) : 32/1, 8
PA (s/d, m) : 32/12, 21
PCWP (m) : 14
Ao cuff: 113/66, 85
Cardiac Output : 5.9 L/min and Cardiac Index : 3.2 L/min/m-2
Systemic vascular resistance: 13.7 Wood units or 1098 [id number](-5)
Pulmonary vascular resistance: 1.2 Wood units or 95 [id number](-5)
RADIATION SUMMARY: Fluoro Time (min): 1.2, Dose (mGy): 2.2, DAP (Gy.cm2) : 0.5
CONCLUSION:
1. Compensated right and left ventricular filling pressures
--- NOTE | 2024-06-08 16:24 | W.PN.NEPH.PH ---
Today's Communication / Plan
-
- await RHC
Assessment/Plan
-
IMP:
FUO -suspect vasculitis as the etiology, skin biopsy neg.
diffuse palpable purpura
Acute hypoxic respiratory failure
Severe multifocal pneumonia
KALEIGH
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
Dysphagia
Pancytopenia
Acute left upper extremity cephalic vein thrombosis
Tachycardia
Asthma, severe persistent asthma
Subacute/chronic left frontal lobe infarct
Leukocytosis
Chronic hyponatremia
Essential hypertension
Hyperlipidemia
Constipation
Plan:
Recurrent admits, this time with FUO, persistent rash, and hypotension
KALEIGH-baseline cr 1, now at 2.6, possible ATN, 05/15 CT with out hydro
likely multifactorial contrast+hypotension
UA is bland, U acid crystals noted today -check U acid, neg serologies last admit
less likely has glomerular involvement, skin biopsy neg
mild proteinuria 500mg g/ of cr last admit-recheck now at 0.3
follow bladder scan , remains non oliguric
will add sodium bicarb for met acidosis, L acid high 06/05, check repeat now.
avoiding IVF with recent concern of vol overload and high BNP, normal echo. hard to discern volume status agree with RHC
Hyponatremia-high ADH mediated and multifactorial, U osmo 323, U na 47. improved to 134 today
maintain FR 48 ounces/day , TSH and cortisol were ok on 05/30
BP soft on high dose of midodrine
steroids wean per pulm and await BM biopsy
abx per ID, urine eosinophils negative and no peripheral eosinophilia seen
avoid nephrotoxins
cont supportive care
d/w patient
-
-
Date of Service: June 08, 2024
CC / HPI / ROS
-
Chief Complaint:
KALEIGH
History of Present Illness:
Cr elevated to 2.6, baseline 1
UOP excellent at 1450
Review of Systems:
oxygentation improved, no on RA
Labs
-
Labs:
WBC 18.1 10^3/uL (4.8-10.8) H 06/08/24 04:31
RBC 2.50 10^6/uL (4.70-6.10) L 06/08/24 04:31
Hgb 7.8 g/dL (13.0-18.0) L 06/08/24 04:31
Hct 22.4 % (39.0-52.0) L 06/08/24 04:31
Plt Count 183 10^3/uL (130-400) 06/08/24 04:31
Sodium 134 mmol/L (135-145) L 06/08/24 04:31
Potassium 4.7 mmol/L (3.5-5.1) 06/08/24 04:31
Chloride 101 mmol/L (98-107) 06/08/24 04:31
Carbon Dioxide 16 mmol/L (22-30) L 06/08/24 04:31
BUN 81 mg/dl (9-20) H 06/08/24 04:31
Creatinine 2.6 mg/dL (0.7-1.3) H 06/08/24 04:31
eGFR 25.09 06/08/24 04:31
Glucose 158 mg/dl (70-99) H 06/08/24 04:31
Calcium 8.1 mg/dl (8.4-10.2) L 06/08/24 04:31
Phosphorus 6.3 mg/dl (2.5-4.5) H 06/05/24 03:58
Nzu-M-Lozrisecvya Pept 2890 pg/ml 06/06/24 05:23
Albumin 2.5 g/dl (3.5-5.0) L 06/08/24 04:31
Physical Exam
-
Vital Signs:
Vital Signs
Temp Pulse Resp BP Pulse Ox
97.4 F 71 23 103/66 99
06/08/24 11:27 06/08/24 15:39 06/08/24 14:00 06/08/24 14:00 06/08/24 14:00
Cardiovascular:: Regular rate and rhythm
Respiratory:: Bilateral: Coarse
Lung Excursion:: Normal
Abdomen:: Nontender and Soft
Bowel Sounds:: Normal
Extremity Edema:: None: Bilateral:
Vásquez Catheter: No
[2024-06-08 16:45] LABS: Glucose - Point of Care 249 mg/dl (70-99)
[2024-06-08] MEDS: NOVOLOG FLEXPEN-LOW RESISTANCE 2 UNITS SC (17:46)
[2024-06-08] MEDS: LOVENOX 30 MG SC (18:01)
[2024-06-08] MEDS: SODIUM BICARBONATE 1150 MEQ IV (18:22)
[2024-06-08 22:23] LABS: Glucose - Point of Care 213 mg/dl (70-99)
[2024-06-09] VITALS (12 sets, daily range): BP systolic 100–130; BP diastolic 51–77; BMI 25.5
--- NOTE | 2024-06-09 02:21 | PTCARENOTE ---
Pt received at beginning of shift resting in bed. AAOx3. Asking for something to eat. Boxed lunch given and pt ate. S/P right heart cath. Right femoral site dressing c/d/i. Weak right pedal pulse. Macular flat red rash on trunk and lower
extremities. No obvious c/o itching. VSS. Afebrile. SR on CM. POX 98% on RA. IVF's infusing as ordered. Neuro/neurovascular/NIH assessments as documented. Still admits to dizziness. #25 CC in use. Rest of assessment as documented. Call morales remains
within reach. Will continue to monitor.
[2024-06-09 05:09] LABS: Hematocrit 21.1 % (39.0-52.0); Hemoglobin 7.7 g/dL (13.0-18.0); Mean Corp Hgb Conc. 36.5 g/dL (33.0-37.0); Mean Corpuscular Hgb 32.1 pg (27.0-31.0); Mean Corpuscular Volume 87.9 fL (80.0-94.0); Mean Platelet Volume 11.4 fL (7.4-10.4); Platelet Count 149 10^3/uL (130-400); Red Cell Dist. Width 14.9 % (11.5-14.5); White Blood Cell Count 10.5 10^3/uL (4.8-10.8)
[2024-06-09 05:10] LABS: % Basophils 0.3 % (0-2); % Immature Granulocytes 6.9 % (0-0.5); % Lymphocytes 16.3 % (20.5-51.1); % Monocytes 1.8 % (1.7-9.3); % Neutrophils 74.3 % (42.2-75.2); Absolute Immature Granulocytes 0.7 10^3/uL (0-0.05); Absolute Lymphocytes 1.6 10^3/uL (1.2-3.4); Absolute Monocytes 0.2 10^3/uL (0.1-0.6); Absolute Neutrophils 7.8 10^3/uL (1.4-6.5); Nucleated Red Blood Cells % 0.3 % (-)
[2024-06-09 05:27] LABS: ALT (SGPT) 16 U/L (0-50); AST (SGOT) 19 U/L (17-59); Albumin 2.5 g/dl (3.5-5.0); Alkaline Phosphatase 89 U/L (38-126); Blood Urea Nitrogen 79 mg/dl (9-20); Calcium 7.9 mg/dl (8.4-10.2); Carbon Dioxide 26 mmol/L (22-30); Chloride 102 mmol/L (98-107); Estimated Creatinine Clearance 28 ml/min; Glucose 195 mg/dl (70-99); Potassium 4.2 mmol/L (3.5-5.1); Sodium 138 mmol/L (135-145); Total Bilirubin 0.3 mg/dl (0.2-1.3); Total Protein 5.4 g/dl (6.3-8.2); eGFR 32.42
[2024-06-09] MEDS: SODIUM BICARBONATE 1150 MEQ IV (05:27)
[2024-06-09] MEDS: ZOSYN 50 IV (05:27)
[2024-06-09] MEDS: DUONEB 3 ML INH ×3 (07:38→19:37)
[2024-06-09] MEDS: SYMBICORT 160/4.5 MCG INHALER 2 PUFF INH ×2 (07:39→19:36)
--- NOTE | 2024-06-09 07:52 | W.PN.HOSP.TC ---
Today's Communication/Plan
-
Stop oral sodium bicarbonate
Stop IV bicarbonate infusion
IV normal saline
Increase bowel regimen
Encourage ambulation
Physiatry consult
Assessment / Plan
Assessment / Plan
General: Awake, alert, NAD
HEENT: Normocephalic, Atraumatic and Moist Mucous Membranes
Respiratory: Rales bilateral bases
Cardiac: Regular Rhythm and S1/S2, tachycardic
GI: Soft, Nontender and Nondistended
Musculoskeletal: No Clubbing, No Cyanosis and No Edema
Neuro: Awake, Alert and Oriented, no gross neurological deficit
Skin: Maculopapular rash on trunk and both lower extremities
Psych: Calm cooperative
FUO -suspect vasculitis as the etiology. Skin exam is notable for diffuse palpable purpura, now fading. Awaiting skin biopsy results. Getting empiric steroids under the direction of pulmonary. Dose reduced.
Status post bone marrow biopsy 06/04 -awaiting for results
Discussed with rheumatology, hematology -oncology, dermatology, ID, pulmonary.
Holding lisinopril amlodipine in case drug-induced lupus
Plan for flow cytometry
Bronchoscopy if needed down the road
Blood cultures x 2 no growth so far. Viral respiratory panel negative. Stool studies negative. COVID-negative x 2.
Gold QuantiFERON negative.
Elevated inflammatory marker-CRP >270 and 261, ferritin elevated at 938. ANCA negative.
Albumin low at 2.6
RE level low, less than 10
LDH normal at 245
Repeated echo no acute abnormalities
Dr. Brunson called [facility] for possible transfer -->[facility] (Dr Maher)--> they do not recommend inpatient transfer and they feel they would do the same workup that we are doing in our hospital.
Acute hypoxic respiratory failure -etiology suspected to be pneumonia versus pneumonitis. Significant improvement in respiratory failure likely due to steroids. Oxygenation improved, now on room air. Last chest x-ray was 06/07 showing interval
decrease in bilateral airspace opacities consistent with improving infiltrates. Clinically I do not believe the infiltrates represent pulmonary edema, suspect they represent inflammatory infiltrates that have responded to corticosteroids.
Encouraged use of Acapella, incentive spirometer. Continue steroids, nebs.
Severe multifocal pneumonia -chest x-ray done today 06/07 shows improving infiltrates. Oxygen requirements improving. Currently on empiric Zosyn under the direction of ID.
KALEIGH -suspect multifactorial etiology. Renal function improving with IV fluid support. Right heart catheterization demonstrated pulmonary capillary wedge pressure of 14. Currently on bicarbonate IV infusion, can discontinue given improvement in
bicarbonate to 26. Use normal saline IV. I's and O's are -925 cc. Blood pressure trending up with IV fluids. Still on midodrine.
Dysphagia - recent onset. Speech therapy recommends soft and bite sized foods, thin liquids.
Pancytopenia -pancytopenia resolved. Platelet count normal, leukocytosis trending down.
Hematology-oncology on board
Status post blood transfusion 06/04
Hemoglobin 7.8 today
Continue to monitor hemoglobin
Bone marrow biopsy completed 06/04, report pending
Acute left upper extremity cephalic vein thrombosis -on low-dose Lovenox.
Tachycardia -resolved.
Asthma, severe persistent asthma:
On Breztri as outpatient
Continue Spiriva
Continue Symbicort
Cont Vest Acapella and nebs as needed
Subacute/chronic left frontal lobe infarct -incidental finding on brain MRI. MRA head and neck showed no focal hemodynamically significant stenosis, aneurysm or occlusion. Numerous lytic foci of signal loss most pronounced along the bilateral
temporal occipital lobes which may be sequelae of cerebral amyloid angiopathy.
Leukocytosis:
Likely reactive due to steroids, now trending down.
Chronic hyponatremia -suspect due to subacute to chronic illness, SIADH as well. Sodium improving, 134. 50 ounce fluid restriction. Urine osmolality 323, urine sodium 47.
Essential hypertension -currently hypotensive. Antihypertensives on hold. Suspect hypotension related to volume depletion, improving with IV fluids.
Hyperlipidemia:
On rosuvastatin 20 mg p.o. daily
Constipation -last bowel movement was 06/07. Change Colace, Senokot to yhgchw-enm-cydaa twice daily.
Recent episode of purpuric rash/KALEIGH/thrombocytopenia/elevated inflammatory markers -patient believes rash started after he was treated for pneumonia at urgent care center on April 19 with Augmentin and azithromycin.
Data from prior hospitalization:
Serology testing showed negative AMMY, anti--ds DNA, beta-2-GPI IgG/IgM, antiplatelet antibody, anticardiolipin IgG/IgA, normal complement C3 level, COVID.
Elevated complement C4, anticardiolipin IgM
Direct immunofluorescent testing of skin biopsy did not show deposition of immunoglobulin to suggest antibody-mediated vasculitis, no features to suggest autoimmune bullous disease. Repeated biopsy.
Initially thought to be IgA vasculitis/parasite related however testing is negative
Check repeat blood cultures
Skin biopsy unremarkable
C3 and C4 normal at this time, C4 previously elevated
Repeat PA-3 and myeloperoxidase pending
Hepatitis B serologies negative, hepatitis C pending
Parasite testing negative
Anticardiolipin IgM antibody elevated on 04/28
Ozmj-xqdjlj-lmozujnb DNA, scleroderma, anti-Toro, beta-2, AMMY all unremarkable from 04/28
Echo showing EF of 62% without vegetation
PT/OT -acute rehab recommended. Consult physiatry.
Full code
Anticipated Discharge: > 48 hours
Subjective/Interval History
-
Date of Service: June 09, 2024
Patient seen and examined. In better spirits today, no complaints.
Objective Data
-
Labs:
Laboratory Results
06/09/24
04:43
WBC 10.5
Hgb 7.7 L
Hct 21.1 L
Plt Count 149
Sodium 138
Potassium 4.2
Chloride 102
Carbon Dioxide 26
BUN 79 H
Creatinine 2.1 H
Glucose 195 H
Calcium 7.9 L
Total Bilirubin 0.3
AST 19
ALT 16
Alkaline Phosphatase 89
Vital Signs:
Vital Signs
Temp Pulse Resp BP Pulse Ox
97.6 F 64 14 100/51 96
06/09/24 02:55 06/09/24 07:44 06/09/24 07:44 06/09/24 06:00 06/09/24 07:44
I&O
06/08/24 06/09/24 06/10/24
06:59 06:59 06:59
Intake Total 1100 / 1100 1400 / 1400
Output Total 1025 / 1025 2325 / 2325
Balance 75 / 75 -925 / -925
Review of Systems
-
History Source: Patient
All other systems: Reviewed and negative
[2024-06-09] MEDS: PROTONIX 40 MG PO (08:28)
[2024-06-09] MEDS: SOLU-MEDROL PF 40 MG IV ×2 (08:28→21:32)
[2024-06-09] MEDS: RESTASIS 0.05% OPHTHALMIC EMULSION 1 DROPS BOTH EYES ×2 (08:28→21:32)
[2024-06-09] MEDS: ProAmatine 10 MG PO ×3 (08:29→18:24)
[2024-06-09] MEDS: VITAMIN D3 (cholecalciferol) 50 MCG PO (08:29)
[2024-06-09] MEDS: NSS 1000 IV ×2 (08:31→21:31)
[2024-06-09] MEDS: METAMUCIL, KONSYL 1 PACKET PO ×2 (08:33→21:31)
[2024-06-09] MEDS: MIRALAX 17 GRAMS PO (08:33)
[2024-06-09 08:35] LABS: Glucose - Point of Care 204 mg/dl (70-99)
[2024-06-09] MEDS: CRESTOR 20 MG PO (08:35)
[2024-06-09] MEDS: SENOKOT-S 1 TABLET PO ×2 (08:36→21:32)
[2024-06-09] MEDS: NOVOLOG FLEXPEN-LOW RESISTANCE 2 UNITS SC ×3 (08:37→18:23)
--- NOTE | 2024-06-09 09:04 | W.PN.ID1 ---
Date of Service
Date of Service: June 09, 2024
Today's Communication
D/C antibiotics and observe.
Assessment / Plan
Pneumonitis (PNA less likely)
Low BP; improved
Progressive KALEIGH
- down to midflow NC at 2L - marked improvement
- CXR with improving infiltrates
- agree with steroids, management per pulmonary, started 06/04
- leukocytosis on steroids
- blood cultures x2 finalized neg
- MRSA screen negative
- D/C further zosyn. Doxycycline previously d/c'ed
Vasculitis - biopsy results consistent per dermatology
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
- steroids started 06/04, being tapered, management per pulmonary
- has had 3+ days of steroids - switched scheduled tylenol to PRN
- note that [facility] has declined the transfer
- follow clinically
Also:
Subacute small stroke
anemia
Chief Complaint
-: Fever and Other (FUO)
Subjective / Review of Systems
Review of Systems: No Fever and No Chills
Vital Signs / Physical Exam
Vital Signs
Vital Signs
Temp Pulse Resp BP Pulse Ox
97.5 F 89 14 107/64 96
06/09/24 08:00 06/09/24 08:29 06/09/24 07:44 06/09/24 08:29 06/09/24 07:44
Physical Exam
Constitutional: No Acute Distress, Comfortable and Non-toxic
Eyes: Sclera Anicteric
Cardiovascular: S1/S2; Negative S3/S4
Pulmonary: Non Labored; Negative Wheezes, Rales or Rhonchi
Gastrointestinal: Soft, Non Tender and Non Distended
Neurological: Awake and Alert
Psychological: Calm
Objective Data
Lab Data
Lab Results
06/09/24 04:43
06/09/24 04:43
ESR 23 mm/hour (0-20) H 06/05/24 03:58
PT 17.4 Sec (11.4-14.6) H 06/04/24 16:31
INR 1.44 06/04/24 16:31
APTT 41.5 Sec (23.4-35.0) H 06/04/24 16:31
Estimated Creat Clear 28 ml/min 06/09/24 04:43
Lactic Acid Cancelled 06/05/24 21:00
Total Bilirubin 0.3 mg/dl (0.2-1.3) 06/09/24 04:43
AST 19 U/L (17-59) 06/09/24 04:43
ALT 16 U/L (0-50) 06/09/24 04:43
Alkaline Phosphatase 89 U/L (38-126) 06/09/24 04:43
C-Reactive Protein 261.00 mg/L (0.0-10.00) H 06/03/24 04:11
Most recent labs reviewed.
Micro Results:
06/02/24 12:13 Blood Culture - Final
Blood/Venous No Growth - Final Report
06/05/24 08:52 Respiratory Culture - Final
Sputum Usual Respiratory Yudelka
Gram Stain - Final
06/01/24 14:35 Blood Culture - Final
Blood/Venous No Growth - Final Report
06/06/24 09:59 Nasal Screen MRSA (PCR) - Final
Nose MRSA not detected - performed by PCR methodology.
06/03/24 17:47 Salmonella/Shigella Culture - Final
Feces/Stool No Salmonella, Shigella, Aeromonas or Plesiomonas species
isolated.
Campylobacter Culture - Final
No Campylobacter species isolated.
Shiga Toxin Test - Final
No E. coli Shiga Toxin 1 or 2 detected.
06/05/24 09:52 Influenza Type A (PCR) - Final
Nasalpharynx Not Detected
Influenza Type A (H1) (PCR) - Final
Not Detected
Influenza Type A (H3) (PCR) - Final
Not Detected
Influenza Type B (PCR) - Final
Not Detected
Resp Syncytial Virus Type A (PCR) - Final
Not Detected
Resp Syncytial Virus Type B (PCR) - Final
Not Detected
Adenovirus DNA (PCR) - Final
Not Detected
Human Metapneumovirus (PCR) - Final
Not Detected
Parainfluenza Virus Type 1 (PCR) - Final
Not Detected
Parainfluenza Virus Type 2 (PCR) - Final
Not Detected
Parainfluenza Virus Type 3 (PCR) - Final
Not Detected
Parainfluenza Virus Type 4 - Final
Not Detected
Rhinovirus (PCR) - Final
Not Detected
06/03/24 17:47 Cryptosporidium/Giardia - Final
Feces/Stool Negative for Cryptosporidium and/or Giardia Lamblia
antigens.
--- NOTE | 2024-06-09 09:44 | W.PN.PUL3 ---
Today's Communication / Plan
-
Continue systemic steroids with slow wean
Trend sCr
PT/OT ---> rec'd acute rehab s/p discharge
Outpatient pulmonary office follow up
Symbicort + Spiriva with DuoNebs BID
Gentle IVF started today --> careful not to cause volume overload
Pulmonary service will continue to follow along
Assessment
-
Patient is a 74-year-old male with previous history of severe asthma, hypertension hyperlipidemia was sent in by Dr Davies today for hypotension (90/60) with persistent rash and fevers. He was recently admitted for similar and discharged 05/17/2024
following negative workup. He has associated generalized weakness, lightheadedness. Had CT chest obtained demonstrating severe bilateral multifocal pneumonia which is new compared to prior. He is placed on empiric antibiotics. We are consulted
for eval.
Impression:
Severe multifocal PNA, suspect an inflammatory interstitial pneumonitis
CRP elevated-greater than 260-inflammatory process suspected, (ESR 30-yrnwvn-nfzvvprg after 1 day of steroids)
Interstitial lung disease-steroid responsive
Possible myelodysplasia bone marrow biopsy-final stains pending
FUO-suspect related to vasculitis
Rash
Hypotension
Acute on chronic anemia, hemoglobin 7 prior 9
Hyponatremia, mild
Conditions present prior to admission:
Recent RML pneumonia (seen initially on CXR from 04/19/2024)
Hospitalization-discharged dosed on 04/30/2024-thrombocytopenia/anemia/purpuric rash, biopsy performed and placed on prednisone with rheumatology follow-up
Hypertension
Hyperlipidemia
Severe persistent asthma on Breztri + Nucala
Follows with Dr Davies
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
Proteinuria
Occasional alcohol use
Plan
Respiratory status significantly declined 06/04/2024 and now continually improving-treated with diuretics, steroids, nebulizers and morphine-not significantly diuresed over last 5 days (last lasix dose on 06/04/2024) and suspect most improvement from
steroids and not diuresis
Patient now on room air saturating 99%; was previously on high flow nasal cannula
Continue with Symbicort + Spiriva and Duonebs BID
Anti-tussants prn
Encouraged incentive spirometry and Acapella
Solu-Medrol- 40 mg IV every 12 hours-slow reduction
Prior history of lung disease is noted including severe persistent asthma, chronic cough x 2 months
Patient is on Breztri as an outpatient
Chest x-ray 06/04/2024-findings suggest diffuse pulmonary interstitial edema progressed cannot rule out superimposed pneumonitis
Chest x-ray 06/07/2024-decreased bilateral airspace opacification
Patient had complained of left-sided pleuritic pain
CTA chest 06/04/2024-no pulmonary embolism, pronounced scattered groundglass opacifications progressed
Left upper extremity ultrasound 06/04/2024-left cephalic vein thrombus formation
DVT prophylaxis recommended
Cultures reviewed
Infectious disease following-correspondence reviewed
Continue empiric antibiotics-ceftriaxone and doxycycline continue
Follow radiographically
Follow leukocytosis - now WNL as of today (06/09)
Monitor hypotension-etiology unclear-(patient hypertensive as outpatient)-not adrenal insufficiency (random cortisol: 21.4 on 05/30/2024) and no obvious sepsis
Elevated CRP
ESR 23-after 1 day of steroids
Not classic features of Nqjjp-Oyiiikg-ipm called eosinophilic granulomatosis with polyangiitis (no significant peripheral eosinophilia)-or allergic bronchopulmonary aspergillosis
Rheumatology consultation
Dermatology following as an outpatient-Dr. Obrien-skin biopsy reviewed at [facility]-suspected vasculitis-additional stains pending
Solu-Medrol initiated
Brain MRI 06/07/2024-numerous areas of loss of signal most pronounced along bilateral temporal occipital lobes which may be sequelae of cerebral amyloid angiopathy
Prior ECHO results are reviewed indicating normal function
proBNP in past have been negative, repeat on this admission now 2810
Hold on diuresis until intravascular volume status known
Monitor renal function, electrolytes, intake/output, lower extremity edema and weight
Replace electrolytes as needed
Renal function now improving
Nephrology evaluation-correspondence reviewed
Right heart catheterization performed on 06/08/2024 shows compensated right and left ventricular filling pressures with PCWP 14 with mPAP 21mmHg, and CO/CI: 5.9/3.2
Reviewed with primary team-l cardiology on board, recs appreciated
Follow hemoglobin
Transfuse as needed to keep Hb>7, plt>20k
GI evaluation ongoing
Bone marrow biopsies 06/04/2024-possible myelodysplastic syndrome
Oncology following-correspondence reviewed-diffuse dysplastic marrow no evidence of blasts suggestive of high-grade myelodysplasia, final pathology including chromosomes and NGS testing is pending
Neurology evaluation for dizziness ongoing
Brain MRI 06/03/2024-tiny subacute on chronic left frontal lobe infarct, findings suggesting chronic amyloid angiopathy and possible sequelae of chronic subarachnoid hemorrhage-superficial siderosis overall progressed
PT/OT - rec'd acute rehab
DVT prophylaxis: LMWH
GI prophylaxis-on pantoprazole
Will need outpatient pulmonary evaluation in our office for PFTs and 6MWT
Pulmonary service will continue to follow along.
Total time spent today was 35 minutes for this encounter. Time includes reviewing laboratory test/imaging results, reviewing pertinent medical records, obtaining and reviewing medical history, performing an appropriate exam, ordering medications,
tests and procedures. Time also includes documentation of this encounter, coordinating patient care and communicating with other healthcare professionals. Total time does not include separately billed tests performed on this date of service.
Diagnostic Data
Chest x-ray 10/26/2022-NAD
Chest x-ray 04/19/24-mild right middle lobe pneumonia
Chest x-ray 04/24/2024-improvement in right lower lung field suggesting improvement in pneumonia or atelectasis
Chest x-ray 05/13/2024-no pneumonia, mild basilar atelectasis, mild elevation right hemidiaphragm
Brain MRI 02/10/2022-numerous parenchymal foci in bilateral occipital lobes right greater than left can be seen with cerebral amyloid angiopathy
CT Chest 06/03/24- Severe extensive diffuse bilateral tree-in-bud/groundglass density throughout all lobes with a peripheral predominance, new from prior. Bilateral lower lobe dependent subsegmental atelectasis, progressed from prior. Right lower
lobe scarring redemonstrated. No discrete solid pulmonary nodules, pleural effusions, pericardial effusions or pathologically enlarged noncalcified lymph nodes in the thorax. No pneumothorax. Impression: Severe bilateral multifocal pneumonia, new
from prior CT 05/15/2024.
Echocardiogram 01/19/2021-EF 60-65%, no significant valvular disease
ECHO 05/16/24- 1. Normal left ventricular size and systolic function without regional wall motion abnormalities. Mild concentric left ventricular hypertrophy. Estimated left ventricular ejection fraction is 62% by Hernandez's method. Normal
diastolic function.
2. Normal right ventricular size and systolic function.
3. Thickened mitral valve leaflets with mitral annular calcification. Mitral sclerosis without con stenosis. Trace mitral regurgitation.
4. Thickened, calcified trileaflet aortic valve with mild aortic stenosis. Peak and mean transaortic gradients of 31 and 15 mmHg. Mild aortic regurgitation.
5. No significant pericardial effusion.
Nuclear stress test 01/22/2021-EF 65%, low risk study
Skin biopsy 04/30/2024-send out no deposition of immunoglobulins within the dermal blood vessels to suggest an antibody mediated vasculitis and no deposition of fibrinogen around vessels to suggest active vascular injury, no features of an autoimmune
bullous disease including pemphigus, pemphigoid, linear IgA disease or dermatitis herpetiformis
.
Subjective Data
-
Date of Service:
Date of Service: June 09, 2024
Chief Complaint: Pulmonary Follow Up and Dyspnea Follow Up
Subjective:
Patient seen and evaluated today at bedside. Sitting in chair in no acute distress. Heart rate 84, saturating 99% on room air. BP 107/64 this morning. He has lower extremity weakness otherwise he feels well. Denies CP, FIGUEREDO, SOB, fevers or chills.
Review of Systems
General: Other (Negative unless mentioned above)
Objective Data
Data Reviewed
Vital Signs / I&O / Oxygen:
Vital Signs
Temp Pulse Resp BP Pulse Ox
97.5 F 66 14 107/64 96
06/09/24 08:00 06/09/24 11:08 06/09/24 11:08 06/09/24 08:29 06/09/24 07:44
Intake and Output
06/08/24 06/09/24 06/10/24
06:59 06:59 06:59
Intake Total 1100 / 1100 1400 / 1400
Output Total 1025 / 1025 2325 / 2325
Balance 75 / 75 -925 / -925
SaO2 96
Nasal Cannula flow liters per 2
minute
Physical Exam
General: Respiratory Distress (n), Comfortable, Chills (n) and Sweats (n)
HEENT: Normocephalic, Anicteric and Moist Mucous Membranes
Cardiovascular: S1-S2, Murmur (CATHERINE, heard at [facility]) and Peripheral Edema (+1 left lower extremity edema, trace on RLE)
Respiratory: Wheeze (n), Crackles (Bilateral from the bases to middle lung hewitt), Rhonchi (n), Non-Labored Respirations, Accessory Resp Muscle Use (n) and Stridor (n)
GI: Soft, Non Distended and Non Tender
Neurology: AO x 3 and Tremors (n)
Skin: Warm, Dry, Cyanosis (n), Jaundice (n) and Rash (Blotchy maculopapular rash mainly in the lower extremities)
Labs/Micro/Reports
Lab Data
06/09/24 04:43
06/09/24 04:43
Microbiology
06/02/24 12:13 Blood/Venous Blood Culture - Final
No Growth - Final Report
06/05/24 08:52 Sputum Respiratory Culture - Final
Usual Respiratory Yudelka
06/05/24 08:52 Sputum Gram Stain - Final
06/01/24 14:35 Blood/Venous Blood Culture - Final
No Growth - Final Report
06/06/24 09:59 Nose Nasal Screen MRSA (PCR) - Final
MRSA not detected - performed by PCR methodology.
06/03/24 17:47 Feces/Stool Salmonella/Shigella Culture - Final
No Salmonella, Shigella, Aeromonas or Plesiomonas species
isolated.
06/03/24 17:47 Feces/Stool Campylobacter Culture - Final
No Campylobacter species isolated.
06/03/24 17:47 Feces/Stool Shiga Toxin Test - Final
No E. coli Shiga Toxin 1 or 2 detected.
[2024-06-09 11:45] LABS: Glucose - Point of Care 247 mg/dl (70-99)
[2024-06-09 12:13] LABS: Lactic Acid 2.5 mmol/L (0.7-2.0)
--- NOTE | 2024-06-09 14:05 | W.PN.NEPH.PH ---
Today's Communication / Plan
-
- fluids
Assessment/Plan
-
IMP:
FUO -suspect vasculitis as the etiology, skin biopsy neg.
diffuse palpable purpura
Acute hypoxic respiratory failure
Severe multifocal pneumonia
KALEIGH
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
Dysphagia
Pancytopenia
Acute left upper extremity cephalic vein thrombosis
Tachycardia
Asthma, severe persistent asthma
Subacute/chronic left frontal lobe infarct
Leukocytosis
Chronic hyponatremia
Essential hypertension
Hyperlipidemia
Constipation
Plan:
Recurrent admits, this time with FUO, persistent rash, and hypotension
KALEIGH-baseline cr 1, now at 2.1, possible ATN, 05/15 CT with out hydro
likely multifactorial contrast+hypotension
UA is bland, U acid crystals noted today -check U acid, neg serologies last admit
less likely has glomerular involvement, skin biopsy neg
mild proteinuria 500mg g/ of cr last admit-recheck now at 0.3
follow bladder scan , remains non oliguric
stop sodium bicarb
LA remains high at 2.5 (peak in 4s), giving fluids based on last RHC
hyponatremia normalized.
maintain FR 48 ounces/day , TSH and cortisol were ok on 05/30
BP soft on high dose of midodrine
steroids wean per pulm and await BM biopsy
abx per ID, urine eosinophils negative and no peripheral eosinophilia seen
avoid nephrotoxins
cont supportive care
d/w patient
-
-
Date of Service: June 09, 2024
CC / HPI / ROS
-
Chief Complaint:
KALEIGH
History of Present Illness:
Cr elevated to 2.1, baseline 1
[facility] excellent
Review of Systems:
oxygenation improved, now on RA
Labs
-
Labs:
WBC 10.5 10^3/uL (4.8-10.8) 06/09/24 04:43
RBC 2.40 10^6/uL (4.70-6.10) L 06/09/24 04:43
Hgb 7.7 g/dL (13.0-18.0) L 06/09/24 04:43
Hct 21.1 % (39.0-52.0) L 06/09/24 04:43
Plt Count 149 10^3/uL (130-400) 06/09/24 04:43
Sodium 138 mmol/L (135-145) 06/09/24 04:43
Potassium 4.2 mmol/L (3.5-5.1) 06/09/24 04:43
Chloride 102 mmol/L (98-107) 06/09/24 04:43
Carbon Dioxide 26 mmol/L (22-30) 06/09/24 04:43
BUN 79 mg/dl (9-20) H 06/09/24 04:43
Creatinine 2.1 mg/dL (0.7-1.3) H 06/09/24 04:43
eGFR 32.42 06/09/24 04:43
Glucose 195 mg/dl (70-99) H 06/09/24 04:43
Calcium 7.9 mg/dl (8.4-10.2) L 06/09/24 04:43
Phosphorus 6.3 mg/dl (2.5-4.5) H 06/05/24 03:58
Ggj-H-Etxawmcwhdc Pept 2890 pg/ml 06/06/24 05:23
Albumin 2.5 g/dl (3.5-5.0) L 06/09/24 04:43
Physical Exam
-
Vital Signs:
Vital Signs
Temp Pulse Resp BP Pulse Ox
97.7 F 81 14 115/56 96
06/09/24 11:10 06/09/24 13:12 06/09/24 11:08 06/09/24 13:12 06/09/24 07:44
Cardiovascular:: Regular rate and rhythm
Respiratory:: Bilateral: Coarse
Lung Excursion:: Normal
Abdomen:: Nontender and Soft
Bowel Sounds:: Normal
Extremity Edema:: None: Bilateral:
Vásquez Catheter: No
[2024-06-09] MEDS: DUONEB INH (15:06)
--- NOTE | 2024-06-09 15:31 | PTCARENOTE ---
Rec'd pt this AM. AAO x3. X1 assist OOB to chair and able to ambulate into bathroom with rolling walker for BM. good urine output. Anxious but redirectable. vital signs stable
--- NOTE | 2024-06-09 16:29 | CM ---
Patient with Dx Recurrent FUO suspect vasculitis, PNA, KALEIGH, dysphagia, LUE cephalic vein thrombosis, asthma, Subacute/chronic left frontal lobe infarct. Room air. Receiving IV Steroids. PT & OT recommend Acute Rehab. ST for for dysphagia tx,
cognitive-linguistic evaluation. Physiatry Eval pending.
Spoke with patient's daughter Emilee, who lives in [place] and is here visiting; discussed acute rehab recommendation as per PT/OT. Daughter agrees with [facility] and thinks her father will prefer that also. Daughter aware that physiatry eval
will be done.
Referral placed for [facility].
Plan follow up after seen by Physiatry.
[2024-06-09 17:45] LABS: Glucose - Point of Care 210 mg/dl (70-99)
[2024-06-09] MEDS: LOVENOX 30 MG SC (18:24)
[2024-06-09] MEDS: MELATONIN 10 MG PO (21:31)
[2024-06-09] MEDS: BENADRYL 25 MG PO (21:33)
[2024-06-09 21:51] LABS: Glucose - Point of Care 199 mg/dl (70-99)
[2024-06-10] VITALS (13 sets, daily range): BP systolic 123–166; BP diastolic 69–103; PULSE 82–86; O2SAT 95; BMI 25.7
--- NOTE | 2024-06-10 00:26 | PTCARENOTE ---
Pt received at beginning of shift resting in bed. AAOx3. Denied pain or discomfort. Right groin dressing c/d/i. No signs of bleeding/hematoma present. Right leg slightly cool, weak pedal pulse. NIH/neuro/neurovascular assessments as documented and
unchanged from previous. VSS. Afebrile. SR on CM. POX 98% RA. Walking to bathroom with assist of 1 using RW without dizziness. Gait steady. #[address] draining yellow urine. Two BM's in bathroom. HS meds given. IVF's infusing as
ordered. Rest of assessment as documented. Call morales within reach. Will continue to monitor.
[2024-06-10 05:46] LABS: Hematocrit 22.5 % (39.0-52.0); Hemoglobin 7.6 g/dL (13.0-18.0); Mean Corp Hgb Conc. 33.8 g/dL (33.0-37.0); Mean Corpuscular Hgb 31.8 pg (27.0-31.0); Mean Corpuscular Volume 94.1 fL (80.0-94.0); Mean Platelet Volume 10.8 fL (7.4-10.4); Platelet Count 107 10^3/uL (130-400); Red Blood Cell Count 2.39 10^6/uL (4.70-6.10); White Blood Cell Count 8.3 10^3/uL (4.8-10.8)
[2024-06-10 06:00] LABS: AST (SGOT) 24 U/L (17-59); Albumin 2.6 g/dl (3.5-5.0); Alkaline Phosphatase 88 U/L (38-126); Blood Urea Nitrogen 58 mg/dl (9-20); Carbon Dioxide 25 mmol/L (22-30); Chloride 106 mmol/L (98-107); Estimated Creatinine Clearance 37 ml/min; Glucose 179 mg/dl (70-99); Potassium 4.4 mmol/L (3.5-5.1); Sodium 140 mmol/L (135-145); Total Bilirubin 0.3 mg/dl (0.2-1.3); Total Protein 5.3 g/dl (6.3-8.2); eGFR 44.93
[2024-06-10 06:10] LABS: ALT (SGPT) < 30 U/L (0-50)
[2024-06-10 06:12] LABS: Absolute Neutrophils -Man Diff 5.7 10^3/uL (1.4-6.5); Band Neutrophils 5 % (0-3); Lymphocytes 19 % (20-51); Metamyelocytes 10 % (-); Myelocytes 2 % (-); Normal RBC Morphology Yes; Platelets Checked Yes; Segmented Neutrophils 64 % (42-75); Total Cells Counted 100
[2024-06-10 07:20] LABS: Glucose - Point of Care 168 mg/dl (70-99)
[2024-06-10] MEDS: DUONEB 3 ML INH ×3 (07:31→17:20)
[2024-06-10] MEDS: SYMBICORT 160/4.5 MCG INHALER 2 PUFF INH ×2 (07:31→17:20)
--- NOTE | 2024-06-10 08:06 | W.PN.HOSP.TC ---
Today's Communication/Plan
-
Continue IV fluids
Reduce dose of midodrine
Continue PT
Assessment / Plan
Assessment / Plan
General: Awake, alert, NAD
HEENT: Normocephalic, Atraumatic and Moist Mucous Membranes
Respiratory: Rales bilateral bases
Cardiac: Regular Rhythm and S1/S2, tachycardic
GI: Soft, Nontender and Nondistended
Musculoskeletal: No Clubbing, No Cyanosis and No Edema
Neuro: Awake, Alert and Oriented, no gross neurological deficit
Skin: Maculopapular rash on trunk and both lower extremities, somewhat more inflamed today.
Psych: Calm cooperative
FUO -suspect vasculitis as the etiology. Skin exam is notable for diffuse palpable purpura, now fading. Awaiting skin biopsy results. Getting empiric steroids under the direction of pulmonary. Dose reduced.
Status post bone marrow biopsy 06/04 -awaiting for results
Discussed with rheumatology, hematology -oncology, dermatology, ID, pulmonary.
Holding lisinopril amlodipine in case drug-induced lupus
Plan for flow cytometry
Bronchoscopy if needed down the road
Blood cultures x 2 no growth so far. Viral respiratory panel negative. Stool studies negative. COVID-negative x 2.
Gold QuantiFERON negative.
Elevated inflammatory marker-CRP >270 and 261, ferritin elevated at 938. ANCA negative.
Albumin low at 2.6
RE level low, less than 10
LDH normal at 245
Repeated echo no acute abnormalities
Dr. Brunson called [facility] for possible transfer -->[facility] (Dr Maher)--> they do not recommend inpatient transfer and they feel they would do the same workup that we are doing in our hospital.
Acute hypoxic respiratory failure -etiology suspected to be pneumonia versus pneumonitis. Significant improvement in respiratory failure likely due to steroids. Oxygenation improved, now on room air. Last chest x-ray was 06/07 showing interval
decrease in bilateral airspace opacities consistent with improving infiltrates. Clinically I do not believe the infiltrates represent pulmonary edema, suspect they represent inflammatory infiltrates that have responded to corticosteroids.
Encouraged use of Acapella, incentive spirometer. Continue steroids, nebs.
Severe multifocal pneumonia -chest x-ray done today 06/07 shows improving infiltrates. Oxygen requirements improving. Completed course of antibiotics.
KALEIGH -suspect multifactorial etiology. Renal function improving with IV fluid support. Right heart catheterization demonstrated pulmonary capillary wedge pressure of 14. Creatinine down to 1.6. I's and O's are negative likely due to post-ATN
diuresis.
Dysphagia - recent onset. Speech therapy recommended soft and bite sized foods, thin liquids on 06/07. However for unclear reasons patient is currently on cholesterol lowering diet without issues. I spoke with nursing, will get speech therapy to
reevaluate today.
Pancytopenia -white blood cell count normal but remains anemic and now has thrombocytopenia.
Hematology-oncology on board
Status post blood transfusion 06/04
Hemoglobin 7.6 today
Continue to monitor hemoglobin
Bone marrow biopsy completed 06/04, report pending
Acute left upper extremity cephalic vein thrombosis -on low-dose Lovenox.
Tachycardia -resolved.
Asthma, severe persistent asthma:
On Breztri as outpatient
Continue Spiriva
Continue Symbicort
Cont Vest Acapella and nebs as needed
Subacute/chronic left frontal lobe infarct -incidental finding on brain MRI. MRA head and neck showed no focal hemodynamically significant stenosis, aneurysm or occlusion. Numerous lytic foci of signal loss most pronounced along the bilateral
temporal occipital lobes which may be sequelae of cerebral amyloid angiopathy.
Leukocytosis:
Likely reactive due to steroids, now trending down.
Chronic hyponatremia -suspect due to subacute to chronic illness, hypotension, SIADH as well. Hyponatremia resolved. Fluid restriction discontinued.
Essential hypertension -antihypertensives on hold for hypotension but blood pressure now improved. Still on midodrine, can lower dose to 5 mg. Suspect hypotension related to volume depletion, improving with IV fluids.
Hyperlipidemia:
On rosuvastatin 20 mg p.o. daily
Constipation -last bowel movement was 06/07. Change Colace, Senokot to wiegar-lpd-olwtu twice daily.
Recent episode of purpuric rash/KALEIGH/thrombocytopenia/elevated inflammatory markers -patient believes rash started after he was treated for pneumonia at urgent care center on April 19 with Augmentin and azithromycin.
Data from prior hospitalization:
Serology testing showed negative AMMY, anti--ds DNA, beta-2-GPI IgG/IgM, antiplatelet antibody, anticardiolipin IgG/IgA, normal complement C3 level, COVID.
Elevated complement C4, anticardiolipin IgM
Direct immunofluorescent testing of skin biopsy did not show deposition of immunoglobulin to suggest antibody-mediated vasculitis, no features to suggest autoimmune bullous disease. Repeated biopsy.
Initially thought to be IgA vasculitis/parasite related however testing is negative
Check repeat blood cultures
Skin biopsy unremarkable
C3 and C4 normal at this time, C4 previously elevated
Repeat FL-3 and myeloperoxidase pending
Hepatitis B serologies negative, hepatitis C pending
Parasite testing negative
Anticardiolipin IgM antibody elevated on 04/28
Kqmw-dmckxw-oeqmbibr DNA, scleroderma, anti-Toro, beta-2, AMMY all unremarkable from 04/28
Echo showing EF of 62% without vegetation
PT/OT -acute rehab recommended. Consult physiatry.
Full code
Dispo -if he continues to improve anticipate discharge to acute rehab this week.
Anticipated Discharge: > 48 hours
Subjective/Interval History
-
Date of Service: June 10, 2024
Patient seen and examined. No new complaints.
Objective Data
-
Labs:
Laboratory Results
06/10/24
05:18
WBC 8.3
Hgb 7.6 L
Hct 22.5 L
Plt Count 107 L D
Sodium 140
Potassium 4.4
Chloride 106
Carbon Dioxide 25
BUN 58 H
Creatinine 1.6 H
Glucose 179 H
Calcium 8.0 L
Total Bilirubin 0.3
AST 24
ALT < 30
Alkaline Phosphatase 88
Vital Signs:
Vital Signs
Temp Pulse Resp BP Pulse Ox
97.0 F 73 18 131/72 96
06/10/24 03:20 06/10/24 07:36 06/10/24 07:36 06/10/24 06:00 06/10/24 07:36
I&O
06/09/24 06/10/24 06/11/24
06:59 06:59 06:59
Intake Total 1400 / 1400 1200 / 1200
Output Total 2325 / 2325 2225 / 2225
Balance -925 / -925 -1025 / -1025
Review of Systems
-
History Source: Patient
All other systems: Reviewed and negative
[2024-06-10] MEDS: NOVOLOG FLEXPEN-LOW RESISTANCE 1 UNITS SC (08:50)
[2024-06-10] MEDS: RESTASIS 0.05% OPHTHALMIC EMULSION 1 DROPS BOTH EYES ×2 (08:53→21:04)
[2024-06-10] MEDS: VITAMIN D3 (cholecalciferol) 50 MCG PO (08:53)
[2024-06-10] MEDS: SENOKOT-S 1 TABLET PO ×2 (08:53→19:58)
[2024-06-10] MEDS: ProAmatine 5 MG PO ×2 (08:53→13:18)
[2024-06-10] MEDS: METAMUCIL, KONSYL 1 PACKET PO ×2 (08:54→19:58)
[2024-06-10] MEDS: MIRALAX 17 GRAMS PO (08:54)
[2024-06-10] MEDS: PROTONIX 40 MG PO (08:54)
[2024-06-10] MEDS: CRESTOR 20 MG PO (08:54)
[2024-06-10] MEDS: SOLU-MEDROL PF 40 MG IV ×2 (08:59→19:55)
[2024-06-10] MEDS: 0.45%NACL 1000 IV ×2 (08:59→21:04)
[2024-06-10] MEDS: ProAmatine PO (09:18)
--- NOTE | 2024-06-10 09:24 | W.PN.ID1 ---
Date of Service
Date of Service: June 10, 2024
Today's Communication
Observe off antibiotics.
Assessment / Plan
Pneumonitis (PNA less likely)
Low BP; improved
Progressive KAELIGH
- blood cultures x2 finalized neg
- MRSA screen negative
- D/C further zosyn. Doxycycline previously d/c'ed
Vasculitis - biopsy results consistent per dermatology
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
- steroids started 06/04, being tapered, management per pulmonary
- has had 3+ days of steroids - switched scheduled tylenol to PRN
- note that [facility] has declined the transfer
- follow clinically
Also:
Subacute small stroke
anemia
Chief Complaint
-: Fever and Other (FUO)
Subjective / Review of Systems
Review of Systems: No Fever and No Chills
Vital Signs / Physical Exam
Vital Signs
Vital Signs
Temp Pulse Resp BP Pulse Ox
96.9 F L 87 18 123/69 96
06/10/24 07:10 06/10/24 08:53 06/10/24 07:36 06/10/24 08:53 06/10/24 07:36
Physical Exam
Constitutional: No Acute Distress, Comfortable and Non-toxic
Eyes: Sclera Anicteric
Pulmonary: Non Labored
Gastrointestinal: Non Distended
Genito-Urinary: Vásquez and Clear Urine; Negative Turbid Urine or Hematuria
Neurological: Awake and Alert
Psychological: Calm
Objective Data
Lab Data
Lab Results
06/10/24 05:18
06/10/24 05:18
ESR 23 mm/hour (0-20) H 06/05/24 03:58
PT 17.4 Sec (11.4-14.6) H 06/04/24 16:31
INR 1.44 06/04/24 16:31
APTT 41.5 Sec (23.4-35.0) H 06/04/24 16:31
Estimated Creat Clear 37 ml/min 06/10/24 05:18
Lactic Acid 2.5 mmol/L (0.7-2.0) H 06/09/24 11:50
Total Bilirubin 0.3 mg/dl (0.2-1.3) 06/10/24 05:18
AST 24 U/L (17-59) 06/10/24 05:18
ALT < 30 U/L (0-50) 06/10/24 05:18
Alkaline Phosphatase 88 U/L (38-126) 06/10/24 05:18
C-Reactive Protein 261.00 mg/L (0.0-10.00) H 06/03/24 04:11
Most recent labs reviewed.
Micro Results:
06/02/24 12:13 Blood Culture - Final
Blood/Venous No Growth - Final Report
06/05/24 08:52 Respiratory Culture - Final
Sputum Usual Respiratory Yudelka
Gram Stain - Final
06/01/24 14:35 Blood Culture - Final
Blood/Venous No Growth - Final Report
06/06/24 09:59 Nasal Screen MRSA (PCR) - Final
Nose MRSA not detected - performed by PCR methodology.
06/03/24 17:47 Salmonella/Shigella Culture - Final
Feces/Stool No Salmonella, Shigella, Aeromonas or Plesiomonas species
isolated.
Campylobacter Culture - Final
No Campylobacter species isolated.
Shiga Toxin Test - Final
No E. coli Shiga Toxin 1 or 2 detected.
06/05/24 09:52 Influenza Type A (PCR) - Final
Nasalpharynx Not Detected
Influenza Type A (H1) (PCR) - Final
Not Detected
Influenza Type A (H3) (PCR) - Final
Not Detected
Influenza Type B (PCR) - Final
Not Detected
Resp Syncytial Virus Type A (PCR) - Final
Not Detected
Resp Syncytial Virus Type B (PCR) - Final
Not Detected
Adenovirus DNA (PCR) - Final
Not Detected
Human Metapneumovirus (PCR) - Final
Not Detected
Parainfluenza Virus Type 1 (PCR) - Final
Not Detected
Parainfluenza Virus Type 2 (PCR) - Final
Not Detected
Parainfluenza Virus Type 3 (PCR) - Final
Not Detected
Parainfluenza Virus Type 4 - Final
Not Detected
Rhinovirus (PCR) - Final
Not Detected
06/03/24 17:47 Cryptosporidium/Giardia - Final
Feces/Stool Negative for Cryptosporidium and/or Giardia Lamblia
antigens.
--- NOTE | 2024-06-10 10:46 | W.PN.PUL3 ---
Today's Communication / Plan
-
Continue systemic steroids with slow wean
Trend sCr
PT/OT ---> rec'd acute rehab s/p discharge
Outpatient pulmonary office follow up
Symbicort + Spiriva with DuoNebs BID
Follow up [facility] pathology
Gentle IVF resumed today with 1/2NS--> careful not to cause volume overload
Pulmonary service will continue to follow along
Dispo planning
Assessment
-
Patient is a 74-year-old male with previous history of severe asthma, hypertension hyperlipidemia was sent in by Dr Davies today for hypotension (90/60) with persistent rash and fevers. He was recently admitted for similar and discharged 05/17/2024
following negative workup. He has associated generalized weakness, lightheadedness. Had CT chest obtained demonstrating severe bilateral multifocal pneumonia which is new compared to prior. He is placed on empiric antibiotics. We are consulted
for eval.
Impression:
Severe multifocal PNA, suspect an inflammatory interstitial pneumonitis
CRP elevated-greater than 260-inflammatory process suspected, (ESR 06-kevkth-rlfhynzc after 1 day of steroids)
Interstitial lung disease-steroid responsive
Possible myelodysplasia bone marrow biopsy-final stains pending
FUO-suspect related to vasculitis
Rash
Hypotension
Acute on chronic anemia, hemoglobin 7 prior 9
Hyponatremia, mild
Conditions present prior to admission:
Recent RML pneumonia (seen initially on CXR from 04/19/2024)
Hospitalization-discharged dosed on 04/30/2024-thrombocytopenia/anemia/purpuric rash, biopsy performed and placed on prednisone with rheumatology follow-up
Hypertension
Hyperlipidemia
Severe persistent asthma on Breztri + Nucala
Follows with Dr Davies
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
Proteinuria
Occasional alcohol use
Plan
Respiratory status significantly declined 06/04/2024 and now continually improving-treated with diuretics, steroids, nebulizers and morphine-not significantly diuresed over last 6 days (last lasix dose on 06/04/2024) and suspect most improvement from
steroids
Patient now on room air saturating 99%; was previously on high flow nasal cannula
Continue with Symbicort + Spiriva and Duonebs BID
Anti-tussants prn
Encouraged incentive spirometry and Acapella
Solu-Medrol- 40 mg IV every 12 hours-slow reduction
Prior history of lung disease is noted including severe persistent asthma, chronic cough x 2 months
Patient is on Breztri as an outpatient
Chest x-ray 06/04/2024-findings suggest diffuse pulmonary interstitial edema progressed cannot rule out superimposed pneumonitis
Chest x-ray 06/07/2024-decreased bilateral airspace opacification
Patient had complained of left-sided pleuritic pain
CTA chest 06/04/2024-no pulmonary embolism, pronounced scattered groundglass opacifications progressed
Left upper extremity ultrasound 06/04/2024-left cephalic vein thrombus formation
DVT prophylaxis recommended - currently on LMWH
Cultures reviewed
Infectious disease following-correspondence reviewed
Continue empiric antibiotics-ceftriaxone and doxycycline continue
Follow radiographically
Follow leukocytosis - WNL as of 06/09
Monitor hypotension-etiology unclear-(patient hypertensive as outpatient)-not adrenal insufficiency (random cortisol: 21.4 on 05/30/2024) and no obvious sepsis
Elevated CRP
ESR 23-after 1 day of steroids
Not classic features of Letrb-Clffnrr-kor called eosinophilic granulomatosis with polyangiitis (no significant peripheral eosinophilia)-or allergic bronchopulmonary aspergillosis
Rheumatology consultation - rec'd to see as an outpatient as they do not come to the hospital
Dermatology following as an outpatient-Dr. Obrien-skin biopsy reviewed at [facility]-suspected vasculitis-additional stains pending
Solu-Medrol initiated
Brain MRI 06/07/2024-numerous areas of loss of signal most pronounced along bilateral temporal occipital lobes which may be sequelae of cerebral amyloid angiopathy
Prior ECHO results are reviewed indicating normal function
proBNP in past have been negative, repeat on this admission now 2810
Hold on diuresis until intravascular volume status known
Monitor renal function, electrolytes, intake/output, lower extremity edema and weight
Replace electrolytes as needed
Renal function now improving
Nephrology evaluation-correspondence reviewed
Right heart catheterization performed on 06/08/2024 shows compensated right and left ventricular filling pressures with PCWP 14 with mPAP 21mmHg, and CO/CI: 5.9/3.2
Reviewed with primary team-l cardiology on board, recs appreciated
Follow hemoglobin
Transfuse as needed to keep Hb>7, plt>20k
GI evaluation ongoing
Bone marrow biopsies 06/04/2024-possible myelodysplastic syndrome --> follow up pathology
Oncology following-correspondence reviewed-diffuse dysplastic marrow no evidence of blasts suggestive of high-grade myelodysplasia, final pathology including chromosomes and NGS testing is pending
Neurology evaluation for dizziness ongoing
Brain MRI 06/03/2024-tiny subacute on chronic left frontal lobe infarct, findings suggesting chronic amyloid angiopathy and possible sequelae of chronic subarachnoid hemorrhage-superficial siderosis overall progressed
PT/OT - rec'd acute rehab
DVT prophylaxis: LMWH
GI prophylaxis-on pantoprazole
Will need outpatient pulmonary evaluation in our office for PFTs and 6MWT
Pulmonary service will continue to follow along.
Total time spent today was 35 minutes for this encounter. Time includes reviewing laboratory test/imaging results, reviewing pertinent medical records, obtaining and reviewing medical history, performing an appropriate exam, ordering medications,
tests and procedures. Time also includes documentation of this encounter, coordinating patient care and communicating with other healthcare professionals. Total time does not include separately billed tests performed on this date of service.
Diagnostic Data
Chest x-ray 10/26/2022-NAD
Chest x-ray 04/19/24-mild right middle lobe pneumonia
Chest x-ray 04/24/2024-improvement in right lower lung field suggesting improvement in pneumonia or atelectasis
Chest x-ray 05/13/2024-no pneumonia, mild basilar atelectasis, mild elevation right hemidiaphragm
Brain MRI 02/10/2022-numerous parenchymal foci in bilateral occipital lobes right greater than left can be seen with cerebral amyloid angiopathy
CT Chest 06/03/24- Severe extensive diffuse bilateral tree-in-bud/groundglass density throughout all lobes with a peripheral predominance, new from prior. Bilateral lower lobe dependent subsegmental atelectasis, progressed from prior. Right lower
lobe scarring redemonstrated. No discrete solid pulmonary nodules, pleural effusions, pericardial effusions or pathologically enlarged noncalcified lymph nodes in the thorax. No pneumothorax. Impression: Severe bilateral multifocal pneumonia, new
from prior CT 05/15/2024.
Echocardiogram 01/19/2021-EF 60-65%, no significant valvular disease
ECHO 05/16/24- 1. Normal left ventricular size and systolic function without regional wall motion abnormalities. Mild concentric left ventricular hypertrophy. Estimated left ventricular ejection fraction is 62% by Hernandez's method. Normal
diastolic function.
2. Normal right ventricular size and systolic function.
3. Thickened mitral valve leaflets with mitral annular calcification. Mitral sclerosis without con stenosis. Trace mitral regurgitation.
4. Thickened, calcified trileaflet aortic valve with mild aortic stenosis. Peak and mean transaortic gradients of 31 and 15 mmHg. Mild aortic regurgitation.
5. No significant pericardial effusion.
Nuclear stress test 01/22/2021-EF 65%, low risk study
Skin biopsy 04/30/2024-send out no deposition of immunoglobulins within the dermal blood vessels to suggest an antibody mediated vasculitis and no deposition of fibrinogen around vessels to suggest active vascular injury, no features of an autoimmune
bullous disease including pemphigus, pemphigoid, linear IgA disease or dermatitis herpetiformis
.
Subjective Data
-
Date of Service:
Date of Service: June 10, 2024
Chief Complaint: Pulmonary Follow Up and Dyspnea Follow Up
Subjective:
Patient seen and evaluated today at bedside. He is doing well. He is on room air saturating 97%. Heart rate 82 and BP 134/69. His rash on his legs is slightly itchy but he does not painful. He denies SOB, CP, FIGUEREDO, abdominal pain, fevers or
chills.
Review of Systems
General: Other (Negative unless mentioned above)
Objective Data
Data Reviewed
Vital Signs / I&O / Oxygen:
Vital Signs
Temp Pulse Resp BP Pulse Ox
96.9 F L 87 18 123/69 96
06/10/24 07:10 06/10/24 08:53 06/10/24 07:36 06/10/24 08:53 06/10/24 07:36
Intake and Output
06/09/24 06/10/24 06/11/24
06:59 06:59 06:59
Intake Total 1400 / 1400 1200 / 1200
Output Total 2325 / 2325 2225 / 2225
Balance -925 / -925 -1025 / -1025
SaO2 96
Nasal Cannula flow liters per 2
minute
Physical Exam
General: Respiratory Distress (n), Comfortable, Chills (n) and Sweats (n)
HEENT: Normocephalic, Anicteric and Moist Mucous Membranes
Cardiovascular: S1-S2, Murmur (CATHERINE, heard at [facility]) and Peripheral Edema (+1 lower extremity edema bilaterally)
Respiratory: Clear, Wheeze (n), Crackles (negative), Rhonchi (n), Non-Labored Respirations, Accessory Resp Muscle Use (n) and Stridor (n)
GI: Soft, Non Distended and Non Tender
Neurology: AO x 3 and Tremors (n)
Skin: Warm, Dry, Cyanosis (n), Jaundice (n) and Rash (Blotchy maculopapular rash mainly in the lower extremities)
Labs/Micro/Reports
Lab Data
06/10/24 05:18
06/10/24 05:18
Microbiology
06/02/24 12:13 Blood/Venous Blood Culture - Final
No Growth - Final Report
06/05/24 08:52 Sputum Respiratory Culture - Final
Usual Respiratory Yudelka
06/05/24 08:52 Sputum Gram Stain - Final
[2024-06-10 11:18] LABS: Glucose - Point of Care 209 mg/dl (70-99)
[2024-06-10] MEDS: NOVOLOG FLEXPEN-LOW RESISTANCE 2 UNITS SC ×2 (13:17→17:34)
--- NOTE | 2024-06-10 13:32 | PTOTSP ---
ST Follow-Up/Re-Evaluation
Pt continues to present with mild pharyngeal dysphagia as evident on VFSS on 06/07/24.
Recommendations:
- Pt can continue on regular solids, thin liquids via cup sips only, and meds as tolerated.
- Pt should continue to choose soft/moist items or ask for moisturizer items (sauce, gravy, butter) for dryer items.
- Aspiration precautions: small single sips, no straws, use double swallows with solids or alternate solids/liquids.
- TIPPLE BOSS to f/u to ensure pt is more independently recalling and implementing the recommended compensatory strategies.
--- NOTE | 2024-06-10 14:11 | PTCARENOTE ---
Patient is awake, alert and oriented today, sitting out of bed to chair, using urinal with set up assistance. Patient is denying pain when asked. IV fluids con tinue, oral intake is excellent. Patient continues to have a rash, not complaining of any
itching or discomfort. Patient educated about plan of care, verbalized understanding.
--- NOTE | 2024-06-10 14:18 | W.PN.NEPH.PH ---
Today's Communication / Plan
-
- continue IVF
Assessment/Plan
-
IMP:
FUO -suspect vasculitis as the etiology, skin biopsy neg.
diffuse palpable purpura
Acute hypoxic respiratory failure
Severe multifocal pneumonia
KALEIGH
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
Dysphagia
Pancytopenia
Acute left upper extremity cephalic vein thrombosis
Tachycardia
Asthma, severe persistent asthma
Subacute/chronic left frontal lobe infarct
Leukocytosis
Chronic hyponatremia
Essential hypertension
Hyperlipidemia
Constipation
Plan:
Recurrent admits, this time with FUO, persistent rash, and hypotension
KALEIGH-baseline cr 1, now at 1.6, possible ATN, 05/15 CT with out hydro
likely multifactorial contrast+hypotension
UA is bland, U acid crystals noted today -check U acid, neg serologies last admit
less likely has glomerular involvement, per derm biopsy consistent with vasculitis. initiated on steroids
mild proteinuria 500mg g/ of cr last admit-recheck now at 0.3
follow bladder scan, remains non oliguric
stop sodium bicarb tabs
LA remains high at 2.5 (peak in 4s), giving fluids based on last RHC
hyponatremia normalized.
maintain FR 48 ounces/day, TSH and cortisol were ok on 05/30
reducing midodrine dose
steroids wean per pulm and await BM biopsy
abx per ID, urine eosinophils negative and no peripheral eosinophilia seen
avoid nephrotoxins
cont supportive care
d/w patient
-
-
Date of Service: June 10, 2024
CC / HPI / ROS
-
Chief Complaint:
KALEIGH
History of Present Illness:
Cr elevated to 1.6, baseline 1
[facility] excellent
Review of Systems:
oxygenation improved, now on RA
Labs
-
Labs:
WBC 8.3 10^3/uL (4.8-10.8) 06/10/24 05:18
RBC 2.39 10^6/uL (4.70-6.10) L 06/10/24 05:18
Hgb 7.6 g/dL (13.0-18.0) L 06/10/24 05:18
Hct 22.5 % (39.0-52.0) L 06/10/24 05:18
Plt Count 107 10^3/uL (130-400) L D 06/10/24 05:18
Sodium 140 mmol/L (135-145) 06/10/24 05:18
Potassium 4.4 mmol/L (3.5-5.1) 06/10/24 05:18
Chloride 106 mmol/L (98-107) 06/10/24 05:18
Carbon Dioxide 25 mmol/L (22-30) 06/10/24 05:18
BUN 58 mg/dl (9-20) H 06/10/24 05:18
Creatinine 1.6 mg/dL (0.7-1.3) H 06/10/24 05:18
eGFR 44.93 06/10/24 05:18
Glucose 179 mg/dl (70-99) H 06/10/24 05:18
Calcium 8.0 mg/dl (8.4-10.2) L 06/10/24 05:18
Phosphorus 6.3 mg/dl (2.5-4.5) H 06/05/24 03:58
Bdk-R-Qekaamyazxw Pept 2890 pg/ml 06/06/24 05:23
Albumin 2.6 g/dl (3.5-5.0) L 06/10/24 05:18
Physical Exam
-
Vital Signs:
Vital Signs
Temp Pulse Resp BP Pulse Ox
97.5 F 79 22 134/69 96
06/10/24 10:49 06/10/24 13:18 06/10/24 13:00 06/10/24 13:18 06/10/24 13:00
Cardiovascular:: Regular rate and rhythm
Respiratory:: Bilateral: Coarse
Lung Excursion:: Normal
Abdomen:: Nontender and Soft
Bowel Sounds:: Normal
Extremity Edema:: None: Bilateral:
Vásquez Catheter: No
[2024-06-10 17:08] LABS: Glucose - Point of Care 211 mg/dl (70-99)
[2024-06-10] MEDS: LOVENOX 30 MG SC (17:35)
[2024-06-10] MEDS: FLUSH (NSS) 2 FLUSH IV (19:59)
--- NOTE | 2024-06-10 20:53 | PTCARENOTE ---
Report received from previous shift RN [id number]. Pt in bed, AAO3, no complaints offered. Lung sounds are decreased throughout w fine crackles in b/l base, oc nonproductive cough, denies SOB. Acapela and IS at bedside and encouraged, achieving 750-1000ml
on IS. M/S status noted, +1 pitting lower extr edema b/l, palpable peripheral pulses present, refusing SCDs despite education. +BS, abdomen soft round nontender, good appetite reported. Urinal at bedside, voiding yellow urine w/o difficulty. Red
patchy rash noted on b/l legs/trunk. Skin as documented. L wrist int flushed and patent, IVF infusing per order. Call morales within reach, safe environment maintained. Will monitor closely.
[2024-06-10] MEDS: MELATONIN 10 MG PO (21:05)
[2024-06-10] MEDS: BENADRYL 25 MG PO (21:05)
[2024-06-10 21:53] LABS: Glucose - Point of Care 200 mg/dl (70-99)
[2024-06-11] VITALS (8 sets, daily range): BP systolic 137–150; BP diastolic 75–87; PULSE 74; BMI 25.9
--- NOTE | 2024-06-11 02:10 | PTCARENOTE ---
Pt rang call morales for linen change due to urinal spillage. Bath and linen change provided. Pt stating frustrations regarding lack of sleep due to frequency of urination. Support provided. Will continue to monitor.
[2024-06-11 05:13] LABS: Hemoglobin 7.1 g/dL (13.0-18.0); Mean Corp Hgb Conc. 33.8 g/dL (33.0-37.0); Mean Corpuscular Hgb 31.7 pg (27.0-31.0); Mean Corpuscular Volume 93.8 fL (80.0-94.0); Red Blood Cell Count 2.24 10^6/uL (4.70-6.10); Red Cell Dist. Width 14.6 % (11.5-14.5); White Blood Cell Count 5.9 10^3/uL (4.8-10.8)
[2024-06-11 05:19] LABS: ALT (SGPT) 20 U/L (0-50); AST (SGOT) 26 U/L (17-59); Albumin 2.5 g/dl (3.5-5.0); Alkaline Phosphatase 78 U/L (38-126); Blood Urea Nitrogen 45 mg/dl (9-20); Calcium 8.1 mg/dl (8.4-10.2); Carbon Dioxide 25 mmol/L (22-30); Chloride 105 mmol/L (98-107); Estimated Creatinine Clearance 53 ml/min; Glucose 158 mg/dl (70-99); Potassium 4.5 mmol/L (3.5-5.1); Sodium 138 mmol/L (135-145); Total Bilirubin 0.3 mg/dl (0.2-1.3); Total Protein 5.3 g/dl (6.3-8.2); eGFR > 60.00
[2024-06-11 07:24] LABS: Glucose - Point of Care 150 mg/dl (70-99)
[2024-06-11] MEDS: DUONEB 3 ML INH ×2 (07:52→19:39)
[2024-06-11] MEDS: SYMBICORT 160/4.5 MCG INHALER 2 PUFF INH ×2 (07:53→19:39)
[2024-06-11 08:38] LABS: Mean Platelet Volume 11.1 fL (7.4-10.4); Platelet Count 78 10^3/uL (130-400)
[2024-06-11 08:39] LABS: Platelets Checked Yes; Total Cells Counted 100
[2024-06-11 08:40] LABS: Band Neutrophils 2 % (0-3); Eosinophils 1 % (0-6); Lymphocytes 17 % (20-51); Metamyelocytes 5 % (-); Monocytes 5 % (2-9); Myelocytes 4 % (-); Segmented Neutrophils 66 % (42-75)
[2024-06-11 08:41] LABS: Normal RBC Morphology Yes
--- NOTE | 2024-06-11 08:41 | W.PN.ONC2 ---
Today's Communication / Plan
-
Diffuse dysplastic marrow no evidence of blasts suggestive of high-grade MDS
Await final pathology on bone marrow including chromosomes and NGS testing
Consider hypomethylation agent and erythropoietin
will transition LMWH with pending HIT to apixaban 2.5mg bid for VTE ppx since LUE asxs from superficial cephalic thrombus. recommend elevation LUE and warm compresses prn
Impression
Impression
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
Acute anemia, thrombocytopenia. Leukocytosis resolved
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
MRI brain 06/07 Foci of loss of signal along the bilateral temporal occipital lobes which may be sequelae of cerebral amyloid angiopathy -neurology following
LUE US 06/04 Left cephalic vein thrombus, CTA negative for PE
CTA 06/04 infectious pneumonitis and pulmonary edema on steroids and completed abx
S/P R heart cath 06/08
Plan
Plan
Recurrent admissions for FUO, palpable purpura
steroid taper per pulmonary
peripheral blood flow cytometry low viability, however, no definitive immunophenotypic aberrancy
Bone marrow biopsy 06/04 (approved by Dr. Miller), final path pending
Check DIC panel, 4T score 2 (low) check HIT since on LMWH though suspicion is low
Subjective/Objective
Chief Complaint
leukocytosis resolved
Hgb remains >7g/dL
platelets trending down 78,000, normal 06/09
KALEIGH improved
Subjective
afebrile, no hypoxia or hypotension
denies bleeding
Vital Signs:
Vital Signs
Temp Pulse Resp BP Pulse Ox
98.1 F 61 13 150/78 99
06/11/24 07:15 06/11/24 08:00 06/11/24 08:00 06/11/24 08:00 06/11/24 08:07
Lab Results:
Laboratory Data
WBC 5.9 10^3/uL (4.8-10.8) 06/11/24 04:28
Hgb 7.1 g/dL (13.0-18.0) L 06/11/24 04:28
Plt Count 78 10^3/uL (130-400) L D 06/11/24 04:28
PT 17.4 Sec (11.4-14.6) H 06/04/24 16:31
INR 1.44 06/04/24 16:31
APTT 41.5 Sec (23.4-35.0) H 06/04/24 16:31
eGFR > 60.00 06/11/24 04:28
--- NOTE | 2024-06-11 08:49 | W.PN.HOSP.TC ---
Today's Communication/Plan
-
Steroids. PT OT. Hematology reeval.
Assessment / Plan
Assessment / Plan
General: Awake, alert, NAD
HEENT: Normocephalic, Atraumatic and Moist Mucous Membranes
Respiratory: Rales bilateral bases
Cardiac: Regular Rhythm and S1/S2, tachycardic
GI: Soft, Nontender and Nondistended
Musculoskeletal: No Clubbing, No Cyanosis and No Edema
Neuro: Awake, Alert and Oriented, no gross neurological deficit
Skin: Maculopapular rash on trunk and both lower extremities.
Psych: Calm cooperative
A/P:
FUO -suspect vasculitis as the etiology. Skin exam is notable for diffuse palpable purpura, now fading. Awaiting skin biopsy results. Getting empiric steroids under the direction of pulmonary. Dose reduced to oral today.
Improving overall
Status post bone marrow biopsy 06/04 -awaiting for results
Discussed with rheumatology, hematology -oncology, dermatology, ID, pulmonary.
Holding lisinopril amlodipine in case drug-induced lupus
Plan for flow cytometry
Bronchoscopy if needed down the road
Blood cultures x 2 no growth so far. Viral respiratory panel negative. Stool studies negative. COVID-negative x 2.
Gold QuantiFERON negative.
Elevated inflammatory marker-CRP >270 and 261, ferritin elevated at 938. ANCA negative.
Albumin low at 2.6
RE level low, less than 10
LDH normal at 245
Repeated echo no acute abnormalities
I called [facility] for possible transfer prior -->[facility] (Dr Maher)--> they do not recommend inpatient transfer and they feel they would do the same workup that we are doing in our hospital.
Discussed with oncology today 06/11 and they will reevaluate him today re: MDS diagnosis, cephalic vein thrombosis, thrombocytopenia multifactorial and MDS related versus HIT. Workup for HIT progress. Continue Lovenox for now unless hematology
would recommend argatroban (low suspicion for HIT-T-score is low). Might transition to low-dose Eliquis down the road.
Pancytopenia -white blood cell count normal but remains anemic and now has thrombocytopenia.
Diffuse dysplastic marrow with no evidence of blast suggestive of high-grade MDS. Awaiting final pathology results.
Discussed with oncology today 06/11 and they will reevaluate him today re: MDS diagnosis, cephalic vein thrombosis, thrombocytopenia multifactorial and MDS related versus HIT. Workup for HIT progress. Continue Lovenox for now unless hematology
would recommend argatroban (low suspicion for HIT-T-score is low). Might transition to low-dose Eliquis down the road.
Hematology considering hypomethylating agents and erythropoietin
Hematology-oncology on board
Status post blood transfusion 06/04
Hemoglobin 7.1 today
Platelet count 78 today
Continue to monitor hemoglobin
Bone marrow biopsy completed 06/04, report pending
Acute hypoxic respiratory failure -improving. Etiology suspected to be pneumonia versus pneumonitis. Significant improvement in respiratory failure likely due to steroids. Oxygenation improved, now on room air. Last chest x-ray was 06/07 showing
interval decrease in bilateral airspace opacities consistent with improving infiltrates. Clinically I do not believe the infiltrates represent pulmonary edema, suspect they represent inflammatory infiltrates that have responded to corticosteroids.
Encouraged use of Acapella, incentive spirometer. Continue steroids, nebs.
Severe multifocal pneumonia -chest x-ray done 06/07 shows improving infiltrates. Oxygen requirements improving and on room air. Completed course of antibiotics.
KALEIGH, improving. Creatinine 1.1 today- suspect multifactorial etiology. Renal function improving with IV fluid support. Right heart catheterization demonstrated pulmonary capillary wedge pressure of 14. Creatinine down to 1.1. I's and O's are
negative likely due to post-ATN diuresis.
Dysphagia - recent onset. Speech therapy recommended soft and bite sized foods, thin liquids on 06/07. However for unclear reasons patient is currently on cholesterol lowering diet without issues.
Acute left upper extremity cephalic vein thrombosis -on low-dose Lovenox.
Tachycardia -resolved.
Asthma, severe persistent asthma:
On Breztri as outpatient
Continue Spiriva
Continue Symbicort
Cont Vest Acapella and nebs as needed
Subacute/chronic left frontal lobe infarct -incidental finding on brain MRI. MRA head and neck showed no focal hemodynamically significant stenosis, aneurysm or occlusion. Numerous lytic foci of signal loss most pronounced along the bilateral
temporal occipital lobes which may be sequelae of cerebral amyloid angiopathy.
Leukocytosis:
Likely reactive due to steroids, now trending down.
Chronic hyponatremia -suspect due to subacute to chronic illness, hypotension, SIADH as well. Hyponatremia resolved. Fluid restriction discontinued.
Essential hypertension -antihypertensives on hold for hypotension but blood pressure now improved. Still on midodrine, can lower dose to 5 mg. Suspect hypotension related to volume depletion, improving with IV fluids.
Hyperlipidemia:
On rosuvastatin 20 mg p.o. daily
Constipation -last bowel movement was 06/07. Change Colace, Senokot to [id number] twice daily.
DVT prophylaxis-Lovenox low dose renally dosed. Patient wants to discontinue SCDs.
CODE STATUS-full code
Anticipated Discharge: > 48 hours
Subjective/Interval History
-
Date of Service: June 11, 2024
Patient denies shortness of breath or chest pain. He is off oxygen on room air. Afebrile
Objective Data
-
Labs:
Laboratory Results
06/11/24
04:28
WBC 5.9
Hgb 7.1 L
Hct 21.0 L
Plt Count 78 L D
Sodium 138
Potassium 4.5
Chloride 105
Carbon Dioxide 25
BUN 45 H
Creatinine 1.1
Glucose 158 H
Calcium 8.1 L
Total Bilirubin 0.3
AST 26
ALT 20
Alkaline Phosphatase 78
Vital Signs:
Vital Signs
Temp Pulse Resp BP Pulse Ox
98.1 F 61 13 150/78 99
06/11/24 07:15 06/11/24 08:00 06/11/24 08:00 06/11/24 08:00 06/11/24 08:07
I&O
06/10/24 06/11/24 06/12/24
06:59 06:59 06:59
Intake Total 1200 / 1200 2400 / 2400
Output Total 2225 / 2225 2650 / 2650 225 / 225
Balance -1025 / -1025 -250 / -250 -225 / -225
--- NOTE | 2024-06-11 08:56 | W.PN.ID1 ---
Date of Service
Date of Service: June 11, 2024
Today's Communication
ID service will no longer actively follow this patient please recall for further questions
Assessment / Plan
Pneumonitis - resolving
Low BP - improving
KALEIGH - resolving
Vasculitis - biopsy results consistent per dermatology
- formal BM biopsy results pending - hematology following and commented that Diffuse dysplastic marrow seen consistent with high-grade MDS - management per hematology
- steroids started 06/04, being tapered, management per pulmonary
- continued improvement off of antibiotics
Also:
Subacute small stroke
anemia
ID service will no longer actively follow this patient please recall for further questions
Chief Complaint
-: Other (Vasculitis)
Subjective / Review of Systems
remains afebrile
BP markedly improved compared to last week - midodrine weaning off
Vital Signs / Physical Exam
Vital Signs
Vital Signs
Temp Pulse Resp BP Pulse Ox
98.1 F 61 13 150/78 99
06/11/24 07:15 06/11/24 08:00 06/11/24 08:00 06/11/24 08:00 06/11/24 08:07
Physical Exam
Constitutional: No Acute Distress
Cardiovascular: Regular Rate
Pulmonary: Symmetric and Non Labored
Gastrointestinal: Non Distended
Skin: Warm, Dry and Rash (now more reticular on the lower extremities); Negative Jaundice
Neurological: Awake
Objective Data
Lab Data
Lab Results
06/11/24 04:28
06/11/24 04:28
ESR 23 mm/hour (0-20) H 06/05/24 03:58
PT 17.4 Sec (11.4-14.6) H 06/04/24 16:31
INR 1.44 06/04/24 16:31
APTT 41.5 Sec (23.4-35.0) H 06/04/24 16:31
Estimated Creat Clear 53 ml/min 06/11/24 04:28
Lactic Acid 2.5 mmol/L (0.7-2.0) H 06/09/24 11:50
Total Bilirubin 0.3 mg/dl (0.2-1.3) 06/11/24 04:28
AST 26 U/L (17-59) 06/11/24 04:28
ALT 20 U/L (0-50) 06/11/24 04:28
Alkaline Phosphatase 78 U/L (38-126) 06/11/24 04:28
C-Reactive Protein 261.00 mg/L (0.0-10.00) H 06/03/24 04:11
Most recent labs reviewed as above in addition:
slowly declining hgb/plt
no left shift
cr continued improvement
lactic acidosis improving ass of 06/09
bone marrow path remains pending
Micro Results:
06/02/24 12:13 Blood Culture - Final
Blood/Venous No Growth - Final Report
06/05/24 08:52 Respiratory Culture - Final
Sputum Usual Respiratory Yudelka
Gram Stain - Final
06/01/24 14:35 Blood Culture - Final
Blood/Venous No Growth - Final Report
06/06/24 09:59 Nasal Screen MRSA (PCR) - Final
Nose MRSA not detected - performed by PCR methodology.
06/03/24 17:47 Salmonella/Shigella Culture - Final
Feces/Stool No Salmonella, Shigella, Aeromonas or Plesiomonas species
isolated.
Campylobacter Culture - Final
No Campylobacter species isolated.
Shiga Toxin Test - Final
No E. coli Shiga Toxin 1 or 2 detected.
06/05/24 09:52 Influenza Type A (PCR) - Final
Nasalpharynx Not Detected
Influenza Type A (H1) (PCR) - Final
Not Detected
Influenza Type A (H3) (PCR) - Final
Not Detected
Influenza Type B (PCR) - Final
Not Detected
Resp Syncytial Virus Type A (PCR) - Final
Not Detected
Resp Syncytial Virus Type B (PCR) - Final
Not Detected
Adenovirus DNA (PCR) - Final
Not Detected
Human Metapneumovirus (PCR) - Final
Not Detected
Parainfluenza Virus Type 1 (PCR) - Final
Not Detected
Parainfluenza Virus Type 2 (PCR) - Final
Not Detected
Parainfluenza Virus Type 3 (PCR) - Final
Not Detected
Parainfluenza Virus Type 4 - Final
Not Detected
Rhinovirus (PCR) - Final
Not Detected
06/03/24 17:47 Cryptosporidium/Giardia - Final
Feces/Stool Negative for Cryptosporidium and/or Giardia Lamblia
antigens.
--- NOTE | 2024-06-11 09:21 | W.PN.PUL3 ---
Today's Communication / Plan
-
Ongoing treatment for suspected vasculitis, on IV steroids
I will decrease his dose to prednisone 1mg/kg which should continue for total of 6 weeks and taper as OP
Past CXR 06/07 improved, now on RA, no active respiratory complaints
Continue home inhaler regiment, no changes
Ongoing vasculitis treatments per team
Outpatient FU as planned for asthma
We will sign off at this time, please call with questions
Assessment
-
Patient is a 74-year-old male with previous history of severe asthma, hypertension hyperlipidemia was sent in by Dr Davies today for hypotension (90/60) with persistent rash and fevers. He was recently admitted for similar and discharged 05/17/2024
following negative workup. He has associated generalized weakness, lightheadedness. Had CT chest obtained demonstrating severe bilateral multifocal pneumonia which is new compared to prior. He is placed on empiric antibiotics. We are consulted
for eval.
Impression:
Severe multifocal PNA, suspect an inflammatory interstitial pneumonitis
CRP elevated-greater than 260-inflammatory process suspected, (ESR 88-[id number] after 1 day of steroids)
Interstitial lung disease-steroid responsive
Possible myelodysplasia bone marrow biopsy-final stains pending
FUO-suspect related to vasculitis
Rash
Hypotension
Acute on chronic anemia, hemoglobin 7 prior 9
Hyponatremia, mild
Conditions present prior to admission:
Recent RML pneumonia (seen initially on CXR from 04/19/2024)
Hospitalization-discharged dosed on 04/30/2024-thrombocytopenia/anemia/purpuric rash, biopsy performed and placed on prednisone with rheumatology follow-up
Hypertension
Hyperlipidemia
Severe persistent asthma on Breztri + Nucala
Follows with Dr Davies
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
Proteinuria
Occasional alcohol use
Plan
Patient now on room air saturating 99%
Continue with Symbicort + Spiriva and Duonebs BID
Antitussives prn
Encouraged incentive spirometry and Acapella
Solu-Medrol- 40 mg IV every 12 hours-slow reduction
Prior history of lung disease is noted including severe persistent asthma, chronic cough x 2 months
Patient is on Breztri as an outpatient
Chest x-ray 06/04/2024-findings suggest diffuse pulmonary interstitial edema progressed cannot rule out superimposed pneumonitis
Chest x-ray 06/07/2024-decreased bilateral airspace opacification
Patient had complained of left-sided pleuritic pain
CTA chest 06/04/2024-no pulmonary embolism, pronounced scattered groundglass opacifications progressed
Left upper extremity ultrasound 06/04/2024-left cephalic vein thrombus formation
DVT prophylaxis recommended - currently on LMWH
Cultures reviewed
Infectious disease following-correspondence reviewed
Continue empiric antibiotics-ceftriaxone and doxycycline discontinued (06/06 and 06/08)
Observe off, follow radiographically
Follow leukocytosis - WNL as of 06/09
Monitor hypotension-etiology unclear-(patient hypertensive as outpatient)-not adrenal insufficiency (random cortisol: 21.4 on 05/30/2024) and no obvious sepsis
Elevated CRP
ESR 23-after 1 day of steroids
Not classic features of Zausd-Skbouue-pvf called eosinophilic granulomatosis with polyangiitis (no significant peripheral eosinophilia)-or allergic bronchopulmonary aspergillosis
Rheumatology consultation - rec'd to see as an outpatient as they do not come to the hospital
Dermatology following as an outpatient-Dr. Obrien-skin biopsy reviewed at [facility]-suspected vasculitis
Solu-Medrol initiated, transition to daily prednisone 1mg/kg
Brain MRI 06/07/2024-numerous areas of loss of signal most pronounced along bilateral temporal occipital lobes which may be sequelae of cerebral amyloid angiopathy
Prior ECHO results are reviewed indicating normal function
proBNP in past have been negative, repeat on this admission now 2810
Monitor renal function, electrolytes, intake/output, lower extremity edema and weight
Replace electrolytes as needed
Renal function now improving
Nephrology evaluation-correspondence reviewed
Right heart catheterization performed on 06/08/2024 shows compensated right and left ventricular filling pressures with PCWP 14 with mPAP 21mmHg, and CO/CI: 5.9/3.2
Reviewed with primary team- cardiology on board, recs appreciated
Follow hemoglobin
Transfuse as needed to keep Hb>7, plt>20k
GI evaluation -- follow anemia w/u as OP
Bone marrow biopsies 06/04/2024-possible myelodysplastic syndrome --> follow up pathology
Oncology following-correspondence reviewed-diffuse dysplastic marrow no evidence of blasts suggestive of high-grade myelodysplasia
Final pathology including chromosomes and NGS testing is pending
Further care likely as OP
Neurology evaluation for dizziness
Brain MRI 06/03/2024-tiny subacute on chronic left frontal lobe infarct, findings suggesting chronic amyloid angiopathy and possible sequelae of chronic subarachnoid hemorrhage-superficial siderosis overall progressed
PT/OT - rec'd acute rehab
DVT prophylaxis: LMWH
GI prophylaxis-on pantoprazole
Will need outpatient pulmonary evaluation in our office for PFTs and 6MWT
Diagnostic Data
Chest x-ray 10/26/2022-NAD
Chest x-ray 04/19/24-mild right middle lobe pneumonia
Chest x-ray 04/24/2024-improvement in right lower lung field suggesting improvement in pneumonia or atelectasis
Chest x-ray 05/13/2024-no pneumonia, mild basilar atelectasis, mild elevation right hemidiaphragm
Brain MRI 02/10/2022-numerous parenchymal foci in bilateral occipital lobes right greater than left can be seen with cerebral amyloid angiopathy
CT Chest 06/03/24- Severe extensive diffuse bilateral tree-in-bud/groundglass density throughout all lobes with a peripheral predominance, new from prior. Bilateral lower lobe dependent subsegmental atelectasis, progressed from prior. Right lower
lobe scarring redemonstrated. No discrete solid pulmonary nodules, pleural effusions, pericardial effusions or pathologically enlarged noncalcified lymph nodes in the thorax. No pneumothorax. Impression: Severe bilateral multifocal pneumonia, new
from prior CT 05/15/2024.
Echocardiogram 01/19/2021-EF 60-65%, no significant valvular disease
ECHO 05/16/24- 1. Normal left ventricular size and systolic function without regional wall motion abnormalities. Mild concentric left ventricular hypertrophy. Estimated left ventricular ejection fraction is 62% by Hernandez's method. Normal
diastolic function.
2. Normal right ventricular size and systolic function.
3. Thickened mitral valve leaflets with mitral annular calcification. Mitral sclerosis without con stenosis. Trace mitral regurgitation.
4. Thickened, calcified trileaflet aortic valve with mild aortic stenosis. Peak and mean transaortic gradients of 31 and 15 mmHg. Mild aortic regurgitation.
5. No significant pericardial effusion.
Nuclear stress test 01/22/2021-EF 65%, low risk study
Skin biopsy 04/30/2024-send out no deposition of immunoglobulins within the dermal blood vessels to suggest an antibody mediated vasculitis and no deposition of fibrinogen around vessels to suggest active vascular injury, no features of an autoimmune
bullous disease including pemphigus, pemphigoid, linear IgA disease or dermatitis herpetiformis.
-----
Total time spent today was 51 minutes for this encounter. Time includes reviewing laboratory test/imaging results, reviewing pertinent medical records, obtaining and reviewing medical history, performing an appropriate exam, ordering medications,
tests and procedures. Time also includes documentation of this encounter, coordinating patient care and communicating with other healthcare professionals. Total time does not include separately billed tests performed on this date of service.
Subjective Data
-
Date of Service:
Date of Service: June 11, 2024
Chief Complaint: Pulmonary Follow Up and Dyspnea Follow Up
Subjective:
Doing well, stable on RA
Rash improving slowly
No new complaints
Objective Data
Data Reviewed
Vital Signs / I&O / Oxygen:
Vital Signs
Temp Pulse Resp BP Pulse Ox
98.1 F 61 13 150/78 99
06/11/24 07:15 06/11/24 08:00 06/11/24 08:00 06/11/24 08:00 06/11/24 08:07
Intake and Output
06/10/24 06/11/24 06/12/24
06:59 06:59 06:59
Intake Total 1200 / 1200 2400 / 2400
Output Total 2225 / 2225 2650 / 2650 225 / 225
Balance -1025 / -1025 -250 / -250 -225 / -225
SaO2 99
Nasal Cannula flow liters per 2
minute
Physical Exam
General: Respiratory Distress (n), Comfortable, Chills (n) and Sweats (n)
HEENT: Normocephalic, Anicteric and Moist Mucous Membranes
Cardiovascular: S1-S2, Murmur (CATHERINE, heard at [facility]) and Peripheral Edema (+1 lower extremity edema bilaterally)
Respiratory: Clear, Wheeze (n), Crackles (negative), Rhonchi (n), Non-Labored Respirations, Accessory Resp Muscle Use (n) and Stridor (n)
GI: Soft, Non Distended and Non Tender
Neurology: Awake, Alert, Oriented, AO x 3 and Tremors (n)
Skin: Warm, Dry, Cyanosis (n), Jaundice (n) and Rash (Blotchy maculopapular rash mainly in the lower extremities)
Labs/Micro/Reports
Lab Data
06/11/24 04:28
06/11/24 04:28
[2024-06-11] MEDS: NOVOLOG FLEXPEN-LOW RESISTANCE 1 UNITS SC ×3 (09:50→17:37)
[2024-06-11] MEDS: VITAMIN D3 (cholecalciferol) 50 MCG PO (09:51)
[2024-06-11] MEDS: RESTASIS 0.05% OPHTHALMIC EMULSION 1 DROPS BOTH EYES ×2 (09:51→20:33)
[2024-06-11] MEDS: PROTONIX 40 MG PO (09:51)
[2024-06-11] MEDS: MIRALAX PO (09:52)
[2024-06-11] MEDS: METAMUCIL, KONSYL PO ×2 (09:53→20:33)
[2024-06-11] MEDS: CRESTOR PO (09:53)
--- NOTE | 2024-06-11 10:25 | W.PN.NEPH.PH ---
Today's Communication / Plan
-
follow BMP
Assessment/Plan
-
IMP:
FUO -suspect vasculitis as the etiology, skin biopsy neg.
diffuse palpable purpura
Acute hypoxic respiratory failure
Severe multifocal pneumonia
KALEIGH
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
Dysphagia
Pancytopenia
Acute left upper extremity cephalic vein thrombosis
Tachycardia
Asthma, severe persistent asthma
Subacute/chronic left frontal lobe infarct
Leukocytosis
Chronic hyponatremia
Essential hypertension
Hyperlipidemia
Constipation
Plan:
KALEIGH most likely CN. resolution follow anticipated course
laisx for edema today
follow BMP
awaiting skin bx and BMBx results
I think it is unlikely that there is renal involvement of the vasculitis, and so would not prefer to pursue renal bx for dx unless BM and skin bx are unable to offer a specific dx.
steroids adjusted by pulmonary
-
-
Date of Service: June 11, 2024
CC / HPI / ROS
-
Chief Complaint:
KALEIGH
History of Present Illness:
Cr down to 1.1
remains on steroids for suspected vasculitis
BP high stable
hgb low stable at 7.1
Review of Systems:
no CP/SOB
Labs
-
Labs:
WBC 5.9 10^3/uL (4.8-10.8) 06/11/24 04:28
RBC 2.24 10^6/uL (4.70-6.10) L 06/11/24 04:28
Hgb 7.1 g/dL (13.0-18.0) L 06/11/24 04:28
Hct 21.0 % (39.0-52.0) L 06/11/24 04:28
Plt Count 78 10^3/uL (130-400) L D 06/11/24 04:28
Sodium 138 mmol/L (135-145) 06/11/24 04:28
Potassium 4.5 mmol/L (3.5-5.1) 06/11/24 04:28
Chloride 105 mmol/L (98-107) 06/11/24 04:28
Carbon Dioxide 25 mmol/L (22-30) 06/11/24 04:28
BUN 45 mg/dl (9-20) H 06/11/24 04:28
Creatinine 1.1 mg/dL (0.7-1.3) 06/11/24 04:28
eGFR > 60.00 06/11/24 04:28
Glucose 158 mg/dl (70-99) H 06/11/24 04:28
Calcium 8.1 mg/dl (8.4-10.2) L 06/11/24 04:28
Phosphorus 6.3 mg/dl (2.5-4.5) H 06/05/24 03:58
Ahi-L-Ersgtyakclw Pept 2890 pg/ml 06/06/24 05:23
Albumin 2.5 g/dl (3.5-5.0) L 06/11/24 04:28
Physical Exam
-
Vital Signs:
Vital Signs
Temp Pulse Resp BP Pulse Ox
98.1 F 91 19 150/78 95
06/11/24 07:15 06/11/24 09:00 06/11/24 09:00 06/11/24 08:00 06/11/24 09:00
Cardiovascular:: Regular rate and rhythm
Respiratory:: Bilateral: Coarse
Lung Excursion:: Normal
Abdomen:: Nontender and Soft
Bowel Sounds:: Normal
Extremity Edema:: +1: Bilateral:
Other Findings::
nonblanching macular coalescent rash on legs
[2024-06-11] MEDS: SENOKOT-S PO (10:56)
[2024-06-11] MEDS: DELTASONE 70 MG PO (10:56)
[2024-06-11] MEDS: SOLU-MEDROL PF IV (11:03)
[2024-06-11 11:56] LABS: Glucose - Point of Care 161 mg/dl (70-99)
--- NOTE | 2024-06-11 12:00 | PTCARENOTE ---
Patient out of bed to chair. Report given to Bethany SCHMIDT. Waiting for transport for patient to be transferred to 4th floor room 307 bed 1. All belongings with the patient.
--- NOTE | 2024-06-11 13:11 | PTCARENOTE ---
Patient transferred from IMU to room 407-01. Vital signs stable. Oriented to room, use of call morales and television and bed controls. Patient verbalizes understanding. Patient sitting up in chair and denies complaints at this time.
--- NOTE | 2024-06-11 16:14 | CM ---
CM met with Mr. Zarco this afternoon at bedside. He is feeling frustrated and is very anxious to move to [facility]. He has been seen by 'many specialists' and does not feel that he is getting the answers to what is wrong with him, however when
I asked him more questions, he is aware of the issues he is facing and is scared. Support provided. I told him I would reach out to [facility] and his primary doctor to help determine timing of transition to rehab.
Plan: TRISHA will continue to follow for transfer to [facility]; possibly tomorrow or Tuesday.
[2024-06-11 17:36] LABS: Glucose - Point of Care 186 mg/dl (70-99)
[2024-06-11] MEDS: SENOKOT-S 1 TABLET PO (20:31)
[2024-06-11] MEDS: ELIQUIS 2.5 MG PO (20:33)
[2024-06-11 21:35] LABS: Glucose - Point of Care 184 mg/dl (70-99)
[2024-06-12 05:21] LABS: APTT 28.9 Sec (23.4-35.0); INR 1.34; PT 16.4 Sec (11.4-14.6)
[2024-06-12 05:22] LABS: Fibrinogen 210 MG/DL (199-459)
[2024-06-12 05:24] LABS: D-Dimer 1.99 ug/mlFEU (0.00-0.50)
[2024-06-12 05:24] LABS: ALT (SGPT) 20 U/L (0-50); AST (SGOT) 26 U/L (17-59); Albumin 2.6 g/dl (3.5-5.0); Alkaline Phosphatase 68 U/L (38-126); Blood Urea Nitrogen 36 mg/dl (9-20); Calcium 8.5 mg/dl (8.4-10.2); Carbon Dioxide 27 mmol/L (22-30); Chloride 104 mmol/L (98-107); Estimated Creatinine Clearance 58 ml/min; Glucose 118 mg/dl (70-99); Sodium 137 mmol/L (135-145); Total Bilirubin 0.4 mg/dl (0.2-1.3); Total Protein 5.3 g/dl (6.3-8.2); eGFR > 60.00
[2024-06-12 05:34] LABS: Hematocrit 20.4 % (39.0-52.0); Mean Corp Hgb Conc. 34.3 g/dL (33.0-37.0); Mean Corpuscular Hgb 31.5 pg (27.0-31.0); Mean Corpuscular Volume 91.9 fL (80.0-94.0); Mean Platelet Volume 11.2 fL (7.4-10.4); Platelet Count 71 10^3/uL (130-400); Red Blood Cell Count 2.22 10^6/uL (4.70-6.10); Red Cell Dist. Width 14.7 % (11.5-14.5); White Blood Cell Count 5.4 10^3/uL (4.8-10.8)
[2024-06-12 06:00] VITALS: BMI 25.3
[2024-06-12 07:08] VITALS: BP 140/69
[2024-06-12 07:37] LABS: Band Neutrophils 0 % (0-3); Lymphocytes 34 % (20-51); Metamyelocytes 3 % (-); Monocytes 1 % (2-9); Myelocytes 5 % (-); Platelets Checked Yes; Segmented Neutrophils 57 % (42-75)
[2024-06-12 07:38] LABS: Anisocytosis Slight; Hypochromasia Slight; Normal RBC Morphology No; Total Cells Counted 100
[2024-06-12] MEDS: DUONEB 3 ML INH ×2 (07:54→19:47)
[2024-06-12] MEDS: SYMBICORT 160/4.5 MCG INHALER 2 PUFF INH ×2 (07:56→19:47)
[2024-06-12 08:24] LABS: Glucose - Point of Care 92 mg/dl (70-99)
[2024-06-12] MEDS: RESTASIS 0.05% OPHTHALMIC EMULSION 1 DROPS BOTH EYES ×2 (08:32→20:24)
[2024-06-12] MEDS: NOVOLOG FLEXPEN-LOW RESISTANCE SC (08:32)
[2024-06-12] MEDS: ELIQUIS 2.5 MG PO ×2 (08:33→20:23)
[2024-06-12] MEDS: DELTASONE PO (08:33)
[2024-06-12] MEDS: PROTONIX 40 MG PO (08:33)
[2024-06-12] MEDS: VITAMIN D3 (cholecalciferol) 50 MCG PO (08:33)
[2024-06-12] MEDS: SENOKOT-S PO (08:34)
[2024-06-12] MEDS: METAMUCIL, KONSYL 1 PACKET PO (08:34)
[2024-06-12] MEDS: MIRALAX PO (08:34)
[2024-06-12] MEDS: CRESTOR 20 MG PO (08:34)
[2024-06-12 08:35] VITALS: BP 146/72; PULSE 65; O2SAT 99
--- NOTE | 2024-06-12 08:49 | W.PN.HOSP.TC ---
Addendum entered and electronically signed by Julien Brunson MD 06/12/24 14:21:
updated daughter over the phone today
Original Note:
Today's Communication/Plan
-
Continue high-dose oral steroids. Diuretics as needed. Monitor CBC and renal function.
Assessment / Plan
Assessment / Plan
General: Awake, alert, NAD
HEENT: Normocephalic, Atraumatic and Moist Mucous Membranes
Respiratory: Rales bilateral bases
Cardiac: Regular Rhythm and S1/S2, tachycardic
GI: Soft, Nontender and Nondistended
Musculoskeletal: No Clubbing, No Cyanosis and No Edema
Neuro: Awake, Alert and Oriented, no gross neurological deficit
Skin: Maculopapular rash on trunk and both lower extremities.
Psych: Calm cooperative
A/P:
FUO -suspect vasculitis as the etiology. Skin exam is notable for diffuse palpable purpura, now fading. Awaiting skin biopsy results. Getting empiric steroids under the direction of pulmonary. Dose reduced to oral since yesterday 06/11. I would
do a very slow taper when appropriate.
Improving overall
Status post bone marrow biopsy 06/04 -awaiting for results
Discussed with rheumatology, hematology -oncology, dermatology, ID, pulmonary.
Holding lisinopril amlodipine in case drug-induced lupus
Plan for flow cytometry
Bronchoscopy if needed down the road
Blood cultures x 2 no growth so far. Viral respiratory panel negative. Stool studies negative. COVID-negative x 2.
Gold QuantiFERON negative.
Elevated inflammatory marker-CRP >270 and 261, ferritin elevated at 938. ANCA negative.
Albumin low at 2.6
RE level low, less than 10
LDH normal at 245
Repeated echo no acute abnormalities
I called [facility] for possible transfer prior -->[facility] (Dr Maher)--> they do not recommend inpatient transfer and they feel they would do the same workup that we are doing in our hospital.
Discussed with oncology 06/11 and they will reevaluate him today re: MDS diagnosis, cephalic vein thrombosis, thrombocytopenia multifactorial and MDS related versus HIT. Workup for HIT progress. Continue Lovenox for now unless hematology would
recommend argatroban (low suspicion for HIT-T-score is low).
Transitioned to low-dose Eliquis by spark plug tester today 06/12.
Pancytopenia -white blood cell count normal but remains anemic and now has thrombocytopenia.
Diffuse dysplastic marrow with no evidence of blast suggestive of high-grade MDS. Awaiting final pathology results.
Discussed with oncology 06/11 and they will reevaluate him today re: MDS diagnosis, cephalic vein thrombosis, thrombocytopenia multifactorial and MDS related versus HIT. Workup for HIT progress. Continue Lovenox for now unless hematology would
recommend argatroban (low suspicion for HIT-T-score is low).
Transitioned to low-dose Eliquis by spark plug tester today 06/12.
Hematology considering hypomethylating agents and erythropoietin
Hematology-oncology on board
Status post blood transfusion 06/04
Hemoglobin 7 today
Platelet count 71 today
Continue to monitor hemoglobin
Bone marrow biopsy completed 06/04, report pending
Acute hypoxic respiratory failure -improving. Etiology suspected to be pneumonia versus pneumonitis. Significant improvement in respiratory failure likely due to steroids. Oxygenation improved, now on room air. Last chest x-ray was 06/07 showing
interval decrease in bilateral airspace opacities consistent with improving infiltrates. Clinically I do not believe the infiltrates represent pulmonary edema, suspect they represent inflammatory infiltrates that have responded to corticosteroids.
Encouraged use of Acapella, incentive spirometer. Continue steroids, nebs.
Severe multifocal pneumonia -chest x-ray done 06/07 shows improving infiltrates. Oxygen requirements improving and on room air. Completed course of antibiotics.
KALEIGH, improving. Creatinine 1.0 today- suspect multifactorial etiology. Renal function improving with IV fluid support. Right heart catheterization demonstrated pulmonary capillary wedge pressure of 14. Creatinine down to 1.0. I's and O's are
negative likely due to post-ATN diuresis. Nephrology would like to hold off on any biopsy at the time being. Nephrology considering oral diuretics
Dysphagia - recent onset. Speech therapy recommended soft and bite sized foods, thin liquids on 06/07. However for unclear reasons patient is currently on cholesterol lowering diet without issues.
Acute left upper extremity cephalic vein thrombosis -on low-dose Lovenox.
Tachycardia -resolved.
Asthma, severe persistent asthma:
On Breztri as outpatient
Continue Spiriva
Continue Symbicort
Cont Vest Acapella and nebs as needed
Subacute/chronic left frontal lobe infarct -incidental finding on brain MRI. MRA head and neck showed no focal hemodynamically significant stenosis, aneurysm or occlusion. Numerous lytic foci of signal loss most pronounced along the bilateral
temporal occipital lobes which may be sequelae of cerebral amyloid angiopathy.
Leukocytosis:
Likely reactive due to steroids, now trending down.
Chronic hyponatremia -suspect due to subacute to chronic illness, hypotension, SIADH as well. Hyponatremia resolved. Fluid restriction discontinued.
Essential hypertension -antihypertensives on hold for hypotension but blood pressure now improved. Still on midodrine, can lower dose to 5 mg. Suspect hypotension related to volume depletion, improving with IV fluids.
Hyperlipidemia:
On rosuvastatin 20 mg p.o. daily
Constipation -last bowel movement was 06/07. Change Colace, Senokot to [id number] twice daily.
DVT prophylaxis-Lovenox low dose renally dosed. Patient wants to discontinue SCDs.
CODE STATUS-full code
Anticipated Discharge: 24 - 48 hours
Subjective/Interval History
-
Date of Service: June 12, 2024
Patient feels better overall. No chest pain. Less shortness of breath. Some peripheral edema. Afebrile
Objective Data
-
Labs:
Laboratory Results
06/12/24 06/12/24
04:29 04:30
WBC 5.4
Hgb 7.0 L
Hct 20.4 L*
Plt Count 71 L
PT 16.4 H
INR 1.34
APTT 28.9
Sodium 137
Potassium 4.0
Chloride 104
Carbon Dioxide 27
BUN 36 H
Creatinine 1.0
Glucose 118 H
Calcium 8.5
Total Bilirubin 0.4
AST 26
ALT 20
Alkaline Phosphatase 68
Vital Signs:
Vital Signs
Temp Pulse Resp BP Pulse Ox
97.4 F 74 16 140/69 95
06/12/24 07:08 06/12/24 07:57 06/12/24 07:57 06/12/24 07:08 06/12/24 07:57
I&O
06/11/24 06/12/24 06/13/24
06:59 06:59 06:59
Intake Total 2400 / 2400 240 / 240
Output Total 2650 / 2650 225 / 225
Balance -250 / -250
[2024-06-12] MEDS: DELTASONE 70 MG PO (09:29)
[2024-06-12 10:00] VITALS: BP 119/71; PULSE 78
--- NOTE | 2024-06-12 11:24 | W.PN.NEPH.PH ---
Today's Communication / Plan
-
lasix
Assessment/Plan
-
IMP:
FUO -suspect vasculitis as the etiology, skin biopsy neg.
diffuse palpable purpura
Acute hypoxic respiratory failure
Severe multifocal pneumonia
KALEIGH
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
Dysphagia
Pancytopenia
Acute left upper extremity cephalic vein thrombosis
Tachycardia
Asthma, severe persistent asthma
Subacute/chronic left frontal lobe infarct
Leukocytosis
Chronic hyponatremia
Essential hypertension
Hyperlipidemia
Constipation
Plan:
KALEIGH most likely CN. resolution followed anticipated course
po lasix for edema today
follow BMP
awaiting skin bx and BMBx results
I think it is unlikely that there is renal involvement of the vasculitis, and so would not prefer to pursue renal bx for dx unless BM and skin bx are unable to offer a specific dx.
steroids adjusted by pulmonary
-
-
Date of Service: June 12, 2024
CC / HPI / ROS
-
Chief Complaint:
KALEIGH
History of Present Illness:
Cr down to 1.0
remains on steroids for suspected vasculitis
BP high stable
hgb low stable at 7.0
Review of Systems:
no CP/SOB
Labs
-
Labs:
WBC 5.4 10^3/uL (4.8-10.8) 06/12/24 04:30
RBC 2.22 10^6/uL (4.70-6.10) L 06/12/24 04:30
Hgb 7.0 g/dL (13.0-18.0) L 06/12/24 04:30
Hct 20.4 % (39.0-52.0) L* 06/12/24 04:30
Plt Count 71 10^3/uL (130-400) L 06/12/24 04:30
Sodium 137 mmol/L (135-145) 06/12/24 04:30
Potassium 4.0 mmol/L (3.5-5.1) 06/12/24 04:30
Chloride 104 mmol/L (98-107) 06/12/24 04:30
Carbon Dioxide 27 mmol/L (22-30) 06/12/24 04:30
BUN 36 mg/dl (9-20) H 06/12/24 04:30
Creatinine 1.0 mg/dL (0.7-1.3) 06/12/24 04:30
eGFR > 60.00 06/12/24 04:30
Glucose 118 mg/dl (70-99) H 06/12/24 04:30
Calcium 8.5 mg/dl (8.4-10.2) 06/12/24 04:30
Phosphorus 6.3 mg/dl (2.5-4.5) H 06/05/24 03:58
Zcv-G-Xcektareney Pept 2890 pg/ml 06/06/24 05:23
Albumin 2.6 g/dl (3.5-5.0) L 06/12/24 04:30
Physical Exam
-
Vital Signs:
Vital Signs
Temp Pulse Resp BP Pulse Ox
97.4 F 74 16 140/69 95
06/12/24 07:08 06/12/24 07:57 06/12/24 07:57 06/12/24 07:08 06/12/24 07:57
Cardiovascular:: Regular rate and rhythm
Respiratory:: Bilateral: CTA
Lung Excursion:: Normal
Abdomen:: Nontender and Soft
Bowel Sounds:: Normal
Extremity Edema:: +2: Bilateral:
Other Findings::
rash improving
[2024-06-12] MEDS: LASIX 40 MG PO (11:29)
[2024-06-12 12:01] LABS: Glucose - Point of Care 174 mg/dl (70-99)
[2024-06-12] MEDS: NOVOLOG FLEXPEN-LOW RESISTANCE 1 UNITS SC ×2 (12:29→17:31)
--- NOTE | 2024-06-12 14:06 | W.PN.ONC2 ---
Today's Communication / Plan
-
follow CBC
follow for final BMBx path including chromosomes and NGS testing
OP follow up will be arranged upon discharge
Impression
Impression
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
Acute anemia, thrombocytopenia. Leukocytosis resolved. No evidence of acute DIC
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
MRI brain 06/07 Foci of loss of signal along the bilateral temporal occipital lobes which may be sequelae of cerebral amyloid angiopathy -neurology following
LUE US 06/04 Left cephalic vein thrombus, CTA negative for PE
CTA 06/04 infectious pneumonitis and pulmonary edema on steroids and completed abx
S/P R heart cath 06/08
dysphagia
Plan
Plan
Recurrent admissions for FUO, palpable purpura
steroid taper per pulmonary
peripheral blood flow cytometry low viability, however, no definitive immunophenotypic aberrancy
Bone marrow biopsy 06/04 (approved by Dr. Miller), final path pending - to consider hypomethylation agent and erythropoietin upon discharge
transfuse 1 PRBC for Hgb <7g/dL or as needed for sxs anemia, last prbc 06/04 for Hgb 6.7g/dL
Caution antiplatelet, anticoagulation, NSAIDs if platelet count <50,000
superficial Left cephalic vein thrombus asymptomatic -warm compress prn, elevation
4T score 2 (low), LMWH d/c 06/11, HIT pending, though suspicion is low. on apixaban 2.5mg bid for VTE ppx
Subjective/Objective
Chief Complaint
methylprednisone transitioned to prednisone
Hgb slowly trending down to 7g/dL today, platelets 71,000 today.
renal function improved to creatinine 1
denies bleeding
Subjective
no new complaints
Vital Signs:
Vital Signs
Temp Pulse Resp BP Pulse Ox
97.4 F 70 16 132/70 98
06/12/24 07:08 06/12/24 11:29 06/12/24 07:57 06/12/24 11:29 06/12/24 13:07
Lab Results:
Laboratory Data
WBC 5.4 10^3/uL (4.8-10.8) 06/12/24 04:30
Hgb 7.0 g/dL (13.0-18.0) L 06/12/24 04:30
Plt Count 71 10^3/uL (130-400) L 06/12/24 04:30
PT 16.4 Sec (11.4-14.6) H 06/12/24 04:29
INR 1.34 06/12/24 04:29
APTT 28.9 Sec (23.4-35.0) 06/12/24 04:29
eGFR > 60.00 06/12/24 04:30
Physical Exam
HEENT: Moist Mucous Membranes; No Jaundice
Cardiology: S1 and S2
Pulmonary: Clear
GI: Soft
Extremities: Edema
Neuro: Non Focal
Review of Systems
Review of Systems
ROS notable for subjective, otherwise negative
Orders
Orders
Orders From Last 24 Hours
06/11/24 20:00
Apixaban [Eliquis] 2.5 mg PO BID
06/12/24 04:29
D-Dimer IN AM
Fibrinogen IN AM
PT/INR [Prothrombin Time] IN AM
PTT IN AM
06/12/24 04:30
HIT [Heparin Associated Platelet Ab] [S] IN AM
--- NOTE | 2024-06-12 14:21 | CM ---
TRISHA met with Mr. Zarco today to discuss discharge planning options. [facility] has evaluated and feels that acute rehab is not appropriate at this time. SNF discussed and [employer] report provided to Mr. Zarco. Currently he prefers [facility]
for SNF, however his daughter is going to be visiting this evening and they will discuss. I also printed out the [employer] report for the [facility] where his daughter lives.
TRISHA to follow up in am with Mr. Zarco to determine his preferences for SNF.
[2024-06-12 15:14] VITALS: BP 136/79
[2024-06-12 17:02] LABS: Glucose - Point of Care 158 mg/dl (70-99)
[2024-06-12] MEDS: SENOKOT-S 1 TABLET PO (20:23)
[2024-06-12] MEDS: METAMUCIL, KONSYL PO (20:24)
[2024-06-12 21:51] LABS: Glucose - Point of Care 205 mg/dl (70-99)
[2024-06-12 23:42] VITALS: BP 143/73
[2024-06-13 04:15] VITALS: BMI 24.7
[2024-06-13 05:04] LABS: Hematocrit 20.6 % (39.0-52.0); Hemoglobin 7.2 g/dL (13.0-18.0); Mean Corpuscular Volume 91.6 fL (80.0-94.0); Mean Platelet Volume 10.7 fL (7.4-10.4); Platelet Count 60 10^3/uL (130-400); Red Blood Cell Count 2.25 10^6/uL (4.70-6.10); Red Cell Dist. Width 14.8 % (11.5-14.5); White Blood Cell Count 5.3 10^3/uL (4.8-10.8)
[2024-06-13 05:35] LABS: Blood Urea Nitrogen 40 mg/dl (9-20); Calcium 8.4 mg/dl (8.4-10.2); Carbon Dioxide 27 mmol/L (22-30); Chloride 102 mmol/L (98-107); Estimated Creatinine Clearance 58 ml/min; Glucose 115 mg/dl (70-99); Potassium 3.9 mmol/L (3.5-5.1); Sodium 137 mmol/L (135-145); eGFR > 60.00
[2024-06-13] MEDS: DUONEB 3 ML INH ×2 (07:36→19:38)
[2024-06-13] MEDS: SYMBICORT 160/4.5 MCG INHALER 2 PUFF INH ×2 (07:36→19:38)
[2024-06-13 07:45] VITALS: BP 148/75
[2024-06-13 08:07] LABS: Glucose - Point of Care 94 mg/dl (70-99)
[2024-06-13] MEDS: NOVOLOG FLEXPEN-LOW RESISTANCE SC (08:49)
[2024-06-13] MEDS: MIRALAX PO (08:53)
[2024-06-13] MEDS: RESTASIS 0.05% OPHTHALMIC EMULSION 1 DROPS BOTH EYES ×2 (08:53→21:04)
[2024-06-13] MEDS: DELTASONE 70 MG PO (08:53)
[2024-06-13] MEDS: METAMUCIL, KONSYL PO ×2 (08:54→21:05)
[2024-06-13] MEDS: CRESTOR 20 MG PO (08:54)
[2024-06-13] MEDS: SENOKOT-S 1 TABLET PO ×2 (08:54→21:04)
[2024-06-13] MEDS: ELIQUIS 2.5 MG PO ×2 (08:54→21:04)
[2024-06-13] MEDS: PROTONIX 40 MG PO (08:54)
[2024-06-13] MEDS: VITAMIN D3 (cholecalciferol) 50 MCG PO (08:54)
--- NOTE | 2024-06-13 10:22 | CON.MD ---
Addendum entered and electronically signed by Atif Posadas MD 06/14/24 10:33:
Attending Statement:
I saw and examined the patient today <del>06/05/2024</del> 06/13/24. Reviewed care plan with patient, and resident. I agree with the above subjective and physical exam, and plan as documented by with adjustments made as necessary.
A total of 60 minutes were spent with the patient preparing for the evaluation, obtaining history, performing examination and evaluation, counseling, data review, case management, care coordination, border police, and EMR documentation.
Original Note:
Documented by User: Lorena Hooks MD, Resident 06/13/24 14:00
Consultation - Medical
-
Referring Provider: Marv Strong MD
Chief Complaint: Weakness/Debility
History of Present Illness:
74 year-old male who has multiple admissions to the hospital since April 2024 with similar symptoms including chronic fevers, rash felt to most likely be hematologic or rheumatic in etiology. His last presentation to ER was on 06/01/24 with
complaints of blood pressure of about 90/60. Even he has been intermittently holding his amlodipine and lisinopril. He was admitted again to the hospital for further studies. BM biopsy showed dysplastic appearing marrow consistent with high-grade
MDS and skin biopsy was nondiagnostic. .Due his dizziness, he had an MRI of the brain on 06/03 which showed a tiny subacute on chronic left frontal lobe infarct.
The patient denies having any focal weakness, vision changes, speech difficulties, changes with problem solving and memory. Denies ever hearing that he had an ischemic stroke in the past. He has a known history of cerebral amyloid angiopathy
diagnosed at [facility] 2 years ago. He was told that he should never take any antiplatelet agents and needs to avoid NSAIDs.
Conditions present prior to admission:
Recent diagnosis of pneumonia (possible for an inflammatory interstitial pneumonitis)/ Interstitial lung disease-steroid responsive
Hospitalization-discharged dosed on 04/30/2024-thrombocytopenia/anemia/purpuric rash, biopsy performed and placed on prednisone with rheumatology follow-up
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
Proteinuria
Past Medical History: Hypertension, Hyperlipidemia, Severe persistent asthma on Breztri + Nucala
Procedure History: orthopedic surgery(left knee)
Family History: non contributory
Social History:
Functional Level Premorbidly: Independent with all activities
Functional Level Currently: Bed Mobility-Supine to sit- Modified independence/Sit to supine- Modified independence, Transfer:-Sit to stand- Minima l assistance -Stand to sit- Minimal assistance, -Ambulation Pt ambulated with RW 75 ft and 40 ft with
min assist for contact guard, and ambulated 25 ft without walker with min assist
Tobacco: Non-smoker
Alcohol: Daily
Drug: Denies
Personal:
Lives with: Alone, planning to move her daughter`s house after discharge
24-hour assistance available: No
Number of floors:
# steps to enter: Many (4-6)
# steps to second floor:
Potential First floor set up:planning to move her daughter`s house which is flat.
Driving: No
Allergies
Allergy/AdvReac Type Severity Reaction Status Date / Time
azithromycin [From Zithromax] Allergy Shortness Verified 05/13/24 10:52
of Breath
pollen extracts Allergy Asthma Verified 06/06/24 14:56
exacerbation
Home Medications
Allergy Shots 1 dose INJ TH Allergies 07/03/20
albuterol sulfate 90 mcg/actuation aerosol inhaler (Proventil HFA) 2 puff inhalation R Q4HPRN PRN sob 07/03/20
cyclosporine 0.05 % eye drops in a dropperette (Restasis) 1 drp BOTH EYES BID dry eye 07/03/20
diphenhydramine HCl 50 mg capsule (Banophen) 50 mg PO HSPRN PRN sleep 07/03/20
psyllium husk (aspartame) 3.4 gram oral powder packet (Metamucil Fiber Singles) 1 packet PO BID Constipation 07/03/20
rosuvastatin 20 mg tablet 20 mg PO DAILY High Cholesterol 07/03/20
amlodipine 2.5 mg tablet 2.5 mg PO HS Blood Pressure 04/24/24
budesonide 160 mcg-glycopyr 9 mcg-formot 4.8 mcg/actuation HFA inhaler (Breztri Aerosphere) 2 inh inhalation R BID Lung/Breathing Issues 04/24/24
cholecalciferol (vitamin D3) 50 mcg (2,000 unit) tablet 50 mcg PO DAILY Supplement 04/24/24
lisinopril 20 mg tablet 20 mg PO BID Blood Pressure 04/24/24
melatonin 10 mg tablet 10 mg PO HSPRN PRN sleep 04/24/24
mepolizumab 100 mg/mL subcutaneous syringe (Nucala) 300 mg SC Q4W asthma 04/24/24
benzonatate 200 mg capsule 200 mg PO TIDPRN PRN cough 05/30/24
acetaminophen 650 mg tablet,extended release (Tylenol 8 Hour) 650 mg PO Q8H Fever/Pain 06/01/24
Review of Systems:
Constitutional: Appears normal
Eye:Reports no symptoms
Ear/Nose/Throat: Reports no symptoms
Respiratory: Reports no symptoms
Cardiovascular:Reports no symptoms
Gastrointestinal: Reports no symptoms
Genitourinary: Reports no symptoms
Musculoskeletal: Minimal Weakness on bilateral L. The patient reports that he started to feel better recently.
Integumentary: Reports no symptoms
Neurologic: Reports no symptoms
Psychiatric: Appropriate mental status, normal insight and judgement
Endocrine:Appropriate mental status, normal insight and judgement
Hematologic/Lymphatic: BM biopsy results:hematology following and commented that Diffuse dysplastic marrow seen consistent with high-grade MDS
Allergic/Immunologic: There is primarily macular rash described as nonpruritic and primarily truncal which spares the palms but is also noted on the dorsal aspect of the feet. seems it was started to fade
Vitals:
Vital Signs
Temp Pulse Resp BP Pulse Ox
97.7 F 74 22 136/79 96
06/12/24 15:14 06/12/24 15:14 06/12/24 15:14 06/12/24 15:14 06/12/24 15:14
Physical Exam:
General Appearance/Observation: Well-developed, well-nourished individual in no apparent distress.
Pain/Comfort Assessment: Denies
Mood/Affect: Appropriate
Integumentary/Operative Site:None
Pressure Ulcer Evaluation: absent over heels.
Eyes: Conjunctiva/Lids: normal Pupils: pupils equal round and reactive to light and Accommodation
Ears/Nose/Throat: oral mucosa moist, throat clear. Lips/Teeth/Gums: normal
Neck: No muscle spasm or tenderness
Cardiovascular: Heart: regular, no murmur
Pulses: dorsalis pedis 2+ bilaterally
Respiratory: Respiratory Effort/Chest Expansion: normal Auscultation: Clear to auscultation bilaterally
Gastrointestinal: abdomen not tender, no distension, normal abdominal bowel sounds
Nasogastric tube _ Gastrostomy tube _ Jejunostomy tube _ Ostomy
Genitourinary: No Vásquez
Rectal Exam: Deferred
Extremities: Edema: None Cyanosis: None Trophic changes: None
Neurology Exam:
Orientation: Alert, Oriented to self, Time, Place
Memory: Intact immediately and at 3 minutes
Higher cortical function
Repetition: Intact
Comprehension: Intact
Two step command: Intact
Naming: Intact
Cranial Nerves:
CNII: Pupillary light reflex: Intact Visual Field: Intact
CN III, IV, : Extraocular muscles: Intact
CN V: Facial Sensation at Forehead: Intact, Maxilla: Intact, Mandible: Intact
CN VII: Facial movement: Symmetric
CN VIII: Has some difficulty with hearing.
CN IX/X: Speech & swallow: Normal, Position of Uvula: Midline. Endorses minimal difficulty with swallowing.
CN XI: Shoulder shrug: Symmetric
CN XII: Tongue protrusion: Midline
Sensory:
Light touch: Intact in bilateral upper and lower extremities
Reflexes:
Biceps: 2+ bilaterally
Brachioradialis: 2+ bilaterally
Triceps: 2+ bilaterally
Patellar: 2+ bilaterally
Achilles: 2+ bilaterally
Babinski: Down going bilaterally
Clonus: None
Catarino: Negative bilaterally
Cerebellar: Dysmetria/Ataxia: None
Musculoskeletal:
Motor: (Manual muscle scale 0-5)
Muscle SA EF WE EE FF FA HF KE DF EHL PF
Right 5 5 5 5 5 5 4 4(+) 5 5 5
Left 5 5 5 5 5 5 4 4(+) 5 5 5
Tone: Normal in all extremities
Range of Motion: Passively within normal limits in all extremities
Lab Results
Laboratory Data
PT 16.4 Sec (11.4-14.6) H 06/12/24 04:29
APTT 28.9 Sec (23.4-35.0) 06/12/24 04:29
Total Bilirubin 0.4 mg/dl (0.2-1.3) 06/12/24 04:30
AST 26 U/L (17-59) 06/12/24 04:30
ALT 20 U/L (0-50) 06/12/24 04:30
Alkaline Phosphatase 68 U/L (38-126) 06/12/24 04:30
Lab Results - Hematology
06/10/24 06/11/24 06/12/24
05:18 04:28 04:30
WBC 8.3 5.9 5.4
Band Neutrophils 5 H 2 0
Lab Results - Chemistry
06/10/24 06/11/24 06/12/24
05:18 04:28 04:30
BUN 58 H 45 H 36 H
Creatinine 1.6 H 1.1 1.0
Estimated Creat Clear 37 53 58
Albumin 2.6 L 2.5 L 2.6 L
Diagnostic Results: as per HPI
Brain MRI ON 06/03 : IMPRESSION: Suspect tiny subacute on chronic left frontal lobe infarct. Redemonstration of findings suggesting chronic amyloid angiopathy and possibly sequelae of chronic subarachnoid hemorrhage (superficial siderosis), overall
progressed.
Head MRI 06/07: IMPRESSION: This examination demonstrates no focal hemodynamically significant stenosis, aneurysm or occlusion. Numerous lytic foci of signal loss most pronounced along the bilateral temporal occipital lobes which may be sequelae of
cerebral amyloid angiopathy.
Assessment
74 year old pleasant male was admitted to the hospital multiple times since April 2024 and reports his skin rashes started in the March. He had further studies at the hospital due having generalized rashes and pancytopenia. BM biopsy results showed
high-grade MDS and skin biopsy was nondiagnostic. 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 Additionally , the patient had an MRI due dizziness and a small chronic left
frontal infarct was found. The patient denies having any focal weakness, vision changes, speech difficulties, changes with problem solving and memory. The patient was independent before his last hospitalization and feels week due staying mostly in
his bed. On physical examination, there was no physical/pathological findings of CVA. Bilateral lower extremity weakness was found particularly at the hips likely related to not ambulating enough recently and his recent co-morbidities. Has some
persistent lower extremity weakness likely from decreased activity tolerance recently. The platelet counts started to trend down in last 10 days will be concerning to continue PT/OT if it drops down to 50.000
CVA:Subacute small chronic left frontal lobe infarct. No physical findings on exam.
Pneumonitis (PNA less likely):CXR shows improving infiltrates - management per pulmonary, started streoids on 06/04 and being tapered. possible diagnosis for an Interstitial lung disease-steroid responsive
Low BP:Seems improved
KALEIGH: Resolving and creatinine level is 1 on 06/13/24
Leukocytosis:on steroids (- blood cultures x2 finalized neg)(MRSA screen negative) the patient was seen by infectious disease on 06/11.
Vasculitis: biopsy results consistent per dermatology. 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 On steroids.
Pancytopenia: BM biopsy results:hematology following and commented that Diffuse dysplastic marrow seen consistent with high-grade MDS. Oncology is following the patient.
Thrombocytopenia:PLT count started to trend down. The Plt level dropped from 216.000 (on 06/04) to 60.000 (on 06/13). Continue to monitor. If platelets less than 50,000 recommend keeping therapies to bedside. If platelets less than 20,000 will use
further caution with activity levels and hold therapy for platelets less than 10,000.
Anemia:Acute on chronic anemia, hemoglobin 7.2 prior 9. RBC transfusion can be considered with Hgb Level<7
Dysphagia: speech evaluation, oral care protocol, chlorhexidine rinse after meals and HS, aspiration precautions. Advance diet as tolerated.
DVT:MEGANE 06/04 Left cephalic vein thrombus, CTA negative for PE. Started on Lovenox DVT prophylaxis
To continue PT/OT would increase independence with ADLs, improve balance, coordination, endurance, strength, mobility, community reintegration, decreased burden of care on others and family education.On physical examination, there was no
physical/pathological findings of stroke. Bilateral lower extremity weakness was found particularly at the hips likely related to not mobilization enough recently and his recent co-morbidities. Has some persistent lower extremity weakness likely
from decreased activity tolerance recently. The platelet level of the patient started to drop in last 10 days and was found 60.000 today. We contacted to hematology/oncology team to learn more about the treatment plan. The patient will have
restrictions for PT/OT if his plt count drops down under 50.000. We will keep follow up the patient.
Please do not hesitate to reach out with any questions and concerns
Thanks Dr Posadas involving me in this patient`s care
Lorena Hooks MD
[facility]

Documented by User: Atif Posadas MD 06/13/24 17:05
Consultation - Medical
-
Referring Provider: Marv Strong MD
Chief Complaint: Weakness/Debility
History of Present Illness:
74 year-old male who has multiple admissions to the hospital since April 2024 with similar symptoms including chronic fevers, rash felt to most likely be hematologic or rheumatic in etiology. His last presentation to ER was on 06/01/24 with
complaints of blood pressure of about 90/60. Even he has been intermittently holding his amlodipine and lisinopril. He was admitted again to the hospital for further studies. BM biopsy showed dysplastic appearing marrow consistent with high-grade
MDS and skin biopsy was nondiagnostic. .Due his dizziness, he had an MRI of the brain on 06/03 which showed a tiny subacute on chronic left frontal lobe infarct.
The patient denies having any focal weakness, vision changes, speech difficulties, changes with problem solving and memory. Denies ever hearing that he had an ischemic stroke in the past. He has a known history of cerebral amyloid angiopathy
diagnosed at [facility] 2 years ago. He was told that he should never take any antiplatelet agents and needs to avoid NSAIDs.
Conditions present prior to admission:
Recent diagnosis of pneumonia (possible for an inflammatory interstitial pneumonitis)/ Interstitial lung disease-steroid responsive
Hospitalization-discharged dosed on 04/30/2024-thrombocytopenia/anemia/purpuric rash, biopsy performed and placed on prednisone with rheumatology follow-up
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
Proteinuria
Past Medical History: Hypertension, Hyperlipidemia, Severe persistent asthma on Breztri + Nucala
Procedure History: orthopedic surgery(left knee)
Family History: non contributory
Social History:
Functional Level Premorbidly: Independent with all activities
Functional Level Currently: Bed Mobility-Supine to sit- Modified independence/Sit to supine- Modified independence, Transfer:-Sit to stand- Minima l assistance -Stand to sit- Minimal assistance, -Ambulation Pt ambulated with RW 75 ft and 40 ft with
min assist for contact guard, and ambulated 25 ft without walker with min assist
Tobacco: Non-smoker
Alcohol: Daily
Drug: Denies
Personal:
Lives with: Alone, planning to move her daughter`s house after discharge
24-hour assistance available: No
Number of floors:
# steps to enter: Many (4-6)
# steps to second floor:
Potential First floor set up:planning to move her daughter`s house which is flat.
Driving: No
Allergies
Allergy/AdvReac Type Severity Reaction Status Date / Time
azithromycin [From Zithromax] Allergy Shortness Verified 05/13/24 10:52
of Breath
pollen extracts Allergy Asthma Verified 06/06/24 14:56
exacerbation
Home Medications
Allergy Shots 1 dose INJ TH Allergies 07/03/20
albuterol sulfate 90 mcg/actuation aerosol inhaler (Proventil HFA) 2 puff inhalation R Q4HPRN PRN sob 07/03/20
cyclosporine 0.05 % eye drops in a dropperette (Restasis) 1 drp BOTH EYES BID dry eye 07/03/20
diphenhydramine HCl 50 mg capsule (Banophen) 50 mg PO HSPRN PRN sleep 07/03/20
psyllium husk (aspartame) 3.4 gram oral powder packet (Metamucil Fiber Singles) 1 packet PO BID Constipation 07/03/20
rosuvastatin 20 mg tablet 20 mg PO DAILY High Cholesterol 07/03/20
amlodipine 2.5 mg tablet 2.5 mg PO HS Blood Pressure 04/24/24
budesonide 160 mcg-glycopyr 9 mcg-formot 4.8 mcg/actuation HFA inhaler (Breztri Aerosphere) 2 inh inhalation R BID Lung/Breathing Issues 04/24/24
cholecalciferol (vitamin D3) 50 mcg (2,000 unit) tablet 50 mcg PO DAILY Supplement 04/24/24
lisinopril 20 mg tablet 20 mg PO BID Blood Pressure 04/24/24
melatonin 10 mg tablet 10 mg PO HSPRN PRN sleep 04/24/24
mepolizumab 100 mg/mL subcutaneous syringe (Nucala) 300 mg SC Q4W asthma 04/24/24
benzonatate 200 mg capsule 200 mg PO TIDPRN PRN cough 05/30/24
acetaminophen 650 mg tablet,extended release (Tylenol 8 Hour) 650 mg PO Q8H Fever/Pain 06/01/24
Review of Systems:
Constitutional: Appears normal
Eye:Reports no symptoms
Ear/Nose/Throat: Reports no symptoms
Respiratory: Reports no symptoms
Cardiovascular:Reports no symptoms
Gastrointestinal: Reports no symptoms
Genitourinary: Reports no symptoms
Musculoskeletal: Minimal Weakness on bilateral L. The patient reports that he started to feel better recently.
Integumentary: Reports no symptoms
Neurologic: Reports no symptoms
Psychiatric: Appropriate mental status, normal insight and judgement
Endocrine:Appropriate mental status, normal insight and judgement
Hematologic/Lymphatic: BM biopsy results:hematology following and commented that Diffuse dysplastic marrow seen consistent with high-grade MDS
Allergic/Immunologic: There is primarily macular rash described as nonpruritic and primarily truncal which spares the palms but is also noted on the dorsal aspect of the feet. seems it was started to fade
Vitals:
Vital Signs
Temp Pulse Resp BP Pulse Ox
97.7 F 74 22 136/79 96
06/12/24 15:14 06/12/24 15:14 06/12/24 15:14 06/12/24 15:14 06/12/24 15:14
Physical Exam:
General Appearance/Observation: Well-developed, well-nourished male in no apparent distress.
Pain/Comfort Assessment: Denies
Mood/Affect: Appropriate
Integumentary/Operative Site: None
Pressure Ulcer Evaluation: absent over heels.
Eyes: Conjunctiva/Lids: normal Pupils: pupils equal round and reactive to light and Accommodation
Ears/Nose/Throat: oral mucosa moist, throat clear. Lips/Teeth/Gums: normal
Cardiovascular: Heart: regular, systolic murmur
Pulses: dorsalis pedis 2+ bilaterally
Respiratory: Respiratory Effort/Chest Expansion: normal Auscultation: Clear to auscultation bilaterally
Gastrointestinal: abdomen not tender, no distension, normal abdominal bowel sounds
Genitourinary: No Vásquez
Extremities: Edema: None Cyanosis: None Trophic changes: None
Neurology Exam:
Orientation: Alert, Oriented to self, Time, Place
Memory: Intact for recent medical concerns
Repetition: Intact
Comprehension: Intact
Two step command: Intact
Naming: Intact
Cranial Nerves:
CNII: Pupillary light reflex: Intact Visual Field: Intact
CN III, IV, : Extraocular muscles: Intact
CN V: Facial Sensation at Forehead: Intact, Maxilla: Intact, Mandible: Intact
CN VII: Facial movement: Symmetric
CN VIII: Has some difficulty with hearing.
CN IX/X: Speech & swallow: Minimal dysphagia. Position of Uvula: Midline.
CN XI: Shoulder shrug: Symmetric
CN XII: Tongue protrusion: Midline
Sensory:
Light touch: Intact in bilateral upper and lower extremities
Reflexes:
Biceps: 2+ bilaterally
Brachioradialis: 2+ bilaterally
Triceps: 2+ bilaterally
Patellar: 2+ bilaterally
Achilles: 2+ bilaterally
Babinski: Down going bilaterally
Clonus: None
Catarino: Negative bilaterally
Cerebellar: Dysmetria/Ataxia: None
Musculoskeletal: Motor: (Manual muscle scale 0-5)
Muscle SA EF WE EE FF FA HF KE DF EHL PF
Right 4 5 5 4 5 5 4 5 5 5 5
Left 4 5 5 4 5 5 4 5 5 5 5
Tone: Normal in all extremities
Range of Motion: Passively within normal limits in all extremities
Lab Results
Laboratory Data
06/13/24 04:44
06/13/24 04:44
PT 16.4 Sec (11.4-14.6) H 06/12/24 04:29
INR 1.34 06/12/24 04:29
APTT 28.9 Sec (23.4-35.0) 06/12/24 04:29
Total Bilirubin 0.4 mg/dl (0.2-1.3) 06/12/24 04:30
AST 26 U/L (17-59) 06/12/24 04:30
ALT 20 U/L (0-50) 06/12/24 04:30
Alkaline Phosphatase 68 U/L (38-126) 06/12/24 04:30
Total Protein 5.3 g/dl (6.3-8.2) L 06/12/24 04:30
Albumin 2.6 g/dl (3.5-5.0) L 06/12/24 04:30
Diagnostic Results: as per HPI
Brain MRI ON 06/03 : IMPRESSION: Suspect tiny subacute on chronic left frontal lobe infarct. Redemonstration of findings suggesting chronic amyloid angiopathy and possibly sequelae of chronic subarachnoid hemorrhage (superficial siderosis), overall
progressed.
Head MRI 06/07: IMPRESSION: This examination demonstrates no focal hemodynamically significant stenosis, aneurysm or occlusion. Numerous lytic foci of signal loss most pronounced along the bilateral temporal occipital lobes which may be sequelae of
cerebral amyloid angiopathy.
Assessment
74 year old pleasant male was admitted to the hospital multiple times since April 2024 presents with generalized rashes and pancytopenia from high-grade MDS diagnosed on biopsy with skin biopsy nondiagnostic, possible inflammatory interstitial
pneumonitis which was responsive to steroids, a small chronic left frontal infarct with stabilizing anemia and low 7 range and progressive worsening thrombocytopenia.
Plan
Pancytopenia: BM biopsy results:hematology following and commented that Diffuse dysplastic marrow seen consistent with high-grade MDS.
-Anemia has stabilized in the low 7 range with goal to transfuse less than 7.
-Thrombocytopenia: Continues to decline with being normal on admission. HIT antibody negative.
------The Plt level dropped from 216.000 (on 06/04) to 60.000 (on 06/13). Continue to monitor.
------If platelets less than 50,000 recommend keeping therapies to bedside. If platelets less than 20,000 will use further caution with activity levels and hold therapy for platelets less than 10,000.
------Oncology is following the patient, sent message to clarify level which transfusion is necessary.
------ concern for limitation in therapy if platelets continue to trend down at current levels. May need transfusion which not available in most rehabs.
Chronic CVA: Subacute small chronic left frontal lobe infarct. No physical findings on exam.
Pneumonitis (PNA less likely):CXR shows improving infiltrates - management per pulmonary, started steroids on 06/04 and being tapered. possible diagnosis for an Interstitial lung disease-steroid responsive
Hypotension:Seems improved
KALEIGH: Resolved with 1 on 06/13/24
Leukocytosis:on steroids (- blood cultures x2 finalized neg)(MRSA screen negative) the patient was seen by infectious disease on 06/11.
Vasculitis: biopsy results consistent per dermatology. 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 On steroids.
Dysphagia: speech evaluation, oral care protocol, aspiration precautions. Advance diet as tolerated.
Left cephalic blood clot:LUE US 06/04 Left cephalic vein thrombus, CTA negative for PE. Started on Lovenox DVT prophylaxis
Debility: continue PT/OT would increase independence with ADLs, improve balance, coordination, endurance, strength, mobility, community reintegration, decreased burden of care on others and family education. On physical examination, there was no
physical/pathological findings of stroke. Bilateral lower extremity weakness was found particularly at the hips likely related to not mobilization enough recently and his recent co-morbidities. Has some persistent lower extremity weakness likely
from decreased activity tolerance recently.
Safety: Continue to reinforce assistance with all transfers.
Code Status:� Full code
Dispo (date/plan/equipment needs): Home with family care.
Discharge Destination: Acute inpatient rehabilitation. Patient should not go to rehab until thrombocytopenia plan including level for transfusion is established. Ideally would be stabilized above 50,000 prior to starting therapy with significant
limitations in therapy to bedside at lower levels.
Functional and Medical Goals: Modified Independent with ADL�s, ambulation, transfers
Summary of recommendations:
- Discharge Destination: Acute inpatient rehabilitation once thrombocytopenia concerns addressed.
Pancytopenia: BM biopsy results:Diffuse dysplastic marrow seen consistent with high-grade MDS.
-Anemia has stabilized in the low 7 range with goal to transfuse less than 7.
-Thrombocytopenia: Continues to decline with being normal on admission. HIT antibody negative.
------The Plt level dropped from 216.000 (on 06/04) to 60.000 (on 06/13). Continue to monitor.
------If platelets less than 50,000 recommend keeping therapies to bedside. If platelets less than 20,000 will use further caution with activity levels and hold therapy for platelets less than 10,000.
------ concern for limitation in therapy if platelets continue to trend down at current levels. May need transfusion which not available in most rehabs.
Dysphagia: speech evaluation, oral care protocol, aspiration precautions. Advance diet as tolerated.
Pneumonitis (PNA less likely): Per pulmonary likely interstitial lung disease-steroid responsive
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 On steroids.
Thank you for allowing me to care for your patient. Please contact me with any questions or concerns.
Please do not hesitate to reach out with any questions and concerns
Thanks Dr Posadas involving me in this patient`s care
Lorena Hooks MD
[facility]
Attending Statement:
I saw and examined the patient today 06/05/2024. Reviewed care plan with patient, and resident. I agree with the above subjective and physical exam, and plan as documented by with adjustments made as necessary.
A total of 60 minutes were spent with the patient preparing for the evaluation, obtaining history, performing examination and evaluation, counseling, data review, case management, care coordination, border police, and EMR documentation.
--- NOTE | 2024-06-13 10:45 | CM ---
CM met with Murali this AM to discuss transfer to SNF. [facility] and his daughter [facility] which is closer to his daughter's residence. We discussed what he would want to bring with him (clothes, petit brittni, undergarments, comfortable
shoes/sneakers, etc.)
Referral sent via [facility] and call placed to [facility]; I spoke with Gracia who is the clinical liaison; contact number [phone]. Per Gracia there are beds available and she will review the clinical information to determine if
[facility] can meet Murali' needs.
Await response from [facility] to determine acceptance and timing of transfer pending medical stability.
--- NOTE | 2024-06-13 12:01 | W.PN.HOSP.TC ---
Today's Communication/Plan
-
Continue high-dose steroids but start tapering. Monitor CBC.
Assessment / Plan
Assessment / Plan
General: Awake, alert, NAD
HEENT: Normocephalic, Atraumatic and Moist Mucous Membranes
Respiratory: Rales bilateral bases
Cardiac: Regular Rhythm and S1/S2, tachycardic
GI: Soft, Nontender and Nondistended
Musculoskeletal: No Clubbing, No Cyanosis and No Edema
Neuro: Awake, Alert and Oriented, no gross neurological deficit
Skin: Maculopapular rash on trunk and both lower extremities.
Psych: Calm cooperative
A/P:
FUO -suspect vasculitis as the etiology. Skin exam is notable for diffuse palpable purpura, now fading. Awaiting skin biopsy results. Continue steroids-->I would do a very slow taper--> plan to decrease to 60 mg p.o. daily from tomorrow on and
will decrease to 5 mg every week. Will place him on calcium and vitamin D for osteoporosis prophylaxis, on Bactrim 3 times a week for PCP prophylaxis, and Protonix 40 mg daily for GI prophylaxis while on long-term steroids. Anticipate the steroids
will be going on for the next several weeks and will have him see director life sciences and pulmonary as outpatient.
I texted hematology today and they are okay with discharge planning for tomorrow. Discussed with test case developer for discharge planning tomorrow.
Improving overall
Status post bone marrow biopsy 06/04 -awaiting for results
Discussed with rheumatology, hematology -oncology, dermatology, ID, pulmonary.
Holding lisinopril amlodipine in case drug-induced lupus
Plan for flow cytometry
Bronchoscopy if needed down the road
Blood cultures x 2 no growth so far. Viral respiratory panel negative. Stool studies negative. COVID-negative x 2.
Gold QuantiFERON negative.
Elevated inflammatory marker-CRP >270 and 261, ferritin elevated at 938. ANCA negative.
Albumin low at 2.6
RE level low, less than 10
LDH normal at 245
Repeated echo no acute abnormalities
I called [facility] for possible transfer prior -->[place] (Dr Maher)--> they do not recommend inpatient transfer and they feel they would do the same workup that we are doing in our hospital.
Discussed with oncology 06/11 and they will reevaluate him today re: MDS diagnosis, cephalic vein thrombosis, thrombocytopenia multifactorial and MDS related versus HIT. Workup for HIT progress. Continue Lovenox for now unless hematology would
recommend argatroban (low suspicion for HIT-T-score is low).
Transitioned to low-dose Eliquis by criminal legal assistant on 06/12.
Pancytopenia -white blood cell count normal but remains anemic and now has thrombocytopenia.
Diffuse dysplastic marrow with no evidence of blast suggestive of high-grade MDS. Awaiting final pathology results.
Discussed with oncology 06/11 and they will reevaluate him today re: MDS diagnosis, cephalic vein thrombosis, thrombocytopenia multifactorial and MDS related versus HIT. Workup for HIT progress. Continue Lovenox for now unless hematology would
recommend argatroban (low suspicion for HIT-T-score is low).
Transitioned to low-dose Eliquis by criminal legal assistant today 06/12.
Hematology considering hypomethylating agents and erythropoietin
Hematology-oncology on board
Status post blood transfusion 06/04
Hemoglobin 7 today
Platelet count 71 today
Continue to monitor hemoglobin
Bone marrow biopsy completed 06/04, report pending
Acute hypoxic respiratory failure -improving. Etiology suspected to be pneumonia versus pneumonitis. Significant improvement in respiratory failure likely due to steroids. Oxygenation improved, now on room air. Last chest x-ray was 06/07 showing
interval decrease in bilateral airspace opacities consistent with improving infiltrates. Clinically I do not believe the infiltrates represent pulmonary edema, suspect they represent inflammatory infiltrates that have responded to corticosteroids.
Encouraged use of Acapella, incentive spirometer. Continue steroids, nebs.
Severe multifocal pneumonia -chest x-ray done 06/07 shows improving infiltrates. Oxygen requirements improving and on room air. Completed course of antibiotics.
KALEIGH, improving. Creatinine 1.0 today- suspect multifactorial etiology. Renal function improving with IV fluid support. Right heart catheterization demonstrated pulmonary capillary wedge pressure of 14. Creatinine down to 1.0. I's and O's are
negative likely due to post-ATN diuresis. Nephrology would like to hold off on any biopsy at the time being. Nephrology considering oral diuretics
Dysphagia - recent onset. Speech therapy recommended soft and bite sized foods, thin liquids on 06/07. However for unclear reasons patient is currently on cholesterol lowering diet without issues.
Acute left upper extremity cephalic vein thrombosis -on low-dose Lovenox.
Tachycardia -resolved.
Asthma, severe persistent asthma:
On Breztri as outpatient
Continue Spiriva
Continue Symbicort
Cont Vest Acapella and nebs as needed
Subacute/chronic left frontal lobe infarct -incidental finding on brain MRI. MRA head and neck showed no focal hemodynamically significant stenosis, aneurysm or occlusion. Numerous lytic foci of signal loss most pronounced along the bilateral
temporal occipital lobes which may be sequelae of cerebral amyloid angiopathy.
Leukocytosis:
Likely reactive due to steroids, now trending down.
Chronic hyponatremia -suspect due to subacute to chronic illness, hypotension, SIADH as well. Hyponatremia resolved. Fluid restriction discontinued.
Essential hypertension -antihypertensives on hold for hypotension but blood pressure now improved. Still on midodrine, can lower dose to 5 mg. Suspect hypotension related to volume depletion, improving with IV fluids.
Hyperlipidemia:
On rosuvastatin 20 mg p.o. daily
Constipation -Change Colace, Senokot to [id number] twice daily.
DVT prophylaxis-on Eliquis. Patient does not like SCDs.
CODE STATUS-full code
Anticipated Discharge: 24 - 48 hours
Subjective/Interval History
-
Date of Service: June 13, 2024
Patient doing well overall. Feels anxious though. Remains on room air. Afebrile
Objective Data
-
Labs:
Laboratory Results
06/13/24
04:44
WBC 5.3
Hgb 7.2 L
Hct 20.6 L*
Plt Count 60 L
Sodium 137
Potassium 3.9
Chloride 102
Carbon Dioxide 27
BUN 40 H
Creatinine 1.0
Glucose 115 H
Calcium 8.4
Vital Signs:
Vital Signs
Temp Pulse Resp BP Pulse Ox
97.6 F 75 20 148/75 98
06/13/24 07:45 06/13/24 07:45 06/13/24 07:45 06/13/24 07:45 06/13/24 08:00
I&O
06/12/24 06/13/24 06/14/24
06:59 06:59 06:59
Intake Total 240 / 240 700 / 700
Output Total 225 / 225
Balance 15 / 15 700 / 700
[2024-06-13 12:09] LABS: Glucose - Point of Care 161 mg/dl (70-99)
[2024-06-13] MEDS: NOVOLOG FLEXPEN-LOW RESISTANCE 1 UNITS SC ×2 (12:37→17:12)
[2024-06-13 15:29] VITALS: BP 134/74; PULSE 79; O2SAT 96
[2024-06-13 15:47] VITALS: BP 134/74; PULSE 79; O2SAT 96
--- NOTE | 2024-06-13 15:49 | W.PN.NEPH.PH ---
Today's Communication / Plan
-
lasix x1
observe
Assessment/Plan
-
IMP:
FUO -suspect vasculitis as the etiology, skin biopsy neg.
diffuse palpable purpura
Acute hypoxic respiratory failure
Severe multifocal pneumonia
KALEIGH
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
Dysphagia
Pancytopenia
Acute left upper extremity cephalic vein thrombosis
Tachycardia
Asthma, severe persistent asthma
Subacute/chronic left frontal lobe infarct
Leukocytosis
Chronic hyponatremia
Essential hypertension
Hyperlipidemia
Constipation
Plan:
KALEIGH most likely CN. cr now at 1
awaiting skin bx and BMBx results
I think it is unlikely that there is renal involvement of the vasculitis, and so would not prefer to pursue renal bx for dx unless BM and skin bx are unable to offer a specific dx.
steroids adjusted by pulmonary
hb low ,prn transfusion
elevate legs for edema seem more dependant, prn lasix
BP stable
ok for d/c per renal
-
-
Date of Service: June 13, 2024
CC / HPI / ROS
-
Chief Complaint:
KALEIGH
History of Present Illness:
Cr down to 1.0 stable
remains on steroids for suspected vasculitis
BP stable
hgb low stable at 7.2
wt ecreaasing
Review of Systems:
no CP/SOB
mild edema specially when on his feet
rash resolving
Labs
-
Labs:
WBC 5.3 10^3/uL (4.8-10.8) 06/13/24 04:44
RBC 2.25 10^6/uL (4.70-6.10) L 06/13/24 04:44
Hgb 7.2 g/dL (13.0-18.0) L 06/13/24 04:44
Hct 20.6 % (39.0-52.0) L* 06/13/24 04:44
Plt Count 60 10^3/uL (130-400) L 06/13/24 04:44
Sodium 137 mmol/L (135-145) 06/13/24 04:44
Potassium 3.9 mmol/L (3.5-5.1) 06/13/24 04:44
Chloride 102 mmol/L (98-107) 06/13/24 04:44
Carbon Dioxide 27 mmol/L (22-30) 06/13/24 04:44
BUN 40 mg/dl (9-20) H 06/13/24 04:44
Creatinine 1.0 mg/dL (0.7-1.3) 06/13/24 04:44
eGFR > 60.00 06/13/24 04:44
Glucose 115 mg/dl (70-99) H 06/13/24 04:44
Calcium 8.4 mg/dl (8.4-10.2) 06/13/24 04:44
Phosphorus 6.3 mg/dl (2.5-4.5) H 06/05/24 03:58
Eou-V-Bdhtlefeqvn Pept 2890 pg/ml 06/06/24 05:23
Albumin 2.6 g/dl (3.5-5.0) L 06/12/24 04:30
Physical Exam
-
Vital Signs:
Vital Signs
Temp Pulse Resp BP Pulse Ox
97.6 F 75 20 148/75 98
06/13/24 07:45 06/13/24 07:45 06/13/24 07:45 06/13/24 07:45 06/13/24 08:00
Cardiovascular:: Regular rate and rhythm
Respiratory:: Bilateral: CTA
Lung Excursion:: Normal
Abdomen:: Nontender and Soft
Extremity Edema:: +1: Bilateral:
Vásquez Catheter: No
[2024-06-13 16:23] VITALS: BP 131/71
[2024-06-13] MEDS: LASIX 40 MG PO (16:25)
--- NOTE | 2024-06-13 16:49 | CM ---
TRISHA notified by RN that Murali was [facility] by [facility] and may now be accepted there based on visit today.
SNF rehab is being pursued at [facility] in [facility]. Pt accepted and plans were in place for transfer tomorrow. Late in the day CM notified that [facility] is now accepting for transfer to acute rehab.
CM will need to follow up in AM to determine if Murali would like to stay here and go to [facility], or go to [facility] as had been planned.
If going to [facility], he will need a new covid, and treatment plan for MDS, he would also need to bring his inhalers and is aware that he would need to bring his inhalers.
Daughter Linda can be reached at [phone].
[2024-06-13 16:57] LABS: Glucose - Point of Care 179 mg/dl (70-99)
[2024-06-13] MEDS: MELATONIN 10 MG PO (21:12)
[2024-06-13 21:42] LABS: Glucose - Point of Care 185 mg/dl (70-99)
[2024-06-13 23:00] VITALS: BP 129/77
[2024-06-14 06:00] VITALS: BMI 24.4
[2024-06-14] MEDS: SYMBICORT 160/4.5 MCG INHALER 2 PUFF INH (06:25)
[2024-06-14] MEDS: DUONEB 3 ML INH (06:25)
[2024-06-14 06:58] LABS: Glucose - Point of Care 102 mg/dl (70-99)
[2024-06-14 07:00] VITALS: BP 138/73
[2024-06-14 07:17] LABS: Hematocrit 21.2 % (39.0-52.0); Hemoglobin 7.2 g/dL (13.0-18.0); Mean Corpuscular Hgb 31.4 pg (27.0-31.0); Mean Corpuscular Volume 92.6 fL (80.0-94.0); Mean Platelet Volume 10.9 fL (7.4-10.4); Platelet Count 68 10^3/uL (130-400); Red Blood Cell Count 2.29 10^6/uL (4.70-6.10)
[2024-06-14 07:28] LABS: Blood Urea Nitrogen 39 mg/dl (9-20); Calcium 8.2 mg/dl (8.4-10.2); Carbon Dioxide 26 mmol/L (22-30); Chloride 101 mmol/L (98-107); Estimated Creatinine Clearance 58 ml/min; Glucose 102 mg/dl (70-99); Potassium 3.9 mmol/L (3.5-5.1); Sodium 137 mmol/L (135-145); eGFR > 60.00
[2024-06-14 08:23] LABS: Absolute Neutrophils -Man Diff 1.9 10^3/uL (1.4-6.5); Anisocytosis 1+; Band Neutrophils 0 % (0-3); Lymphocytes 52 % (20-51); Metamyelocytes 2 % (-); Myelocytes 7 % (-); Normal RBC Morphology No; Platelets Checked Yes; Segmented Neutrophils 39 % (42-75)
[2024-06-14 08:24] LABS: Hypochromasia 1+; Polychromasia Slight; Total Cells Counted 100
[2024-06-14] MEDS: NOVOLOG FLEXPEN-LOW RESISTANCE SC ×2 (08:45→12:03)
--- NOTE | 2024-06-14 08:59 | W.PN.HOSP.TC ---
Today's Communication/Plan
-
Discharge planning today.
Assessment / Plan
Assessment / Plan
General: Awake, alert, NAD
HEENT: Normocephalic, Atraumatic and Moist Mucous Membranes
Respiratory: Rales bilateral bases
Cardiac: Regular Rhythm and S1/S2, tachycardic
GI: Soft, Nontender and Nondistended
Musculoskeletal: No Clubbing, No Cyanosis and No Edema
Neuro: Awake, Alert and Oriented, no gross neurological deficit
Skin: Maculopapular rash on trunk and both lower extremities.
Psych: Calm cooperative
A/P:
FUO -suspect vasculitis as the etiology. Skin exam is notable for diffuse palpable purpura, now fading. Awaiting skin biopsy results. Continue steroids-->I would do a very slow taper--> plan to decrease to 60 mg p.o. daily from tomorrow on and
will decrease to 5 [address] him on calcium and vitamin D for osteoporosis prophylaxis, on Bactrim 3 times a week for PCP prophylaxis, and Protonix 40 mg daily for GI prophylaxis while on long-term steroids. Anticipate the steroids
will be going on for the next several weeks and will have him see 7th grade teacher and pulmonary as outpatient.
I texted hematology today and they are okay with discharge planning for tomorrow. Discussed with manager of case for discharge planning tomorrow.
Improving overall
Status post bone marrow biopsy 06/04 -awaiting for results
Discussed with rheumatology, hematology -oncology, dermatology, ID, pulmonary.
Holding lisinopril amlodipine in case drug-induced lupus
Plan for flow cytometry
Bronchoscopy if needed down the road
Blood cultures x 2 no growth so far. Viral respiratory panel negative. Stool studies negative. COVID-negative x 2.
Gold QuantiFERON negative.
Elevated inflammatory marker-CRP >270 and 261, ferritin elevated at 938. ANCA negative.
Albumin low at 2.6
RE level low, less than 10
LDH normal at 245
Repeated echo no acute abnormalities
I called [facility] for possible transfer prior [facility] (Dr Maher)--> they do not recommend inpatient transfer and they feel they would do the same workup that we are doing in our hospital.
Discussed with oncology 06/11 and they will reevaluate him today re: MDS diagnosis, cephalic vein thrombosis, thrombocytopenia multifactorial and MDS related versus HIT. Workup for HIT progress. Continue Lovenox for now unless hematology would
recommend argatroban (low suspicion for HIT-T-score is low).
Transitioned to low-dose Eliquis by kennel worker on 06/12.
Discussed with kennel worker Dr Graf on 06/13 and cleared for discharge today on 06/14.
Pancytopenia -white blood cell count normal but remains anemic and now has thrombocytopenia.
Diffuse dysplastic marrow with no evidence of blast suggestive of high-grade MDS. Awaiting final pathology results.
Discussed with oncology 06/11 and they will reevaluate him today re: MDS diagnosis, cephalic vein thrombosis, thrombocytopenia multifactorial and MDS related versus HIT. Workup for HIT progress. Continue Lovenox for now unless hematology would
recommend argatroban (low suspicion for HIT-T-score is low).
Transitioned to low-dose Eliquis by kennel worker today 06/12.
Hematology considering hypomethylating agents and erythropoietin
Hematology-oncology on board
Status post blood transfusion 06/04
Hemoglobin 7.2 today
Platelet count 68 today
Continue to monitor hemoglobin
Bone marrow biopsy completed 06/04, report pending
Discussed with kennel worker on 06/13 and cleared for discharge today on 06/14.
Acute hypoxic respiratory failure -improving. Etiology suspected to be pneumonia versus pneumonitis. Significant improvement in respiratory failure likely due to steroids. Oxygenation improved, now on room air. Last chest x-ray was 06/07 showing
interval decrease in bilateral airspace opacities consistent with improving infiltrates. Clinically I do not believe the infiltrates represent pulmonary edema, suspect they represent inflammatory infiltrates that have responded to corticosteroids.
Encouraged use of Acapella, incentive spirometer. Continue steroids, nebs.
Severe multifocal pneumonia -chest x-ray done 06/07 shows improving infiltrates. Oxygen requirements improving and on room air. Completed course of antibiotics.
KALEIGH, improving. Creatinine 1.0 today- suspect multifactorial etiology. Renal function improving with IV fluid support. Right heart catheterization demonstrated pulmonary capillary wedge pressure of 14. Creatinine down to 1.0. I's and O's are
negative likely due to post-ATN diuresis. Nephrology would like to hold off on any biopsy at the time being. Nephrology considering oral diuretics
Dysphagia - recent onset. Speech therapy recommended soft and bite sized foods, thin liquids on 06/07. However for unclear reasons patient is currently on cholesterol lowering diet without issues.
Acute left upper extremity cephalic vein thrombosis -on low-dose Lovenox.
Tachycardia -resolved.
Asthma, severe persistent asthma:
On Breztri as outpatient
Continue Spiriva
Continue Symbicort
Cont Vest Acapella and nebs as needed
Subacute/chronic left frontal lobe infarct -incidental finding on brain MRI. MRA head and neck showed no focal hemodynamically significant stenosis, aneurysm or occlusion. Numerous lytic foci of signal loss most pronounced along the bilateral
temporal occipital lobes which may be sequelae of cerebral amyloid angiopathy.
Leukocytosis:
Likely reactive due to steroids, now trending down.
Chronic hyponatremia -suspect due to subacute to chronic illness, hypotension, SIADH as well. Hyponatremia resolved. Fluid restriction discontinued.
Essential hypertension -antihypertensives on hold for hypotension and there was some concerns about side effects. Off antihypertensives completely. Can reevaluate as outpatient.
Hyperlipidemia:
On rosuvastatin 20 mg p.o. daily
Constipation -Change Colace, Senokot to [id number] twice daily.
DVT prophylaxis-on Eliquis. Patient does not like SCDs.
CODE STATUS-full code
Anticipated Discharge: Today
Subjective/Interval History
-
Date of Service: June 14, 2024
Patient denies any new complaints. No active bleeding. Afebrile
Objective Data
-
Labs:
Laboratory Results
06/14/24
05:27
WBC 5.0
Hgb 7.2 L
Hct 21.2 L
Plt Count 68 L
Sodium 137
Potassium 3.9
Chloride 101
Carbon Dioxide 26
BUN 39 H
Creatinine 1.0
Glucose 102 H
Calcium 8.2 L
Vital Signs:
Vital Signs
Temp Pulse Resp BP Pulse Ox
97.5 F 81 18 138/73 97
06/14/24 07:00 06/14/24 07:00 06/14/24 07:00 06/14/24 07:00 06/14/24 07:00
I&O
06/13/24 06/14/24 06/15/24
06:59 06:59 06:59
Intake Total 700 / 700 860 / 860
Balance 700 / 700 860 / 860
[2024-06-14] MEDS: SENOKOT-S 1 TABLET PO (09:06)
[2024-06-14] MEDS: RESTASIS 0.05% OPHTHALMIC EMULSION 1 DROPS BOTH EYES (09:06)
[2024-06-14] MEDS: DELTASONE 60 MG PO (09:06)
[2024-06-14] MEDS: CRESTOR 20 MG PO (09:07)
[2024-06-14] MEDS: ELIQUIS 2.5 MG PO (09:07)
[2024-06-14] MEDS: MIRALAX 17 GRAMS PO (09:07)
[2024-06-14] MEDS: VITAMIN D3 (cholecalciferol) 50 MCG PO (09:07)
[2024-06-14] MEDS: METAMUCIL, KONSYL 1 PACKET PO (09:07)
[2024-06-14] MEDS: PROTONIX 40 MG PO (09:07)
[2024-06-14 11:36] LABS: Glucose - Point of Care 116 mg/dl (70-99)
--- NOTE | 2024-06-14 11:48 | CM ---
CM following re: discharge planning.
Reviewed pt's chart, met with pt and spoke to pt's daughter Linda over the phone to update on discharge plan progress.
Discharge order noted. Both pt and his daughter are aware, expressed their agreement with discharge. IMM reviewed, placed on chart, pt has a copy.
CM spoke to [facility] acute director of pediatric rehabilitation and she confirmed that pt is accepted for admission to [facility]. Both pt and his daughter are aware, expressed their great satisfaction with discharge plan outcome.
[facility] rehab nursing report: [phone]
Discharge instructions fax: [phone]
D/C plan: [facility].
--- NOTE | 2024-06-14 11:58 | W.PN.ONC2 ---
Today's Communication / Plan
-
Discharge planning to acute rehab to improve performance status for eventual treatment of suspected myelodysplastic syndrome
Impression
Impression
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
Acute anemia, thrombocytopenia. Leukocytosis resolved. No evidence of acute DIC. HIT negative
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
MRI brain 06/07 Foci of loss of signal along the bilateral temporal occipital lobes which may be sequelae of cerebral amyloid angiopathy -neurology following
LUE US 06/04 Left cephalic vein thrombus, CTA negative for PE
CTA 06/04 infectious pneumonitis and pulmonary edema on steroids and completed abx
S/P R heart cath 06/08
dysphagia
Plan
Plan
Recurrent admissions for FUO, palpable purpura
steroid taper per pulmonary
peripheral blood flow cytometry low viability, however, no definitive immunophenotypic aberrancy
Bone marrow biopsy 06/04 (approved by Dr. Miller), final path pending - to consider hypomethylation agent and erythropoietin upon discharge
transfuse 1 PRBC for Hgb <7g/dL or as needed for sxs anemia, last prbc 06/04 for Hgb 6.7g/dL
Caution antiplatelet, anticoagulation, NSAIDs if platelet count <50,000
superficial Left cephalic vein thrombus asymptomatic -warm compress prn, elevation
Subjective/Objective
Chief Complaint
Denies bleeding or pain
Subjective
Continues to work with physical therapy and looking forward to continuing to improve performance status at rehab
Vital Signs:
Vital Signs
Temp Pulse Resp BP Pulse Ox
97.5 F 81 18 138/73 96
06/14/24 07:00 06/14/24 07:00 06/14/24 07:00 06/14/24 07:00 06/14/24 08:00
Lab Results:
Laboratory Data
WBC 5.0 10^3/uL (4.8-10.8) 06/14/24 05:27
Hgb 7.2 g/dL (13.0-18.0) L 06/14/24 05:27
Plt Count 68 10^3/uL (130-400) L 06/14/24 05:27
PT 16.4 Sec (11.4-14.6) H 06/12/24 04:29
INR 1.34 06/12/24 04:29
APTT 28.9 Sec (23.4-35.0) 06/12/24 04:29
eGFR > 60.00 06/14/24 05:27
Physical Exam
HEENT: Moist Mucous Membranes; No Jaundice
Cardiology: S1 and S2
Pulmonary: Clear
GI: Soft
Extremities: Edema
Neuro: Non Focal
INTEG diffuse purpura improving
Review of Systems
Review of Systems
Review of systems notable for subjective, otherwise negative
--- NOTE | 2024-06-14 12:19 | W.DCSUMMARY ---
Discharge Summary
Discharge Data
Date of Admission: 06/01/24
Date of Discharge: 06/14/24
-
Pending Results: No
Hospital Course
Patient is 74 years old male with history of hypertension hyperlipidemia and asthma came into the hospital with rash and fever of unknown origin. Patient had one of multiple readmissions this time for similar complaints and this time we were able
to have a substrate of diagnosis of his complex medical presentation. Patient course was complicated with respiratory failure, septic picture, thrombocytopenia, and multiple other insults. He was treated with a course of antibiotics and he was
able to complete all antibiotics. He was also treated with high amount of oxygen but over the last several days has been on room air and respiratory status stable after treatment. HIT workup was sent and will be follow-up as outpatient. He also
had a cephalic vein thrombosis for which she was started on anticoagulation with Eliquis by hematology guidance. Patient also had subacute left frontal lobe infarct on MRI with cerebral amyloid angiopathy. He also had KALEIGH. Patient also was
started on high doses of IV steroid and subsequently transition to oral with plans of very slow tapering as outpatient along with preventative measures for GI prophylaxis PCP prophylaxis and osteoporosis prevention. He was given blood transfusions.
He was also treated with intravenous diuresis and later on as needed oral diuresis. Multiple specialists saw him throughout this prolong hospital stay including hematology-oncology, infectious disease, pulmonary, cardiology, neurology, nephrology,
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 Ultimately, patient was able to be diagnosed with myelodysplastic syndrome after bone marrow biopsy and skin biopsy as outpatient consistent with vasculitis per
outpatient report. Hematology is considering hypomethylating agents and erythropoietin as outpatient after discharge and after further diagnostic testing of his biopsy. He is being discharged to acute rehab for further rehabilitation. He has been
cleared for discharge by all specialist seeing him. He will be discharged in relatively stable condition today but will require close follow-up as outpatient.
Discharge duration: 42 minutes
Discharge Plan
-
Patient Disposition: Acute Rehab Facility
Discharge Diagnosis/Procedures: Vasculitis. Myelodysplastic syndrome. Pancytopenia. Cephalic vein thrombosis.
Blood Work: Please PCP to order CBC, BMP within 1 week
Stand Alone Forms: DC Instructions- Cath/EP Lab
Referrals:
Primary care, provider [Other] (See less than 1 week)
Ros Gonzáles DO [Active] - in one to two weeks
Zeinab Knox MD [Active] - in one to two weeks
Ksenia Jackman MD [Active] - in three to four weeks
Prescriptions:
New
Eliquis 2.5 mg Tablet
2.5 mg PO BID Qty: 60 0RF
pantoprazole 40 mg Tablet,Delayed Release (Dr/Ec)
40 mg PO DAILY 30 Days Qty: 30 0RF
prednisone 50 mg tablet
60 mg PO DAILY Qty: 30 0RF
Rx Instructions:
Taper 5 mg every week.
sulfamethoxazole-trimethoprim [Bactrim DS] 800-160 mg tablet
1 tab PO .thrice weekly 28 Days Qty: 30 0RF
Rx Instructions:
FOR 28 DAYS.
calcium carbonate-vitamin D3 [Calcium 500 + D] 500 mg-10 mcg (400 unit) tablet,chewable
1 tab PO DAILY Qty: 30 0RF
Continued
diphenhydramine HCl [Banophen] 50 MG capsule
50 mg PO HSPRN PRN (Reason: sleep)
albuterol sulfate [Proventil HFA] 90 MCG/PUFF HFA aerosol inhaler
2 puff inhalation R Q4HPRN PRN (Reason: sob)
cyclosporine [Restasis] 0.05 % Dropperette
1 drp BOTH EYES BID
rosuvastatin 20 MG tablet
20 mg PO DAILY
Metamucil Fiber Singles 1 PACKET powder in packet
1 packet PO BID
Allergy Shots
1 dose INJ TH
Nucala 100 mg/mL Syringe
300 mg SC Q4W
Breztri Aerosphere 160-9-4.8 mcg/actuation Hfa Aerosol Inhaler
2 inh INHALATION R BID
melatonin 10 mg Tablet
10 mg PO HSPRN PRN (Reason: sleep)
benzonatate 200 mg Capsule
200 mg PO TIDPRN PRN (Reason: cough)
acetaminophen [Tylenol 8 Hour] 650 mg Tablet Extended Release
650 mg PO Q8H
Discontinued
lisinopril 20 mg Tablet
20 mg PO BID
amlodipine 2.5 mg tablet
2.5 mg PO HS
cholecalciferol (vitamin D3) 50 mcg (2,000 unit) Tablet
50 mcg PO DAILY
Discharge Orders:
Discharge Patient (As Directed); Ordered 06/14/24
Ordered By: Julien Brunson
Discharge Date and Time
Discharge Date/Time: 06/14/24 14:00
Print Language: GUYANESE
[2024-06-14 13:33] VITALS: BP 133/82
== END 2024-06-14 14:00 | DRG 871 ==
LOC: 4 EAST ACU 17:28
PROVIDERS: Emergency Medicine; Hospitalist; Internal Medicine Interventional Cardiology; Nurse Practitioner Acute Care; Nurse Practitioner Gerontology; Radiology Diagnostic Radiology; Specialist; Student in an Organized Health Care Education/Training Program; ADMITTING PHYSICIAN Hospitalist; ATTENDING PHYSICIAN Hospitalist; CONSULT PHYSICIAN Internal Medicine; CONSULT PHYSICIAN Internal Medicine Cardiovascular Disease; CONSULT PHYSICIAN Internal Medicine Gastroenterology; CONSULT PHYSICIAN Internal Medicine Hematology & Oncology; CONSULT PHYSICIAN Physical Medicine & Rehabilitation; CONSULT PHYSICIAN Psychiatry & Neurology Neurology; CONSULT PHYSICIAN Student in an Organized Health Care Education/Training Program; EMERGENCY PHYSICIAN Emergency Medicine; FAMILY PHYSICIAN Internal Medicine Critical Care Medicine
PROC: 5A09357 Assistance with Respiratory Ventilation, Less than 24 Consecutive Hours, Continuous Positive Airway Pressure (ICD-10-PCS; 2024-06-04)
PROC: 07DR3ZX Extraction of Iliac Bone Marrow, Percutaneous Approach, Diagnostic (ICD-10-PCS; 2024-06-04)
PROC: 30233N1 Transfusion of Nonautologous Red Blood Cells into Peripheral Vein, Percutaneous Approach (ICD-10-PCS; 2024-06-04)
PROC: 079T3ZX Drainage of Bone Marrow, Percutaneous Approach, Diagnostic (ICD-10-PCS; 2024-06-04)
PROC: 5A0945A Assistance with Respiratory Ventilation, 24-96 Consecutive Hours, High Flow/Velocity Cannula (ICD-10-PCS; 2024-06-04)
PROC: 4A023N6 Measurement of Cardiac Sampling and Pressure, Right Heart, Percutaneous Approach (ICD-10-PCS; 2024-06-08)
PROC: B2141ZZ Fluoroscopy of Right Heart using Low Osmolar Contrast (ICD-10-PCS; 2024-06-08)
DX: A41.9 Sepsis, unspecified organism (principal); J96.01 Acute respiratory failure with hypoxia; N17.0 Acute kidney failure with tubular necrosis; D61.818 Other pancytopenia; J98.11 Atelectasis; E87.1 Hypo-osmolality and hyponatremia; D68.61 Antiphospholipid syndrome; E85.4 Organ-limited amyloidosis; I82.612 Acute embolism and thrombosis of superficial veins of left upper extremity; R57.9 Shock, unspecified; J84.9 Interstitial pulmonary disease, unspecified; E87.4 Mixed disorder of acid-base balance; J81.1 Chronic pulmonary edema; D46.9 Myelodysplastic syndrome, unspecified; I68.0 Cerebral amyloid angiopathy; R80.9 Proteinuria, unspecified; R21 Rash and other nonspecific skin eruption; L29.9 Pruritus, unspecified; K64.9 Unspecified hemorrhoids; R13.10 Dysphagia, unspecified; G93.89 Other specified disorders of brain; M34.9 Systemic sclerosis, unspecified; K59.00 Constipation, unspecified; I77.6 Arteritis, unspecified; E78.00 Pure hypercholesterolemia, unspecified; I10 Essential (primary) hypertension; J45.50 Severe persistent asthma, uncomplicated; Z87.891 Personal history of nicotine dependence; Z88.1 Allergy status to other antibiotic agents; Z86.73 Personal history of transient ischemic attack (TIA), and cerebral infarction without residual deficits; Z11.52 Encounter for screening for COVID-19
CPT/HCPCS: 88305; 88311; 88312; 93308; 36600; 38221; 70450; 70544; 70548; 70551; 71045; 71046; 71250; 71275; 74230; 77012; 80048; 80053; 80061; 81003; 81015; 81099; 82164; 82533; 82570; 82728; 82805; 82962; 83036; 83516; 83605; 83615; 83735; 83880; 83935; 84100; 84145; 84156; 84300; 84443; 84484; 84550; 85014; 85018; 85025; 85027; 85379; 85384; 85610; 85652; 85730; 86022; 86140; 86160; 86480; 86704; 86706; 86803; 86850; 86900; 86901; 86920; 87040; 87045; 87046; 87070; 87147; 87205; 87328; 87329; 87340; 87427; 87633; 87641; 87811; 87902; 88313; 88341; 88342; 92523; 92526; 92610; 92611; 93005; 93321; 93325; 93451; 93971; 94640; 94660; 94669; 96360; 96361; 97110; 97116; 97129; 97163; 97167; 97530; 97535; 99285; A9585; C1894; P9016; Q9967

== ENCOUNTER 2024-06-24 17:25 | Observation (INO) | payer MEDICARE, OTHER, SELFPAY ==
[2024-06-24] VITALS (10 sets, daily range): BP systolic 134–189; BP diastolic 81–106; BMI 24.5; BMI 23.3
[2024-06-24 12:37] LABS: % Basophils 0.1 % (0-2); % Immature Granulocytes 3.1 % (0-0.5); % Lymphocytes 7.5 % (20.5-51.1); % Monocytes 3.1 % (1.7-9.3); % Neutrophils 86.2 % (42.2-75.2); Absolute Immature Granulocytes 0.2 10^3/uL (0-0.05); Absolute Lymphocytes 0.5 10^3/uL (1.2-3.4); Absolute Monocytes 0.2 10^3/uL (0.1-0.6); Absolute Neutrophils 6.2 10^3/uL (1.4-6.5); Hematocrit 27.8 % (39.0-52.0); Hemoglobin 9.3 g/dL (13.0-18.0); Mean Corp Hgb Conc. 33.5 g/dL (33.0-37.0); Mean Corpuscular Hgb 32.7 pg (27.0-31.0); Mean Corpuscular Volume 97.9 fL (80.0-94.0); Mean Platelet Volume 10.2 fL (7.4-10.4); Nucleated Red Blood Cells % 0 % (-); Platelet Count 135 10^3/uL (130-400); Red Blood Cell Count 2.84 10^6/uL (4.70-6.10); Red Cell Dist. Width 21.1 % (11.5-14.5); White Blood Cell Count 7.2 10^3/uL (4.8-10.8)
[2024-06-24 12:48] LABS: ALT (SGPT) 32 U/L (0-50); AST (SGOT) 19 U/L (17-59); Albumin 3.7 g/dl (3.5-5.0); Alkaline Phosphatase 73 U/L (38-126); Blood Urea Nitrogen 33 mg/dl (9-20); Carbon Dioxide 20 mmol/L (22-30); Chloride 106 mmol/L (98-107); Estimated Creatinine Clearance 73 ml/min; Glucose 147 mg/dl (70-99); Potassium 3.8 mmol/L (3.5-5.1); Sodium 139 mmol/L (135-145); Total Bilirubin 0.5 mg/dl (0.2-1.3); Total Protein 6.1 g/dl (6.3-8.2); eGFR > 60.00
[2024-06-24 13:55] LABS: Urine Albumin Negative (Neg - Trace); Urine Bilirubin Negative (Negative); Urine Character Clear (Clear); Urine Color Yellow; Urine Glucose Negative (Negative); Urine Ketone Negative (Negative); Urine Leukocyte Negative (Negative); Urine Nitrite Negative (Negative); Urine Occult Blood Negative (Negative); Urine Urobilinogen Negative (Neg - 1+)
--- NOTE | 2024-06-24 13:58 | ED.GENMED ---
History of Present Illness
General
Chief Complaint: Change in Mental Status
Time Seen by Provider: 06/24/24 13:58
History of Present Illness
History of Present Illness:
HPI: The patient came in by ambulance due to altered mental status. He was given Versed IM prior to arrival by EMS. The patient was admitted to the hospital last month and was diagnosed with myelodysplastic syndrome and also was found to have
vasculitis/pneumonitis. He was placed on high-dose steroids starting 2 days ago and yesterday he had change in mental status. He lives alone by himself but now cannot safely care for himself or take his own medication. He came in by ambulance
today. He was given Versed prior to arrival.
EXAM:
GENERAL: The patient does not appear to be in any significant distress and is awake and alert however he has a change in his mental status compared to when I saw him 1 month ago
HEENT: Moist oral mucosa
CARDIOVASCULAR: No murmurs, normal heart rate, regular rhythm, No chest wall tenderness
PULMONARY: No respiratory distress, breath sounds are clear and equal
ABDOMEN: Soft with no peritoneal signs, no tenderness
NEUROLOGIC: Good strength all extremities, no coordination deficits
PSYCHIATRIC: The patient has tangential and repetitive thoughts, he does not quite understand why he is here, his insight and judgment are lacking.
EXTREMITIES: Nontender, no edema, moves all extremities equally
SKIN: No rash, no lesions
TIME OF INITIAL ENCOUNTER: 2 PM
NUMBER AND COMPLEXITY OF PROBLEMS ADDRESSED AT THE ENCOUNTER
� Chronic conditions affecting care: MDS, asthma, steroid-induced hyperglycemia
� Acute Exacerbation and/or Progression of Chronic Illness: This is an acute problem
� Differential Diagnosis includes: Steroid-induced psychosis/altered mental status, highly doubt CVA�I reviewed recent neuroimaging, electrolyte abnormality, UTI
AMOUNT AND/OR COMPLEXITY OF DATA TO BE REVIEWED AND ANALYZED
� I performed an independent evaluation of and my interpretation is:
EKG:
CT:
X-rays:
Laboratory Studies: White count normal, hemoglobin 9.3 which is near baseline, BUN 33 and creatinine 0.8
Other:
� Review of other/old records: I reviewed records. [facility]
� Clinical information was obtained by an independent historian: I spoke to the daughter at bedside who is tearful and upset about his current condition
� Prescriptions/Medications Considered but not given:
� Further testing considered but not performed:
RISK OF COMPLICATIONS AND/OR MORBIDITY OR MORTALITY OF PATIENT MANAGEMENT
� Social determinants of health affecting care: Lives at home
� Discussion with other providers: Hospitalist for admission at 2:20 PM, Dr. Aburto
� Escalation of care including admission/observation vs risk of discharge considered: The patient lives at home by himself and does not appear to have appropriate insight and judgment to safely be discharged. I suspect that his
change in mental status is related to the high-dose steroids. He was recently diagnosed with MDS, vasculitis, pneumonitis.
Past History
Past History
ED Past Medical History: Asthma, HTN, Hypercholesterolemia and Other (Cataracts, impaired vision)
ED Past Surgical History: Orthopedic (Left knee surgery)
Social History
Tobacco: Non-smoker
Alcohol: Daily
Drug: None
Personal:
Living: with family
Phy Exam
Physical Exam
Physical Exam:
See HPI
Course
Orders/Labs/Results
Orders:
Orders
06/24/24 12:25
CBC/With Diff [Complete Blood Count/With Diff] Urgent
Comprehensive Metabolic Panel Urgent
06/24/24 13:46
Urinalysis Reflex To Culture Urgent
Date Specimen was Collected: 06/24/24
Time Specimen was Collected: 13:41
06/24/24 15:20
CT Head W/o Iv Contrast Stat
Comment:
Reason For Exam: change in mental status
Abnormal Lab Results
06/24/24
12:25
RBC 2.84 L 10^6/uL
(4.70-6.10)
Hgb 9.3 L g/dL
(13.0-18.0)
Hct 27.8 L %
(39.0-52.0)
MCV 97.9 H fL
(80.0-94.0)
MCH 32.7 H pg
(27.0-31.0)
RDW 21.1 H %
(11.5-14.5)
Abs Immat Gran (auto) 0.2 H 10^3/uL
(0-0.05)
Absolute Lymphs (auto) 0.5 L 10^3/uL
(1.2-3.4)
Immature Gran % 3.1 H %
(0-0.5)
Neutrophils % 86.2 H %
(42.2-75.2)
Lymphocytes % 7.5 L %
(20.5-51.1)
Carbon Dioxide 20 L mmol/L
(22-30)
BUN 33 H mg/dl
(9-20)
Glucose 147 H mg/dl
(70-99)
Total Protein 6.1 L g/dl
(6.3-8.2)
06/24/24 12:25
06/24/24 12:25
Vital Signs
Initial and Last Documented VS:
Initial Vital Signs
BP Pulse Ox
134/88 99
06/24/24 12:09 06/24/24 12:09
Last Documented Vital Signs
Temp Pulse Resp BP Pulse Ox
98.5 F 81 17 157/85 99
06/24/24 12:10 06/24/24 15:45 06/24/24 15:45 06/24/24 15:05 06/24/24 15:45
*Critical Care Note
Total Time (30-74mins, 75-104mins- exclusive of procedures): Not Applicable
ED Attending Note
-
Portions of this chart may have been created with voice recognition software.� Occasional wrong word or��sound alike� substitutions may have occurred due to the inherent limitations of voice recognition software.
Discharge Plan
Departure
Patient Disposition: Admit
Date of Disposition: 06/24/24
Time of Disposition: 14:24
Presentation/result/management discussed w/ accepting MD/DO: Hospitalist
Discharge Problem:
Acute alteration in mental status
Prescriptions:
No Action
diphenhydramine HCl [Banophen] 50 MG capsule
50 mg PO HSPRN PRN (Reason: sleep)
albuterol sulfate [Proventil HFA] 90 MCG/PUFF HFA aerosol inhaler
2 puff inhalation R Q4HPRN PRN (Reason: sob)
cyclosporine [Restasis] 0.05 % Dropperette
1 drp BOTH EYES BID
rosuvastatin 20 MG tablet
20 mg PO DAILY
Metamucil Fiber Singles 1 PACKET powder in packet
1 packet PO BID
Nucala 100 mg/mL Syringe
300 mg SC Q4W
melatonin 10 mg Tablet
10 mg PO HSPRN PRN (Reason: sleep)
amlodipine [Norvasc] 2.5 mg Tablet
2.5 mg PO DAILY@1500
Patient Comments:
RESTARTED BY PCP ON 06/22/24
prednisone 20 mg tablet
55 mg PO UD
Rx Instructions:
take 55mg daily for 7 day until 06/29/24 then 50mg daily for 7 day then 45mg daily for 7 days then 40mg daily for 7 days then stop
sulfamethoxazole-trimethoprim [Bactrim DS] 800-160 mg tablet
1 tab PO MOWEFR
acetaminophen [Tylenol 8 Hour] 650 mg tablet extended release
650 mg PO Q8HPRN PRN (Reason: mild pain)
calcium carbonate-vitamin D3 [Calcium 500 + D] 500 mg-10 mcg (400 unit) tablet,chewable
1 tab PO DAILY
Eliquis 2.5 mg tablet
2.5 mg PO BID
pantoprazole 40 mg Tablet,Delayed Release (Dr/Ec)
40 mg PO DAILY 30 Days Qty: 30 0RF
Breztri Aerosphere 160-9-4.8 mcg/actuation Hfa Aerosol Inhaler
2 inh INHALATION R BID Qty: 0 0RF
Referrals:
UNKNOWN,NO INTERVIEW [Family Provider] -
Interventions
Interventions:
*Risk Screen - Suicide Last Done: 06/24/24 12:13
*General Assessment Last Done: 06/24/24 12:13
*Neglect/Abuse Screening Last Done: 06/24/24 12:16
ED- Fall Risk Assessment Last Done: 06/24/24 12:20
*ED COVID-19 Vaccine History Last Done: 06/24/24 12:20
ED- Pulmonary Assessment Last Done: 06/24/24 12:20
ED- Neurological Assessment Last Done: 06/24/24 12:20
ED- Cardiac Assessment Last Done: 06/24/24 12:20
Discharge Date and Time
Print Language: NICARAGUAN
--- NOTE | 2024-06-24 15:29 | HPS.HSE ---
Family Physician
-
Family Physician: NO INTERVIEW UNKNOWN
Chief Complaint
-
Change in mental status
History of Present Illness
Patient is a 74 y/o male who was recently discharged from [facility] two days ago after a prolonged hospital stay for fever of unknown origin. During that hospitalization he was diagnosed with vasculitis, interstitial pneumonitis and myelodysplastic
syndrome. Patient has been a slow tapering coarse of steroids for the past few weeks. Patient lives independently but over the past 24 hours he was noted by family to be confused. He is very tangental and seems to fixate on things, particularly
reading things over and over.
Medical History
Past Medical History
Past Medical History: Reports Other
Additional Past Medical History:
Vasculitis
Interstitial Pneumonitis
Myelodysplastic Syndrome
Essential Hypertension
Hyperlipidemia
Diabetes Mellitus
Severe Persistent Asthma
Cephalic Vein Thrombosis
Amyloid Angiopathy
Past Surgical History: Reports Other
Additional Past Surgical History:
Left Knee Surgery
Nose Surgery
Eyelid Surgery
Social History
Tobacco: Non-smoker
Alcohol: Former
Drug: None
Family History
Family History: Not pertinent
Allergies / Home Medications
Allergies reflects when Allergies were last updated in [employer].
Home Medications with original date entered in [employer]
Allergy/Medication List:
Allergies
Allergy/AdvReac Type Severity Reaction Status Date / Time
azithromycin [From Zithromax] Allergy Shortness Verified 05/13/24 10:52
of Breath
pollen extracts Allergy Asthma Verified 06/06/24 14:56
exacerbation
Home Medications
albuterol sulfate 90 mcg/actuation aerosol inhaler (Proventil HFA) 2 puff inhalation R Q4HPRN PRN sob 07/03/20
cyclosporine 0.05 % eye drops in a dropperette (Restasis) 1 drp BOTH EYES BID dry eye 07/03/20
diphenhydramine HCl 50 mg capsule (Banophen) 50 mg PO HSPRN PRN sleep 07/03/20
psyllium husk (aspartame) 3.4 gram oral powder packet (Metamucil Fiber Singles) 1 packet PO BID Constipation 07/03/20
rosuvastatin 20 mg tablet 20 mg PO DAILY High Cholesterol 07/03/20
melatonin 10 mg tablet 10 mg PO HSPRN PRN sleep 04/24/24
mepolizumab 100 mg/mL subcutaneous syringe (Nucala) 300 mg SC Q4W asthma 04/24/24
calcium carbonate 500 mg-vitamin D3 10 mcg (400 unit) chewable tablet (Calcium 500 + D) 1 tab PO DAILY #30 tabs 06/13/24
apixaban 2.5 mg tablet (Eliquis) 2.5 mg PO BID 30 days #60 tabs 06/21/24
budesonide 160 mcg-glycopyr 9 mcg-formot 4.8 mcg/actuation HFA inhaler (Breztri Aerosphere) 2 inh inhalation R BID Lung/Breathing Issues- want to resume home inhaler #0 grams 06/21/24
pantoprazole 40 mg tablet,delayed release 40 mg PO DAILY Gastrointestinal issue 30 days #30 tabs 06/21/24
acetaminophen 650 mg tablet,extended release (Tylenol 8 Hour) 650 mg PO Q8HPRN PRN mild pain 06/24/24
amlodipine 2.5 mg tablet (Norvasc) 2.5 mg PO DAILY@1500 06/24/24
prednisone 20 mg tablet 55 mg PO UD 06/24/24
sulfamethoxazole 800 mg-trimethoprim 160 mg tablet (Bactrim DS) 1 tab PO MOWEFR PCP prophylaxis 06/24/24
Review of Systems
-
A 12 point ROS was completed and negative except as noted: Yes
Constitutional: Denies Fever or Chills
Respiratory: Denies Cough or Trouble Breathing
Cardiac: Denies Chest Pain or Palpitations
Abdomen/GI: Denies Abdominal Pain, Nausea, Vomiting or Diarrhea
Physical Exam
Vital Signs
Vital Signs
Temp Pulse Resp BP Pulse Ox
98.5 F 83 18 134/88 98
06/24/24 12:10 06/24/24 12:10 06/24/24 12:10 06/24/24 12:10 06/24/24 12:10
Physical Exam
General: Comfortable and Conversant
HEENT: Moist mucous membranes
Respiratory: Clear and Non Labored Respirations
Cardiac: S1/S2 and Regular Rhythm
GI: Soft and Non Tender
Rectal: Deferred by Provider
Musculoskeletal: No Clubbing, No Cyanosis and Other (Trace Edema RLE, +1 Edema LLE)
Skin: Warm and Dry
Neuro: Awake, Alert, AO x 3 (Correctly identifies place, date, president and his daughter at the bedside), No Motor Deficits and Other (He answers questions appropriately but is very easily distracted); No Slurred Speech or Facial Droop
Laboratory Results
-
06/24/24 12:25
06/24/24 12:25
Laboratory Results
Total Bilirubin 0.5 mg/dl (0.2-1.3) 06/24/24 12:25
AST 19 U/L (17-59) 06/24/24 12:25
ALT 32 U/L (0-50) 06/24/24 12:25
Alkaline Phosphatase 73 U/L (38-126) 06/24/24 12:25
Data Reviewed
-
Lab Data: Labs Reviewed by me
Old Records: Reviewed
Impression/Plan
-
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
-Check Brain MRI
-Monitor neuro-checks
-Consult Neurology
Vasculitis
-Continue prednisone taper as previously outlined
-Continue Bactrim for PCP prophylaxis
-Continue Protonix for GI prophylaxis
Myelodysplastic Syndrome
-Monitor CBC
Essential Hypertension
-Continue amlodipine
Hyperlipidemia
-Continue Crestor
Diabetes Mellitus
-HgbA1c 6.9 in May 2024
-Sugars running high due to steroids
-Continue diabetic diet
-Monitor sugars and continue coverage insulin
Severe Persistent Asthma
-Continue Breztri - Patient will bring his own from home
Cephalic Vein Thrombosis - May 2024
-Continue Eliquis
Code Status: Full Code
[2024-06-24] MEDS: ATIVAN 0.5 MG IV (17:59)
[2024-06-24] MEDS: NSS (PRESERVATIVE FREE) 0.25 ML IV (17:59)
--- NOTE | 2024-06-24 18:36 | W.PN.UPDATE ---
Update Note
Progress Note Update
This is an addendum to the H&P written by Idalia Mcclelland on 06/24/2024.
74-year-old male past medical history of asthma, essential hypertension, hyperlipidemia, recently diagnosed myelodysplastic syndrome, IgA vasculitis, possible cerebral amyloid angiopathy, steroid-induced diabetes, presenting for altered mental
status.
Patient recently had long hospitalization for rash and fever secondary to IgA vasculitis as well as pneumonitis treated with steroids with bone marrow biopsy showing myelodysplastic syndrome.� He has been on prednisone since 06/01 however since
discharge from rehab to home 2 days ago daughter noticed acute change in mental status.
Patient is tangential and repetitive on examination and not making sense at times.� He lacks insight and judgment compared to when seen last month.� Unclear etiology of symptoms.� This could be steroid induced psychosis versus manifestation of
amyloid angiopathy.� MRI/MRA brain from 06/07 shows numerous lytic foci of signal loss along the bilateral temporo-occipital lobes which could be sequelae of cerebral amyloid angiopathy.
Will check CT head.� Continue Eliquis if CT head negative for hemorrhage.� Check repeat MRI brain, neurology consulted.
--- NOTE | 2024-06-24 19:50 | PTCARENOTE ---
Pt arrived to room 434-02. Pt oriented to all questions appropriately, pt with repetitive, random and confused speech. Pt VSS. Bed alarm placed. Pt son at bedside. Pt oriented to room, call morales placed within reach.
[2024-06-24] MEDS: METAMUCIL, KONSYL 1 PACKET PO (20:02)
[2024-06-24] MEDS: ELIQUIS 2.5 MG PO (20:02)
--- NOTE | 2024-06-24 20:30 | PTCARENOTE ---
report received. pt ambulated into rm 425. nsr. vss. pt disoriented to place. pt becoming verbally aggressive and unable to be redirected. casino floor runner notified. 0.5mg iv haldol ordered and admin. bed alarm placed. will monitor.
[2024-06-24] MEDS: MELATONIN 10 MG PO (21:05)
[2024-06-24] MEDS: SEROQUEL 25 MG PO (21:05)
[2024-06-24] MEDS: SYMBICORT 160/4.5 MCG INHALER 2 PUFF INH (21:36)
[2024-06-24] MEDS: HALDOL 0.5 MG IV (21:57)
[2024-06-25 03:30] VITALS: BP 129/76
[2024-06-25 06:00] VITALS: BMI 23.5
[2024-06-25 07:43] VITALS: BP 145/76
[2024-06-25] MEDS: SPIRIVA RESPIMAT 2.5 MCG 2 PUFF INH (07:59)
[2024-06-25] MEDS: SYMBICORT 160/4.5 MCG INHALER 2 PUFF INH (07:59)
[2024-06-25 08:18] LABS: Glucose - Point of Care 86 mg/dl (70-99)
[2024-06-25] MEDS: ELIQUIS 2.5 MG PO (08:31)
[2024-06-25] MEDS: NORVASC 2.5 MG PO (08:31)
[2024-06-25] MEDS: PROTONIX 40 MG PO (08:31)
[2024-06-25] MEDS: CRESTOR 20 MG PO (08:32)
[2024-06-25] MEDS: METAMUCIL, KONSYL 1 PACKET PO (08:32)
[2024-06-25] MEDS: BACTRIM DS 800 MG/160 MG 1 TABLET PO (08:34)
[2024-06-25 08:42] LABS: Hematocrit 26.2 % (39.0-52.0); Hemoglobin 8.8 g/dL (13.0-18.0); Mean Corp Hgb Conc. 33.6 g/dL (33.0-37.0); Mean Corpuscular Hgb 34.2 pg (27.0-31.0); Mean Corpuscular Volume 101.9 fL (80.0-94.0); Mean Platelet Volume 10.4 fL (7.4-10.4); Platelet Count 98 10^3/uL (130-400); Red Blood Cell Count 2.57 10^6/uL (4.70-6.10); Red Cell Dist. Width 21.1 % (11.5-14.5); White Blood Cell Count 3.6 10^3/uL (4.8-10.8)
[2024-06-25 08:52] LABS: Blood Urea Nitrogen 30 mg/dl (9-20); Calcium 8.5 mg/dl (8.4-10.2); Carbon Dioxide 22 mmol/L (22-30); Chloride 107 mmol/L (98-107); Estimated Creatinine Clearance 76 ml/min; Glucose 81 mg/dl (70-99); Magnesium 2.1 mg/dl (1.6-2.3); Potassium 3.8 mmol/L (3.5-5.1); Sodium 140 mmol/L (135-145); eGFR > 60.00
--- NOTE | 2024-06-25 09:21 | CON.NEURO4 ---
Addendum entered and electronically signed by Manav Pond MD 06/25/24 14:46:
Studies reviewed.
I have personally examined the patient. I reviewed and agree with the HOT REPAIRMAN's Note.
My addenda:
Awake, alert, interactive. No acute distress.
Speech intact.
Follows 2-step requests w/o difficulty. No tremor.
Extra-ocular movements grossly intact.
Facial movements full and symmetric. Hearing intact to normal conversational volume.
Normal UE movements bilaterally.
Neck: full ROM.
Chest: no dyspnea
Heart: no JVD
Ext: (-) Clubbing, (-) Cyanosis, (-) Edema
IMPRESSIONS/RECOMMENDATIONS:
Abrupt onset of change mental status with a prior history of cerebral amyloid angiopathy and new diagnosis of myelodysplastic syndrome
Most likely etiology is either recurrent stroke/TIA (potentially due to prior cerebral amyloid angiopathy) or toxic metabolic encephalopathy potentially produced by increase in steroids.
Check MRI of brain as planned, completed, and suggestive of subacute lesions which were most likely due to cerebral amyloid angiopathy
Would discontinue apixaban when possible due to high risk of conversion for amyloid lesions intracranially
Consider EEG if recurrent episodes
Would attempt to reduce steroids if at all possible
's continue rosuvastatin
D/W patient / family
All questions answered.
Will continue to follow pending results.
Original Note:
Documented by User: Magdalena Payan NP 06/25/24 12:05
Consultation - Neurology 4
-
CONSULTING PHYSICIAN: Manav Pond MD
REFERRING PHYSICIAN: Hospitalists/Idalia Mcclelland PA-C
DICTATED BY: EFRA Horvath
DATE/TIME OF REQUEST: 06/24/24
DATE/TIME OF CONSULTATION: 06/25/24
Reason for Consultation: Change in mental status
History of Present Illness:
This is a 74-year-old right-handed male who has presented to the hospital on 06/24/24 with report of a change in mental status. Patient has been intermittently hospitalized at from 04/24/24-06/14/24 with rash and fever. Hospital course was
complicated by a left cephalic DVT (started on Eliquis), thrombocytopenia (HIT antibody negative), vasculitis, and pneumonitis (steroids/Bactrim). He also reported dizziness and MRI brain on 06/04/24 demonstrated a subacute on chronic small left
frontal ischemic infarct and known CAA. He was ultimately found to have a new diagnosis of myelodysplastic syndrome. He was discharged to [facility] on 06/14/24 and then discharged from [facility] to home 06/22/24. For an unclear reason, his oral steroids
were increased back up to 50mg daily on 06/22/24. Yesterday (06/24/24), patient was noted to be profoundly confused, having tangential conversation, and fixating on things. EMS was called and police arrived along with them. Unclear what behavior the
patient displayed but they felt him to be disruptive/agitated and administered Versed 2mg IM prior to ER arrival. CT head was obtained on arrival in the ER and is negative for any acute abnormalities. Patient and his son at bedside report that today
(06/25/24), he seems 100% back to his baseline. He denies any headache, dizziness, vision changes, speech/swallow difficulty, numbness, weakness, nausea, chest pain, palpitations, and shortness of breath. He is taking Eliquis 2.5mg BID due to his DVT
and denies missing any doses.
Past Medical History: CAA, HTN, HLD, myelodysplastic syndrome, IgA vasculitis, steroid induced diabetes, left cephalic vein thrombosis (Eliquis), TMJ, diverticulosis, colon polyp, hemorrhoids
Surgical History: L knee surgery, nose surgery, eyelid surgery.
Family History: Father- Alzheimer disease, two paternal aunts- Alzheimer disease
Social History: Denies tobacco and illicit drug use. Former alcohol.
Allergies: Azithromycin, pollen extracts.
Home Medications: See below.
Review of Symptoms:
Patient denies any fever, headache, chest pain, shortness of breath, GI or symptoms.
�Per the HPI.�All systems are reviewed negative except above.
Physical Exam:
The patient is afebrile, abdomen is nondistended, breathing is unlabored, skin is warm and dry, no edema. BLE dry skin.
NIH Stroke Scale:
I performed the NIH stroke scale on the patient on 06/25/24 at 0930. The patient scored 0 points on the NIH stroke scale assessment, which were assigned as follows: See below.
Neurologic Examination:
The patient is awake, alert and oriented x 3. He is able to follow commands and answer questions appropriately. There is no aphasia or dysarthria. On cranial nerve assessment, pupils are 3 mm bilateral, round and reactive to light and
accommodation. Visual mejia are full. Extraocular movements are intact. Facial sensations are intact and bilaterally symmetrical, there is no facial asymmetry. Hearing is intact bilaterally to normal conversation volume. Tongue palate and uvula are
midline. Sternocleidomastoid strengths are full bilaterally. Motor strengths are 5/5 bilateral upper and lower extremities on medical research [place] scale. There is no drift or involuntary movement noted. Deep tendon reflexes are 2+ bilateral
upper and right lower extremities and Babinski is absent bilaterally. 1 beat of clonus in L Achilles. There was no extinction noted on double simultaneous stimulation. Coordination is intact by finger to nose bilaterally.
Lab Results: See below.
Neuro Imaging:
1. CT Head 06/24/24: No acute intracranial abnormality noted.
Differentials for the patient's presentation include:
1. 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
Patient has the following risk factors for their symptoms: recent increase in steroid dosage, recent CVA, HTN, HLD, age, recent prolonged hospitalization
Recommendations:
-Okay to continue home Eliquis, would not advise this terminal gauger due to CAA.
-Goal normotension.
-MRI brain noncontrast pending.
-Goal normoglycemia, hbA1c is 6.9.
-LDL goal <70. LDL is 51. Continue home rosuvastatin 20mg daily.
-Steroid management per primary team.
-NIHSS and neurological checks per unit guidelines.
-Provide patient with a stroke education packet.
-Will follow pending results.
Discussed patient care with: Dr. Pond, the patient, patient's son
Vital Signs and Labs
-
Vital Signs and Labs:
Vital Signs
Temp Pulse Resp BP Pulse Ox
97.8 F 60 16 145/76 98
06/25/24 07:43 06/25/24 08:06 06/25/24 08:06 06/25/24 07:43 06/25/24 08:06
Lab Results
06/25/24 06:55
06/25/24 06:55
Sodium 140 mmol/L (135-145) 06/25/24 06:55
Potassium 3.8 mmol/L (3.5-5.1) 06/25/24 06:55
BUN 30 mg/dl (9-20) H 06/25/24 06:55
Glucose 81 mg/dl (70-99) 06/25/24 06:55
Calcium 8.5 mg/dl (8.4-10.2) 06/25/24 06:55
Medications
-
Active Medications
Generic Name Dose Route Start Last Admin
Trade Name Freq PRN Reason Stop Dose Admin
Acetaminophen 650 mg 06/24/24 19:26
Acetaminophen 325 Mg Tablet PO 07/22/24 19:25
Q4HPRN PRN
mild pain/ fever>100.5F
Albuterol Sulfate 2.5 mg 06/24/24 19:26
Albuterol Nebs 2.5 Mg/3 Ml Ampul INH
R Q4HPRN PRN
shortness of breath/wheeze
Protocol
Amlodipine Besylate 2.5 mg 06/25/24 08:00 06/25/24 08:31
Amlodipine 2.5 Mg Tablet PO 07/23/24 07:59 2.5 mg
DAILY DOE Administration
Apixaban 2.5 mg 06/24/24 20:00 06/25/24 08:31
Apixaban (Eliquis) 2.5 Mg Tablet PO 07/22/24 19:59 2.5 mg
BID DOE Administration
Budesonide/Formoterol Fumarate 2 puff 06/24/24 20:00 06/25/24 07:59
Symbicort Inhaler 160/4.5 INH 07/22/24 19:59 2 puff
R BID DOE Administration
Dextrose 12.5 grams 06/24/24 19:26
Dextrose 50% (0.5 Grams/Ml) 50 Ml Syringe IV 07/22/24 19:25
[id number] PRN
hypoglycemia
Protocol
Diphenhydramine HCl 50 mg 06/24/24 19:26
Diphenhydramine 50 Mg Capsule PO 07/22/24 19:25
HSPRN PRN
sleep
Glucagon 1 mg 06/24/24 19:26
Glucagon 1 Mg Vial IM 07/22/24 19:25
PRN PRN
hypoglycemia
Protocol
Insulin Aspart 0 units 06/25/24 07:30 06/25/24 09:04
Insulin Aspart Low Resistance 300 Units/3 Ml Pen.Injctr SC 07/23/24 07:29 Not Given
AC DOE
Protocol
Melatonin 10 mg 06/24/24 19:35 06/24/24 21:05
Melatonin 5 Mg Tablet PO 07/22/24 19:34 10 mg
HSPRN PRN Administration
sleep
Pantoprazole Sodium 40 mg 06/25/24 08:00 06/25/24 08:31
Pantoprazole 40 Mg Delayed Release Tablet PO 07/23/24 07:59 40 mg
DAILY DOE Administration
Psyllium Hydrophilic Mucilloid 1 packet 06/24/24 20:00 06/25/24 08:32
Psyllium Packet PO 07/22/24 19:59 1 packet
BID DOE Administration
Quetiapine Fumarate 25 mg 06/24/24 22:00 06/24/24 21:05
Quetiapine 25 Mg Tablet PO 07/22/24 21:59 25 mg
HS DOE Administration
Rosuvastatin Calcium 20 mg 06/25/24 08:00 06/25/24 08:32
Rosuvastatin (Crestor) 20 Mg Tablet PO 07/23/24 07:59 20 mg
DAILY DOE Administration
Sodium Chloride 0 flush 06/24/24 20:00
Sodium Chloride 0.9% (Flush) Syringe IV 07/22/24 19:59
PER PROTOCOL DOE
Tiotropium [place] 2 puff 06/25/24 08:00 06/25/24 07:59
Tiotropium (Spiriva Respimat) 2.5 Mcg Inhaler INH 07/23/24 07:59 2 puff
R DAILY DOE Administration
Trimethoprim/Sulfamethoxazole 1 tablet 06/25/24 08:00 06/25/24 08:34
Sulfamethoxazole (800 Mg)/Trimethoprim (160 Mg) Tablet PO 1 tablet
MoWeFr@0800 DOE Administration
Home Medications
�Medication �Instructions �Recorded
albuterol sulfate 90 mcg/actuation 2 puff inhalation R Q4HPRN PRN sob 07/03/20
aerosol inhaler (Proventil HFA)
cyclosporine 0.05 % eye drops in a 1 drp BOTH EYES BID dry eye 07/03/20
dropperette (Restasis)
diphenhydramine HCl 50 mg capsule 50 mg PO HSPRN PRN sleep 07/03/20
(Banophen)
psyllium husk (aspartame) 3.4 gram 1 packet PO BID Constipation 07/03/20
oral powder packet (Metamucil
Fiber Singles)
rosuvastatin 20 mg tablet 20 mg PO DAILY High Cholesterol 07/03/20
melatonin 10 mg tablet 10 mg PO HSPRN PRN sleep 04/24/24
mepolizumab 100 mg/mL subcutaneous 300 mg SC Q4W asthma 04/24/24
syringe (Nucala)
budesonide 160 mcg-glycopyr 9 2 inh inhalation R BID 06/21/24
mcg-formot 4.8 mcg/actuation HFA Lung/Breathing Issues- want to
inhaler (Breztri Aerosphere) resume home inhaler #0 grams
pantoprazole 40 mg tablet,delayed 40 mg PO DAILY Gastrointestinal 06/21/24
release issue 30 days #30 tabs
acetaminophen 650 mg 650 mg PO Q8HPRN PRN mild pain 06/24/24
tablet,extended release (Tylenol 8
Hour)
amlodipine 2.5 mg tablet (Norvasc) 2.5 mg PO DAILY@1500 Blood Pressure 06/24/24
apixaban 2.5 mg tablet (Eliquis) 2.5 mg PO BID Blood Clot 06/24/24
Prevention/Tx
calcium carbonate 500 mg-vitamin 1 tab PO DAILY Supplement 06/24/24
D3 10 mcg (400 unit) chewable
tablet (Calcium 500 + D)
prednisone 20 mg tablet 55 mg PO UD Anti-Inflammatory 06/24/24
sulfamethoxazole 800 1 tab PO MOWEFR PCP prophylaxis 06/24/24
mg-trimethoprim 160 mg tablet
(Bactrim DS)
NIH Stroke Score
Subsequent NIH Scale
Date of Subsequent NIH Scale: 06/25/24
Time of Subsequent NIH Scale: 09:30
NIH Stroke Score
Level of Consciousness: 0 - Alert
LOC Questions: 0-Answers both correctly
LOC Commands: 0-Performs both correctly
Best Horizontal Gaze: 0-Normal
Visual Mejia: 0=Normal, no visual loss
Facial Palsy: 0=Normal, symmetrical
Motor - Right Arm: 0=No drift 10 seconds
Motor - Left Arm: 0=No drift 10 seconds
Motor - Right Le-No drift 5 seconds
Motor - Left Le-No drift 5 seconds
Limb Ataxia: 0-Absent
Sensation: 0-Normal
Best Language: 0-No aphasia
Dysarthria: 0-Normal
Extinction and Inattention: 0-No abnormality
Total Score:: 0
Modified Terry (mRS) Score
Modified Terry Scale (mRS): No symptoms
Score: 0

Documented by User: Manav Pond MD 06/25/24 13:58
NIH Stroke Score
NIH Stroke Score
Total Score:: 0
Modified [place] (mRS) Score
Score: 0
[2024-06-25 11:34] VITALS: BP 132/63
--- NOTE | 2024-06-25 11:49 | W.PN.HOSP.TC ---
Today's Communication/Plan
-
await MRI, if no acute findings, then decrease steroids and likely home DC
Assessment / Plan
Assessment / Plan
Assessment:
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
- patient back to baseline per family
- Neuro following
- MRI brain pending
- no evidence of infection
- may need to consider steroid reduction if psychosis etiology
Vasculitis recently diagnosed
- Continue prednisone taper, but would decrease to 40mg daily from 50mg and slow taper from there
- Continue Bactrim for PCP prophylaxis
- Continue Protonix for GI prophylaxis
Myelodysplastic Syndrome
- Monitor CBC
- OP Hematology f/u
Essential Hypertension
- Continue amlodipine
Hyperlipidemia
- Continue Crestor
Diabetes Mellitus
- HgbA1c 6.9 in May 2024
- Sugars running high due to steroids
- Continue diabetic diet
- Monitor sugars and continue coverage insulin
Severe Persistent Asthma
-Continue Breztri - Patient will bring his own from home
Cephalic Vein Thrombosis - May 2024
- continue Eliquis
Code Status: Full Code
Anticipated Discharge: Within 24 hours
Subjective/Interval History
-
Date of Service: June 25, 2024
more alert today per family, no evidence of confusion today per staff
Objective Data
-
Labs:
Laboratory Results
06/25/24
06:55
WBC 3.6 L
Hgb 8.8 L
Hct 26.2 L
Plt Count 98 L D
Sodium 140
Potassium 3.8
Chloride 107
Carbon Dioxide 22
BUN 30 H
Creatinine 0.8
Glucose 81
Calcium 8.5
Vital Signs:
Vital Signs
Temp Pulse Resp BP Pulse Ox
97.8 F 60 16 145/76 98
06/25/24 07:43 06/25/24 08:06 06/25/24 08:06 06/25/24 07:43 06/25/24 08:06
I&O
06/24/24 06/25/24 06/26/24
06:59 06:59 06:59
Output Total 375 / 375
Balance -375 / -375
Physical Exam
-
General: No Apparent Distress
HEENT: Normocephalic and Atraumatic
Respiratory: Negative Wheezes
Cardiac: Regular Rhythm and S1/S2
GI: Soft
Musculoskeletal: No Edema
Neuro: AO x 3
Psych: Calm
Data Reviewed
-
Total Time Spent with Patient (in minutes): 42
Labs: Labs Reviewed by me
[2024-06-25 12:03] LABS: Glucose - Point of Care 126 mg/dl (70-99)
--- NOTE | 2024-06-25 12:41 | CM ---
Patient seen bedside.
IA Completed.
DX change in mental status.
patient lives alone in a split level home with 2 stepst to enter.
[facility] to this admission.
patient does not have assistive devices, or hx of VN.
[facility] will transport home.
[facility] form reviewed.
MD: Dr Andres
Pharmacy: [facility]
Plan: home no needs anticipated.
[2024-06-25] MEDS: DELTASONE 40 MG PO (12:47)
[2024-06-25 15:03] VITALS: BP 140/74
--- NOTE | 2024-06-25 15:42 | W.DS.TRANS ---
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
-
Discharge Instructions:
Discharge Diagnosis/Procedures steroid induced psychosis
Diet Diabetic, Carb Controlled
Activity As tolerated
Bathing Restrictions None
Instructions:
Stand-Alone Forms:
Changes to Home Medications: No
Discharge Medications:
DC Medications w/original date entered in [employer]
albuterol sulfate 90 mcg/actuation aerosol inhaler (Proventil HFA) 2 puff inhalation R Q4HPRN PRN sob 07/03/20
cyclosporine 0.05 % eye drops in a dropperette (Restasis) 1 drp BOTH EYES BID dry eye 07/03/20
diphenhydramine HCl 50 mg capsule (Banophen) 50 mg PO HSPRN PRN sleep 07/03/20
psyllium husk (aspartame) 3.4 gram oral powder packet (Metamucil Fiber Singles) 1 packet PO BID Constipation 07/03/20
rosuvastatin 20 mg tablet 20 mg PO DAILY High Cholesterol 07/03/20
melatonin 10 mg tablet 10 mg PO HSPRN PRN sleep 04/24/24
mepolizumab 100 mg/mL subcutaneous syringe (Nucala) 300 mg SC Q4W asthma 04/24/24
budesonide 160 mcg-glycopyr 9 mcg-formot 4.8 mcg/actuation HFA inhaler (Breztri Aerosphere) 2 inh inhalation R BID Lung/Breathing Issues- want to resume home inhaler #0 grams 06/21/24
pantoprazole 40 mg tablet,delayed release 40 mg PO DAILY Gastrointestinal issue 30 days #30 tabs 06/21/24
acetaminophen 650 mg tablet,extended release (Tylenol 8 Hour) 650 mg PO Q8HPRN PRN mild pain 06/24/24
amlodipine 2.5 mg tablet (Norvasc) 2.5 mg PO DAILY@1500 Blood Pressure 06/24/24
apixaban 2.5 mg tablet (Eliquis) 2.5 mg PO BID Blood Clot Prevention/Tx 06/24/24
calcium carbonate 500 mg-vitamin D3 10 mcg (400 unit) chewable tablet (Calcium 500 + D) 1 tab PO DAILY Supplement 06/24/24
sulfamethoxazole 800 mg-trimethoprim 160 mg tablet (Bactrim DS) 1 tab PO MOWEFR PCP prophylaxis 06/24/24
prednisone 20 mg tablet 40 mg (2 x 20 mg) PO DAILY #60 tabs 06/25/24
Home Medication Changes
Pending Results: No
Total time spent discharging patient (in min): 41
== END 2024-06-25 16:13 | disposition home or self-care (01) ==
LOC: 4 WEST ACU 17:25
PROVIDERS: Physician Assistant Medical; Student in an Organized Health Care Education/Training Program; ADMITTING PHYSICIAN Hospitalist; ATTENDING PHYSICIAN Internal Medicine; EMERGENCY PHYSICIAN Emergency Medicine; OTHER PHYSICIAN Psychiatry & Neurology Neurology
DX: R41.82 Altered mental status, unspecified (principal); D46.9 Myelodysplastic syndrome, unspecified; E11.65 Type 2 diabetes mellitus with hyperglycemia; I49.8 Other specified cardiac arrhythmias; G93.89 Other specified disorders of brain; I77.6 Arteritis, unspecified; T38.0X5A Adverse effect of glucocorticoids and synthetic analogues, initial encounter; Y92.9 Unspecified place or not applicable; I82.612 Acute embolism and thrombosis of superficial veins of left upper extremity; E85.4 Organ-limited amyloidosis; I68.0 Cerebral amyloid angiopathy; J45.50 Severe persistent asthma, uncomplicated; I10 Essential (primary) hypertension; E78.00 Pure hypercholesterolemia, unspecified; Z60.2 Problems related to living alone; Z75.1 Person awaiting admission to adequate facility elsewhere; Z88.1 Allergy status to other antibiotic agents; Z79.51 Long term (current) use of inhaled steroids; Z87.19 Personal history of other diseases of the digestive system; Z79.52 Long term (current) use of systemic steroids; Z79.01 Long term (current) use of anticoagulants; Z82.0 Family history of epilepsy and other diseases of the nervous system
CPT/HCPCS: 70450; 70551; 80048; 80053; 81003; 82962; 83735; 85025; 85027; 93005; 94640; 97161; 97165; 99285; G0378

== ENCOUNTER → 2024-07-03 13:43 | Outpatient (REF) | payer MEDICARE, OTHER, SELFPAY ==
[2024-07-03 14:00] LABS: % Basophils 0.3 % (0-2); % Eosinophils 0.3 % (0-6); % Immature Granulocytes 4.9 % (0-0.5); % Lymphocytes 14.5 % (20.5-51.1); % Monocytes 3.6 % (1.7-9.3); % Neutrophils 76.4 % (42.2-75.2); Absolute Immature Granulocytes 0.3 10^3/uL (0-0.05); Absolute Lymphocytes 0.9 10^3/uL (1.2-3.4); Absolute Monocytes 0.2 10^3/uL (0.1-0.6); Absolute Neutrophils 4.6 10^3/uL (1.4-6.5); Hematocrit 31.3 % (39.0-52.0); Hemoglobin 10.2 g/dL (13.0-18.0); Mean Corp Hgb Conc. 32.6 g/dL (33.0-37.0); Mean Corpuscular Volume 104.3 fL (80.0-94.0); Mean Platelet Volume 9.1 fL (7.4-10.4); Platelet Count 171 10^3/uL (130-400); Red Cell Dist. Width 19.1 % (11.5-14.5); White Blood Cell Count 6.1 10^3/uL (4.8-10.8)
[2024-07-03 16:43] LABS: Blood Urea Nitrogen 36 mg/dl (9-20)
== END ==
LOC: OIDL 13:43
PROVIDERS: ATTENDING PHYSICIAN Internal Medicine Hematology & Oncology; FAMILY PHYSICIAN Internal Medicine
DX: D46.9 Myelodysplastic syndrome, unspecified (principal)
CPT/HCPCS: 36415; 82565; 84520; 85025

== ENCOUNTER → 2024-07-20 15:44 | Outpatient (REF) | payer MEDICARE, OTHER, SELFPAY ==
[2024-07-20 16:57] LABS: Hematocrit 34.7 % (39.0-52.0); Hemoglobin 11.7 g/dL (13.0-18.0); Mean Corp Hgb Conc. 33.7 g/dL (33.0-37.0); Mean Corpuscular Hgb 33.8 pg (27.0-31.0); Mean Corpuscular Volume 100.3 fL (80.0-94.0); Mean Platelet Volume 10.4 fL (7.4-10.4); Platelet Count 178 10^3/uL (130-400); Red Blood Cell Count 3.46 10^6/uL (4.70-6.10); Red Cell Dist. Width 16.2 % (11.5-14.5); White Blood Cell Count 6.2 10^3/uL (4.8-10.8)
[2024-07-20 17:37] LABS: % Basophils 0.8 % (0-2); % Immature Granulocytes 5.7 % (0-0.5); % Lymphocytes 16.5 % (20.5-51.1); % Monocytes 3.7 % (1.7-9.3); % Neutrophils 73.3 % (42.2-75.2); Absolute Basophils 0.1 10^3/uL (0-0.2); Absolute Immature Granulocytes 0.4 10^3/uL (0-0.05); Absolute Monocytes 0.2 10^3/uL (0.1-0.6); Absolute Neutrophils 4.5 10^3/uL (1.4-6.5); Nucleated Red Blood Cells % 0 % (-)
== END ==
LOC: REG 15:44
PROVIDERS: ATTENDING PHYSICIAN Internal Medicine Hematology & Oncology; FAMILY PHYSICIAN Internal Medicine
DX: D46.9 Myelodysplastic syndrome, unspecified (principal)
CPT/HCPCS: 36415; 85025

== ENCOUNTER → 2024-08-13 15:42 | Outpatient (REF) | payer MEDICARE, OTHER, SELFPAY ==
[2024-08-13 16:48] LABS: ALT (SGPT) 39 U/L (0-50); AST (SGOT) 24 U/L (17-59); Albumin 4.5 g/dl (3.5-5.0); Alkaline Phosphatase 53 U/L (38-126); Blood Urea Nitrogen 44 mg/dl (9-20); Calcium 9.3 mg/dl (8.4-10.2); Carbon Dioxide 24 mmol/L (22-30); Chloride 100 mmol/L (98-107); Glucose 165 mg/dl (70-99); Potassium 5.4 mmol/L (3.5-5.1); Sodium 139 mmol/L (135-145); Total Bilirubin 0.2 mg/dl (0.2-1.3); Total Protein 6.9 g/dl (6.3-8.2); eGFR 48.55
[2024-08-13 17:33] LABS: Hematocrit 33.4 % (39.0-52.0); Mean Corp Hgb Conc. 32.9 g/dL (33.0-37.0); Mean Corpuscular Hgb 33.8 pg (27.0-31.0); Mean Corpuscular Volume 102.8 fL (80.0-94.0); Mean Platelet Volume 10.3 fL (7.4-10.4); Platelet Count 179 10^3/uL (130-400); Red Blood Cell Count 3.25 10^6/uL (4.70-6.10); Red Cell Dist. Width 15.5 % (11.5-14.5); White Blood Cell Count 4.8 10^3/uL (4.8-10.8)
[2024-08-13 18:47] LABS: % Basophils 1.1 % (0-2); % Immature Granulocytes 9.7 % (0-0.5); % Lymphocytes 13.5 % (20.5-51.1); % Monocytes 2.7 % (1.7-9.3); Absolute Basophils 0.1 10^3/uL (0-0.2); Absolute Immature Granulocytes 0.5 10^3/uL (0-0.05); Absolute Lymphocytes 0.6 10^3/uL (1.2-3.4); Absolute Monocytes 0.1 10^3/uL (0.1-0.6); Absolute Neutrophils 3.5 10^3/uL (1.4-6.5); Nucleated Red Blood Cells % 0 % (-)
== END ==
LOC: REG 15:42
PROVIDERS: ATTENDING PHYSICIAN Internal Medicine Hematology & Oncology; FAMILY PHYSICIAN Nurse Practitioner Family
DX: D46.9 Myelodysplastic syndrome, unspecified (principal); Z09 Encounter for follow-up examination after completed treatment for conditions other than malignant neoplasm
CPT/HCPCS: 36415; 80053; 85025

== ENCOUNTER → 2024-09-06 15:12 | Outpatient (REF) | payer MEDICARE, OTHER, SELFPAY ==
[2024-09-06 16:30] LABS: Blood Urea Nitrogen 38 mg/dl (9-20); Calcium 9.4 mg/dl (8.4-10.2); Carbon Dioxide 21 mmol/L (22-30); Chloride 105 mmol/L (98-107); Glucose 174 mg/dl (70-99); Potassium 4.4 mmol/L (3.5-5.1); Sodium 142 mmol/L (135-145); eGFR 52.74
[2024-09-08 17:00] LABS: PSA Total 4.1 ng/mL (0.0-4.0)
== END ==
LOC: REG 15:12
PROVIDERS: ATTENDING PHYSICIAN Nurse Practitioner Family; FAMILY PHYSICIAN Urology
DX: R89.9 Unspecified abnormal finding in specimens from other organs, systems and tissues (principal); R97.20 Elevated prostate specific antigen [PSA]
CPT/HCPCS: 36415; 80048; 84153; 84154

== ENCOUNTER → 2025-01-18 14:27 | Outpatient (REF) | payer MEDICARE, OTHER, SELFPAY ==
[2025-01-18 15:20] LABS: Hematocrit 37.5 % (39.0-52.0); Hemoglobin 12.8 g/dL (13.0-18.0); Mean Corp Hgb Conc. 34.1 g/dL (33.0-37.0); Mean Corpuscular Hgb 35.1 pg (27.0-31.0); Mean Corpuscular Volume 102.7 fL (80.0-94.0); Mean Platelet Volume 10.9 fL (7.4-10.4); Platelet Count 119 10^3/uL (130-400); Red Blood Cell Count 3.65 10^6/uL (4.70-6.10); Red Cell Dist. Width 13.4 % (11.5-14.5); White Blood Cell Count 3.6 10^3/uL (4.8-10.8)
[2025-01-18 15:27] LABS: Urine Albumin 1+ (Neg - Trace); Urine Bilirubin Negative (Negative); Urine Character Clear (Clear); Urine Color Yellow; Urine Glucose Negative (Negative); Urine Ketone Negative (Negative); Urine Leukocyte Negative (Negative); Urine Nitrite Negative (Negative); Urine Occult Blood 1+ (Negative); Urine Urobilinogen Negative (Neg - 1+)
[2025-01-18 15:32] LABS: % Basophils 1.4 % (0-2); % Immature Granulocytes 7.8 % (0-0.5); % Lymphocytes 17.5 % (20.5-51.1); % Neutrophils 68.3 % (42.2-75.2); Absolute Basophils 0.1 10^3/uL (0-0.2); Absolute Immature Granulocytes 0.3 10^3/uL (0-0.05); Absolute Lymphocytes 0.6 10^3/uL (1.2-3.4); Absolute Monocytes 0.2 10^3/uL (0.1-0.6); Absolute Neutrophils 2.5 10^3/uL (1.4-6.5); Nucleated Red Blood Cells % 0 % (-)
[2025-01-18 15:40] LABS: ALT (SGPT) 70 U/L (0-50); AST (SGOT) 33 U/L (17-59); Albumin 4.8 g/dl (3.5-5.0); Alkaline Phosphatase 67 U/L (38-126); Blood Urea Nitrogen 40 mg/dl (9-20); Calcium 9.3 mg/dl (8.4-10.2); Carbon Dioxide 21 mmol/L (22-30); Chloride 109 mmol/L (98-107); Glucose 136 mg/dl (70-99); Phosphorus 3.6 mg/dl (2.5-4.5); Potassium 4.6 mmol/L (3.5-5.1); Sodium 142 mmol/L (135-145); Total Bilirubin 0.4 mg/dl (0.2-1.3); Total Protein 6.8 g/dl (6.3-8.2); eGFR 39.01
[2025-01-18 15:43] LABS: Urine Bacteria Few (Negative); Urine White Cell 0-2 /HPF (0-5)
[2025-01-18 15:52] LABS: Protein/creatinine Ratio 0.2; Urine Protein 16 mg/dl
[2025-01-18 15:55] LABS: Microalbumin, Random Urine 6.7 mg/dl (0.6-1.7); Microalbumin/creatinine Ratio 85.5 mg/g
[2025-01-18 16:16] LABS: TSH Reflex To Free T4 1.29 uIU/ml (0.47-4.68)
== END ==
LOC: REG 14:27
PROVIDERS: ATTENDING PHYSICIAN Specialist; FAMILY PHYSICIAN Nurse Practitioner Family
DX: I49.9 Cardiac arrhythmia, unspecified (principal); R00.2 Palpitations; R80.9 Proteinuria, unspecified
CPT/HCPCS: 36415; 80053; 81003; 81015; 82043; 82570; 84100; 84156; 84443; 85025

== ENCOUNTER → 2025-01-25 09:59 | Outpatient (REF) | payer MEDICARE, OTHER, SELFPAY | LOC: HWRCS 09:59 | PROVIDERS: ATTENDING PHYSICIAN Nurse Practitioner Family | DX: I49.9 Cardiac arrhythmia, unspecified (principal); R00.2 Palpitations | CPT/HCPCS: 93306 ==

== ENCOUNTER → 2025-01-28 10:13 | Outpatient (REF) | payer MEDICARE, OTHER, SELFPAY | LOC: RCS 10:13 | PROVIDERS: ATTENDING PHYSICIAN Nurse Practitioner Family | DX: I49.9 Cardiac arrhythmia, unspecified (principal); R00.2 Palpitations | CPT/HCPCS: 93225; 93226 ==

== ENCOUNTER → 2025-03-20 12:30 | Outpatient (REF) | payer MEDICARE, OTHER, SELFPAY | LOC: REG 12:30 | PROVIDERS: ATTENDING PHYSICIAN Urology; FAMILY PHYSICIAN Internal Medicine | DX: R97.20 Elevated prostate specific antigen [PSA] (principal) | CPT/HCPCS: 36415; 84153; 84154 ==

== ENCOUNTER → 2025-07-10 10:59 | Outpatient (REF) | payer MEDICARE, OTHER, SELFPAY ==
[2025-07-10 12:11] LABS: Hematocrit 36.9 % (39.0-52.0); Hemoglobin 12.8 g/dL (13.0-18.0); Mean Corp Hgb Conc. 34.7 g/dL (33.0-37.0); Mean Corpuscular Volume 102.8 fL (80.0-94.0); Nucleated Red Blood Cells % 0 % (-); Red Cell Dist. Width 12.3 % (11.5-14.5)
[2025-07-10 12:30] LABS: Urine Character Clear (Clear)
[2025-07-10 12:51] LABS: Glycohemoglobin (HgbA1c) 5.6 % (4.0-5.6)
[2025-07-10 13:02] LABS: ALT (SGPT) 39 U/L (0-50); AST (SGOT) 21 U/L (17-59); Albumin 4.6 g/dl (3.5-5.0); Alkaline Phosphatase 43 U/L (38-126); Blood Urea Nitrogen 18 mg/dl (9-20); Calcium 9.0 mg/dl (8.4-10.2); Carbon Dioxide 25 mmol/L (22-30); Chloride 106 mmol/L (98-107); Glucose 100 mg/dl (70-99); HDL Cholesterol 73 mg/dl; LDL Cholesterol, Calculated 40 mg/dl; Potassium 4.1 mmol/L (3.5-5.1); Sodium 139 mmol/L (135-145); Total Protein 6.8 g/dl (6.3-8.2); Very Low Density Lipoprotein 38 mg/dl (0-30); eGFR > 60.00
[2025-07-10 13:12] LABS: Microalb - Urine Creatinine 66.100 mg/dl
[2025-07-10 13:17] LABS: Microalbumin, Random Urine 8.5 mg/dl (0.6-1.7)
[2025-07-10 13:40] LABS: Platelet Count 96 10^3/uL (130-400)
== END ==
LOC: REG 10:59
PROVIDERS: ATTENDING PHYSICIAN Specialist; FAMILY PHYSICIAN Internal Medicine
DX: N18.31 Chronic kidney disease, stage 3a (principal); E11.65 Type 2 diabetes mellitus with hyperglycemia; E78.2 Mixed hyperlipidemia; M04.8 Other autoinflammatory syndromes
CPT/HCPCS: 80053; 80061; 81003; 82043; 82570; 83036; 83970; 84100; 84156; 85025

== ENCOUNTER → 2025-08-05 14:57 | Outpatient (REF) | payer MEDICARE, OTHER, SELFPAY ==
[2025-08-05 16:29] LABS: Hematocrit 43.2 % (39.0-52.0); Hemoglobin 14.7 g/dL (13.0-18.0); Mean Corp Hgb Conc. 34.0 g/dL (33.0-37.0); Mean Corpuscular Volume 103.8 fL (80.0-94.0); Nucleated Red Blood Cells % 0 % (-); Platelet Count 107 10^3/uL (130-400); Red Cell Dist. Width 12.9 % (11.5-14.5)
[2025-08-05 16:31] LABS: ALT (SGPT) 39 U/L (0-50); AST (SGOT) 21 U/L (17-59); Albumin 4.6 g/dl (3.5-5.0); Alkaline Phosphatase 50 U/L (38-126); Blood Urea Nitrogen 22 mg/dl (9-20); Calcium 9.9 mg/dl (8.4-10.2); Carbon Dioxide 24 mmol/L (22-30); Chloride 102 mmol/L (98-107); Glucose 152 mg/dl (70-99); Potassium 4.4 mmol/L (3.5-5.1); Sodium 137 mmol/L (135-145); Total Protein 7.2 g/dl (6.3-8.2); eGFR 52.41
[2025-08-05 16:51] LABS: C-Reactive Protein 164.50 mg/L (0.0-10.00)
== END ==
LOC: REG 14:57
PROVIDERS: ATTENDING PHYSICIAN Nurse Practitioner Family; FAMILY PHYSICIAN Internal Medicine
DX: M04.8 Other autoinflammatory syndromes (principal); I10 Essential (primary) hypertension; N18.32 Chronic kidney disease, stage 3b; I35.0 Nonrheumatic aortic (valve) stenosis; R06.02 Shortness of breath
CPT/HCPCS: 36415; 71046; 80053; 83880; 85025; 85652; 86140; 93005

== ENCOUNTER 2025-09-22 16:59 | Emergency (ER) | payer MEDICARE, OTHER, SELFPAY ==
[2025-09-22 17:05] VITALS: BP 140/77
[2025-09-22 17:16] VITALS: BP 161/90
[2025-09-22 17:51] VITALS: BMI 31.4
[2025-09-22 18:00] VITALS: BP 127/91
[2025-09-22 18:41] LABS: Hematocrit 43.4 % (39.0-52.0); Hemoglobin 14.8 g/dL (13.0-18.0); Mean Corp Hgb Conc. 34.1 g/dL (33.0-37.0); Mean Corpuscular Volume 102.4 fL (80.0-94.0); Red Cell Dist. Width 14.3 % (11.5-14.5)
[2025-09-22 18:52] LABS: ALT (SGPT) 77 U/L (0-50); AST (SGOT) 39 U/L (17-59); Albumin 4.4 g/dl (3.5-5.0); Alkaline Phosphatase 40 U/L (38-126); Blood Urea Nitrogen 36 mg/dl (9-20); Calcium 9.0 mg/dl (8.4-10.2); Carbon Dioxide 19 mmol/L (22-30); Chloride 106 mmol/L (98-107); Estimated Creatinine Clearance 47 ml/min; Glucose 192 mg/dl (70-99); Magnesium 2.4 mg/dl (1.6-2.3); Potassium 5.3 mmol/L (3.5-5.1); Sodium 134 mmol/L (135-145); Total Protein 6.8 g/dl (6.3-8.2); eGFR 52.41
--- NOTE | 2025-09-22 18:56 | ED.GENMED ---
History of Present Illness
General
Chief Complaint: Heart Rate Problem
Source: patient
Time Seen by Provider: 09/22/25 17:22
History of Present Illness
History of Present Illness:
Note:
CHIEF COMPLAINT(S)
Irregular heart rhythm, noted as atrial fibrillation, detected twice today via watch notification.
HISTORY OF PRESENT ILLNESS
The patient is a 75-year-old male with a history of asthma and prior strokes. He presented with two recent notifications of atrial fibrillation (AFib) detected today via his watch. He mentions a previous Holter monitor test in January which he was not
followed up on. The patient reports experiencing a sensation of tension and a pinching in the left side of his chest, which he attributes to stress and states has been present for decades. He does not report palpitations or other acute symptoms
related to the AFib. The patient recalls that his heart rhythm felt 'way off' during a gastrointestinal procedure in January. His screener perfumer has not prescribed blood thinners since then. The patient also has a rare genetic bone marrow condition.
Today, his heart rate remains relatively controlled around 100 beats per minute.
PAST MEDICAL AND SURGICAL HISTORY
- Asthma
- Cerebral amyloid angiopathy
- History of two strokes
CHRONIC MEDICAL CONDITIONS SIGNIFICANTLY AFFECTING CARE
- Asthma
- Cerebral amyloid angiopathy
ADDITIONAL HISTORY OBTAINED FROM SOURCE OTHER THAN THE PATIENT
Per the patients screener perfumer, he was not previously placed on blood thinners post-strokes due to ongoing evaluations.
SOCIAL HISTORY
The patient does not sleep with his watch but wears it during the day. He travels with family and friends who can provide transportation support as needed.
MEDICATIONS
The patient was previously on a blood thinner for unknown reasons and had no adverse effects. Current medications were not specified.
PHYSICAL EXAM
General: Alert, no acute distress.
Skin: Warm, dry.
Head: Normocephalic, atraumatic.
Neck: Supple, trachea midline.
Eyes, Ears, Nose, Mouth, and Throat: Oral mucosa moist.
Cardiovascular: Normal peripheral perfusion, No edema.
Respiratory: Respirations are non-labored.
Gastrointestinal: Abdomen nondistended.
Back: Normal range of motion, normal alignment.
Musculoskeletal: Normal range of motion, normal strength.
Neurological: Alert and oriented to person, place, time, and situation, no focal neurological deficit observed.
Psychiatric: Cooperative, appropriate mood & affect.
PROBLEM LIST
Acute:
- Atrial fibrillation
Chronic:
- Asthma
- Cerebral amyloid angiopathy
- Rare genetic bone marrow disorder
PLAN
- Administer IV diltiazem to control heart rate and potentially facilitate conversion to normal sinus rhythm.
- Monitor heart rate and rhythm; discharge plans contingent upon rate control.
- Conduct laboratory work to check electrolytes and blood counts.
- Plan to start blood thinners to mitigate stroke risk associated with AFib.
- Cardiology follow-up for ongoing management and potential cardioversion if necessary.
DIFFERENTIAL DIAGNOSIS
The Differential Diagnosis includes, in no particular order and is not limited to:
- Atrial fibrillation
- Atrial flutter
- Paroxysmal supraventricular tachycardia
- Myocardial infarction
- Congestive heart failure
- Hypertensive heart disease
- Hyperthyroidism
- Valvular heart disease
- Pulmonary embolism
- Anemia
EKG
My independent EKG interpretation is:
- Rhythm: Atrial fibrillation with a variable rate.
- Heart Rate: Approximately 106 bpm.
- [place]: Left axis deviation.
- QRS Duration: Normal.
- ST Segment Changes: No acute ischemic changes.
Disposition:
SUMMARY OF ENCOUNTER
The patient is a 75-year-old male who presented to the emergency department with atrial flutter with variable block and a rapid heart rate. During the ED stay, the patient successfully converted back to a normal sinus rhythm. Laboratory tests
revealed chronic renal insufficiency with a creatinine level of 1.4, a potassium level of 5.3, and mild hypoglycemia with a blood sugar level of 192. The CBC was unremarkable except for the pending platelet count. The patient was previously using a
blood thinner and plans to discuss its long-term use with his screener perfumer. He is well-appearing and ready for discharge.
In light of his history of bone marrow disorder and thrombocytopenia, case discussed with hematology at [facility]. In light of his history and his findings today with a Huan Vas score of 3, he agrees with starting Eliquis. Patient
will have outpatient follow-up. Prefers repeat labs in 1 week. Patient has tolerated Eliquis in the past.
DISPOSITION
Discharge.
ASSESSMENT
The patient initially presented with atrial flutter with a variable block and rapid heart rate but converted to normal sinus rhythm during the emergency department stay. Mild hypoglycemia and slightly elevated potassium were noted. Chronic renal
insufficiency is present.
EMERGENCY TREATMENTS ADMINISTERED
The patient converted back to normal sinus rhythm, implying possible use of rate or rhythm control measures.
FOLLOW-UP INSTRUCTIONS
The patient should talk to his screener perfumer about the long-term use of blood thinners, specifically the option of long-term anticoagulation, such as apixaban (Eliquis), based on his past tolerance.
MEDICATION RECONCILIATION
The patient was advised regarding his current medications, particularly the need to discuss with his doctor about the cessation or management of antiarrhythmic drugs or blood thinners. He was previously on apixaban (Eliquis).
MEDICAL DECISION MAKING
1. Number and Complexity of Problems Addressed: Chronic conditions affecting care include atrial flutter, chronic renal insufficiency, and past tolerance of anticoagulation. Differential diagnosis included in assessment: atrial flutter, atrial
fibrillation, myocardial infarction, and congestive heart failure.
2. Data: Amount and/or Complexity of Data Reviewed and Analyzed
Category 1
Non-emergency department records reviewed, including patient history of medication use and lab tests for renal function, electrolytes, and CBC.
Category 2
My independent interpretation of EKG confirmed atrial flutter converted to normal sinus rhythm.
Category 3
Discussion of management with the patient regarding anticoagulation management and potential discontinuation of current medications.
3. Risk: The patients risk was managed considering the potential for arrhythmia recurrence, persistent high potassium levels, or renal function worsening but deemed safe for discharge with close follow up.
Consideration of Admission/Observation: Escalation of care including admission/observation was considered given the complexity and risk of the patients presenting complaint, exam findings, and/or their underlying comorbidities. However, ultimately I
feel the patient is safe for outpatient management with close follow-up. Reasoning: Work-up reassuring, does not reveal any acute life/organ-threatening processes, patients symptoms well controlled upon reevaluation, reexamination is reassuring,
vitals are stable, patient agreeable with discharge, reliable for follow-up.
DIAGNOSIS
- Atrial flutter (ICD-10: I48.92)
- Chronic renal insufficiency (ICD-10: N18.9)
- Hypoglycemia, unspecified (ICD-10: E16.2)
- Thrombocytopenia
Past History
Past History
ED Past Medical History: Asthma, HTN, Hypercholesterolemia and Other (Cataracts, impaired vision)
ED Past Surgical History: Orthopedic (Left knee surgery)
Social History
Tobacco: Non-smoker
Alcohol: Daily
Drug: None
Personal:
Living: with family
Phy Exam
Physical Exam
Physical Exam:
.
Scores
[id number] Score for Afib Stroke Risk
Age in Years (65=0, 65-74=1, >/=75=2): > or = 75
Sex (Female=+1): Male
Congestive Heart Failure History (Yes=+1): No
Hypertension History (Yes=+1): Yes
Stroke/TIA/Thromboembolism History (Yes=+2): No
Vascular Disease History (Yes=+1): No
Diabetes Mellitus (Yes=+1): No
Score: 3
Anticoagulation Recommendations: Recommend anticoagulation (as validated in nonvalvular fib)
Course
Orders/Labs/Results
Orders:
Orders
09/22/25 17:00
EKG [Electrocardiogram (*1)] Urgent
Reason for Study: Tachycardia
EKG- Treatment ONCE
09/22/25 17:39
Diltiazem 125 mg/125 ml Nss [Cardizem] 125 mg in 125 ml IV NOW
Initial dose in mg/hr, then titrate:: 5
Titrate to keep:: Heart rate 80-100 bpm
Titrate by mg/hr:: 5 mg/hr
Frequency of titrations (minutes):: 15
Maximum dose in mg/hr:: 15
Diltiazem HCl [Cardizem] 10 mg IV NOW STA
09/22/25 17:54
EKG [Electrocardiogram (*1)] Urgent
Reason for Study: Tachycardia
EKG- Treatment ONCE
09/22/25 18:11
Complete Blood Count/With Diff Urgent
Comprehensive Metabolic Panel Urgent
Magnesium Urgent
Manual Differential Urgent
TSH Urgent
09/22/25 19:05
Apixaban [Eliquis] 5 mg PO NOW STA
Diltiazem Extended Release [Cardizem Cd] 120 mg PO NOW STA
09/22/25 20:42
Apixaban [Eliquis] 5 mg PO NOW STA
Abnormal Lab Results
09/22/25
18:11
WBC 4.4 L 10^3/uL
(4.8-10.8)
RBC 4.24 L 10^6/uL
(4.70-6.10)
MCV 102.4 H fL
(80.0-94.0)
MCH 34.9 H pg
(27.0-31.0)
Plt Count 66 L 10^3/uL
(130-400)
MPV 11.4 H fL
(7.4-10.4)
Band Neutrophils 5 H %
(0-3)
Lymphocytes (Manual) 13 L %
(20-51)
Sodium 134 L mmol/L
(135-145)
Potassium 5.3 H mmol/L
(3.5-5.1)
Carbon Dioxide 19 L mmol/L
(22-30)
BUN 36 H mg/dl
(9-20)
Creatinine 1.4 H mg/dL
(0.7-1.3)
Glucose 192 H mg/dl
(70-99)
Magnesium 2.4 H mg/dl
(1.6-2.3)
ALT 77 H U/L
(0-50)
09/22/25 18:11
09/22/25 18:11
Vital Signs
Initial and Last Documented VS:
Initial Vital Signs
Temp Pulse Resp BP Pulse Ox
97.7 F 105 22 140/77 98
09/22/25 17:05 09/22/25 17:05 09/22/25 17:05 09/22/25 17:05 09/22/25 17:05
Last Documented Vital Signs
Temp Pulse Resp BP Pulse Ox
97.7 F 78 19 143/94 97
09/22/25 17:05 09/22/25 20:15 09/22/25 20:15 09/22/25 19:41 09/22/25 18:57
*Pulse Oximetry
SaO2: 97
Oxygen Mode of Delivery: Room air
Patient hypoxic: no
*Critical Care Note
Total Time (30-74mins, 75-104mins- exclusive of procedures): 30 minutes
ED Attending Note
-
Portions of this chart may have been created with voice recognition software.� Occasional wrong word or��sound alike� substitutions may have occurred due to the inherent limitations of voice recognition software.
Discharge Plan
Departure
Patient Disposition: Home (Routine Discharge)
Date of Disposition: 09/22/25
Time of Disposition: 19:08
Patient with high blood pressure during this ER visit?: Yes
Discharge Problem:
Atrial fibrillation with RVR
Instructions: Atrial Fibrillation (DC), BLOOD PRESSURE
Prescriptions:
New
diltiazem HCl [Cardizem CD] 120 mg capsule,extended release 24hr
120 mg PO DAILY Qty: 30 0RF
Eliquis 5 mg tablet
5 mg PO BID Qty: 60 0RF
No Action
cyclosporine [Restasis] 0.05 % Dropperette
1 drp BOTH EYES BID
rosuvastatin 20 MG tablet
20 mg PO DAILY
Metamucil Fiber (aspartame) 1 PACKET powder in packet
1 packet PO BID
Nucala 100 mg/mL Syringe
300 mg SC Q4W
melatonin 10 mg Tablet
10 mg PO HS
sulfamethoxazole-trimethoprim [Bactrim DS] 800-160 mg tablet
1 tab PO MOWEFR
alendronate [Fosamax] 70 mg Tablet
70 mg PO TU
Theragen Tablet
1 tab PO DAILY
folic acid 1 mg Tablet
1 mg PO DAILY
colchicine 0.6 mg Tablet
0.6 mg PO DAILY
olmesartan [Benicar] 20 mg Tablet
20 mg PO DAILY
Actemra 162 mg/0.9 mL Syringe
162 mg SC Q2W
prednisone 20 mg tablet
20 mg PO DAILY
Breztri Aerosphere 160-9-4.8 mcg/actuation HFA aerosol inhaler
2 inh INHALATION R BID
pantoprazole 40 mg Tablet,Delayed Release (Dr/Ec)
40 mg PO DAILY 30 Days Qty: 30 0RF
Referrals:
Duglas Lorenzana DO [Family Provider, Internal Medicine]
Activity Restrictions/Additional Instructions:
Please see your doctor and screener perfumer next 3 to 5 days for follow-up and reevaluation. Return immediately for palpitations, shortness of breath, bleeding of any kind or any other concerns. Please have your doctor review your labs and discuss
further use of Bactrim.
As recommended by your collar baster, please have repeat laboratory studies in 1 week.
Interventions
Interventions:
*Risk Screen - Suicide Last Done: 09/22/25 17:09
*General Assessment Last Done: 09/22/25 17:09
*Neglect/Abuse Screening Last Done: 09/22/25 17:09
*ED COVID-19 Vaccine History Last Done: 09/22/25 17:51
*ED Influenza Vaccine History Last Done: 09/22/25 17:51
[facility] Fall Risk Assessment Tool Last Done: 09/22/25 18:09
ED- Cardiac Assessment Last Done: 09/22/25 18:07
ED- Pulmonary Assessment Last Done: 09/22/25 18:08
Discharge Date and Time
Print Language: SAMI
[2025-09-22 19:26] LABS: Platelet Count 66 10^3/uL (130-400)
[2025-09-22 19:38] LABS: Absolute Neutrophils -Man Diff 3.2 10^3/uL (1.4-6.5)
[2025-09-22 19:39] LABS: Macrocytosis 2+; Normal RBC Morphology No; Platelets Checked Yes; Total Cells Counted 100
[2025-09-22 19:41] VITALS: BP 143/94
[2025-09-22] MEDS: CARDIZEM CD 120 MG PO (19:41)
[2025-09-22 20:36] LABS: TSH 0.89 uIU/ml (0.47-4.68)
[2025-09-22] MEDS: ELIQUIS 5 MG PO (20:50)
== END 2025-09-22 21:11 | disposition home or self-care (01) ==
LOC: EMR 16:59
PROVIDERS: EMERGENCY PHYSICIAN Emergency Medicine; FAMILY PHYSICIAN Internal Medicine
DX: I48.91 Unspecified atrial fibrillation (principal); I12.9 Hypertensive chronic kidney disease with stage 1 through stage 4 chronic kidney disease, or unspecified chronic kidney disease; N18.9 Chronic kidney disease, unspecified; D69.6 Thrombocytopenia, unspecified; E78.00 Pure hypercholesterolemia, unspecified; J45.909 Unspecified asthma, uncomplicated; Z86.73 Personal history of transient ischemic attack (TIA), and cerebral infarction without residual deficits
CPT/HCPCS: 99284; 80053; 83735; 84443; 85025; 93005